=== PATIENT | female | born 1955 | race Caucasian/White ===

== ENCOUNTER 2016-07-19 10:24 | Emergency (ER) | payer OTHER ==
[~2016-07-19 10:24] MED LIST: ACET-1311 PO; ASPI81TA28 PO; ATOR-22 PO; ATV1 PO; ERGO1CAP35 PO; GEMF600T3 PO; GLC/500 PO; LEVO50TA PO; METO50TA16 PO; PROM25TA PO
[2016-07-19 10:29] VITALS: TEMP 36.7
[2016-07-19] MEDS ORDERED: KETOROLAC TROMETHAMINE 60 MG/2 ML VIAL IM STA (11:00)
[2016-07-19] MEDS ORDERED: HYDROmorphone INJ 0.5 MG/0.5 ML SYR IM ONE (11:00)
--- NOTE | 2016-07-19 12:03 | DIAGNOSTIC IMAGING REPORT ---
LUMBAR SPINE 2 OR 3 VIEWS CLINICAL HISTORY: lower back pain COMPARISON STUDY: No previous studies for comparison. FINDINGS: There are moderate multilevel degenerative changes with multilevel disc space narrowing. There is mild osteophyte formation. No acute fractures or traumatic subluxations are visualized. There is no pathologic bowel dilatation. There are multiple nonspecific pelvic basin calcifications. There is a 3 mm calcification projected over the upper pole the right kidney. This may represent a renal calculus. There is an eggshell calcification projected over the right iliac bone. This was present on the prior abdominal CT scan performed in May 2015, and all likelihood is benign.. IMPRESSION: 1. Moderate multilevel degenerative change 2. No fractures, subluxations, or destructive lesions are visualized. Electronically signed by: Yovani Benjamin M.D. 07/19/2016 12:02 PM Dictated Date/Time: 07/19/2016 12:00 PM
[2016-07-19] MEDS ORDERED: MoRPHine SULFATE 4 MG/ML 1 ML CARP\\VIAL IV STA (12:38)
[2016-07-19] MEDS ORDERED: OXYC1TAB3 PO (12:40)
[2016-07-19] MEDS ORDERED: MoRPHine SULFATE 4 MG/ML 1 ML CARP\\VIAL IM STA (12:45)
[2016-07-19 13:24] VITALS: BP 187/106; PULSE 77; O2SAT 97
--- NOTE | 2016-07-19 15:00 | EMERGENCY ROOM VISIT NOTE ---
History Report prepared by Isela: Betty Ware Under the Supervision of: Dr. Vasquez Gerardo D.O. First contact with patient: 10:36 Chief Complaint: BACK PAIN Stated Complaint: BACK PAIN History of Present Illness The patient is a 61 year old female who presents to the Emergency Room with complaints of worsening lower back pain that started one week ago. The patient speaks [place], but her friend from [place] translated for her. The patient states that the pain worsened 3 days ago, but was significantly worse today. The pain does not radiate. The pain is worse with movement and deep breaths but only located in the lower back. She denies any chest pain including any chest pain with deep breathing. Pt also denies headache, fevers greater than 100.4, cough, rhinorrhea, chest pain, shortness of breath, abdominal pain, nausea, vomiting, diarrhea, pain or burning with urination, numbness in legs including groin numbness, weakness, and trouble urinating or having bowel movements. She denies doing anything strenuous to cause the pain and she also denies any recent trauma to her back. The patient has never experienced this pain in the past. The patient adds that she has pain in her legs, but that is secondary to arthritis. The patient has a history of hypertension and high hemoglobin. Source of History: patient, friend Onset: one week ago Position: back (lower) Quality: other (lower back pain) Timing: worsening Modifying Factors (Worsening): breathing (deep), movement Associated Symptoms: No SOB, No abdominal pain, No chest pain, No cough, No diarrhea, No fevers, No headache, No nausea, No numbness (including groin numbness), No urinary symptoms (pain or burning with urination), No vomiting, No weakness Note: no rhinorrhea, no trouble urinating or having bowel movements Review of Systems See HPI for pertinent positives & negatives. A total of 10 systems reviewed and were otherwise negative. Past Medical & Surgical Medical Problems: (1) Hypertension Family History Hypertension Social History Smoking Status: Never Smoker Alcohol Use: none Marital Status: Housing Status: lives with family Current/Historical Medications Scheduled Metoprolol Tartrate (Lopressor) (Lopressor), 50 MG PO BID Scheduled PRN Oxycodone Immediate Rel Tab (Roxicodone Ir), 5 MG PO Q6H PRN for Pain Allergies Coded Allergies: No Known Allergies (Verified , 11/12/02) Physical Exam Vital Signs Date Time Temp Pulse Resp B/P Pulse Ox O2 Delivery O2 Flow Rate FiO2 07/19/16 13:24 77 18 187/106 97 07/19/16 13:00 77 18 187/106 97 Room Air 07/19/16 10:29 36.7 96 18 195/97 95 Room Air Physical Exam GENERAL: alert, sitting up on edge of bed holding lower back, disheveled, well appearing, well nourished, no distress, non-toxic EYE EXAM: normal conjunctiva OROPHARYNX: no exudate, no erythema, lips, buccal mucosa, and tongue normal and mucous membranes are moist NECK: supple, no nuchal rigidity, no adenopathy, non-tender LUNGS: Clear to auscultation. Normal chest wall mechanics HEART: no murmurs, S1 normal and S2 normal ABDOMEN: abdomen soft, non-tender, normo-active bowel sounds, no masses, no rebound or guarding. BACK: Back is symmetrical on inspection and there is no deformity, acute reproducible tenderness in lower lumbar midline and bilateral paraspinal regions, no deformities or step-offs, no CVA tenderness. SKIN: no rashes and no bruising UPPER EXTREMITIES: upper extremities are grossly normal. LOWER EXTREMITIES: Flexion/extension of hip, knee, ankle, EHL 5/5 bilaterally, unable to obtain patellar and Achilles reflexes as patient would not relax, gross sensations intact. NEURO EXAM: Alert, following commands, speaks Bangladeshi, cranial nerves II-XII grossly intact, normal speech, no gross weakness of arms Medical Decision & Procedures ER Provider Diagnostic Interpretation: Radiology results as stated below per my review and the radiologist's interpretation: LUMBAR SPINE 2 OR 3 VIEWS FINDINGS: There are moderate multilevel degenerative changes with multilevel disc space narrowing. There is mild osteophyte formation. No acute fractures or traumatic subluxations are visualized. There is no pathologic bowel dilatation. There are multiple nonspecific pelvic basin calcifications. There is a 3 mm calcification projected over the upper pole the right kidney. This may represent a renal calculus. There is an eggshell calcification projected over the right iliac bone. This was present on the prior abdominal CT scan performed in May 2015, and all likelihood is benign.. IMPRESSION: 1. Moderate multilevel degenerative change 2. No fractures, subluxations, or destructive lesions are visualized. Electronically signed by: Yovani Benjamin M.D. 07/19/2016 12:02 PM Dictated Date/Time: 07/19/2016 12:00 PM Medications Administered Medications (Trade) Dose Ordered Sig/Cristina Route Start Time Stop Time Status Last Admin Dose Admin Ketorolac Tromethamine (Toradol Inj) 30 mg NOW STAT IM 07/19/16 11:00 07/19/16 11:02 DC 07/19/16 11:16 30 MG Hydromorphone HCl (Dilaudid Inj) 0.5 mg NOW ONCE IM 07/19/16 11:00 07/19/16 11:02 DC 07/19/16 11:16 0.5 MG Morphine Sulfate (MoRPHine SULFATE INJ) 4 mg NOW STAT IM 07/19/16 12:45 07/19/16 12:47 DC 07/19/16 12:56 4 MG ED Course ED COURSE: Vital signs were reviewed and showed hypertension. The patients medical record was reviewed The above diagnostic studies were performed and reviewed. ED treatments and interventions as stated above. 1049: The patient was evaluated in room B5. A complete history and physical examination was performed. 1100: Ordered Dilaudid Inj 0.5 mg IM, Toradol Inj 30 mg IM 1230: Upon reevaluation, the patient is doing well. I discussed my findings with the patient and she understands and agrees with the treatment plan. Based on the patients age, coexisting illnesses, exam and lab findings the decision to treat as an outpatient was made. The patient remained stable while under my care. The patient appeared well at the time of discharge. 1245: Ordered Morphine sulfate 4 mg IM Medical Decision Differential diagnoses includes but is not limited to lumbar radiculopathy, muscle strain, facture, cauda equina, mass, and disc herniation. Patient is a 61-year-old female up since the ER for lower back pain which is been present for the past week and gradually worsening since this past Tuesday. She notes that twisting turning or bending exacerbates her symptoms. Rest and laying down almost completely alleviates them. No signs of saddle paresthesia. Able to ambulate without difficulty. Neurologically and vascularly intact. X -rays of the lumbar spine show no acute fractures. On exam and based on her history I do believe that this is likely muscle skeletal in nature. She was given IM injection of Dilaudid, Toradol and IM with significant improvement of the symptoms. Patient was discharged with OxyIR to follow-up with primary care doctor as this is likely muscle skeletal back pain. Discussed with Pt concerning signs and symptoms to watch out for. Pt was instructed to follow up with their PCP and discussed with the patient their option to return to the ED at anytime for persistent or worsening symptoms. The appropriate anticipatory guidance and out-patient management, including indications for return to the emergency department, were explained at length to the patient and understood. Impression Primary Impression: Lower back pain Scribe Attestation The scribe's documentation has been prepared under my direction and personally reviewed by me in its entirety. I confirm that the note above accurately reflects all work, treatment, procedures, and medical decision making performed by me. Departure Information Dispostion Home / Self-Care Prescriptions Oxycodone Immediate Rel Tab (ROXICODONE IR) 5 Mg Tab 5 MG PO Q6H Y for Pain, #15 TAB Prov: Vasquez Gerardo, DO 07/19/16 Referrals RV. Crenshaw MD (PCP) Forms HOME CARE DOCUMENTATION FORM, IMPORTANT VISIT INFORMATION Patient Instructions Back Pain - [facility], My [facility] Additional Instructions Please follow up with your primary care doctor with in the next 24 hours. Any worsening of your symptoms, please return to the ED immediately. This includes weakness or numbness in arms or legs, numbness in her groin, inability to walk, fevers greater than 100.4, unable to urinate, or any other concerning signs or symptoms from your standpoint. Please follow up with your primary care doctor in regards to your hypertension. You were given medications during this visit that will inhibit your ability to drive, operate machinery and work. Please do NOT drive, operate machinery or work for the next 12hrs. You were also given a prescription for a narcotic/oxy. While taking this medication you should also not drive, operate machinery and or work. Problem Qualifiers Primary Impression: Lower back pain Chronicity: acute Back pain laterality: bilateral Sciatica presence: without sciatica Qualified Codes: M54.5 - Low back pain
== END 2016-07-19 13:24 | disposition home or self-care (01) ==
LOC: C.EDB 10:26
DX: M54.5 Low back pain (principal); I10 Essential (primary) hypertension; M19.90 Unspecified osteoarthritis, unspecified site; Z82.49 Family history of ischemic heart disease and other diseases of the circulatory system; Z79.899 Other long term (current) drug therapy

== ENCOUNTER 2016-09-21 09:41 | Emergency (ER) | payer OTHER ==
[~2016-09-21] VITALS: Ht 165.1 cm; Wt 98.4 kg
[~2016-09-21 09:41] MED LIST changes: -ACET-1311 PO; -ASPI81TA28 PO; -ATOR-22 PO; -ATV1 PO; -ERGO1CAP35 PO; -GEMF600T3 PO; -GLC/500 PO; -LEVO50TA PO; +OXYC1TAB3 PO; -PROM25TA PO
[2016-09-21 09:42] VITALS: TEMP 36.7; Ht 165.1 cm; Wt 98.4 kg
[2016-09-21] MEDS ORDERED: KETOROLAC TROMETHAMINE 30 MG/ML VIAL IV STA (10:15)
[2016-09-21 10:55] LABS: BASO % 0.4 %; BASO ABS # 0.03 K/uL (0-0.2); COMPLETE YES; IG% 1.5 %; LYMPH % 18.8 %; LYMPH ABS # 1.34 K/uL (1.2-3.4); MEAN CELL VOLUME 89.4 fL (80-100); MEAN CORPUSCULAR HEMOGLOBIN 30.2 pg (25-34); MEAN CORPUSCULAR HGB CONC 33.8 g/dl (32-36); MONO % 11.6 %; NEUT % 65.7 %; PLATELET COUNT 277 K/uL (130-400); RED BLOOD COUNT 5.93 M/uL (4.2-5.4); WHITE BLOOD COUNT 7.14 K/uL (4.8-10.8)
--- NOTE | 2016-09-21 10:58 | EMERGENCY ROOM VISIT NOTE ---
History Report prepared by Isela: Onofre Monge Under the Supervision of: Dr. Tadeo Brown M.D. First contact with patient: 10:08 Chief Complaint: HIP PAIN Stated Complaint: PAIN INTO HIP AND SPINE History of Present Illness The patient is a 61 year old female who presents to the Emergency Room with complaints of intermittent low back pain beginning two years ago. She states that she occasionally has pain in her bilateral legs and hips as well. She states that her pain today was present in her low back as well as throughout her legs. The patient states that she woke up with her current pain. She denies any known trauma. She also complains of a headache. The patient denies any chest pain, SOB, fevers, numbness, diarrhea, loss of bowel or bladder continence , or weakness. She has been seen in the ED for similar symptoms. Source of History: patient Onset: Two years ago Position: back (lower) Timing: intermittent Associated Symptoms: + headache, No fevers, No chest pain, No SOB, No diarrhea, No weakness, No numbness Note: The patient also complains of pain throughout her legs. She denies any loss of bowel or bladder continence. Review of Systems See HPI for pertinent positives & negatives. A total of 10 systems reviewed and were otherwise negative. Past Medical & Surgical Medical Problems: (1) Hypertension Old medical records were reviewed. Nurse's notes were reviewed and I agree with. Family History Hypertension Social History Smoking Status: Never Smoker Alcohol Use: none Marital Status: Housing Status: lives with family Current/Historical Medications Scheduled Cephalexin Monohydrate (Keflex), 500 MG PO BID Methylprednisolone (Medrol Dosepak), 0 PO DAILY Metoprolol Tartrate (Lopressor) (Lopressor), 50 MG PO BID Scheduled PRN Oxycodone Immediate Rel Tab (Roxicodone Ir), 1 TAB PO Q6 PRN for Severe Pain Allergies Coded Allergies: No Known Allergies (Verified , 09/21/16) Physical Exam Vital Signs Date Time Temp Pulse Resp B/P (MAP) Pulse Ox O2 Delivery O2 Flow Rate FiO2 09/21/16 13:32 87 18 211/115 94 09/21/16 11:32 81 18 180/122 96 Room Air 09/21/16 09:42 36.7 104 18 203/97 97 Room Air Physical Exam General: non ill appearing older female in no acute distress HEENT: Normal cephalic atraumatic. Pupils are equal round and reactive to light. Extraocular movements are intact. Oropharynx is pink with moist mucous membranes. No swelling of the mouth lips or tongue. Neck: Supple with a midline trachea. No meningeal signs or stiffness, no JVD or bruits. No Stridor. Chest: Clear to auscultation bilaterally. No wheezes or rhonchi. No increased work of breathing. Heart: regular rate and rhythm. Abdomen: Soft nontender, nondistended without rebound guarding or rigidity. Extremities: Pain along the left SI joint which is palpable as well as pain down the left leg. Normal motor and sensation. Spine/Back. Non tender to palpation. No CVA tenderness Skin: Good turgor without rashes. Neurologic exam: Cranial nerves two through 12 are intact. Motor and sensation are intact and symmetrical throughout. Medical Decision & Procedures ER Provider Diagnostic Interpretation: CT results as stated below per my review and radiologist interpretation: LUMBAR SPINE WITHOUT FINDINGS: Vertebral body stature is normal throughout. Moderate degenerative intervertebral disc change throughout the entire lumbar region. Vacuum discs at L4-L5 and L5-S1. Small air pocket posterior to L5 most likely representing extruded disc air. This is on a degenerative basis. Transaxial images confirm degenerative sclerosis and vacuum discs involving the L5-S1 regions bilaterally. There is no evidence for bony ankylosis. There are moderate degenerative changes of posterior facets throughout the entire lumbar region. No major compromise of the spinal canal is appreciated by CT criteria. IMPRESSION: 1. Moderate to rather significant degenerative disc change throughout the entire lumbar region. 2. No evidence for major compromise of the spinal canal. 3. Considerable degenerative sclerosis and vacuum joint changes of the sacroiliac joints bilaterally The above report was generated using voice recognition software. It may contain grammatical, syntax or spelling errors. Electronically signed by: Keon Morris M.D. PELVIS NO IV/ORAL CONT (CT) FINDINGS: Ovoid peripherally calcified structure, 1.6 x 1.1 cm within the right lower quadrant mesentery is unchanged and nonspecific. Appendix appears normal. There is asymmetric prominence of the left fundal uterus compatible with uterine fibroids. No bowel obstruction. Patient obesity is noted with portions of the anterior pelvic wall excluded from the [id number]. Bones are moderately demineralized which limits evaluation for acute nondisplaced fracture. Degenerative changes are seen within the bilateral sacroiliac joints. Bone islands involve the left acetabulum. There is spurring at the bilateral ischial tuberosities at the hamstring insertion sites. The sacrum appears intact without insufficiency fracture. Lower lumbar levels also appear intact with intervertebral disc space narrowing and endplate spurring seen at several levels. There is subtle linear sclerosis of the S1 vertebral body which is unchanged from 06/04/2015 suggesting degenerative changes. IMPRESSION: 1. No acute sacral or pelvic fracture identified. 2. Mild inflammatory stranding anterior to the urinary bladder lumen may reflect cystitis in the appropriate clinical setting. 3. Fibroid uterus. The above report was generated using voice recognition software. It may contain grammatical, syntax or spelling errors. Electronically signed by: Apollo Holman M.D. Laboratory Results 09/21/16 10:42 Red Blood Count 5.93, Mean Corpuscular Volume 89.4, Mean Corpuscular Hemoglobin 30.2, Mean Corpuscular Hemoglobin Concent 33.8, Mean Platelet Volume 10.0, Neutrophils (%) (Auto) 65.7, Lymphocytes (%) (Auto) 18.8, Monocytes (%) (Auto) 11.6, Eosinophils (%) (Auto) 2.0, Basophils (%) (Auto) 0.4, Neutrophils # (Auto ) 4.69, Lymphocytes # (Auto) 1.34, Monocytes # (Auto) 0.83, Eosinophils # (Auto ) 0.14, Basophils # (Auto) 0.03 09/21/16 10:42 Test 09/21/16 10:42 09/21/16 12:07 White Blood Count 7.14 K/uL (4.8-10.8) Red Blood Count 5.93 M/uL (4.2-5.4) Hemoglobin 17.9 g/dL (12.0-16.0) Hematocrit 53.0 % (37-47) Mean Corpuscular Volume 89.4 fL (80-100) Mean Corpuscular Hemoglobin 30.2 pg (25-34) Mean Corpuscular Hemoglobin Concent 33.8 g/dl (32-36) Platelet Count 277 K/uL (130-400) Mean Platelet Volume 10.0 fL (7.4-10.4) Neutrophils (%) (Auto) 65.7 % Lymphocytes (%) (Auto) 18.8 % Monocytes (%) (Auto) 11.6 % Eosinophils (%) (Auto) 2.0 % Basophils (%) (Auto) 0.4 % Neutrophils # (Auto) 4.69 K/uL (1.4-6.5) Lymphocytes # (Auto) 1.34 K/uL (1.2-3.4) Monocytes # (Auto) 0.83 K/uL (0.11-0.59) Eosinophils # (Auto) 0.14 K/uL (0-0.5) Basophils # (Auto) 0.03 K/uL (0-0.2) RDW Standard Deviation 50.9 fL (36.4-46.3) RDW Coefficient of Variation 15.4 % (11.5-14.5) Immature Granulocyte % (Auto) 1.5 % Immature Granulocyte # (Auto) 0.11 K/uL (0.00-0.02) Anion Gap 11.0 mmol/L (3-11) Est Creatinine Clear Calc Drug Dose 74.3 ml/min Estimated GFR () 78.9 Estimated GFR (Non- 68.0 BUN/Creatinine Ratio 13.5 (10-20) Calcium Level 9.5 mg/dl (8.5-10.1) Urine Color DK YELLOW Urine Appearance CLOUDY (CLEAR) Urine pH 5.5 (4.5-7.5) Urine Specific [place] 1.033 (1.000-1.030) Urine Protein TRACE (NEG) Urine Glucose (UA) 1+ (NEG) Urine Ketones TRACE (NEG) Urine Occult Blood TRACE (NEG) Urine Nitrite NEG (NEG) Urine Bilirubin NEG (NEG) Urine Urobilinogen NEG (NEG) Urine Leukocyte Esterase MODERATE (NEG) Urine WBC (Auto) 10-30 /hpf (0-5) Urine RBC (Auto) 0-4 /hpf (0-4) Urine Hyaline Casts (Auto) 10-30 /lpf (0-5) Urine Epithelial Cells (Auto) >30 /lpf (0-5) Urine Bacteria (Auto) 2+ (NEG) Laboratory studies as stated above per my review. Medications Administered Medications (Trade) Dose Ordered Sig/Cristina Route Start Time Stop Time Status Last Admin Dose Admin Ketorolac Tromethamine (Toradol Inj) 30 mg NOW STAT IV 09/21/16 10:15 7/18/17 10:17 DC 09/21/16 10:49 30 MG Morphine Sulfate (MoRPHine SULFATE INJ) 4 mg NOW STAT IV 09/21/16 12:04 09/21/16 12:06 DC 09/21/16 12:15 4 MG Ondansetron HCl (Zofran Inj) 4 mg NOW STAT IV 09/21/16 12:04 09/21/16 12:06 DC 09/21/16 12:15 4 MG Cephalexin Monohydrate (Keflex Cap) 500 mg NOW ONCE PO 09/21/16 13:00 09/21/16 13:01 DC 09/21/16 13:26 500 MG ED Course 1010: Past medical records reviewed. The patient was evaluated in room B2, and a complete history and physical examination were performed. 1015: Ordered Toradol Inj 30 mg IV. 1129: I checked in on the patient. She is feeling better. 1204: I reassessed the patient. She denies any urinary symptoms, but continues to have pain. Ordered Morphine Sulfate 4 mg IV, Zofran Inj 4 mg IV. 1300: Ordered Keflex Cap 500 mg PO. Upon reevaluation, the patient is resting comfortably. I discussed the results and treatment plan with her. She verbalized agreement of the treatment plan. The patient was discharged home. Medical Decision Differentials include, but are not limited to; musculoskeletal, disc disease, cauda equine, trauma and electrolyte or metabolic abnormality. This patient comes in as described above. She was placed in room B2. She is having pain along her left SI joint. Hip she was seen back in July for this and had x-rays done here she's had no trauma. She's nothing since cauda equina syndrome. She is here with a friend who is driving IV access established and given Toradol IV. She was alsomorphine 4 mg IV and Zofran 4 mg IV is feeling much better.. She has no acute electrolyte or metabolic abnormalities. Urinalysis does suggest possible UTI although it somewhat contaminated. CAT scan of her abdomen is questions inflammation on Keflex to cover the possibility a UTI although she's no urinary symptoms present. Additionally, I will give her OxyIR needed for pain pill every 4-6 hours. She was warned that it could make her drowsy and do not take more before drinking, driving, working. She can also use a Medrol Dosepak. I think this most likely is related to degenerative disc disease spine disease. I do think she be discharged home. She was able to ambulate without difficulty. She should return if: increasing of pain, worsening symptoms, fever or chills, any new problems or concerns Impression Primary Impression: Lower back pain Additional Impressions: Sciatica UTI (urinary tract infection) Scribe Attestation The scribe's documentation has been prepared under my direction and personally reviewed by me in its entirety. I confirm that the note above accurately reflects all work, treatment, procedures, and medical decision making performed by me. Departure Information Dispostion Home / Self-Care Prescriptions Cephalexin Monohydrate (Keflex) 500 Mg Cap 500 MG PO BID for 7 Days, #14 CAP Prov: Tadeo Brown M.D. 09/21/16 Oxycodone Immediate Rel Tab (ROXICODONE IR) 5 Mg Tab 1 TAB PO Q6 Y for Severe Pain, #14 TAB Prov: Tadeo Brown M.D. 09/21/16 Methylprednisolone (MEDROL DOSEPAK) 4 Mg Leonardo 0 PO DAILY, #1 PKT Prov: Tadeo Brown M.D. 09/21/16 Referrals RV. Crenshaw MD (PCP) Forms HOME CARE DOCUMENTATION FORM, IMPORTANT VISIT INFORMATION, WORK / SCHOOL INSTRUCTIONS Patient Instructions My [facility] Additional Instructions Rest. Be careful getting up and down. Use ibuprofen 400 mg every 6 hours, take with food For more severe pain, use OxyIR 5 mg, 1 pill every 6 hours as needed OxyIR may make you drowsy do not take before drinking, driving, working Do not take OxyIR with any other medications that may make you drowsy Use Medrol Dosepak as directed-steroid. This will help decrease inflammation Take Keflex 500 mg twice a day for the next 7 daysantibiotic for possible infection Return if: Worsening of symptoms, numbness or weakness, change in bowel or bladder function, fever chills, any new problems or concerns. Doctor this week for recheck Problem Qualifiers
[2016-09-21 11:16] LABS: BUN/CREATININE RATIO 13.5 (10-20); CALCIUM 9.5 mg/dl (8.5-10.1); CREATININE 0.9 mg/dl (0.60-1.20); POTASSIUM 3.9 mmol/L (3.5-5.1)
--- NOTE | 2016-09-21 11:37 | DIAGNOSTIC IMAGING REPORT ---
LUMBAR SPINE WITHOUT CT DOSE: HISTORY: Pain eval for SI joint pain on left TECHNIQUE: Multiaxial CT images of the lumbar spine were performed and reformatted in the sagittal and coronal plane without the use of contrast. COMPARISON: None. FINDINGS: Vertebral body stature is normal throughout. Moderate degenerative intervertebral disc change throughout the entire lumbar region. Vacuum discs at L4-L5 and L5-S1. Small air pocket posterior to L5 most likely representing extruded disc air. This is on a degenerative basis. Transaxial images confirm degenerative sclerosis and vacuum discs involving the L5-S1 regions bilaterally. There is no evidence for bony ankylosis. There are moderate degenerative changes of posterior facets throughout the entire lumbar region. No major compromise of the spinal canal is appreciated by CT criteria. IMPRESSION: 1. Moderate to rather significant degenerative disc change throughout the entire lumbar region. 2. No evidence for major compromise of the spinal canal. 3. Considerable degenerative sclerosis and vacuum joint changes of the sacroiliac joints bilaterally The above report was generated using voice recognition software. It may contain grammatical, syntax or spelling errors. Electronically signed by: Keon Morris M.D. 09/21/2016 11:36 AM Dictated Date/Time: 09/21/2016 11:33 AM
--- NOTE | 2016-09-21 11:49 | DIAGNOSTIC IMAGING REPORT ---
PELVIS NO IV/ORAL CONT (CT) HISTORY: 61 years Female left hip/buttock pain COMPARISON: CT abdomen and pelvis 06/04/2015 TECHNIQUE: Multiple axial CT images of the pelvis were obtained without IV contrast. FINDINGS: Ovoid peripherally calcified structure, 1.6 x 1.1 cm within the right lower quadrant mesentery is unchanged and nonspecific. Appendix appears normal. There is asymmetric prominence of the left fundal uterus compatible with uterine fibroids. No bowel obstruction. Patient obesity is noted with portions of the anterior pelvic wall excluded from the [id number]. Bones are moderately demineralized which limits evaluation for acute nondisplaced fracture. Degenerative changes are seen within the bilateral sacroiliac joints. Bone islands involve the left acetabulum. There is spurring at the bilateral ischial tuberosities at the hamstring insertion sites. The sacrum appears intact without insufficiency fracture. Lower lumbar levels also appear intact with intervertebral disc space narrowing and endplate spurring seen at several levels. There is subtle linear sclerosis of the S1 vertebral body which is unchanged from 06/04/2015 suggesting degenerative changes. IMPRESSION: 1. No acute sacral or pelvic fracture identified. 2. Mild inflammatory stranding anterior to the urinary bladder lumen may reflect cystitis in the appropriate clinical setting. 3. Fibroid uterus. The above report was generated using voice recognition software. It may contain grammatical, syntax or spelling errors. Electronically signed by: Apollo Holman M.D. 09/21/2016 11:47 AM Dictated Date/Time: 09/21/2016 11:41 AM
[2016-09-21] MEDS ORDERED: MoRPHine SULFATE 4 MG/ML 1 ML CARP\\VIAL IV STA (12:04)
[2016-09-21] MEDS ORDERED: ONDANSETRON INJ 2 MG/ML 2 ML VIAL IV STA (12:04)
[2016-09-21] MEDS ORDERED: OXYC1TAB3 PO (12:08)
[2016-09-21] MEDS ORDERED: METH4PAK PO (12:08)
[2016-09-21 12:26] LABS: URINE APPEARANCE CLOUDY (CLEAR); URINE BILIRUBIN NEG (NEG); URINE COLOR DK YELLOW; URINE EPITHELIAL CELL AUTO >30 /lpf (0-5); URINE NITRITE NEG (NEG); URINE PH 5.5 (4.5-7.5); URINE SPECIFIC GRAVITY 1.033 (1.000-1.030); UROBILINOGEN NEG (NEG)
[2016-09-21 12:27] LABS: MANUAL MICROSCOPIC REQUIRED? NO; REVIEW REQ? NO
[2016-09-21] MEDS ORDERED: CEPHALEXIN MONOHYDRATE 250 MG CAP PO ONE (13:00)
[2016-09-21] MEDS ORDERED: CEPH500C PO (13:02)
[2016-09-21 13:32] VITALS: BP 211/115; PULSE 87; O2SAT 94
== END 2016-09-21 13:33 | disposition home or self-care (01) ==
LOC: C.EDB 09:42
DX: M54.42 Lumbago with sciatica, left side (principal); I10 Essential (primary) hypertension; Z82.49 Family history of ischemic heart disease and other diseases of the circulatory system; Z79.899 Other long term (current) drug therapy

== ENCOUNTER → 2016-09-30 | Outpatient (CLI) | payer OTHER ==
[~2016-09-30] MED LIST changes: +CHOL100010 PO; +CYCL5TAB PO; +DICL50TA3 PO; +LISI10TA PO; +LISI1TAB3 PO; +MELO7.5T5 PO; +METH4PAK PO
[2016-09-30 16:42] LABS: BASO % 0.3 %; BASO ABS # 0.03 K/uL (0-0.2); COMPLETE YES; EOS % 0.6 %; HEMATOCRIT 51.7 % (37-47); IG% 2.4 %; LYMPH % 14.3 %; LYMPH ABS # 1.37 K/uL (1.2-3.4); MEAN CELL VOLUME 89.9 fL (80-100); MEAN CORPUSCULAR HEMOGLOBIN 29.9 pg (25-34); MEAN CORPUSCULAR HGB CONC 33.3 g/dl (32-36); MEAN PLATELET VOLUME 10.2 fL (7.4-10.4); MONO % 8.2 %; NEUT % 74.2 %; PLATELET COUNT 303 K/uL (130-400); RED BLOOD COUNT 5.75 M/uL (4.2-5.4)
[2016-09-30 16:53] LABS: URINE APPEARANCE CLOUDY (CLEAR); URINE BILIRUBIN NEG (NEG); URINE COLOR YELLOW; URINE EPITHELIAL CELL AUTO >30 /lpf (0-5); URINE NITRITE NEG (NEG); URINE PH 5.5 (4.5-7.5); URINE SPECIFIC GRAVITY 1.034 (1.000-1.030); UROBILINOGEN NEG (NEG); ZZUR CULT IF INDIC CLEAN CATCH YES
[2016-09-30 17:03] LABS: MANUAL MICROSCOPIC REQUIRED? NO; REVIEW REQ? YES
[2016-09-30 17:13] LABS: ALT/SGPT 47 U/L (12-78); BLOOD UREA NITROGEN 18 mg/dl (7-18); BUN/CREATININE RATIO 19.7 (10-20); CALCIUM 8.9 mg/dl (8.5-10.1); CARBON DIOXIDE 24 mmol/L (21-32); CHLORIDE 107 mmol/L (98-107); CHOLESTEROL 269 mg/dl (0-200); CREATININE 0.91 mg/dl (0.60-1.20); GLUCOSE 114 mg/dl (70-99); POTASSIUM 3.6 mmol/L (3.5-5.1); SODIUM 144 mmol/L (136-145); TRIGLYCERIDES 613 mg/dl (0-150)
[2016-09-30 17:23] LABS: ALKALINE PHOSPHATASE 93 U/L (45-117); AST/SGOT 15 U/L (15-37); HDL CHOLESTEROL 45 mg/dl
[2016-10-01 08:59] LABS: ESTIMATED AVERAGE GLUCOSE 140 mg/dl; HA1C FLAG Normal (Normal)
== END | disposition home or self-care (01) ==
LOC: C.LAB1850 15:20
PROVIDERS: ATTEND Internal Medicine
DX: E11.9 Type 2 diabetes mellitus without complications (principal); E78.5 Hyperlipidemia, unspecified; E55.9 Vitamin D deficiency, unspecified; I10 Essential (primary) hypertension; Z00.00 Encounter for general adult medical examination without abnormal findings; Z11.59 Encounter for screening for other viral diseases; R79.89 Other specified abnormal findings of blood chemistry; E03.9 Hypothyroidism, unspecified

== ENCOUNTER 2016-10-03 07:24 | Emergency (ER) | payer OTHER ==
[~2016-10-03] VITALS: Ht 165.1 cm; Wt 96.8 kg
[~2016-10-03 07:24] MED LIST changes: -CHOL100010 PO; -CYCL5TAB PO; -DICL50TA3 PO; -LISI10TA PO; -LISI1TAB3 PO; -MELO7.5T5 PO; -METH4PAK PO
[2016-10-03 07:26] VITALS: TEMP 36.8; Ht 165.1 cm; Wt 96.8 kg
[2016-10-03] MEDS ORDERED: MoRPHine SULFATE 4 MG/ML 1 ML CARP\\VIAL IM STA (07:47)
[2016-10-03] MEDS ORDERED: CYCL5TAB PO (07:55)
[2016-10-03] MEDS ORDERED: LISI1TAB3 PO (07:55)
[2016-10-03] MEDS ORDERED: MELO7.5T5 PO (07:55)
--- NOTE | 2016-10-03 07:56 | EMERGENCY ROOM VISIT NOTE ---
History First contact with patient: 07:32 Chief Complaint: BACK PAIN Stated Complaint: BACK PAIN History of Present Illness The patient is a 61 year old female who presents to the Emergency Room with complaints of low back pain. The patient has had low back pain that radiates to the left leg for several months. The patient has been seen here twice and also saw her family doctor. The patient was given oxycodone from the emergency department which seemed to help the pain. She saw her family doctor 3 days ago. Physical therapy and electromyogram's were ordered. These have not been done yet. She was given meloxicam and Flexeril which has not been controlling her pain. She rates her discomfort a 9/10. The pain is in the lower back, left SI and down the left leg. The daughter states that this is the same pain and same problem. She has not had any falls or injuries. She has not had any loss of bowel or bladder control. She has not had numbness. She denies any abdominal pain, fever, chest pain, trouble breathing. She denies any dysuric emergency or frequency. She denies any falls or injuries. The patient has had x-rays of the lumbar spine as well as CT scan of the lumbar spine and pelvis. These showed significant degenerative changes. Review of Systems A 10 system review of systems was completed with positives and pertinent negatives listed in the HPI. Past Medical/Surgical History Medical Problems: (1) Hypertension Family History Hypertension Social History Smoking Status: Never Smoker Alcohol Use: none Marital Status: Housing Status: lives with family Current/Historical Medications Scheduled Meloxicam (Mobic), 7.5 MG PO DAILY Methylprednisolone (Medrol Dosepak), 1 PKT PO UD Scheduled PRN Cyclobenzaprine Hcl (Flexeril), 5 MG PO HS PRN for Muscle Spasms Lisinopril (Zestril), 30 MG PO DAILY PRN for Blood Pressure Oxycodone Ir (Roxicodone Ir), 1-2 TAB PO Q4H PRN for Pain Physical Exam Vital Signs Date Time Temp Pulse Resp B/P (MAP) Pulse Ox O2 Delivery O2 Flow Rate FiO2 10/03/16 08:35 99 18 135/97 95 10/03/16 07:26 36.8 97 18 190/91 96 Room Air Physical Exam VITALS: Vitals are noted on the nurse's note and reviewed by myself. Vital signs stable. The patient is afebrile. GENERAL: This is a 61-year-old female, in no acute distress, nondiaphoretic, well-developed well-nourished. SKIN: The skin was without rashes, erythema, edema, or bruising. There is no tenting of the skin. Capillary reflex less than 2 seconds. HEAD: Normocephalic atraumatic. EARS: The external ears are normal in appearance. EYES: Pupils equal round and reactive to light and accommodation. Conjunctivae without injection, sclerae without icterus. Extraocular movements intact. NOSE: Patent, turbinates without inflammation or discharge. MOUTH: Mucous membranes moist. Tonsils are not enlarged. Pharynx without erythema or exudate. Uvula midline. Airway patent. Tongue does not deviate. NECK: Supple without nuchal rigidity. No lymphadenopathy. No thyromegaly. Cervical spine is nontender. No JVD. HEART: Regular rate and rhythm without murmurs gallops or rubs. LUNGS: Clear to auscultation bilaterally without wheezes, rales or rhonchi. Strength No retractions or accessory muscle use. ABDOMEN: Positive bowel sounds x 4. Soft, nontender, without masses or organomegaly. MUSCULOSKELETAL: No muscle atrophy, erythema, or edema noted. There is tenderness to palpation in the area of the left S I. There is minimal tenderness to palpation in the area of the lumbar spine. There is no obvious muscle spasm. There is no tenderness to palpation or muscle spasm in the thoracic spine. Positive straight leg raise on the left. Strength 5/5 throughout. NEURO: Patient was alert and oriented to person place and time. Normal sensation sharp touch. Deep tendon reflexes 2+ in the lower extremities bilaterally. No focal neurological deficits. Medical Decision & Procedures Laboratory Results Test 10/03/16 07:40 Urine Color YELLOW Urine Appearance CLOUDY (CLEAR) Urine pH 5.5 (4.5-7.5) Urine Specific [place] 1.020 (1.000-1.030) Urine Protein NEG (NEG) Urine Glucose (UA) NEG (NEG) Urine Ketones NEG (NEG) Urine Occult Blood TRACE (NEG) Urine Nitrite NEG (NEG) Urine Bilirubin NEG (NEG) Urine Urobilinogen NEG (NEG) Urine Leukocyte Esterase MODERATE (NEG) Urine WBC (Auto) 10-30 /hpf (0-5) Urine RBC (Auto) 0-4 /hpf (0-4) Urine Hyaline Casts (Auto) 1-5 /lpf (0-5) Urine Epithelial Cells (Auto) >30 /lpf (0-5) Urine Bacteria (Auto) 1+ (NEG) Medications Administered Medications (Trade) Dose Ordered Sig/Cristina Route Start Time Stop Time Status Last Admin Dose Admin Morphine Sulfate (MoRPHine SULFATE INJ) 4 mg NOW STAT IM 10/03/16 07:47 10/03/16 07:49 DC 10/03/16 07:57 4 MG Dexamethasone Sodium Phosphate (Decadron Inj) 6 mg NOW ONCE IM 10/03/16 08:00 10/03/16 08:01 DC 10/03/16 07:58 6 MG ED Course The patient was seen and examined. Previous visits were reviewed. The patient has been seen here twice and had imaging including x-rays and CT scan. She has significant degenerative change. She does not have any neurologic deficit on exam or by history to suggest cauda equina or cord compression. She does not have a fever. She has not had any significant change in her symptoms. The pain was managed with oxycodone. Her family doctor switched her to meloxicam and Flexeril and the pain is not controlled. She has an outpatient workup in process. She came to the emergency department because of the pain. She was given 6 mg IM Decadron and 4 mg IM morphine. She'll be given a Medrol Dosepak and a prescription for oxycodone. She should follow-up with her family doctor as scheduled. I did offer the possibility of inpatient rehabilitation at [facility] but the patient and her daughter decline. She was given 4 mg IM morphine and 6 mg IM Decadron with good improvement in her pain The patient did well with oxycodone. She has appropriately followed up with her family doctor and had outpatient studies ordered. She was having increased pain in the meantime. She was given a prescription for oxycodone and Medrol Dosepak. She should return with worsening symptoms. Otherwise, she should follow-up with her family doctor for further evaluation and management. The case was discussed with Dr. Price who agrees with the assessment and treatment plan. Medical Decision DIFFERENTIAL DIAGNOSIS: Lumbar strain, degenerative disc disease, spondylolisthesis, herniated disc, spinal stenosis, osteoporosis, fracture, cauda equina syndrome, neoplasm, infection, inflammatory arthritis, among others. [place] Drug Monitoring Program Search Results: patient reviewed within database, no issues identified Medication Reconcilliation Current Medication List: was personally reviewed by me Blood Pressure Screening Patient's blood pressure: Elevated blood pressure Blood pressure disposition: Elevated BP felt to be situational Impression Primary Impression: Back pain with radiation Departure Information Dispostion Home / Self-Care Condition GOOD Prescriptions Oxycodone Ir (Roxicodone Ir) 5 Mg Tab 1-2 TAB PO Q4H Y for Pain, #36 TAB For Initial Treatment Prov: Maryjane Bender PA-C 10/03/16 Methylprednisolone (MEDROL DOSEPAK) 4 Mg Leonardo 1 PKT PO UD, #1 PKT Prov: Maryjane Bender PA-C 10/03/16 Referrals RV. Crenshaw MD (PCP) Patient Instructions Back Pain Relieve, Low Back Pain Self Care, [facility] CoSchedule Additional Instructions Rest off your feet for 1 to 2 days, ice for 24 hrs then heat to the low back. See your own doctor or an orthopedist in 3-5 days if you are not improving. Stop the meloxicam. Taking it with prednisone can increase risk of bleeding Oxy IR 1 tablets every 4-6 hrs as needed for severe pain. No driving or alcohol use with Oxy IR. Medrol Dosepak as prescribed Continue the outpatient workup with your family doctor Return with fever, abdominal pain, vomiting or if you develop any problems with bowel or bladder function or if loss of sensation/movement of lower extremities.
[2016-10-03] MEDS ORDERED: DEXAMETHASONE SOD INJ 10 MG/ML VIAL IM ONE (08:00)
[2016-10-03 08:08] LABS: URINE APPEARANCE CLOUDY (CLEAR); URINE BILIRUBIN NEG (NEG); URINE COLOR YELLOW; URINE EPITHELIAL CELL AUTO >30 /lpf (0-5); URINE NITRITE NEG (NEG); URINE PH 5.5 (4.5-7.5); UROBILINOGEN NEG (NEG); ZZUR CULT IF INDIC CLEAN CATCH YES
[2016-10-03 08:10] LABS: MANUAL MICROSCOPIC REQUIRED? NO; REVIEW REQ? NO
[2016-10-03] MEDS ORDERED: METH4PAK PO (08:29)
[2016-10-03] MEDS ORDERED: OXYC1TAB3 PO (08:29)
[2016-10-03 08:35] VITALS: BP 135/97; PULSE 99; O2SAT 95
== END 2016-10-03 08:43 | disposition home or self-care (01) ==
LOC: C.EDB 07:24
DX: M54.5 Low back pain (principal); I10 Essential (primary) hypertension; Z82.49 Family history of ischemic heart disease and other diseases of the circulatory system

== ENCOUNTER → 2016-11-12 | Outpatient (CLI) | payer OTHER ==
[~2016-11-12] MED LIST changes: +CHOL100010 PO; +CYCL5TAB PO; +DICL50TA3 PO; +LISI10TA PO; +LISI1TAB3 PO; +MELO7.5T5 PO; +METH4PAK PO; -METO50TA16 PO
[2016-11-12 15:31] LABS: BLOOD UREA NITROGEN 16 mg/dl (7-18); CREATININE 0.97 mg/dl (0.60-1.20)
== END | disposition home or self-care (01) ==
LOC: C.LAB 13:52
PROVIDERS: ATTEND Internal Medicine
DX: M54.10 Radiculopathy, site unspecified (principal)

== ENCOUNTER → 2016-11-15 | Outpatient (CLI) | payer OTHER ==
--- NOTE | 2016-11-15 15:29 | DIAGNOSTIC IMAGING REPORT ---
LUMBAR SPINE W/O CONTRAST HISTORY: Back pain. Radiculopathy. M54.16 Lumbar [id number] Back pain with left-sided radi TECHNIQUE: Multiplanar multisequence MRI of the lumbar spine was performed without the use of contrast. COMPARISON: None. FINDINGS: For the purpose of the report the L5-S1 disc space will be located on axial image 23 of 25. Moderate to significant degenerative disc changes throughout. Degenerative Schmorl's node superior endplate L4. L1-L2: No significant central canal or neural foraminal narrowing. L2-L3: No significant central canal or neural foraminal narrowing. L3-L4: Mild broad-based bulging disc. Moderate narrowing left neural foramina. Right neuroforamina is patent. L4-L5: Broad-based bulging disc, with a small left posterior disc herniation. Mild narrowing left neural foramina. Mild impact left anterior aspect thecal sac L5-S1: No significant central canal or neural foraminal narrowing. IMPRESSION: 1. Broad-based bulging disc L4-L5 with a focal left posterior disc herniation. 2. This creates moderate focal impact left anterior aspect of thecal sac with moderate narrowing left neuroforamina. 3. Broad-based bulging disc L3-L4 with moderate narrowing left neuroforamina. 4. Significant degenerative disc change throughout the entire lumbar region. The above report was generated using voice recognition software. It may contain grammatical, syntax or spelling errors. Electronically signed by: Keon Morris M.D. 11/15/2016 3:28 PM Dictated Date/Time: 11/15/2016 3:23 PM
== END | disposition home or self-care (01) ==
LOC: C.MRI 13:46
PROVIDERS: ATTEND Internal Medicine
DX: M51.17 Intervertebral disc disorders with radiculopathy, lumbosacral region (principal); R26.9 Unspecified abnormalities of gait and mobility; R94.131 Abnormal electromyogram [EMG]; M51.16 Intervertebral disc disorders with radiculopathy, lumbar region

== ENCOUNTER → 2016-11-17 | Outpatient (CLI) | payer OTHER ==
--- NOTE | 2016-11-17 18:06 | DIAGNOSTIC IMAGING REPORT ---
LEFT TIBIA/FIBULA 2 VIEWS ROUTINE CLINICAL HISTORY: W19.XXX COMPARISON: None. DISCUSSION: Findings of mild soft tissue edema. Benign bone marrow island proximal aspect of the tibia. No acute bony abnormality. No abnormal periosteal reaction. IMPRESSION: Soft tissue edema. No acute bony abnormality. The above report was generated using voice recognition software. It may contain grammatical, syntax or spelling errors. Electronically signed by: Keon Morris M.D. 11/17/2016 6:05 PM Dictated Date/Time: 11/17/2016 6:04 PM
== END | disposition home or self-care (01) ==
LOC: C.RAD 17:27
PROVIDERS: ATTEND Internal Medicine
DX: R60.0 Localized edema (principal); W19.XXXA Unspecified fall, initial encounter

== ENCOUNTER 2016-12-07 17:00 | Emergency (ER) | payer OTHER ==
[~2016-12-07] VITALS: Ht 160 cm; Wt 93.0 kg
[~2016-12-07 17:00] MED LIST changes: -CHOL100010 PO; -DICL50TA3 PO; -LISI10TA PO; -METH4PAK PO; -OXYC1TAB3 PO
[2016-12-07 17:07] VITALS: TEMP 37; Ht 160 cm; Wt 93.0 kg
[2016-12-07] MEDS ORDERED: MoRPHine SULFATE 4 MG/ML 1 ML CARP\\VIAL IM STA (17:48)
[2016-12-07] MEDS ORDERED: LISI10TA PO (17:51)
[2016-12-07] MEDS ORDERED: DICL50TA3 PO (17:51)
[2016-12-07] MEDS ORDERED: CHOL100010 PO (17:51)
[2016-12-07] MEDS ORDERED: DEXAMETHASONE SOD INJ 10 MG/ML VIAL IM ONE (18:00)
[2016-12-07] MEDS ORDERED: METH4PAK PO (18:47)
[2016-12-07] MEDS ORDERED: OXYC1TAB3 PO (18:47)
[2016-12-07 19:01] VITALS: BP 161/78; PULSE 89; O2SAT 99
--- NOTE | 2016-12-07 21:37 | EMERGENCY ROOM VISIT NOTE ---
History First contact with patient: 17:29 Chief Complaint: BACK PAIN Stated Complaint: SCIATICA History of Present Illness The patient is a 61 year old female who presents to the Emergency Room with complaints of worsening left sciatica pain. The patient speaks Luxembour[place], and her niece is providing interpretation. Her nieces also a pharmacist. The patient refused interpretation services while in the emergency department. According to the patient, she has had problems with sciatica for several months. She had a recent MRI showing a possible pinched nerve. The patient has also had orthopedic follow-up for bilateral knee pain, undergoing hyaluronic injections in the left knee, and cortisone injection in the right knee. She is also following with a chiropractor. She takes diclofenac 50 mg twice daily, and Katy twice daily for the pain without significant relief of symptoms. The patient denies any bladder or bowel incontinence, notable left lower extremity weakness, foot drop, saddle anesthesias, fevers or chills. She denies any injury to her back since her last MRI study, and currently rates her discomfort a 10 out of 10. Review of Systems 10 system review was performed and was negative except for pertinent positives and negatives as indicated in history of present illness Past Medical/Surgical History Medical Problems: (1) Hypertension Family History Hypertension Social History Smoking Status: Never Smoker Alcohol Use: none Marital Status: Housing Status: lives with family Current/Historical Medications Scheduled Cholecalciferol (Vitamin D), 2,000 INTER.UNIT PO DAILY Diclofenac (Voltaren), 50 MG PO Q12 Lisinopril (Prinivil), 10 MG PO DAILY Methylprednisolone (Medrol Dosepak), 0 PO DAILY Scheduled PRN Oxycodone Ir (Roxicodone Ir), 1-2 TAB PO Q4H PRN for Pain Physical Exam Vital Signs Date Time Temp Pulse Resp B/P (MAP) Pulse Ox O2 Delivery O2 Flow Rate FiO2 12/07/16 19:01 89 18 161/78 99 12/07/16 17:07 37.0 125 20 174/86 96 Room Air Physical Exam CONSTITUTIONAL: Healthy and well nourished. Patient appears in mild to moderate discomfort on exam. HEENT: Normocephalic, atraumatic. Pupils equal, round and reactive. NECK: Full active range of motion without discomfort. RESPIRATORY: Clear to auscultation bilaterally with no wheezing, crackles, rhonchi or stridor. CARDIOVASCULAR: Regular rate and rhythm with no murmurs, rubs or gallops. GASTROINTESTINAL: Bowel sounds present in all quadrants. Soft and nontender to palpation. MUSCULOSKELETAL: Examination shows mild tenderness to palpation through the left lower lumbar spine and SI joint. Positive sitting straight leg raise. Negative logroll. Pedal pulses are intact. Ankle plantar/dorsiflexion strength is 5 out of 5 and symmetric bilaterally. INTEGUMENTARY: No rash or other significant dermatologic conditions noted. NEUROLOGIC: Left lower extremity is sensory intact with deep tendon reflexes 2+ and symmetric bilaterally. Medical Decision & Procedures Medications Administered Medications (Trade) Dose Ordered Sig/Cristina Route Start Time Stop Time Status Last Admin Dose Admin Morphine Sulfate (MoRPHine SULFATE INJ) 4 mg NOW STAT IM 12/07/16 17:48 12/07/16 17:50 DC 12/07/16 17:59 4 MG Dexamethasone Sodium Phosphate (Decadron Inj) 6 mg NOW ONCE IM 12/07/16 18:00 12/07/16 18:01 DC 12/07/16 17:58 6 MG ED Course Patient history and physical exam were performed. Nurse's notes were reviewed. Vital signs were reviewed. The patient is requesting an injection of some medicine like she got on a recent visit. I did review prior medical records, showing that she received IM injections of morphine and Decadron. The patient reports that this provided significant relief of her symptoms. The niece again is a pharmacist, and agrees with this plan. The patient was administered morphine 4 mg and Decadron 6 mg IM with significant relief of her pain, rated a 3 out of 10 at the time of discharge. The patient will be provided prescriptions for a Medrol Dosepak and OxyIR 5 mg. She was encouraged to continue with her diclofenac as well. I did encourage her to follow-up with her family doctor for further management. Return to the emergency department for any emergent symptoms consistent with cauda equina syndrome. Description of symptoms of which was provided to the patient and niece. The patient was happy with her treatment and plan of care. Medical Decision Based on patient history and clinical exam findings, I suspect an acute lumbar radiculopathy. I do feel that the patient would benefit from corticosteroids treatment. It also appears that the patient has not been taking her opioid analgesics frequent enough to help control her pain. The patient has already had an MRI of the does not show any concerning findings that would warrant emergent spine surgery consultation. She has had no recent trauma since her last MRI, therefore I do not feel that further imaging studies are warranted. She gives no history to suggest spinal abscess or hematoma. Her neurologic exam is normal. [place] Drug Monitoring Program Search Results: patient reviewed within database, no issues identified Medication Reconcilliation Current Medication List: was personally reviewed by me Blood Pressure Screening Patient's blood pressure: Normal blood pressure Impression Primary Impression: Left-sided low back pain with sciatica Departure Information Dispostion Home / Self-Care Condition GOOD Prescriptions Methylprednisolone (MEDROL DOSEPAK) 4 Mg Leonardo 0 PO DAILY, #1 PKT Prov: Eduardo Paige PA 12/07/16 Oxycodone Ir (Roxicodone Ir) 5 Mg Tab 1-2 TAB PO Q4H Y for Pain, #24 TAB For Initial Treatment Prov: Eduardo Paige PA 12/07/16 Forms HOME CARE DOCUMENTATION FORM, IMPORTANT VISIT INFORMATION Patient Instructions [facility], ED Sciatica Additional Instructions Avoid heavy lifting or sitting for long periods of time. Continue with diclofenac 50 mg twice daily. You may also take Tylenol 1000 mg every 6-8 hours for additional relief. OxyIR 5-10 mg every 4 hours if needed for worse pain. OxyIR can make you drowsy and constipate. Take Medrol Dosepak as prescribed - next dose around noontime tomorrow. Follow-up with your family doctor for further management. Return to the emergency department for any developing bladder/bowel incontinence , profound left lower extremity weakness or other concerning symptoms. Problem Qualifiers Primary Impression: Left-sided low back pain with sciatica Chronicity: acute Sciatica laterality: sciatica of left side Qualified Codes: M54.42 - Lumbago with sciatica, left side
== END 2016-12-07 19:11 | disposition home or self-care (01) ==
LOC: C.EDB 17:02 → C.EDD 19:11
DX: M54.42 Lumbago with sciatica, left side (principal); I10 Essential (primary) hypertension; Z79.899 Other long term (current) drug therapy; Z82.49 Family history of ischemic heart disease and other diseases of the circulatory system

== ENCOUNTER 2017-04-16 20:55 | Emergency (ER) | payer OTHER ==
[~2017-04-16] VITALS: Ht 165.1 cm; Wt 94.6 kg
[~2017-04-16 20:55] MED LIST changes: +CHOL100010 PO; -CYCL5TAB PO; +DICL50TA3 PO; +LISI10TA PO; -LISI1TAB3 PO; -MELO7.5T5 PO; +OXYC1TAB3 PO
[2017-04-16 20:58] VITALS: Ht 165.1 cm; Wt 94.6 kg
[2017-04-16] MEDS ORDERED: SODIUM CHLORIDE 0.9% 500ML 500 ML IV STA (21:31)
[2017-04-16] MEDS ORDERED: LIDOCAINE/EPINEPH/TETRACAINE 1 EA SYR EXT STA (21:40)
[2017-04-16 21:42] LABS: BASO % 0.4 %; BASO ABS # 0.05 K/uL (0-0.2); EOS % 0.2 %; EOS ABS # 0.03 K/uL (0-0.5); HEMOGLOBIN 15.8 g/dL (12.0-16.0); IG# 0.17 K/uL (0.00-0.02); LYMPH % 13.5 %; LYMPH ABS # 1.67 K/uL (1.2-3.4); MEAN CELL VOLUME 90.2 fL (80-100); MEAN CORPUSCULAR HEMOGLOBIN 30.3 pg (25-34); MEAN CORPUSCULAR HGB CONC 33.6 g/dl (32-36); MEAN PLATELET VOLUME 9.7 fL (7.4-10.4); MONO % 9.4 %; MONO ABS # 1.16 K/uL (0.11-0.59); NEUT % 75.1 %; NEUT ABS # 9.27 K/uL (1.4-6.5); PLATELET COUNT 361 K/uL (130-400); RED CELL DISTRIBUTION WIDTH CV 14.4 % (11.5-14.5); WHITE BLOOD COUNT 12.35 K/uL (4.8-10.8)
[2017-04-16] MEDS ORDERED: DIPHTHERIA/TETANUS/PERTUSSIS 0.5 ML SYR/VIAL IM. ONE (21:45)
[2017-04-16 22:19] LABS: ALBUMIN 3.6 gm/dl (3.4-5.0); ALKALINE PHOSPHATASE 97 U/L (45-117); BLOOD UREA NITROGEN 19 mg/dl (7-18); CALCIUM 8.7 mg/dl (8.5-10.1); CARBON DIOXIDE 24 mmol/L (21-32); CKMB 0.8 ng/ml (0.5-3.6); CREATININE 1.27 mg/dl (0.60-1.20); SODIUM 137 mmol/L (136-145); TOTAL PROTEIN 7.4 gm/dl (6.4-8.2)
--- NOTE | 2017-04-16 22:28 | DIAGNOSTIC IMAGING REPORT ---
HEAD WITHOUT CONTRAST (CT) CLINICAL HISTORY: 61 years-old Female presenting with fall, syncope. TECHNIQUE: Multidetector CT imaging of the head was performed without the use of intravenous contrast. IV contrast: None. A dose lowering technique was used consistent with the principles of ALARA (as low as reasonably achievable). COMPARISON: 09/06/2010. CT DOSE (mGy.cm): The estimated cumulative dose is 1036.87. FINDINGS: Data Recovery Planner topogram: Unremarkable. Ventricles and sulci normal in size. Brain parenchyma normal in appearance with preserved perez-white differentiation. No mass effect or midline shift. No hemorrhage or acute territorial infarct. No extra-axial fluid collection. Paranasal sinuses and mastoid air cells clear. Calvarium intact. Persistent infiltration of the subcutaneous tissue in the left parietal region, though now with more surrounding inflammatory change and a possible focus of gas. IMPRESSION: 1. No acute intracranial abnormality. 2. Possible contusion of the subcutaneous tissue in the left parietal region at the site of prior sebaceous cyst. A laceration may also be present evidenced by the focus of gas. Electronically signed by: Gurvinder Minor M.D. 04/16/2017 10:27 PM Dictated Date/Time: 04/16/2017 10:25 PM
--- NOTE | 2017-04-16 22:41 | DIAGNOSTIC IMAGING REPORT ---
CERVICAL SPINE W/O CLINICAL HISTORY: 61 years-old Female presenting with fall, head injury. TECHNIQUE: Multidetector CT of the cervical spine was performed without the use of intravenous contrast. IV contrast: None. A dose lowering technique was used consistent with the principles of ALARA (as low as reasonably achievable). COMPARISON: None. CT DOSE (mGy.cm): The estimated cumulative dose is 1036.87 mGy.cm. FINDINGS: Kindergarten Assistant topogram: Unremarkable. Normal cervical lordosis. Vertebral bodies maintain normal height and alignment. Intervertebral disc heights preserved. Focal degenerative changes noted at C5-6 with disc osteophyte complex. No posterior bony spurring. No osseous neural foraminal or spinal canal narrowing. Positional related rotatory subluxation of C1 on C2. Paraspinal soft tissues within normal limits allowing for noncontrast technique. IMPRESSION: No acute osseous injury of the cervical spine. Electronically signed by: Gurvinder Minor M.D. 04/16/2017 10:40 PM Dictated Date/Time: 04/16/2017 10:38 PM
[2017-04-16 23:42] LABS: ALT/SGPT 39 U/L (12-78); GLUCOSE 180 mg/dl (70-99)
[2017-04-17] MEDS ORDERED: CEPHALEXIN 500MG HOME PACK 1 EA BTL PO ONE
--- NOTE | 2017-04-17 00:52 | EMERGENCY ROOM VISIT NOTE ---
History First contact with patient: 21:26 Chief Complaint: FALL Stated Complaint: FALL History of Present Illness The patient is a 61 year old female who presents to the Emergency Room with complaints of syncopal episode today at 12:30 PM. Patient was in the kitchen cooking quite some time and felt lightheaded and dizzy and briefly passed out. She hit her head on the ground. She sustained a laceration to the left occipital region. Tetanus is not current. Bleeding persisted and patient came in for further evaluation and treatment. Patient describes the headache described as throbbing, range in severity 4 out of 10. Nothing makes it better or worse. Patient denies chest pain, dyspnea, fever, chills, cough, congestion , abdominal pain, leg pain, arm pain, numbness, tingling, weakness. Patient does not drink much water. Patient occasionally takes a blood pressure pill as needed per her family doctor's request. Review of Systems An 10 system review of systems was completed with positives and pertinent negatives listed in the HPI. Past Medical/Surgical History Medical Problems: (1) Hypertension Family History Hypertension Social History Smoking Status: Never Smoker Smokeless Tobacco Use: No Alcohol Use: none Drug Use: none Marital Status: Housing Status: lives with family Current/Historical Medications Scheduled PRN Lisinopril (Prinivil), 10 MG PO NEEDED PRN for HIGH BLOOD PRESSURE Physical Exam Vital Signs Date Time Temp Pulse Resp B/P (MAP) Pulse Ox O2 Delivery O2 Flow Rate FiO2 04/17/17 00:26 73 18 144/86 94 Room Air 04/16/17 22:30 87 18 134/72 95 Room Air 04/16/17 21:34 98 04/16/17 21:23 113 190/100 115 165/89 106 184/99 04/16/17 20:58 36.9 113 18 195/83 96 Room Air Physical Exam VITALS: Vitals are noted on the nurse's note and reviewed by myself. Vital signs s hypertensive. GENERAL: Pleasant female in no acute distress, nondiaphoretic, well-developed well-nourished. SKIN: 3 cm left occipital laceration is gaping and appears clean; the rest of the skin was without rashes, erythema, edema, or bruising. There is no tenting of the skin. Capillary reflex less than 2 seconds. HEAD: Normocephalic atraumatic. EARS: External auditory canals clear, tympanic membranes pearly perez without erythema or effusion bilaterally. EYES: Pupils equal round and reactive to light and accommodation. Conjunctivae without injection, sclerae without icterus. Extraocular movements intact. NOSE: Patent, turbinates without inflammation or discharge. . MOUTH: Mucous membranes mildly dry. Pharynx without erythema or exudate. Uvula midline. Airway patent. Tongue does not deviate. NECK: Supple without nuchal rigidity. No lymphadenopathy. No thyromegaly. Cervical spine is nontender. No JVD. HEART: Regular rate and rhythm LUNGS: Clear to auscultation bilaterally without wheezes, rales or rhonchi. No dullness to percussion. No retractions or accessory muscle use. ABDOMEN: Positive bowel sounds x 4. Normal tympanic percussion. Soft, nontender, without masses or organomegaly. Peter sign negative. No guarding or rebound tenderness. MUSCULOSKELETAL: No muscle atrophy, erythema, or edema noted. Full range of motion without joint tenderness in all extremities. No tenderness to palpation. Strength 5/5 throughout. NEURO: Patient was alert and oriented to person place and time. Normal sensation to light and sharp touch. No focal neurological deficits. Medical Decision & Procedures Laboratory Results 04/16/17 21:30 Red Blood Count 5.21, Mean Corpuscular Volume 90.2, Mean Corpuscular Hemoglobin 30.3, Mean Corpuscular Hemoglobin Concent 33.6, Mean Platelet Volume 9.7, Neutrophils (%) (Auto) 75.1, Lymphocytes (%) (Auto) 13.5, Monocytes (%) (Auto) 9.4, Eosinophils (%) (Auto) 0.2, Basophils (%) (Auto) 0.4, Neutrophils # (Auto) 9.27, Lymphocytes # (Auto) 1.67, Monocytes # (Auto) 1.16, Eosinophils # (Auto) 0.03, Basophils # (Auto) 0.05 04/16/17 21:30 04/16/17 22:55 Test 04/16/17 21:30 04/16/17 21:38 04/16/17 22:55 04/16/17 23:05 White Blood Count 12.35 K/uL (4.8-10.8) Red Blood Count 5.21 M/uL (4.2-5.4) Hemoglobin 15.8 g/dL (12.0-16.0) Hematocrit 47.0 % (37-47) Mean Corpuscular Volume 90.2 fL (80-100) Mean Corpuscular Hemoglobin 30.3 pg (25-34) Mean Corpuscular Hemoglobin Concent 33.6 g/dl (32-36) Platelet Count 361 K/uL (130-400) Mean Platelet Volume 9.7 fL (7.4-10.4) Neutrophils (%) (Auto) 75.1 % Lymphocytes (%) (Auto) 13.5 % Monocytes (%) (Auto) 9.4 % Eosinophils (%) (Auto) 0.2 % Basophils (%) (Auto) 0.4 % Neutrophils # (Auto) 9.27 K/uL (1.4-6.5) Lymphocytes # (Auto) 1.67 K/uL (1.2-3.4) Monocytes # (Auto) 1.16 K/uL (0.11-0.59) Eosinophils # (Auto) 0.03 K/uL (0-0.5) Basophils # (Auto) 0.05 K/uL (0-0.2) RDW Standard Deviation 47.0 fL (36.4-46.3) RDW Coefficient of Variation 14.4 % (11.5-14.5) Immature Granulocyte % (Auto) 1.4 % Immature Granulocyte # (Auto) 0.17 K/uL (0.00-0.02) Anion Gap 11.0 mmol/L (3-11) Est Creatinine Clear Calc Drug Dose 51.6 ml/min Estimated GFR () 52.0 Estimated GFR (Non- 44.9 BUN/Creatinine Ratio 15.0 (10-20) Calcium Level 8.7 mg/dl (8.5-10.1) Total Bilirubin 0.7 mg/dl (0.2-1) Alkaline Phosphatase 97 U/L (45-117) Creatine Kinase MB 0.8 ng/ml (0.5-3.6) Creatine Kinase MB Ratio (0-3.0) Troponin I < 0.015 ng/ml (0-0.045) Total Protein 7.4 gm/dl (6.4-8.2) Albumin 3.6 gm/dl (3.4-5.0) Thyroid Stimulating Hormone (TSH) 9.570 uIu/ml (0.300-4.500) Bedside Troponin I < 0.030 ng/ml (0-0.045) Magnesium Level mg/dl (1.8-2.4) Direct Bilirubin mg/dl (0-0.2) Aspartate Amino Transf (AST/SGOT) U/L (15-37) Alanine Aminotransferase (ALT/SGPT) 39 U/L (12-78) Total Creatine Kinase U/L (26-192) Urine Color YELLOW Urine Appearance CLOUDY (CLEAR) Urine pH 5.0 (4.5-7.5) Urine Specific [place] 1.023 (1.000-1.030) Urine Protein NEG (NEG) Urine Glucose (UA) NEG (NEG) Urine Ketones TRACE (NEG) Urine Occult Blood NEG (NEG) Urine Nitrite NEG (NEG) Urine Bilirubin NEG (NEG) Urine Urobilinogen NEG (NEG) Urine Leukocyte Esterase LARGE (NEG) Urine WBC (Auto) >30 /hpf (0-5) Urine RBC (Auto) 0-4 /hpf (0-4) Urine Hyaline Casts (Auto) 1-5 /lpf (0-5) Urine Epithelial Cells (Auto) 20-30 /lpf (0-5) Urine Bacteria (Auto) 1+ (NEG) Medications Administered Medications (Trade) Dose Ordered Sig/Cristina Route Start Time Stop Time Status Last Admin Dose Admin Sodium Chloride 500 ml @ 999 mls/hr Q31M STAT IV 04/16/17 21:31 04/16/17 22:01 DC 04/16/17 21:31 999 MLS/HR Tetracaine/ Epinephrine/ Lidocaine (L.e.t. Gel 4%/ 1:100/0.5%) 1 ea NOW STAT EXT 04/16/17 21:40 04/16/17 21:41 DC 04/16/17 22:00 1 EA Diphtheria/ Pertussis/Tetanus Vacc (Adacel Inj) 0.5 ml ONCE ONCE IM. 04/16/17 21:45 04/16/17 21:46 DC 04/16/17 21:59 0.5 ML Procedure Location: Scalp Total length: 3cm Complexity: Simple Verbal consent was obtained after the risks and benefits were explained, including but not limited to bleeding, scarring, infection, pain, and bone/ nerve damage. At this time, the risks of the procedure are less than the risks of NOT performing the procedure. A time out was taken and the correct patient and site identified. The scalp was prepped with betadine. The target area was anesthetized with LET. Copious irrigation was performed using saline. The skin was re-prepped with betadine, the hair cleared from the wound, and a sterile field set. The wound was explored for foreign bodies and none found. Debridement was not performed. The wound edges were approximated using 5 surgical daron in the standard fashion. Hemostasis and excellent approximation was achieved. Antibacterial ointment and a sterile dressing applied. Detailed wound care instructions and signs and symptoms of infection reviewed with the pt/family. No complications and the patient tolerated the procedure well. ED Course Prior records/ancillary studies reviewed. Triage Nursing notes reviewed. Additional history obtained from family. The patient's history was concerning for syncope. Differential diagnosis: Etiologies such as vasovagal event, infection, hypoglycemia, electrolyte abnormalities, cardiac sources, intracerebral event, toxicologic, neurologic, as well as others were entertained. Physical examination: Patient is alert, interactive and well appearing ER treatment provided: IV hydration with normal saline On reassessment the patient felt better. Diagnostics interpretation by me: ECG: Normal sinus, normal intervals, left anterior fascicular block, no acute ST -T wave changes, rate of 95. Impression normal sinus rhythm with a left anterior fascicular block interpreted by myself The labs revealed negative troponin. Urine concerning for infection sent for culture. Mild hyperglycemia without DKA Imaging studies: CERVICAL SPINE W/O CLINICAL HISTORY: 61 years-old Female presenting with fall, head injury. TECHNIQUE: Multidetector CT of the cervical spine was performed without the use of intravenous contrast. IV contrast: None. A dose lowering technique was used consistent with the principles of ALARA (as low as reasonably achievable). COMPARISON: None. CT DOSE (mGy.cm): The estimated cumulative dose is 1036.87 mGy.cm. FINDINGS: [employer] topogram: Unremarkable. Normal cervical lordosis. Vertebral bodies maintain normal height and alignment. Intervertebral disc heights preserved. Focal degenerative changes noted at C5-6 with disc osteophyte complex. No posterior bony spurring. No osseous neural foraminal or spinal canal narrowing. Positional related rotatory subluxation of C1 on C2. Paraspinal soft tissues within normal limits allowing for noncontrast technique. IMPRESSION: No acute osseous injury of the cervical spine. HEAD WITHOUT CONTRAST (CT) CLINICAL HISTORY: 61 years-old Female presenting with fall, syncope. TECHNIQUE: Multidetector CT imaging of the head was performed without the use of intravenous contrast. IV contrast: None. A dose lowering technique was used consistent with the principles of ALARA (as low as reasonably achievable). COMPARISON: 09/06/2010. CT DOSE (mGy.cm): The estimated cumulative dose is 1036.87. FINDINGS: [employer] topogram: Unremarkable. Ventricles and sulci normal in size. Brain parenchyma normal in appearance with preserved perez-white differentiation. No mass effect or midline shift. No hemorrhage or acute territorial infarct. No extra-axial fluid collection. Paranasal sinuses and mastoid air cells clear. Calvarium intact. Persistent infiltration of the subcutaneous tissue in the left parietal region, though now with more surrounding inflammatory change and a possible focus of gas. IMPRESSION: 1. No acute intracranial abnormality. 2. Possible contusion of the subcutaneous tissue in the left parietal region at the site of prior sebaceous cyst. A laceration may also be present evidenced by the focus of gas. Electronically signed by: Gurvinder Minor M.D. This appears to be consistent with dehydration, syncope and UTI with head injury and scalp laceration. Patient fell 12 hours ago. She came to the ER as the laceration would not stop bleeding. She was given a tetanus shot and this was repaired as above. Patient was neurovascularly and neurologically intact. She is well-appearing. She is tolerating fluids. She requested to leave. She is advised to stay well-hydrated and take medications as directed. She is advised to follow-up with family care in a few days for further evaluation treatment or here in the ER sooner for headache, fevers, chest pain, worsening signs or symptoms or as needed. By the evaluation outlined above emergent etiologies such as hypoglycemia, electrolyte abnormalities, cardiac sources, intracerebral event, toxicologic, neurologic,as well as others were deemed relatively unlikely. The pt informed about the findings as listed above. All questions were answered and pleased with the treatment. Return instructions were outlined and the patient was discharged in stable condition. Outpatient prescription management: Keflex Referral: The patient was referred back to their primary care physician for follow-up in 2 to 3 days for a recheck of the current condition. Case reviewed with my attending Medical Decision as above Medication Reconcilliation Current Medication List: was personally reviewed by me Blood Pressure Screening Patient's blood pressure: Elevated blood pressure Blood pressure disposition: Referred to PCP Impression Primary Impression: Head injury Additional Impressions: Scalp laceration Syncope Dehydration UTI (urinary tract infection) Hyperglycemia Departure Information Dispostion Home / Self-Care Condition GOOD Referrals RV. Crenshaw MD (PCP) Patient Instructions [facility] Additional Instructions Head injury/daron: Read head injury handout and return for any symptoms. Keep wound clean and dry. No water on the area for 12-24 hrs then no soaking until daron removed. Do not allow any crusting or dried blood to accumulate on daron. If this occurs, use a 1:1 solution of hydrogen peroxide/water on a Q-tip to clean the wound. Use an antibiotic ointment for 3-4 days, then let wound dry. Staple removal in 8-10 days. Return sooner for any signs of infection (increasing redness, swelling, drainage). Ice and elevate for swelling and pain. Tylenol 1000 mg every 6 hrs for pain. Keep covered when in sun until daron removed then SPF 50 or higher for one year. Vitamin E oil if desired two weeks after staple removal for reduction of scar. DO NOT drive, drink alcohol, operate machinery, or perform dangerous activities today. You were given medications in the ER that can affect your ability to safely function or operate a vehicle. UTI: Keflex 500 mg: Take one pill twice daily for 7 days for your urine infection. All antibiotics can cause diarrhea. If this occurs and you feel worse or it does not resolve in 1-2 days follow up with your doctor or return to the Emergency Department as this could be signs of serious underlying problems. Any medication can cause an allergic reaction, stop the pills immediately and return to the ER for rash, hives, breathing difficulties, or swelling. Acetaminophen(Tylenol) may be used for fever or pain. Use 1000mg every six hours as needed. Avoid using more than 3000mg in a 24 hour period. Rest and drink plenty of fluids as tolerated. Slow sips of water or sports drinks are recommended instead of large amounts all at once. Continue current medications. Once your stomach is settled start with a clear liquid diet (jello, soup broth, etc.) and then advance as tolerated. You should avoid full, heavy meals for about 24 hrs from the time your symptoms resolved. Return to the ER immediately for worsening or persistent abdominal/back pain, syncope, weakness, vomiting, fevers, worsening of your condition, or as needed. Follow up with your primary physician within 2-3 days for a recheck of the current condition. Problem Qualifiers Primary Impression: Head injury Encounter type: initial encounter Qualified Codes: S09.90XA - Unspecified injury of head, initial encounter
[2017-04-17] MEDS ORDERED: CEPH500C2 PO (01:18)
[2017-04-17 01:31] VITALS: BP 135/79; PULSE 78; TEMP 36.9; O2SAT 96
== END 2017-04-17 01:32 | disposition home or self-care (01) ==
LOC: C.EDB 20:56
DX: S09.90XA Unspecified injury of head, initial encounter (principal); S01.01XA Laceration without foreign body of scalp, initial encounter; W18.30XA Fall on same level, unspecified, initial encounter; R55 Syncope and collapse; E86.0 Dehydration; N39.0 Urinary tract infection, site not specified; R73.9 Hyperglycemia, unspecified; I10 Essential (primary) hypertension; Z82.49 Family history of ischemic heart disease and other diseases of the circulatory system; Z23 Encounter for immunization

== ENCOUNTER → 2017-04-29 | Outpatient (CLI) | payer OTHER ==
[~2017-04-29] MED LIST changes: -CHOL100010 PO; -DICL50TA3 PO; -OXYC1TAB3 PO
[2017-04-29 17:19] LABS: BASO % 0.3 %; BASO ABS # 0.03 K/uL (0-0.2); EOS % 0.5 %; EOS ABS # 0.05 K/uL (0-0.5); HEMATOCRIT 49.1 % (37-47); HEMOGLOBIN 16.4 g/dL (12.0-16.0); IG# 0.21 K/uL (0.00-0.02); LYMPH % 15.5 %; LYMPH ABS # 1.67 K/uL (1.2-3.4); MEAN CELL VOLUME 88.2 fL (80-100); MEAN CORPUSCULAR HEMOGLOBIN 29.4 pg (25-34); MEAN CORPUSCULAR HGB CONC 33.4 g/dl (32-36); MONO % 8.6 %; MONO ABS # 0.92 K/uL (0.11-0.59); NEUT % 73.1 %; NEUT ABS # 7.88 K/uL (1.4-6.5); PLATELET COUNT 343 K/uL (130-400); RED CELL DISTRIBUTION WIDTH CV 14.3 % (11.5-14.5); RED CELL DISTRIBUTION WIDTH SD 46.3 fL (36.4-46.3); WHITE BLOOD COUNT 10.76 K/uL (4.8-10.8)
[2017-04-29 17:48] LABS: ALBUMIN 3.8 gm/dl (3.4-5.0); ALT/SGPT 31 U/L (12-78); AST/SGOT 17 U/L (15-37); BLOOD UREA NITROGEN 20 mg/dl (7-18); CALCIUM 9.1 mg/dl (8.5-10.1); CARBON DIOXIDE 24 mmol/L (21-32); CREATININE 0.82 mg/dl (0.60-1.20); GLUCOSE 116 mg/dl (70-99); POTASSIUM 3.8 mmol/L (3.5-5.1); SODIUM 135 mmol/L (136-145)
[2017-04-29 17:59] LABS: ALKALINE PHOSPHATASE 101 U/L (45-117); TOTAL PROTEIN 7.8 gm/dl (6.4-8.2)
== END | disposition home or self-care (01) ==
LOC: C.LAB1850 16:05
PROVIDERS: ATTEND Internal Medicine
DX: R55 Syncope and collapse (principal); E03.9 Hypothyroidism, unspecified; I10 Essential (primary) hypertension; Z11.59 Encounter for screening for other viral diseases; E55.9 Vitamin D deficiency, unspecified

== ENCOUNTER → 2017-05-03 | Outpatient (CLI) | payer OTHER ==
--- NOTE | 2017-05-03 14:06 | DIAGNOSTIC IMAGING REPORT ---
CAROTID DOPPLER NECK ART CLINICAL HISTORY: 61 years-old Female with R55. Acute near syncopal event COMPARISON: None available TECHNIQUE: Multiple real time sonographic images of the carotid bifurcations were obtained assessing perez scale, color Doppler and spectral wave form appearance FINDINGS: RIGHT INTERNAL CAROTID: The peak systolic velocity measured 84 cm/sec. The end diastolic velocity measured 21 cm/sec. The ICA to CCA ratio measured 1.4 which correlates with a stenosis of 0-50%. Only minimal atherosclerotic plaquing of the right carotid bulb. LEFT INTERNAL CAROTID: The peak systolic velocity measured 56 cm/sec. The end diastolic velocity measured 19 cm/sec. The ICA to CCA ratio measured 1.2 which correlates with a stenosis of 0-50%. Only minimal atherosclerotic plaquing of the left carotid bulb. There is normal antegrade vertebral flow bilaterally. IMPRESSION: 1. No hemodynamically significant stenosis or significant atherosclerotic plaquing. 2. Normal antegrade vertebral flow bilaterally. The above report was generated using voice recognition software. It may contain grammatical, syntax or spelling errors. Electronically signed by: Apollo Holman M.D. 05/03/2017 2:05 PM Dictated Date/Time: 05/03/2017 2:02 PM
== END | disposition home or self-care (01) ==
LOC: C.ULTR 12:58
PROVIDERS: ATTEND Internal Medicine
DX: R55 Syncope and collapse (principal)

== ENCOUNTER → 2017-05-18 | Outpatient (CLI) | payer OTHER ==
--- NOTE | 2017-05-25 10:06 | CODING QUERY MEDICAL NECESSITY ---
TREATMENT RENDERED WITHOUT A DIAGNOSIS To promote full compliance with coding requirements relating to patient care, physician participation is requested in all cases of rolled seat trimmer uncertainty. Please assist us with providing a diagnosis/symptom for the test(s) below: A diagnosis/symptom was not documented on your Order. A valid diagnosis/symptom is required to bill all insurances. Please remember that we are unable to code a diagnosis of rule out, probable, possible, questionable, or suspected. Tests that require a diagnosis: DOS: 05/18/17 * URINE CULTURE CLEAN CATCH DIAGNOSIS: * UA CLEAN MICROS + CULT DIAGNOSIS: Provider Signature: Date: Thank you Ayde Muñoz [employer] Information Management Once completed, please kindly fax back to [phone] For questions please call [phone]
== END | disposition home or self-care (01) ==
LOC: C.LAB 17:00
PROVIDERS: ATTEND Internal Medicine
DX: N39.0 Urinary tract infection, site not specified (principal); W19.XXXA Unspecified fall, initial encounter

== ENCOUNTER → 2017-06-23 | Outpatient (CLI) | payer OTHER ==
--- NOTE | 2017-06-23 13:37 | DIAGNOSTIC IMAGING REPORT ---
LUMBAR SPINE W/O CONTRAST HISTORY: Back pain. Neuropathy. SPINAL STENOSIS TECHNIQUE: Multiplanar multisequence MRI of the lumbar spine was performed without the use of contrast. COMPARISON: 11/15/2016 FINDINGS: For the purpose of the report the L5-S1 disc space will be located on axial image 23 of 25. Unremarkable signal characteristics of the vertebral bodies. Moderate to rather significant degenerative disc change throughout. Basal sagittal images no evidence for major spinal stenosis. L1-L2: No significant central canal or neural foraminal narrowing. L2-L3: No significant central canal or neural foraminal narrowing. L3-L4: Mild broad-based disc bulge with moderate narrowing left neuroforamina. This is unchanged from the prior exam. L4-L5: Mild broad-based left central disc herniation. Mild impact anterior thecal sac. Moderate narrowing left neuroforamina. This is similar compared to the prior study. L5-S1: No significant central canal or neural foraminal narrowing. IMPRESSION: 1. Similar exam compared to the prior study of 11/15/2016. 2. Broad-based disc herniation considered mild/moderate at L3-L4, with moderate narrowing of the left neuroforamina. 3. Broad-based left central disc herniation L4-L5 with mild impact anterior thecal sac and moderate narrowing of the left neural foramina. 4. No evidence for significant spinal stenosis. 5. No major change compared to the prior study. The above report was generated using voice recognition software. It may contain grammatical, syntax or spelling errors. Electronically signed by: Keon Morris M.D. 06/23/2017 1:35 PM Dictated Date/Time: 06/23/2017 1:27 PM
--- NOTE | 2017-06-23 15:57 | DIAGNOSTIC IMAGING REPORT ---
BONE SCAN WHOLE BODY HISTORY: Pain SPINAL STENOSIS RADIOTRACER: 25.6 mCi Tc-99m MDP STUDY/IMAGES: Planar anterior and posterior whole body imaging was performed 3 hours following the intravenous administration of radiotracer. COMPARISON: None. FINDINGS: Findings of mild degenerative activity of the low lumbar spine at the L4-L5 level. Minimal degenerative activity of the mid thoracic region. Moderate degenerative activity of the medial joint compartments of the knees bilaterally. Moderate degenerative activity of the ankles as well as shoulders. Mild increase in activity of the midshaft left humerus possibly secondary to old trauma. IMPRESSION: 1. Generalized scattered degenerative activity in the axial and appendicular skeleton. 2. Degenerative activity of the low lumbar and mid thoracic spine. The above report was generated using voice recognition software. It may contain grammatical, syntax or spelling errors. Electronically signed by: Keon Morris M.D. 06/23/2017 3:55 PM Dictated Date/Time: 06/23/2017 3:45 PM
== END | disposition home or self-care (01) ==
LOC: C.NUCL 12:07
PROVIDERS: ATTEND Orthopaedic Surgery Orthopaedic Surgery of the Spine
DX: M48.061 Spinal stenosis, lumbar region without neurogenic claudication (principal)

== ENCOUNTER 2018-10-02 08:21 | Inpatient (IN) ==
--- NOTE | 2018-09-18 12:56 | Anesthesiology Consultation ---
Date of Service September 18, 2018 Assessment & Plan (1) Encounter for pre-operative examination: - No previous anesthesia records available. - iPad mold injector was used for the entire visit. Chart Review Chart Review: Patient seen in Pre Admission Testing Consults Requested medical & cardiac (Dr. Ngo (09/19)) Patient was seen by PCP's office on 09/19 for pre-operative evaluation prior to upcoming surgery. Per note from this visit, "estimated risk probability for perioperative GLORIA 0.61% which is moderate risk." Note also stated that patient was cleared for surgery pending clearance from cardiology due to worsening T waves over recent EKGs. Patient was seen by cardiology on 09/20 for further preoperative evaluative due to EKG changes. Per note from that visit, ".. it is recommended that she undergo repeat ischemic evaluation with a dobutamine stress echocardiogram for further risk stratification prior to surgery. Pending the results of the study, patient is at an acceptable risk to proceed with scheduled back surgery." Teaching & Discussion Pre-Anesthesia Teaching/Discussion Notes: Instructed NPO after midnight before surgery, except medications with 15 cc of water. Medication instructions provided according to the PAT guidelines. History Surgery Operation Date: 10/02/18 07:45 Proposed Procedures p L4-S1 Posterior Lumbar Decompression and Fusion, Possible Interbody Fusion, Spinal Cord Monitoring - José Miguel Allred DO Height/Weight Height: 5 ft 5 in Weight: 101.3 kg Allergies Allergy/AdvReac Type Severity Reaction Status Date / Time No Known Drug Allergies Allergy Verified 09/19/18 10:46 Medications Home Medications Medication Instructions Recorded Confirmed Last Taken aspirin 81 mg PO UD 02/09/18 09/19/18 Unknown atorvastatin 20 mg PO HS 02/09/18 09/19/18 Unknown cholecalciferol (vitamin D3) 5,000 unit PO DAILY 02/09/18 09/19/18 Unknown [Vitamin D3] levothyroxine 50 mcg PO QAM 02/09/18 09/19/18 Unknown metformin 500 mg PO BID 02/09/18 09/19/18 Unknown fenofibrate nanocrystallized 145 mg PO QAM 02/10/18 09/19/18 Unknown [Tricor] ibuprofen 200 mg tablet 200 mg PO TID PRN tab 09/18/18 09/18/18 Unknown melatonin 5 mg tablet 5 mg PO HS #30 tab 09/18/18 09/18/18 Unknown metoprolol succinate ER 50 mg 50 mg PO QAM #9 tab 09/18/18 09/18/18 Unknown tablet,extended release 24 hr Exercise / Class Metabolic Activity III < 4 Walking/Shop/Light housework (Minimally active due to back pain. Walks with walker. Not able to climb more than 5 stairs due to back pain. Denies CP or SOB. ) Past Anesthesia History No Hx of Anesthesia Complications and No Family Hx of Anesthesia Complications History of PONV No Hx of PONV and No Hx of Motion Sickness Social History Smoking Status: Never smoker Do You Dip or Chew Tobacco: No Hx Alcohol Use: No Hx Substance Use: No Review of Systems Patient denies chest pain, shortness of breath, dyspnea on exertion, reflux, cough, wheezing, palpitations. +Joint Pain (Back, Knees) Physical Exam Vital Signs BP: 158/86 P: 86 R: 18 T: 98.0 SPO2: 97% on RA Constitutional + obese ENMT Mouth: + dental restorations (Bottom partial) Thyromental Distance: < 3.5 Finger Breadths (3) Mallampati Class: II Neck normal visual inspection and trachea midline; neck extension not limited Respiratory normal respiratory effort Auscultation: lungs clear to auscultation bilaterally Cardiovascular Rate/Rhythm: regular rate and regular rhythm Heart Sounds: no murmur Vessels: no carotid bruit Neurologic moves all extremities Psychiatric Orientation: alert and oriented x 3 Testing Laboratory Results 09/18/18 13:30 09/18/18 13:30 PT 9.8 Seconds (9.0-12.0) 09/18/18 13:30 INR 1.0 (0.9-1.1) 09/18/18 13:30 APTT 23.7 Seconds (21.0-31.0) 09/18/18 13:30 Urine Color Dark Yellow 09/18/18 Unknown Urine Appearance Turbid (Clear) A 09/18/18 Unknown Urine pH 5.0 (4.5-7.5) 09/18/18 Unknown Ur Specific [place] 1.030 (1.000-1.030) 09/18/18 Unknown Urine Protein Negative (Negative) 09/18/18 Unknown Urine Glucose (UA) Negative (Negative) 09/18/18 Unknown Urine Ketones Trace (Negative) H 09/18/18 Unknown Urine Nitrite Negative (Negative) 09/18/18 Unknown Ur Leukocyte Esterase 2+ (Negative) H 09/18/18 Unknown Urine WBC (Auto) >30 /hpf (0-5) H 09/18/18 Unknown Urine RBC (Auto) 5-10 /hpf (0-4) H 09/18/18 Unknown U Hyaline Cast (Auto) Not Reportable 09/18/18 Unknown U Epithel Cells (Auto) >30 /lpf (0-5) H 09/18/18 Unknown Urine Bacteria (Auto) 1+ (Negative) H 09/18/18 Unknown Blood Type A Negative 09/18/18 13:30 Antibody Screen NEGATIVE 09/18/18 13:30 09/18/18 Unknown Urine Culture - Final Urine,Clean Catch More than three types of organisms present, all high counts mixed probable skin roman - No further identifications or sensitivities to follow. Laboratory Tests 06/27/18 13:10 Hemoglobin A1c 6.9 H Surgeon's office notified of UTI. Electrocardiogram Date: 09/18/18 Findings: + NSR @ (67) Left anterior fascicular block Left atrial enlargement Nonspecific ST and T wave abnormality When compared with ECG of 05/09/18, Nonspecific T wave abnormality, worse it inferior leads Nonspecific T wave abnormality, worse in lateral leads Chest X-Ray Date: 02/10/18 Findings: + NAD FINDINGS: Cardiac silhouette mildly enlarged. Added density at the right cardiophrenic angle likely prominent pericardial fat pad. Lungs and pleural spaces clear. Nondisplaced fracture of the anterolateral left fifth rib may be new from prior. Degenerative changes of the right glenohumeral joint. Posttraumatic changes of the left humeral metadiaphysis. IMPRESSION: 1. No acute cardiopulmonary disease. 2. Nondisplaced fracture of the anterolateral left fifth rib. This may be new from prior. An acute fracture cannot be excluded. Correlate with point tenderness. (Patient seen and examined on 09/18/18 - denies CP or dyspnea. States that she never broke her rib when she fell on this date, only hit her head.) Echocardiogram Date: 03/24/18 EF: 65-70% LV Function: normal RWMA: + none Normal biventricular systolic function Mild concentric left ventricular hypertrophy Grade I left ventricular diastolic dysfunction Normal chamber dimensions No significant valvular abnormalities No cardiac source of emboli noted Stress Test Date: 09/20/18 Type: DSE Resting EF: 65-70% DOBUTAMINE STRESS TEST: 1. Negative dobutamine stress echo for ischemia at 85% MPHR. 2. Negative Dobutamine ECG for ischemia at 85% MPHR. 3. Appropriate blood pressure response. 4. No arrhythmia. 5. No chest pain reported. 6. Technically difficult study, enhanced with IV Definity. ECHO: 1. Normal left ventricular size and systolic function. EF 65-70%. No RWMA. Severe concentric LVH. 2. No significant valvular abnormalities. 3. Technically difficult study. Other Testing CAROTID DUPLEX 03/24/18 INTERPRETATION SUMMARY: 1. <50% stenosis in the internal carotid arteries bilaterally. 2. No significant change since last exam at [facility] in 04/24.
--- NOTE | 2018-09-18 12:56 | PAT Medication Instructions ---
Medication Instructions Date of Service September 18, 2018 Home Medications aspirin 81 mg PO UD atorvastatin 20 mg PO HS cholecalciferol (vitamin D3) [Vitamin D3] 5,000 unit PO DAILY levothyroxine 50 mcg PO QAM metformin 500 mg PO BID fenofibrate nanocrystallized [Tricor] 145 mg PO QAM ibuprofen 200 mg tablet PO NEEDED melatonin 5 mg tablet PO QHS metoprolol succinate ER 50 mg tablet,extended release 24 hr QAM ASK your surgeon for instructions ibuprofen 200 mg tablet PO NEEDED aspirin 81 mg PO UD DO NOT take the morning of surgery cholecalciferol (vitamin D3) [Vitamin D3] 5,000 unit PO DAILY metformin 500 mg PO BID fenofibrate nanocrystallized [Tricor] 145 mg PO QAM Take morning of surgery With a small sip of water, OTHERWISE NOTHING TO EAT OR DRINK AFTER MIDNIGHT: metoprolol succinate ER 50 mg tablet,extended release 24 hr QAM levothyroxine 50 mcg PO QAM Take evening before surgery melatonin 5 mg tablet PO QHS atorvastatin 20 mg PO HS metformin 500 mg PO BID Other Notes If you have any questions please call us at [phone] or [phone] or [phone] or [phone]
[2018-09-18 13:55] LABS: Basophils # (auto) 0.04 K/uL (0-0.2); Basophils % (auto) 0.4 %; Eosinophils # (auto) 0.12 K/uL (0-0.5); Eosinophils % (auto) 1.3 %; Hematocrit (blood only) 45.1 % (37-47); Hemoglobin 14.2 g/dL (12.0-16.0); Immature Granulocytes # (auto) 0.16 K/uL (0.00-0.02); Immature Granulocytes % (auto) 1.7 %; Lymphocytes # (auto) 1.09 K/uL (1.2-3.4); Lymphocytes % (auto) 11.9 %; Mean Corpuscular Hgb Conc 31.5 g/dL (32-36); Mean Corpuscular Volume 84.3 fL (80-100); Mean Platelet Volume 10.1 fL (7.4-10.4); Monocytes % (auto) 9.8 %; Neutrophils # (auto) 6.84 K/uL (1.4-6.5); Neutrophils % (auto) 74.9 %; Platelet Count 311 K/uL (130-400); RDW Coefficient of Variation 16.8 % (11.5-14.5); RDW Standard Deviation 50.9 fL (36.4-46.3); Red Blood Count 5.35 M/uL (4.2-5.4); White Blood Count 9.15 K/uL (4.8-10.8)
[2018-09-18 14:01] LABS: Appearance Urine Turbid (Clear); Bacteria Urine Automated 1+ (Negative); Blood Urine Negative (Negative); Color Urine Dark Yellow; Epithelial Cell Urine Auto >30 /lpf (0-5); Glucose Urine UA Negative (Negative); Ketones Urine Trace (Negative); Leukocyte Esterase Urine 2+ (Negative); Nitrite Urine Negative (Negative); Protein Urine Negative (Negative); Urobilinogen Urine Negative (Negative); WBC Urine Automated >30 /hpf (0-5)
[2018-09-18 14:08] LABS: Partial Thromboplastin Ratio 0.9; Partial Thromboplastin Time 23.7 Seconds (21.0-31.0); Prothrombin Time 9.8 Seconds (9.0-12.0)
[2018-09-18 14:31] LABS: Bilirubin Urine Negative (Negative); Ictotest Urine Negative (Negative)
[2018-09-18 14:40] LABS: BUN Creatinine Ratio 14.5 (10-20); Calcium 9.5 mg/dl (8.5-10.1); Creatinine Clr Calc Pharmacy 70.4 ml/min; Est GFR (African American) 73.8; Est GFR (Non-African American) 63.7; Potassium 4.1 mmol/L (3.5-5.1)
[~2018-10-02 08:21] MED LIST changes: +ATROPINE SULFATE 0.1 MG/ML 10ML SYR IV PRN; +CEFAZOLIN 2000MG 2,000 MG/15 ML SYR IV SCH; +HYDROmorphone INJ 1 MG/ML SYRINGE IV PRN; -LISI10TA PO; +LR 15ML/HR IV SCH; +ONDANSETRON INJ 2 MG/ML 2 ML VIAL IV PRN; +PROMETHAZINE HCL 12.5 MG in SODIUM CHLORIDE 0.9% 50 ML IV PRN; +ePHEDrine sulfate 50 MG/ML AMP IV PRN; +fentaNYL citrate 100 MCG/2 ML VIAL IV PRN
[2018-10-02] MEDS ORDERED: DEXAMETHASONE SOD INJ 4 MG/ML VIAL ONE (08:36)
[2018-10-02] MEDS ORDERED: fentaNYL citrate 100 MCG/2 ML VIAL ONE ×2 (08:36→13:14)
[2018-10-02] MEDS ORDERED: MIDAZOLAM HCL 1 MG/ML 2ML VIAL ONE (08:36)
[2018-10-02] MEDS ORDERED: ONDANSETRON INJ 2 MG/ML 2 ML VIAL ONE (08:36)
[2018-10-02] MEDS ORDERED: PROPOFOL IV EMULSION 10 MG/ML 20 ML VIAL IV ONE (08:36)
[2018-10-02] MEDS ORDERED: LIDOCAINE HCL 2% 2 ML VIAL/AMP(20MG/ML) INFIL ONE (08:36)
--- NOTE | 2018-10-02 09:31 | History & Physical Report ---
Date of Service October 02, 2018 Assessment & Plan (1) Spinal stenosis, lumbar region with neurogenic claudication: Posterior lumbar decompression and fusion possible interbody fusion L3-S1 Present on Admission?: Yes History of Present Illness Chief Complaint: Back and leg pain Primary Care Provider: Scout Jung MD This is a 63-year-old female who presents with chronic persistent back and leg pain. After failing extensive course of nonoperative care she is here for surgical intervention. Allergies Allergy/AdvReac Type Severity Reaction Status Date / Time No Known Drug Allergies Allergy Verified 10/02/18 08:48 Home Medications Home Medications Medication Instructions Recorded Confirmed Type aspirin 81 mg PO UD 02/09/18 10/02/18 History atorvastatin 20 mg PO HS 02/09/18 10/02/18 History cholecalciferol (vitamin D3) 5,000 unit PO DAILY 02/09/18 09/19/18 History [Vitamin D3] levothyroxine 50 mcg PO QAM 02/09/18 10/02/18 History metformin 500 mg PO BID 02/09/18 09/19/18 History fenofibrate nanocrystallized 145 mg PO QAM /09/2110/02/18 History [Tricor] ibuprofen 200 mg tablet 200 mg PO TID PRN tab 09/18/18 10/02/18 History melatonin 5 mg tablet 5 mg PO HS #30 tab 09/18/18 10/02/18 History metoprolol succinate ER 50 mg 50 mg PO QAM #9 tab 09/18/18 10/02/18 History tablet,extended release 24 hr Past Med/Surg History Social History Preferred Language: [facility] Communication Ability: Effective Communication Tools: IPad Shoe Dresser Required: Yes Beliefs That Will Affect Care: None Current Living Situation: Spouse Other Information That Helps Us Care for You: No Feels Safe at Home: Yes Safety Concerns: Feels Safe At This Time Smoking Status: Never smoker Do You Dip or Chew Tobacco: No Second Hand Exposure: No Tobacco Cessation Education Requested by Patient: No Hx Alcohol Use: No Hx Substance Use: No Physical Exam Physical Exam: Patient is alert and oriented with evidence of muscle atrophy in the left lower extremity. Results & Data Vital Signs (Past 12 Hours) Vital Signs Temp Pulse Resp BP Pulse Ox 10/02/18 08:55 37.5 C 93 H 20 175/96 H 97
--- NOTE | 2018-10-02 09:31 | History & Physical Bridge Note ---
Date of Service October 02, 2018 History & Physical Bridge Note I have examined the patient, reviewed the History & Physical and in the interval since the performance of the History & Physical I have noted the following changes of clinical significance: no changes noted
[2018-10-02] MEDS ORDERED: BACITRACIN INJ 50,000 UNIT VIAL ONE (09:53)
[2018-10-02] MEDS ORDERED: BUPIVACAINE/EPINEPHRINE 0.5% MPF 1:200,000 30 ML VIAL ONE (09:53)
[2018-10-02] MEDS ORDERED: GENTAMICIN SULFATE 40 MG/ML 2 ML VIAL ONE (11:03)
[2018-10-02] MEDS ORDERED: VANCOMYCIN HCL 1000MG/20ML VIAL ONE (11:03)
[2018-10-02] MEDS ORDERED: ePHEDrine sulfate 50 MG/ML SYR ONE (11:42)
[2018-10-02] MEDS ORDERED: ROCURONIUM BROMIDE 10 MG/ML 5 ML VIAL ONE ×2 (11:43→13:14)
[2018-10-02] MEDS ORDERED: NEOSTIGMINE METHYLSULFATE 1 MG/ML 10ML VIAL ONE (11:44)
[2018-10-02] MEDS ORDERED: GLYCOPYRROLATE 0.2 MG/ML VIAL ONE ×2 (11:44→12:05)
[2018-10-02] MEDS ORDERED: FLOSEAL HEMOSTATIC MATRIX 10ML TOP ONE (12:10)
--- NOTE | 2018-10-02 12:10 | Operative Report ---
Post Operative Report Pre & Post Diagnosis Operation Date: 10/02/18 09:55 Pre-Op Diagnosis: Lumbar spinal stenosis with neurogenic claudication Post-Op Diagnosis: Same Procedure Operation Date: 10/02/18 09:55 Actual Procedures #1 lumbar decompression with bilateral medial facetectomy foraminotomies L2-3 L3-4 L4-5 L5-S1 per #2 posterior spinal fusion L3-4 L4-5 L5-S1. #3 placement posterior segmental instrumentation L3-4 L4-5 L5-S1. #4 interbody fusion L5-S1. #5 placement of peek cage 12 x 22 mm at L5-S1. #6 placement of local autograft in the posterior lateral gutters. #7 placement infuse collagen sponge master graft in the posterior lateral gutters and ostial amp and interbody space. Surgeon José Miguel Allred, DO Fisheries Technical Officer Mckenzie Crain Estimated Blood Loss 300 Findings See Below The patient is a 5 foot 5 inches tall weighing over 101 kg with a BMI in excess of 37. The patient's body habitus added significant technical difficulty throughout the procedure requiring the longest retractors adding at least 50% increase in operative time. Specimens None Indications This is a 63-year-old female who presents with above-mentioned diagnosis after failing extensive course of nonoperative care like to undergo above-mentioned procedure. Description of Procedure Patient was met with identified and informed consent obtained. She was then taken to the operative suite underwent intubation placed in the prone position the Bob table on top of the Isreal frame. All bony prominences well-padded eyes inspected to ensure no external placed upon. This point the lumbar spine was prepped and draped in a normal sterile fashion. Sharp dissection with the assistance of Bovie cautery was performed down to and exposing the lamina and transverse processes of L3-L4-L5 and sacral ala bilaterally. From caudal cephalad fashion complete laminectomy of L5 L4 L3 and partial laminectomy of L2 was performed including bilateral medial facetectomies and foraminotomies addressing severe stenosis. Pedicle screws were then placed in L3-L4-L5 and S1 levels bilaterally with assistance of fluoroscopy the purposes jerri placed. By way of a transforaminal approach on the left complete discectomy of all 5 S1 was performed endplates curetted to subcortical mean bone and a 12 x 22 mm peek cage filled with ostium bone graft tapped in position. The rods and locked in final position bilaterally. The transverse processes of L3-L4-L5 and the sacral ala bur to subcortical being bone. Infuse collagen sponge mass graft local autograft was placed in the posterior gutters. 15 round JAY drain inserted. I did place approximately 10 cc of stimulant beads impregnated with vancomycin t obramycin throughout the wound. Incision was then closed with 1 Vicryl in the fascia 2-0 Vicryl subtenons in 4 Monocryl for final skin closure. Steri-Strip sterile dressings placed. Patient will continue PACU stable condition. These note Mckenzie Crain present throughout the entire procedure involved in patient positioning complex portions of the surgery and final skin closure. I attest to the content of the Intraoperative Record and any orders documented therein. Any exceptions are noted below.
--- NOTE | 2018-10-02 12:22 | Fluoroscopy Report ---
FL lumbar spine 2-3V HISTORY: 63 years-old Female L4-S1 DECOMPRESSION AND FUSION COMPARISON: MR spine CT 02/10/2018 TECHNIQUE: 2 spot fluoroscopic images of the lumbar spine were obtained utilizing 28.5 seconds fluoro scopy time FINDINGS: Laminectomy changes with posterior interbody jerri and screw fusion extends from appears be the L3-S1 l evels. Discectomy changes at L5-S1. Alignment appears satisfactory. Multilevel spondylitic spurring w ith disc space narrowing. IMPRESSION: Fluoroscopic assistance as above. Please see operative report for further details. The above report was generated using voice recognition software. It may contain grammatical, syntax o r spelling errors. Electronically signed by: Apollo Holman M.D. 10/02/2018 12:21 PM
--- NOTE | 2018-10-02 13:09 | Anesthesiology Progress Note ---
Date of Service October 02, 2018 Anesthesia Post Procedure Vital Signs Vital Signs: Temp Pulse Pulse Resp BP BP Pulse Ox 10/02/18 13:05 73 18 131/80 93 10/02/18 12:55 36.5 C 77 21 124/78 95 10/02/18 12:45 80 20 138/94 98 10/02/18 12:35 99 H 22 152/83 H 97 10/02/18 12:26 36.2 C L 111 H 21 145/115 H 98 10/02/18 08:55 37.5 C 93 H 20 175/96 H 97 Pain Intensity Medial Back: Pain Intensity: 0 Transfer of Care Handoff Completed per policy Notes Mental Status: alert / awake / arousable and participated in evaluation Patient Amnestic to Procedure: Yes Nausea / Vomiting: adequately controlled Pain: adequately controlled Airway Patency, RR, SpO2: stable & adequate BP & HR: stable & adequate Hydration State: stable & adequate Anesthetic Complications: no major complications apparent and Pt Satisfied with anesthetic care
[2018-10-02] MEDS ORDERED: FAMOTIDINE 20 MG TAB PO PRN (13:26)
[2018-10-02] MEDS ORDERED: HYDROmorphone INJ 0.5 MG/0.5 ML SYR IV PRN (13:26)
[2018-10-02] MEDS ORDERED: LORazepam 0.5 MG TAB PO PRN (13:26)
[2018-10-02] MEDS ORDERED: ACETAMINOPHEN 1,000 MG/100 ML VIAL IV PRN (13:26)
[2018-10-02] MEDS ORDERED: PROMETHAZINE HCL 12.5 MG in SODIUM CHLORIDE 0.9% 50 ML IV PRN (13:26)
[2018-10-02] MEDS ORDERED: LORazepam 0.5 MG/1 ML VIAL IV PRN (13:26)
[2018-10-02] MEDS ORDERED: BISACODYL 10 MG SUPP PR PRN (13:26)
[2018-10-02] MEDS ORDERED: ACETAMINOPHEN 500 MG TAB PO PRN (13:26)
[2018-10-02] MEDS ORDERED: SOD PHOSPHATE/SOD BIPHOSPHATE ENEMA 132 ML BTL PR PRN (13:26)
[2018-10-02] MEDS ORDERED: MAGNESIUM HYDROXIDE SUSP 30 ML UDC PO PRN (13:26)
[2018-10-02] MEDS ORDERED: ONDANSETRON INJ 2 MG/ML 2 ML VIAL IV PRN (13:26)
[2018-10-02] MEDS ORDERED: DO NOT ADMINISTER FLU VACCINE PRN (13:26)
[2018-10-02] MEDS ORDERED: ALUMINUM/MAGNESIUM SUSP 30 ML UDC PO PRN (13:26)
[2018-10-02] MEDS ORDERED: METOCLOPRAMIDE HCL INJ 5 MG/ML 2 ML VIAL IV PRN (13:26)
[2018-10-02] MEDS ORDERED: DO NOT ADMINISTER PNEUMOCOCCAL VACCINE PRN (13:26)
[2018-10-02] MEDS ORDERED: ONDANSETRON 4 MG TAB PO PRN (13:26)
--- NOTE | 2018-10-02 13:56 | Anesthesiology Progress Note ---
Date of Service October 02, 2018 Anesthesia Post Procedure Vital Signs Vital Signs: Temp Pulse Pulse Pulse Resp BP BP 10/02/18 13:47 79 18 117/79 10/02/18 13:15 36.8 C 78 18 124/80 10/02/18 13:05 73 18 131/80 10/02/18 12:55 36.5 C 77 21 124/78 10/02/18 12:45 80 20 138/94 10/02/18 12:35 99 H 22 152/83 H 10/02/18 12:26 36.2 C L 111 H 21 145/115 H 10/02/18 08:55 37.5 C 93 H 20 175/96 H Pulse Ox 10/02/18 13:47 94 10/02/18 13:15 93 10/02/18 13:05 93 10/02/18 12:55 95 10/02/18 12:45 98 10/02/18 12:35 97 10/02/18 12:26 98 10/02/18 08:55 97 Pain Intensity Medial Back: Pain Intensity: 2 Transfer of Care Handoff Completed per policy Notes Mental Status: alert / awake / arousable and participated in evaluation Patient Amnestic to Procedure: Yes Nausea / Vomiting: adequately controlled Pain: adequately controlled Airway Patency, RR, SpO2: stable & adequate BP & HR: stable & adequate Hydration State: stable & adequate Anesthetic Complications: no major complications apparent and Pt Satisfied with anesthetic care
[2018-10-02] MEDS: SODIUM CHLORIDE 0.9% 1000ML 1,000 ML IV SCH ×2 (13:59→20:23)
[2018-10-02] MEDS ORDERED: GLUCOSE 40% GEL 15 GM TUBE PO PRN (15:02)
[2018-10-02] MEDS ORDERED: GLUCAGON FOR INJ 1 MG VIAL SQ PRN (15:02)
[2018-10-02] MEDS ORDERED: DEXTROSE 50% 50 ML SYRINGE IV PRN (15:02)
[2018-10-02] MEDS ORDERED: GLUCOSE 10 TABS/TUBE PO PRN (15:02)
[2018-10-02] MEDS ORDERED: CARBOHYDRATES FOR HYPOGLYCEMIA PO PRN (15:02)
[2018-10-02] MEDS: ASPIRIN 81 MG ECTAB PO SCH (15:29)
--- NOTE | 2018-10-02 15:49 | Hospitalist Consultation ---
Date of Consultation October 02, 2018 Assessment & Plan (1) Spinal stenosis, lumbar region with neurogenic claudication: - Status post lumbar decompression with bilateral medial facetectomy foraminotomies L2-3 L3-4 L4-5 L5-S1, posterior spinal fusion L3-4 L4-5 L5-S1, placement posterior segmental instrumentation L3-4 L4-5 L5-S1, interbody fusion L5-S1, placement of peek cage 12 x 22 mm at L5-S1, placement of local autograft in the posterior lateral gutters, placement infuse collagen sponge master graft in the posterior lateral gutters and ostial amp and interbody space this morning. - Pain control and DVT ppx per primary team. - PT/OT evaluation for discharge planning. - Monitor CBC qAM to evaluate for acute blood loss. (2) HTN (hypertension): Blood pressures well controlled - Continue Toprol XL 50 mg daily as prescribed. (3) HLD (hyperlipidemia): - Continue Atorvastatin and Fenofibrate as prescribed. (4) Type II diabetes mellitus: - Most recent A1C was 6.9 in June 2018. - Holding home Metformin. - SSI coverage ordered; will also consult pharmacy. (5) Stage III chronic kidney disease: - Renally dose all meds. (6) Hypothyroidism: - Continue Levothyroxine as prescribed. - Most recent TSH was 3.3 in June 2018. (7) DVT prophylaxis: - SCDs; holding pharmacologic ppx for ortho. Dispo: Will continue to follow, please call with any questions. Supervising Physician Co-Signing Physician Notes PA Supervision Note: I personally saw and examined the patient. I verified all sr points and agree with MARTINA Givens with the following exceptions and/or additions: I saw the patient and her sister was at the bedside and translated for us. Patient says she is doing very well, denies pain. Denies chest pain shortness of breath. History reviewed as above Vitals reviewed Gen: Alert and awake, NAD HEENT: Anicteric sclerae, EOMI CV: RRR no mgr nl S1S2 Pulm: CTAB no wcr Abd: +BS soft NT ND no masses or hernias Ext: No edema, 2+ DP pulses continue with Plan as above History of Present Illness Reason for Consultation: Medical Management Attending Physician: José Miguel Allred DO History of Present Illness Ms. Yang is a 63 year old female with past medical history of HTN, vertigo, Type II DM, HLD, Hypothyroidism who presented for a planned lumbar procedure. Her daughter was present at bedside and provided history for the patient. She is doing well post op; denies back pain, chest pain, SOB, N/V. Last BM was yesterday. Allergies Allergy/AdvReac Type Severity Reaction Status Date / Time No Known Drug Allergies Allergy Verified 10/02/18 08:48 Home Medications Home Medications Medication Instructions Recorded Confirmed Type aspirin 81 mg PO UD 02/09/18 10/02/18 History atorvastatin 20 mg PO HS 02/09/18 10/02/18 History cholecalciferol (vitamin D3) 5,000 unit PO DAILY 02/09/18 09/19/18 History [Vitamin D3] levothyroxine 50 mcg PO QAM 02/09/18 10/02/18 History metformin 500 mg PO BID 02/09/18 09/19/18 History fenofibrate nanocrystallized 145 mg PO QAM 02/10/18 10/02/18 History [Tricor] ibuprofen 200 mg tablet 200 mg PO TID PRN tab 09/18/18 10/02/18 History melatonin 5 mg tablet 5 mg PO HS #30 tab 09/18/18 10/02/18 History metoprolol succinate ER 50 mg 50 mg PO QAM #9 tab 09/18/18 10/02/18 History tablet,extended release 24 hr Patient History Medical History Diabetes mellitus, type 2 ? Patient denies? Hyperlipidemia Hypothyroidism Hypertension (Chronic) Vertigo (Resolved) Surgical History Hx laparoscopic cholecystectomy S/P left knee arthroscopy Family History Mother Hypertension Father Gastric ulcer Grandmother Cirrhosis Social History Preferred Language: [place] Communication Ability: Effective Communication Tools: IPad Transfer Controller Required: Yes Beliefs That Will Affect Care: None Current Living Situation: Spouse Other Information That Helps Us Care for You: No Feels Safe at Home: Yes Safety Concerns: Feels Safe At This Time Smoking Status: Never smoker Do You Dip or Chew Tobacco: No Second Hand Exposure: No Tobacco Cessation Education Requested by Patient: No Hx Alcohol Use: No Hx Substance Use: No Review of Systems Review of Systems: All systems reviewed & are unremarkable except as noted in HPI & below Constitutional: no fever, no chills, no fatigue, no weakness and no anorexia Respiratory: no cough, no dyspnea, no dyspnea on exertion and no wheezing Cardiovascular: no chest pain, no palpitations and no edema Gastrointestinal: no abdominal pain, no nausea, no vomiting and no constipation Genitourinary: no difficulty urinating Musculoskeletal: no back pain and no joint pain Integumentary: no non-healing lesions Physical Exam Physical Exam: General: Resting comfortably HEENT: NC/AT; PERRLA with EOMI; [place] conjunctiva, MMM. No erythema of posterior pharynx Neck: Supple and nontender Cardiac: RRR Lungs: CTA bilaterally; No rhonchi, wheezing, or rales Abdomen: Bowel normoactive X 4; Nontender to palpation Extremities: Warm. No edema present Neuro: No focal weakness Skin: No rash Results & Data Vital Signs (Past 12 Hours) Vital Signs Temp Pulse Pulse Pulse Resp BP BP 10/02/18 15:24 36.8 C 89 18 117/77 10/02/18 14:12 79 18 112/73 10/02/18 13:47 79 18 117/79 10/02/18 13:15 36.8 C 78 18 124/80 10/02/18 13:05 73 18 131/80 10/02/18 12:55 36.5 C 77 21 124/78 10/02/18 12:45 80 20 138/94 10/02/18 12:35 99 H 22 152/83 H 10/02/18 12:26 36.2 C L 111 H 21 145/115 H 10/02/18 08:55 37.5 C 93 H 20 175/96 H Pulse Ox 10/02/18 15:24 93 10/02/18 14:12 96 10/02/18 13:47 94 10/02/18 13:15 93 10/02/18 13:05 93 10/02/18 12:55 95 10/02/18 12:45 98 10/02/18 12:35 97 10/02/18 12:26 98 10/02/18 08:55 97 Laboratory Results 10/02/18 10/02/18 10/02/18 Range/Units 12:29 09:03 09:00 POC Glucose 182 H 157 H (70-99) Blood Type A Negative Antibody Screen NEGATIVE Crossmatch See Detail PG Care Time/CCT Total # of Minutes Spent Total Time Spent with Patient: Total time spent is greater than 50% in coordination of care (as documented) at patient's floor/unit and/or counseling patient:
[2018-10-02] MEDS ORDERED: PHARMACY GLYCEMIC MGMT CONSULT PRN (15:57)
[2018-10-02] MEDS ORDERED: INSULIN GLARGINE SOLOSTAR 100 UNITS/ML 3 ML PEN SC ONE (16:30)
[2018-10-02] MEDS: INSULIN ASPART 100 UNITS/ML 3 ML PEN SC SCH ×3 (18:02→23:38)
[2018-10-02] MEDS: CEFAZOLIN 2000MG 2,000 MG/15 ML SYR IV SCH (18:13)
[2018-10-02] MEDS: DOCUSATE SODIUM/SENNA 50/8.6MG TAB PO SCH (20:25)
[2018-10-02] MEDS: ATORVASTATIN 20 MG TAB PO SCH (20:25)
[2018-10-02] MEDS ORDERED: NON-FORMULARY MEDICATION (Melatonin 5 MG) PO SCH (21:00)
[2018-10-03] MEDS: CEFAZOLIN 2000MG 2,000 MG/15 ML SYR IV SCH (02:27)
[2018-10-03] MEDS: SODIUM CHLORIDE 0.9% 1000ML 1,000 ML IV SCH (02:32)
[2018-10-03] MEDS: INSULIN ASPART 100 UNITS/ML 3 ML PEN SC SCH ×5 (03:50→21:48)
[2018-10-03] MEDS: POLYETHYLENE (MIRALAX) 17 GM PACK PO SCH ×3 (05:50→17:51)
[2018-10-03] MEDS: LEVOTHYROXINE SODIUM 50 MCG TABLET PO SCH (05:50)
[2018-10-03 06:59] LABS: BUN Creatinine Ratio 15.5 (10-20); Calcium 8.3 mg/dl (8.5-10.1); Creatinine Clr Calc Pharmacy 64.9 ml/min; Est GFR (African American) 66.8; Est GFR (Non-African American) 57.7
[2018-10-03 07:03] LABS: Basophils # (auto) 0.03 K/uL (0-0.2); Basophils % (auto) 0.2 %; Eosinophils # (auto) 0.01 K/uL (0-0.5); Eosinophils % (auto) 0.1 %; Hematocrit (blood only) 36.3 % (37-47); Hemoglobin 11.5 g/dL (12.0-16.0); Immature Granulocytes # (auto) 0.18 K/uL (0.00-0.02); Immature Granulocytes % (auto) 1.4 %; Lymphocytes # (auto) 1.15 K/uL (1.2-3.4); Lymphocytes % (auto) 8.8 %; Mean Corpuscular Hgb Conc 31.7 g/dL (32-36); Mean Corpuscular Volume 84.4 fL (80-100); Mean Platelet Volume 9.8 fL (7.4-10.4); Monocytes % (auto) 11.4 %; Neutrophils # (auto) 10.24 K/uL (1.4-6.5); Neutrophils % (auto) 78.1 %; Platelet Count 300 K/uL (130-400); RDW Coefficient of Variation 17.3 % (11.5-14.5); RDW Standard Deviation 52.9 fL (36.4-46.3); White Blood Count 13.11 K/uL (4.8-10.8)
[2018-10-03 07:33] LABS: Estimated Average Glucose 163 mg/dl; Hemoglobin A1C 7.3 % (4.5-5.6)
[2018-10-03] MEDS: TRAMADOL HCL 50 MG TABLET PO PRN ×2 (07:38→15:35)
--- NOTE | 2018-10-03 07:43 | Pharmacy Report ---
Glycemic Control Consultation - Date of Service October 03, 2018 - Scope Scope: Glycemic Pharmacist consulted by Nila House on 10/02/18 for glycemic control and to write orders per [facility] inpatient glycemic control protocol - Objective Weight: 101.3 kg Accuchecks BSG (last 24hrs): 10/02/18 10/02/18 10/02/18 09:00 12:29 17:15 Glucose POC Glucose 157 H 182 H 225 H 10/02/18 10/02/18 10/03/18 20:30 23:35 03:47 Glucose POC Glucose 182 H 155 H 194 H 10/03/18 06:04 Glucose 167 H POC Glucose Laboratory Data (last 24hrs): 10/03/18 06:04 Potassium 4.0 Carbon Dioxide 26 Anion Gap 6.0 Creatinine 1.02 Est Cr Clr Drug Dosing 64.9 HbA1c: Hemoglobin A1c 7.3 % (4.5-5.6) H 10/02/18 16:22 - Recent Pertinent Medications Outpatient Anti-diabetic Regimen: * metformin 500 mg BID Risk Factors for Insulin Resistance: * Steroids: dexamethasone 4 mg IV x 1 in surgery * Recent Surgery: surgery on 10/02/18 * Diet: T2DM - Assessment & Plan Assessment & Plan: ASSESSMENT: * Ms Yang is a 63 y/o F with a PMH of relatively well controlled T2DM. Pharmacy contacted medicine team yesterday afternoon since patient's blood sugar at lunch was 182 mg/dL. Consulted prior to dinner. * A full dose between 2 and 3 of Lantus was given. Weight-based stress of 3 Novolog was also selected secondary to the steroids. Overnight checks ordered to ensure good 24 hour coverage. Expected blood sugar at dinner to be high since patient could have eaten lunch uncovered. * Pt is maintained on oral antidiabetic agents as an outpatient * Oral agents are not recommended for inpatient use d/t drug interactions, changing PO intake, and difficulty titrating for acute hyper/hypoglycemia. ADA recommends re-initiating outpatient oral agents 1-2 days prior to discharge if/when appropriate if they were held on admission. * Will hold oral agents for admission and utilize SQ basal bolus insulin regimen which is the recommended regimen for inpatient glycemic control. * Will initiate weight based insulin dosing for insulin scar patient and titrate based on BSG trends. * ADA & AACE recommend a goal blood sugar range 140-180 mg/dl for the majority of critically ill & non-critically ill patients. However, more stringent targets may be selected in individual cases. Will utilize more stringent goal of 110-140mg/dl based on patient age & comorbidities. Additionally, tighter glycemic control is warranted to facilitate wound healing. PLAN FOR INPATIENT GLYCEMIC CONTROL: * Holding outpatient oral diabetes medications * Basal insulin * Lantus 40 units SQ x1 * Bolus insulin * NovoLog per scale ACHS or Q6hrs while NPO * Goal Range: Low 110 mg/dL - High 140 mg/dL * Correction Factor: 15 mg/dL/unit * Nutritional / Prandial insulin per carb ratio of 1 unit per 5 grams CHO consumed * Please note that the plan above was derived based on current level of insulin resistance and hospital stress. These recommendations are appropriate for inpatient admission only. Plan of care upon discharge will need to be reassessed to avoid potential outpatient hypo/hyperglycemia. Thank you.
--- NOTE | 2018-10-03 08:24 | Orthopedic Progress Note ---
Date of Service October 03, 2018 Assessment & Plan (1) Spinal stenosis, lumbar region with neurogenic claudication: This time will initiate physical therapy advance her bowel regiment dissipate discharge in the next few days. Present on Admission?: Yes Subjective Back pain is controlled leg symptoms improved. Physical Exam Physical Exam: Patient is in the chair at the bedside. Is good strength testing. Results & Data Vital Signs (Past 12 Hours) Vital Signs Temp Pulse Resp BP Pulse Ox 10/03/18 07:35 36.8 C 85 18 161/78 H 97 10/03/18 03:54 37.1 C 89 16 132/74 96 10/02/18 23:42 37 C 105 H 18 118/79 96 10/02/18 20:32 36.8 C 86 18 126/78 94
--- NOTE | 2018-10-03 08:27 | Anesthesiology Progress Note ---
Date of Service October 03, 2018 Anesthesia Post Procedure Vital Signs Vital Signs: Temp Pulse Pulse Pulse Resp BP BP 10/03/18 07:35 36.8 C 85 18 161/78 H 10/03/18 03:54 37.1 C 89 16 132/74 10/02/18 23:42 37 C 105 H 18 118/79 10/02/18 20:32 36.8 C 86 18 126/78 10/02/18 16:19 36.8 C 90 18 109/70 10/02/18 15:24 36.8 C 89 18 117/77 10/02/18 14:12 79 18 112/73 10/02/18 13:47 79 18 117/79 10/02/18 13:15 36.8 C 78 18 124/80 10/02/18 13:05 73 18 131/80 10/02/18 12:55 36.5 C 77 21 124/78 10/02/18 12:45 80 20 138/94 10/02/18 12:35 99 H 22 152/83 H 10/02/18 12:26 36.2 C L 111 H 21 145/115 H 10/02/18 08:55 37.5 C 93 H 20 175/96 H Pulse Ox 10/03/18 07:35 97 10/03/18 03:54 96 10/02/18 23:42 96 10/02/18 20:32 94 10/02/18 16:19 95 10/02/18 15:24 93 10/02/18 14:12 96 10/02/18 13:47 94 10/02/18 13:15 93 10/02/18 13:05 93 10/02/18 12:55 95 10/02/18 12:45 98 10/02/18 12:35 97 10/02/18 12:26 98 10/02/18 08:55 97 Pain Intensity Medial Back: Pain Intensity: 7 Notes Mental Status: alert / awake / arousable and participated in evaluation Patient Amnestic to Procedure: Yes Nausea / Vomiting: adequately controlled Pain: adequately controlled Airway Patency, RR, SpO2: stable & adequate BP & HR: stable & adequate Hydration State: stable & adequate Anesthetic Complications: no major complications apparent and Pt Satisfied with anesthetic care
[2018-10-03] MEDS: FENOFIBRATE NANOCRYSTALLIZED 145 MG TABLET PO SCH (08:49)
[2018-10-03] MEDS: METOPROLOL SUCC 50MG EXT REL TAB PO SCH (08:49)
[2018-10-03] MEDS: ASPIRIN 81 MG ECTAB PO SCH (08:50)
[2018-10-03] MEDS ORDERED: INSULIN GLARGINE SOLOSTAR 100 UNITS/ML 3 ML PEN SC ONE (09:30)
--- NOTE | 2018-10-03 15:35 | Pharmacy Report ---
Pharmacy Glycemic Short Note 2 - Date of Service October 03, 2018 - Glycemic Short BSG Results (Last 24 hours): 10/02/18 10/02/18 10/02/18 17:15 20:30 23:35 Glucose POC Glucose 225 H 182 H 155 H 10/03/18 10/03/18 10/03/18 03:47 06:04 08:07 Glucose 167 H POC Glucose 194 H 142 H 10/03/18 12:03 Glucose POC Glucose 118 H Outpatient Anti-diabetic Regimen: * Metformin 500 mg BID * HbA1c: 7.3% (10/02/18) ASSESSMENT: * Patient's BSGs have been fairly well-controlled since initiation of aggressive SQ insulin regimen post-op. * It seems that steroid-induced hyperglycemia has been limited significantly. * Patient given one more dose of basal insulin this morning, as dexamethasone effects lessen. Novolog parameters loosened beginning with dinner tonight. * Do not anticipate that patient will require additional basal insulin tomorrow. PLAN FOR INPATIENT GLYCEMIC CONTROL: * Holding outpatient oral diabetes medications * Metformin resumed with dinner this evening. Patient appears to be tolerating diet. * Basal insulin * Lantus 20 units SQ x1 dose this morning * Bolus insulin * NovoLog per scale ACHS or Q6hrs while NPO * Goal Range: Low 110 mg/dL - High 140 mg/dL * Correction Factor: 15 mg/dL/unit --> loosen to 25 mg/dL/unit starting with dinner * Nutritional / Prandial insulin per carb ratio of 1 unit per 5 grams CHO consumed --> loosen to 1 unit per 8gm CHO starting with dinner PLAN FOR DISCHARGE: * Patient's A1c (7.3%) indicates acceptable glycemic control for a 63 yo patient. * Anticipate that patient may resume home regimen on discharge as long as they do not report having episodes of hypoglycemia. * Please note that the plan above was derived based on current level of insulin resistance and hospital stress. These recommendations are appropriate for inpatient admission only. Plan of care upon discharge will need to be reassessed to avoid potential outpatient hypo/hyperglycemia. Thank you.
--- NOTE | 2018-10-03 16:04 | Hospitalist Progress Note ---
Date of Service October 03, 2018 Assessment & Plan (1) Spinal stenosis, lumbar region with neurogenic claudication: - Status post lumbar decompression with bilateral medial facetectomy foraminotomies L2-3 L3-4 L4-5 L5-S1, posterior spinal fusion L3-4 L4-5 L5-S1, placement posterior segmental instrumentation L3-4 L4-5 L5-S1, interbody fusion L5-S1, placement of peek cage 12 x 22 mm at L5-S1, placement of local autograft in the posterior lateral gutters, placement infuse collagen sponge master graft in the posterior lateral gutters and ostial amp and interbody space on 10/02, POD#1. - Pain control and DVT ppx per primary team. - PT/OT for discharge planning. - Monitor CBC qAM. (2) HTN (hypertension): - Blood pressures are well controlled - Continue Toprol XL 50 mg daily. (3) HLD (hyperlipidemia): - Continue Atorvastatin and Fenofibrate. (4) Type II diabetes mellitus: - Most recent A1C was 6.9 in June 2018. - Glycemic consult ordered. (5) Stage III chronic kidney disease: - Renally dose all meds. (6) Hypothyroidism: - Continue Levothyroxine as prescribed. - Most recent TSH was 3.3 in June 2018. (7) DVT prophylaxis: - SCDs; pharmacologic ppx per ortho. Dispo: Pt. is medically stable, will sign off. Supervising Physician Co-Signing Physician Notes PA Supervision Note: I did not personally see or examine the patient today, but I verified all sr points of MARTINA Givens's assessment and plan with the following exceptions/additions: None Subjective Pt. is doing well overall. Does complain of back pain at incision site. Has not had a BM yet. Denies chest pain, SOB. Review of Systems Review of Systems: All systems reviewed & are unremarkable except as noted in HPI & below Constitutional: no fever, no chills, no fatigue, no weakness and no anorexia Respiratory: no cough, no dyspnea, no dyspnea on exertion and no wheezing Cardiovascular: no chest pain, no palpitations and no edema Gastrointestinal: + constipation; no abdominal pain and no nausea Genitourinary: no difficulty urinating Musculoskeletal: + back pain; no joint pain Integumentary: no non-healing lesions Allergy / Immunological: no rash Physical Exam Physical Exam: General: Resting comfortably HEENT: NC/AT; PERRLA with EOMI; [place] conjunctiva, MMM. No erythema of posterior pharynx Neck: Supple and nontender Cardiac: RRR Lungs: CTA bilaterally; No rhonchi, wheezing, or rales Abdomen: Bowel normoactive X 4; Nontender to palpation Extremities: Warm. No edema present Neuro: No focal weakness Skin: No rash; dressing in place over incision, no drainage noted. Results & Data Vital Signs (Past 12 Hours) Vital Signs Temp Pulse Resp BP Pulse Ox 10/03/18 15:26 36.5 C 75 17 127/78 94 10/03/18 11:47 36.9 C 84 16 125/71 95 10/03/18 07:35 36.8 C 85 18 161/78 H 97 Laboratory Results 10/03/18 10/03/18 10/03/18 Range/Units 12:03 08:07 06:04 WBC (4.8-10.8) K/uL RBC (4.2-5.4) M/uL Hgb (12.0-16.0) g/dL Hct (37-47) % MCV (80-100) fL MCH (25-34) pg MCHC (32-36) g/dL RDW Std Deviation (36.4-46.3) fL RDW Coeff of Suleman (11.5-14.5) % Plt Count (130-400) K/uL MPV (7.4-10.4) fL Immature Gran % (Auto) % Neut % (Auto) % Lymph % (Auto) % [place] % (Auto) % Eos % (Auto) % Baso % (Auto) % Immature Gran # (Auto) (0.00-0.02) K/uL Neut # (Auto) (1.4-6.5) K/uL Lymph # (Auto) (1.2-3.4) K/uL [place] # (Auto) (0.11-0.59) K/uL Eos # (Auto) (0-0.5) K/uL Baso # (Auto) (0-0.2) K/uL Sodium 141 (136-145) mmol/L Potassium 4.0 (3.5-5.1) mmol/L Chloride 109 H (98-107) mmol/L Carbon Dioxide 26 (21-32) mmol/L Anion Gap 6.0 (3-11) BUN 16 (7-18) mg/dl Creatinine 1.02 (0.6-1.2) mg/dl Est Cr Clr Drug Dosing 64.9 ml/min Est GFR ( Amer) 66.8 Est GFR (Non-Af Amer) 57.7 BUN/Creatinine Ratio 15.5 (10-20) Glucose 167 H (70-99) mg/dl POC Glucose 118 H 142 H (70-99) Estimat Average Glucose mg/dl Hemoglobin A1c (4.5-5.6) % Calcium 8.3 L (8.5-10.1) mg/dl 10/03/18 10/03/18 10/02/18 Range/Units 06:04 03:47 23:35 WBC 13.11 H (4.8-10.8) K/uL RBC 4.30 (4.2-5.4) M/uL Hgb 11.5 L (12.0-16.0) g/dL Hct 36.3 L (37-47) % MCV 84.4 (80-100) fL MCH 26.7 (25-34) pg MCHC 31.7 L (32-36) g/dL RDW Std Deviation 52.9 H (36.4-46.3) fL RDW Coeff of Suleman 17.3 H (11.5-14.5) % Plt Count 300 (130-400) K/uL MPV 9.8 (7.4-10.4) fL Immature Gran % (Auto) 1.4 % Neut % (Auto) 78.1 % Lymph % (Auto) 8.8 % [place] % (Auto) 11.4 % Eos % (Auto) 0.1 % Baso % (Auto) 0.2 % Immature Gran # (Auto) 0.18 H (0.00-0.02) K/uL Neut # (Auto) 10.24 H (1.4-6.5) K/uL Lymph # (Auto) 1.15 L (1.2-3.4) K/uL [place] # (Auto) 1.50 H (0.11-0.59) K/uL Eos # (Auto) 0.01 (0-0.5) K/uL Baso # (Auto) 0.03 (0-0.2) K/uL Sodium (136-145) mmol/L Potassium (3.5-5.1) mmol/L Chloride (98-107) mmol/L Carbon Dioxide (21-32) mmol/L Anion Gap (3-11) BUN (7-18) mg/dl Creatinine (0.6-1.2) mg/dl Est Cr Clr Drug Dosing ml/min Est GFR ( Amer) Est GFR (Non-Af Amer) BUN/Creatinine Ratio (10-20) Glucose (70-99) mg/dl POC Glucose 194 H 155 H (70-99) Estimat Average Glucose mg/dl Hemoglobin A1c (4.5-5.6) % Calcium (8.5-10.1) mg/dl 10/02/18 10/02/18 10/02/18 Range/Units 20:30 17:15 16:22 WBC (4.8-10.8) K/uL RBC (4.2-5.4) M/uL Hgb (12.0-16.0) g/dL Hct (37-47) % MCV (80-100) fL MCH (25-34) pg MCHC (32-36) g/dL RDW Std Deviation (36.4-46.3) fL RDW Coeff of Suleman (11.5-14.5) % Plt Count (130-400) K/uL MPV (7.4-10.4) fL Immature Gran % (Auto) % Neut % (Auto) % Lymph % (Auto) % [place] % (Auto) % Eos % (Auto) % Baso % (Auto) % Immature Gran # (Auto) (0.00-0.02) K/uL Neut # (Auto) (1.4-6.5) K/uL Lymph # (Auto) (1.2-3.4) K/uL [place] # (Auto) (0.11-0.59) K/uL Eos # (Auto) (0-0.5) K/uL Baso # (Auto) (0-0.2) K/uL Sodium (136-145) mmol/L Potassium (3.5-5.1) mmol/L Chloride (98-107) mmol/L Carbon Dioxide (21-32) mmol/L Anion Gap (3-11) BUN (7-18) mg/dl Creatinine (0.6-1.2) mg/dl Est Cr Clr Drug Dosing ml/min Est GFR ( Amer) Est GFR (Non-Af Amer) BUN/Creatinine Ratio (10-20) Glucose (70-99) mg/dl POC Glucose 182 H 225 H (70-99) Estimat Average Glucose 163 mg/dl Hemoglobin A1c 7.3 H (4.5-5.6) % Calcium (8.5-10.1) mg/dl PG Care Time/CCT Total # of Minutes Spent Total Time Spent with Patient: Total time spent is greater than 50% in coordination of care (as documented) at patient's floor/unit and/or counseling patient:
[2018-10-03] MEDS: CHOLECALCIFEROL 1,000 UNITS TAB PO SCH (17:50)
[2018-10-03] MEDS: METFORMIN HCL 500 MG TAB PO SCH (17:54)
[2018-10-03] MEDS: DOCUSATE SODIUM/SENNA 50/8.6MG TAB PO SCH (21:28)
[2018-10-03] MEDS: ATORVASTATIN 20 MG TAB PO SCH (21:28)
[2018-10-04] MEDS: POLYETHYLENE (MIRALAX) 17 GM PACK PO SCH ×4 (00:18→23:43)
[2018-10-04] MEDS: LEVOTHYROXINE SODIUM 50 MCG TABLET PO SCH (05:33)
[2018-10-04 06:37] LABS: Hematocrit (blood only) 35.5 % (37-47); Mean Corpuscular Volume 88.1 fL (80-100); Platelet Count 278 K/uL (130-400); RDW Coefficient of Variation 17.5 % (11.5-14.5); RDW Standard Deviation 56.3 fL (36.4-46.3); Red Blood Count 4.03 M/uL (4.2-5.4); White Blood Count 12.32 K/uL (4.8-10.8)
[2018-10-04 07:09] LABS: BUN Creatinine Ratio 16.1 (10-20); Calcium 8.7 mg/dl (8.5-10.1); Est GFR (African American) 57.2; Est GFR (Non-African American) 49.4; Potassium 4.2 mmol/L (3.5-5.1)
[2018-10-04] MEDS: TRAMADOL HCL 50 MG TABLET PO PRN (07:30)
[2018-10-04] MEDS: METFORMIN HCL 500 MG TAB PO SCH ×2 (08:34→18:08)
[2018-10-04] MEDS: METOPROLOL SUCC 50MG EXT REL TAB PO SCH (08:34)
[2018-10-04] MEDS: FENOFIBRATE NANOCRYSTALLIZED 145 MG TABLET PO SCH (08:34)
[2018-10-04] MEDS: ASPIRIN 81 MG ECTAB PO SCH (08:34)
[2018-10-04] MEDS: INSULIN ASPART 100 UNITS/ML 3 ML PEN SC SCH ×4 (08:36→21:10)
[2018-10-04] MEDS: OXYCODONE HCL IR 5 MG TAB (IMMEDIATE RELEASE) PO PRN (10:43)
[2018-10-04] MEDS ORDERED: Nursing to Pharmacy Communication ONE ×2 (11:50→16:12)
--- NOTE | 2018-10-04 14:13 | Orthopedic Progress Note ---
Date of Service October 04, 2018 Assessment & Plan (1) Spinal stenosis, lumbar region with neurogenic claudication: We will continue physical therapy today. Maintain JAY drain. DVT prophylaxis in the form of teds and SCDs. Continue with aggressive bowel regimen. Anticipate discharge home tomorrow. Supervising Physician Co-Signing Physician Notes Dr. José Miguel Allred Silvia Miranda is doing well. Denies leg pain. She reports back pain is controlled. Is passing flatus but no bowel movement. JAY drain output is diminishing. She is making progress in physical therapy. Review of Systems Review of Systems: All systems reviewed & are unremarkable except as noted in HPI & below Physical Exam Physical Exam: Sitting up in bed. No obvious distress. Alert and oriented x3. Lumbar dressing is clean dry and intact with JAY drain intact and functioning Calves are soft nontender bilateral lower extremities Results & Data Vital Signs (Past 12 Hours) Vital Signs Temp Pulse Resp BP Pulse Ox 10/04/18 07:10 36.8 C 72 18 137/81 92
[2018-10-04] MEDS: CHOLECALCIFEROL 1,000 UNITS TAB PO SCH (18:07)
[2018-10-04] MEDS: DOCUSATE SODIUM/SENNA 50/8.6MG TAB PO SCH (21:08)
[2018-10-04] MEDS: ATORVASTATIN 20 MG TAB PO SCH (21:08)
[2018-10-05] MEDS: LEVOTHYROXINE SODIUM 50 MCG TABLET PO SCH (05:44)
[2018-10-05] MEDS: POLYETHYLENE (MIRALAX) 17 GM PACK PO SCH ×2 (05:44→13:07)
[2018-10-05 06:43] LABS: Basophils # (auto) 0.03 K/uL (0-0.2); Basophils % (auto) 0.3 %; Eosinophils # (auto) 0.09 K/uL (0-0.5); Eosinophils % (auto) 0.9 %; Hematocrit (blood only) 33.8 % (37-47); Hemoglobin 10.4 g/dL (12.0-16.0); Immature Granulocytes # (auto) 0.37 K/uL (0.00-0.02); Immature Granulocytes % (auto) 3.7 %; Lymphocytes # (auto) 1.22 K/uL (1.2-3.4); Mean Corpuscular Hgb Conc 30.8 g/dL (32-36); Mean Corpuscular Volume 85.8 fL (80-100); Monocytes # (auto) 1.11 K/uL (0.11-0.59); Neutrophils # (auto) 7.31 K/uL (1.4-6.5); Neutrophils % (auto) 72.1 %; Platelet Count 251 K/uL (130-400); RDW Coefficient of Variation 17.4 % (11.5-14.5); RDW Standard Deviation 54.1 fL (36.4-46.3); Red Blood Count 3.94 M/uL (4.2-5.4); White Blood Count 10.13 K/uL (4.8-10.8)
[2018-10-05 07:22] LABS: BUN Creatinine Ratio 21.2 (10-20); Calcium 9.3 mg/dl (8.5-10.1); Est GFR (Non-African American) 69.9; Potassium 4.5 mmol/L (3.5-5.1)
[2018-10-05] MEDS: TRAMADOL HCL 50 MG TABLET PO PRN (07:44)
--- NOTE | 2018-10-05 08:38 | Discharge Summary ---
Date of Service October 05, 2018 Admission HPI Per Admitting Provider This is a 63-year-old female who presents with chronic persistent back and leg pain. After failing extensive course of nonoperative care she is here for surgical intervention. Principal Diagnosis Lumbar spinal stenosis with neurogenic claudication Discharge Data Allergies Allergy/AdvReac Type Severity Reaction Status Date / Time No Known Drug Allergies Allergy Verified 10/02/18 08:48 Consultations 10/02/18 13:26 Consult Case Management - Discharge Planning Routine Consult Hospitalist Routine Procedures Performed Operation Date: 10/02/18 09:55 Actual Procedures p L3-S1 Posterior Lumbar Decompression and Fusion, Interbody Fusion at L5-S1, Application of Bone Morphogenetic Protein and Allograft - José Miguel Allred DO Ordered Studies 10/02/18 07:00 FL fluoroscopy <1hr Routine FL lumbar spine 2-3V Routine Hospital Course (1) Spinal stenosis, lumbar region with neurogenic claudication: Patient underwent multilevel lumbar decompression fusion tolerated as well as taken to orthopedic for possibly. Postop day and when she was up and ambulating leg symptoms improved. She improved to postop day #2 and subsequent discharge home on postop day #3. Discharge orders and instructions found the chart for further review. Total Time Total Time Spent Total Time Spent (In Minutes): 20 minutes Discharge Plan Discharge Items Patient Disposition: Home - Self-Care Reason For Visit: Other Intervertebral Disc Displacement, Lumbar Reg Discharge Diagnosis: Lumbar spinal stenosis with neurogenic claudication Discharge Goals: Decrease discomfort Activity: Per 'Additional Instructions' section Non-emergency contact: Primary Care Provider Call non-emergency contact if: you have any medication questions Follow-up/Referrals: Scout Jung MD [Primary Care Provider] - Diet: Regular Addtl Provider Instructions: ACTIVITY RECOMMENDATIONS: SELF CARE INSTRUCTIONS AFTER THORACIC/LUMBAR FUSIONS 1. You may walk to your tolerance. It is good exercise for your legs and back. Expect some back and intermittent leg aches and pains. 2. You may perform "counter-top" level activities (make a sandwich, suzette with a project, etc.). 3. No bending or lifting of more than 10 pounds or back twisting of any nature (roll like a log when turning in bed). 4. You may ride in a car for 20-30 minutes at a time. No driving until after your first visit with your doctor. 5. Frequent changes of position and restricting sitting to 30 minutes at a time will help limit the amount of back spasms and stiffness you may experience. 6. You may discontinue the use of ambulatory aids (cane, crutches, etc.) once your strength and confidence allow. 7. You may internet application developer the shower and let water strike your incision when you arrive home at least once daily. Do not take a tub bath, sit in a hot tub or go into a swimming pool until after your first recheck in the office. SPECIAL CARE INSTRUCTIONS: VERY IMPORTANT TO READ AND REVIEW A. Your surgical incision has been closed with a cosmetic suture under the skin that will dissolve in about 6 weeks. In 14 days, you can use a pair of clean scissors and cut the suture that is left outside of the skin at the ends of your incision. 1. The small skin tapes can be removed 7 days after surgery if they have not fallen off by that point. 2. You may keep the wound open to air as much as possible to promote healing after post-op day number 5 unless told otherwise by your doctor. 3. If you think the wound looks like it is becoming infected (redness or worsening drainage) and/or you are experiencing fever, chill or worsening back pain and muscle spasms, contact the office so that we may evaluate you as soon as possible. B. Complications are uncommon, but please contact us if you have any signs or symptoms of: 1. wound infection (fever higher than 102.5 degrees F, redness, separation of wound, drainage, or increasing pain from the incision) 2. blood clots in legs (pain, swelling, redness and warmth in legs) 3. urinary tract infection (fever higher than 102.5 degrees F, burning upon urination or increased frequency of urination) 4. nerve problems (inability to walk on your toes or heels, numbness, loss of bowel or bladder control) 5. any other symptoms that concern you C. Please call the office at if you have any concerns or questions about your operation or recovery. D. No smoking! Smoking drastically decreases the chance of a solid fusion. E. Do not take any anti-inflammatory medications (Indocin, Advil, Motrin, Aspirin, Naprosyn, etc.) as these may inhibit the chance of a solid fusion. Tylenol is okay to take for pain. MANAGING PAIN AFTER SPINAL SURGERY 1. Narcotic medication is intended for short-term use and will be provided for surgical pain. Surgical pain usually lasts for a period of 4-6 weeks. Narcotic medication includes Percocet, Vicodin, Darvocet, Tylenol #3 or Lortab. 2. Longer-term pain is more appropriately treated with non-narcotic medication such as Tylenol ES. 3. Muscle spasm is not appropriately treated with narcotics. Muscle relaxers such as Soma, Flexeril or Skelaxin can be used along with Tylenol ES. 4. Remember that we all live with some "aches and pains". This is not unusual or uncommon after an injury or as we get older. a. Back pain is expected and may include muscle spasms for 4 to 6 weeks after surgery. The pain should gradually improve. If the pain worsens for no apparent reason, please contact the office. b. Intermittent leg pain may also be experienced and should not be concerned about unless it worsens for no apparent reason. If so, please contact the office. 5. We will provide appropriate medication within the normal guidelines of their prescribed use. We will also be very cautious and aware of potential abuse and extended duration of patients' medication needs. a. Pain medications are for your comfort and to assist with sleep and rest so that the tissue can heal. They are not provided in order to return to normal activity and should not be used through the day. To do so or worsening pain at night can result from ongoing tissue damage and development of tolerance to the prescribed medicine. 6. Please allow 2-3 days to process refills. Prescriptions will not be mailed but must be picked up at the office. FOLLOW UP VISIT: Keep your scheduled follow-up appointment. Any questions, please call the office at . Prescriptions: New tramadol 50 mg Tablet 50 mg PO Q4H PRN (Reason: Pain, Moderate) Qty: 30 RF: 0 oxycodone 5 mg Tablet 5 mg PO Q4H PRN (Reason: Pain, Severe) Qty: 30 RF: 0 Continued ibuprofen 200 mg tablet 200 mg PO TID PRN (Reason: Pain) RF: 0 metoprolol succinate 50 mg tablet extended release 24 hr 50 mg PO QAM Qty: 9 RF: 0 melatonin 5 mg tablet 5 mg PO HS Qty: 30 RF: 0 metformin 500 mg Tablet 500 mg PO BID RF: 0 atorvastatin 20 mg Tablet 20 mg PO HS RF: 0 aspirin 81 mg Tablet,Delayed Release (Dr/Ec) 81 mg PO UD RF: 0 levothyroxine 50 mcg Tablet 50 mcg PO QAM RF: 0 cholecalciferol (vitamin D3) [Vitamin D3] 5,000 unit Tablet 5,000 unit PO DAILY RF: 0 fenofibrate nanocrystallized [Tricor] 145 mg Tablet 145 mg PO QAM RF: 0 Stand-Alone Forms: [facility]/Other Patient Handouts: Diabetes Type 2 Coping, Diabetes Meal Planning Discharge Orders: Discharge Order (Routine); Ordered 10/05/18 Ordered By: José Miguel Allred Admission Data Admit Date/Time: 10/02/18 13:19 Attending Provider: José Miguel Allred Admit Provider: José Miguel Allred Primary Care Provider: Scout Jung V. Other Providers: Laura Epstein Service: Surgical Services
[2018-10-05] MEDS: METFORMIN HCL 500 MG TAB PO SCH (09:06)
[2018-10-05] MEDS: METOPROLOL SUCC 50MG EXT REL TAB PO SCH (09:06)
[2018-10-05] MEDS: ASPIRIN 81 MG ECTAB PO SCH (09:07)
[2018-10-05] MEDS: FENOFIBRATE NANOCRYSTALLIZED 145 MG TABLET PO SCH (09:07)
[2018-10-05] MEDS: INSULIN ASPART 100 UNITS/ML 3 ML PEN SC SCH ×2 (09:09→13:07)
[2018-10-05] MEDS: OXYCODONE HCL IR 5 MG TAB (IMMEDIATE RELEASE) PO PRN (16:11)
== END 2018-10-05 17:03 | disposition home or self-care (01) | DRG 455 ==
LOC: ASU 08:21 → 3E 13:19

== ENCOUNTER 2020-05-16 06:27 | Observation (INO) ==
--- NOTE | 2020-05-13 09:23 | Anesthesiology Consultation ---
Date of Service May 13, 2020 Assessment & Plan (1) Encounter for pre-operative examination: Chart Review Chart Review: Acceptable Risk for Surgery (pending preop Covid testing ) and Patient NOT seen in Pre Admission Testing Pt's preferred language is Martiniquais- will need airplane pilot commercial DOS. *Pt seen in [facility] on 02/20/20- at that time per Mary Pruett PA-C- pt may need possible GA for procedure due to hx of back surgery and kyphoscoliosis. Fluid bolus not ordered- will leave to anesthesiologist discretion DOS - Check BSG AM DOS. Will leave to anesthesia discretion DOS if coags needed (WNL 02/20/20) Per nursing assessment 04/29/20, pt resides in [facility]. Wears mask, uses good hand hygiene and socially distances. No known Covid positive contacts or Covid related symptoms. No known Covid infection in the past 90 days. Covid test 05/12/2020 = results pending. Last seen by PCP 04/28/2020 = patient seen for ER follow-up secondary to low back pain. History of lumbar surgery in the summer 2018. Had CT scan in ER that showed no acute spine fracture or subluxation. Recommend follow-up MRI and evaluation by orthopedic provider. Recommend tramadol once daily. PCP aware of upcoming knee surgery in May 2020. Patient has history of lumbar spine surgery with no complications and her DSE was completed in 2018 and was normal at the time. Diabetesmost recent hemoglobin A1c 8.0recommended restarting Metformin. Hyperlipidemiacontinue statin and start TriCor. Polycythemiapresent since 2010. Hypertensioncontinue current medications. Hypothyroidismcontinues thyroid supplement. L4-S1 Posterior Lumbar Decompression/Fusion 10/02/18= Grade 2 view, MAC#3, ETT 7.0 at [facility] History Surgery Operation Date: 05/16/20 08:30 Proposed Procedures p Right Total Knee Arthroplasty - Tadeo Santos DO Height/Weight Height: 5 ft 5 in Weight: 92.986 kg Allergies Allergy/AdvReac Type Severity Reaction Status Date / Time No Known Drug Allergies Allergy Unknown Verified 04/29/20 15:38 Medications Home Medications Medication Instructions Recorded Confirmed Last Taken aspirin 81 mg PO QAM 02/09/18 04/29/20 09/28/18 cholecalciferol (vitamin D3) 5,000 unit PO QAM 02/09/18 04/29/20 Unknown [Vitamin D3] ibuprofen 200 mg tablet 400 mg PO TID PRN tab 09/18/18 04/29/20 10/01/18 18:00 atorvastatin 20 mg tablet 20 mg PO HS #90 tab 08/31/19 04/29/20 Unknown metformin 500 mg tablet 500 mg PO BID #180 tab 10/23/19 04/29/20 Unknown fenofibrate nanocrystallized 145 145 mg PO QAM #90 tab 11/30/19 04/29/20 Unknown mg tablet mecobalamin (vitamin B12) 1,000 mcg PO QAM 02/12/20 04/29/20 Unknown metoprolol succinate 50 mg 50 mg PO QAM #30 tab 02/18/20 04/29/20 Unknown tablet,extended release 24 hr levothyroxine 50 mcg PO QAM 04/29/20 04/29/20 Unknown tramadol 50 mg tablet 25 - 50 mg PO DAILY PRN #14 tab 04/29/20 04/29/20 Unknown Past Medical History Medical History Diabetes mellitus, type 2 NIDDM Hyperlipidemia Hypertension Hypothyroidism Obesity Polycythemia F/U DR SANDHU Stage III chronic kidney disease F/U PCP Past Family History Family History Mother Hypertension Father Gastric ulcer Grandmother Cirrhosis Denies family history of Ovarian cancer Prostate cancer Myocardial infarction Breast cancer Colorectal cancer Past Surgical History Surgical History H/O tubal ligation History of colonoscopy History of spinal fusion L4-S1 Posterior Lumbar Decompression/Fusion: 10/02/18: Grade 2 view, MAC#3, ETT 7.0 at [facility] Hx laparoscopic cholecystectomy S/P left knee arthroscopy Social History Smoking Status: Never smoker Do You Dip or Chew Tobacco: No Hx Alcohol Use: No Hx Substance Use: No substance use type: does not use Testing Laboratory Results Laboratory Tests 10/09/19 02/20/20 05/12/20 14:03 11:45 09:48 WBC 7.58 Hgb 14.5 Hct 45.1 Plt Count 455 H Sodium Potassium Chloride Carbon Dioxide BUN Creatinine Glucose Hemoglobin A1c 8.0 H TSH 2.370 05/12/20 09:48 WBC Hgb Hct Plt Count Sodium 144 Potassium 3.5 Chloride 107 Carbon Dioxide 25 BUN 26 H Creatinine 1.12 Glucose 140 H Hemoglobin A1c TSH Surgeon's office was made aware of Hgb A1C in Feb 2020 Electrocardiogram Date: 10/23/19 ST at 103bpm. LAD. Chest X-Ray Date: 02/20/20 FINDINGS: Lung volumes are normal. There is no pneumothorax or pleural effusion. There is no consolidation or evidence for pulmonary edema. Mild cardiomegaly is unchanged. Opacity along the left heart border represents epicardial fat pad. IMPRESSION: No acute cardiopulmonary findings. Stable cardiomegaly. Echocardiogram Date: 03/24/18 EF: 65-70% LV Function: normal RWMA: + none Normal biventricular systolic function Mild concentric left ventricular hypertrophy Grade I left ventricular diastolic dysfunction Normal chamber dimensions No significant valvular abnormalities No cardiac source of emboli noted Stress Test Date: 09/20/18 Type: DSE Resting EF: 65-70% DOBUTAMINE STRESS TEST: 1. Negative dobutamine stress echo for ischemia at 85% MPHR. 2. Negative Dobutamine ECG for ischemia at 85% MPHR. 3. Appropriate blood pressure response. 4. No arrhythmia. 5. No chest pain reported. 6. Technically difficult study, enhanced with IV Definity. ECHO: 1. Normal left ventricular size and systolic function. EF 65-70%. No RWMA. Severe concentric LVH. 2. No significant valvular abnormalities. 3. Technically difficult study. Other Testing CAROTID DUPLEX 03/24/18 INTERPRETATION SUMMARY: 1. <50% stenosis in the internal carotid arteries bilaterally. 2. No significant change since last exam at [facility] in 04/24. Antegrade flow noted in bilateral vertebral arteries.
--- NOTE | 2020-05-15 08:09 | History & Physical Report ---
Date of Service May 15, 2020 Assessment & Plan (1) Osteoarthritis of right knee: We will proceed with a right total knee arthroplasty. Postoperatively she will be started on aspirin for DVT prophylaxis and kept overnight in the hospital for postoperative medical management. She plans to use energy physical therapy upon discharge. History of Present Illness Chief Complaint: Osteoarthritis of the right knee. Primary Care Provider: Scout Jung MD Ruth is a pleasant 64-year-old female who is been dealing with chronic i ncreasing right knee pain. X-rays and clinical examination have been diagnostic for advanced osteoarthritis of the right knee. After failing conservative treatment, she has elected to proceed with a right total knee arthroplasty.. Allergies Allergy/AdvReac Type Severity Reaction Status Date / Time No Known Drug Allergies Allergy Unknown Verified 04/29/20 15:38 Home Medications Medication Instructions Recorded Confirmed Type aspirin 81 mg PO QAM 02/09/18 04/29/20 History cholecalciferol (vitamin D3) 5,000 unit PO QAM 02/09/18 04/29/20 History [Vitamin D3] ibuprofen 200 mg tablet 400 mg PO TID PRN tab 09/18/18 04/29/20 History atorvastatin 20 mg tablet 20 mg PO HS #90 tab 08/31/19 04/29/20 Rx metformin 500 mg tablet 500 mg PO BID #180 tab 10/23/19 04/29/20 Rx fenofibrate nanocrystallized 145 145 mg PO QAM #90 tab 11/30/19 04/29/20 Rx mg tablet mecobalamin (vitamin B12) 1,000 mcg PO QAM 02/12/20 04/29/20 History metoprolol succinate 50 mg 50 mg PO QAM #30 tab 02/18/20 04/29/20 Rx tablet,extended release 24 hr levothyroxine 50 mcg PO QAM 04/29/20 04/29/20 History tramadol 50 mg tablet 25 - 50 mg PO DAILY PRN #14 tab 04/29/20 04/29/20 Rx Past Med/Surg History Medical History Diabetes mellitus, type 2 NIDDM Hyperlipidemia Hypertension Hypothyroidism Obesity Polycythemia F/U DR SANDHU Stage III chronic kidney disease F/U PCP Surgical History H/O tubal ligation History of colonoscopy History of spinal fusion L4-S1 Posterior Lumbar Decompression/Fusion: 10/02/18: Grade 2 view, MAC#3, ETT 7.0 at [facility] Hx laparoscopic cholecystectomy S/P left knee arthroscopy Family History Mother Hypertension Father Gastric ulcer Grandmother Cirrhosis Denies family history of Ovarian cancer Prostate cancer Myocardial infarction Breast cancer Colorectal cancer Social History Smoking Status: Never smoker Second Hand Exposure: No; Hx Alcohol Use: No Hx Substance Use: No Preferred Language: Kazakh Communication Ability: Impaired Communication Tools: IPad Visual Impairment: Partially Limited Hearing Ability: Normal 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 Physical Exam On physical examination of the right knee, she does have a varus deformity. She has tenderness palpation of the distal medial femoral condyle and over the me dial joint line. She has a trace effusion and no instability.. Constitutional WD/WN, vitals as above Eyes PERRL, conjunctivae normal, anicteric sclerae ENMT external ear and nose normal, oropharynx normal Neck trachea midline, no thyromegaly Respiratory normal respiratory effort Cardiovascular RRR, no murmur, no edema Gastrointestinal (Abdomen) normal bowel sounds, soft, nontender, no hepatosplenomegaly Psychiatric A+Ox3, euthymic affect Results & Data Results & Data Laboratory Results . Diagnostic Findings X-rays of the right knee do show advanced osteoarthritis with joint space narrowing, osteophyte formation, and [id number] articulation.. PG Care Time/CCT Total # of Minutes Spent Total Time Spent with Patient: Total time spent is greater than 50% in coordination of care (as documented) at patient's floor/unit and/or counseling patient: Coding Level of Care Code None Diagnoses Osteoarthritis of right knee M17.11
--- NOTE | 2020-05-16 06:21 | History & Physical Bridge Note ---
Date of Service May 16, 2020 History & Physical Bridge Note I have examined the patient, reviewed the History & Physical and in the interval since the performance of the History & Physical I have noted the following changes of clinical significance: no changes noted
[~2020-05-16 06:27] MED LIST changes: +ACETAMINOPHEN 500 MG TAB PO SCH; -ATROPINE SULFATE 0.1 MG/ML 10ML SYR IV PRN; +BUPIVACAINE 0.25% 30 ML VIAL ONE; +BUPIVACAINE 0.5 % 5 MG/1 ML PF 10ML VIAL ONE; -CEFAZOLIN 2000MG 2,000 MG/15 ML SYR IV SCH; +FAMOTIDINE 20 MG TAB PO SCH; +GABAPENTIN 300 MG CAP PO SCH; -HYDROmorphone INJ 1 MG/ML SYRINGE IV PRN; +LR 60ML/HR IV SCH; -ONDANSETRON INJ 2 MG/ML 2 ML VIAL IV PRN; -PROMETHAZINE HCL 12.5 MG in SODIUM CHLORIDE 0.9% 50 ML IV PRN; +ROPIVACAINE 0.5% HCL/PF 150 MG, BUPIVACAINE 0.75% MPF 20 ML, EPINEPHrine 30MG/30ML (OR ... INSTIL SCH; +TRANEXAMIC ACID 1,000 MG **IV Intra-op IV SCH; +TRANEXAMIC ACID 1,000 MG **IV Pre-op IV SCH; +ceFAZolin 2000MG 2,000 MG/15 ML SYR IV SCH; +dexAMETHasone 4 MG TAB PO SCH; -ePHEDrine sulfate 50 MG/ML AMP IV PRN; -fentaNYL citrate 100 MCG/2 ML VIAL IV PRN
[2020-05-16] MEDS ORDERED: MIDAZOLAM HCL 1 MG/ML 2ML VIAL ONE (06:54)
[2020-05-16] MEDS ORDERED: fentaNYL citrate 100 MCG/2 ML VIAL ONE (06:55)
[2020-05-16] MEDS ORDERED: ORTHO JOINT ANESTHETIC ONE (07:28)
[2020-05-16] MEDS ORDERED: ePHEDrine sulfate 50 MG/ML AMP IV PRN (07:50)
[2020-05-16] MEDS ORDERED: fentaNYL citrate 100 MCG/2 ML VIAL IV PRN (07:50)
[2020-05-16] MEDS ORDERED: HYDROmorphone INJ 1 MG/ML SYRINGE IV PRN (07:50)
[2020-05-16] MEDS ORDERED: ATROPINE SULFATE 0.1 MG/ML 10ML SYR IV PRN (07:50)
[2020-05-16] MEDS ORDERED: ONDANSETRON INJ 2 MG/ML 2 ML VIAL IV PRN ×2 (07:50→10:58)
[2020-05-16] MEDS ORDERED: HYDROmorphone INJ 2 MG/ML SYR/VIAL ONE (08:29)
[2020-05-16] MEDS ORDERED: KETAMINE 50 MG/5 ML SYRINGE ONE (08:30)
[2020-05-16] MEDS ORDERED: ONDANSETRON INJ 2 MG/ML 2 ML VIAL ONE (08:58)
[2020-05-16] MEDS ORDERED: LIDOCAINE HCL 2% 2 ML VIAL/AMP(20MG/ML) INFIL ONE (08:58)
[2020-05-16] MEDS ORDERED: PROPOFOL IV EMULSION 10 MG/ML 20 ML VIAL IV ONE (08:58)
[2020-05-16] MEDS ORDERED: NEOSTIGMINE METHYLSULFATE 5 MG/5 ML SYR ONE (09:14)
[2020-05-16] MEDS ORDERED: GLYCOPYRROLATE 0.2 MG/ML VIAL ONE (09:14)
--- NOTE | 2020-05-16 09:24 | Operative Report ---
PG Post Operative Report Pre & Post Diagnosis Operation Date: 05/16/20 08:30 Pre-Op Diagnosis: Degenerative Joint Disease Right Knee Post-Op Diagnosis: Degenerative Joint Disease Right Knee I identified the patient and participated in the time-out.: Yes Procedure Operation Date: 05/16/20 08:30 Actual Procedures p Right Total Knee Arthroplasty, Cemented(Right) - Tadeo Santos DO Surgeon Tadeo Santos DO Tailor Fitter Tadeo Leonard PAC Estimated Blood Loss 5 Findings Consistent with Post-Op Diagnosis Specimens Right femoral and tibial bone Complications none Disposition Disposition: Recovery Room Indications Ruth is a pleasant 64-year-old female who is been dealing with chronic increasing right knee pain. X-rays and clinical examination were diagnostic for advanced osteoarthritis of the right knee. After failing conservative treatment, she elected proceed with a right total knee arthroplasty. Description of Procedure Implants used: I used a Merary Persona total knee arthroplasty system with a size 7 standard femur, E tibia, 29 patella, and a size 12 medial congruent polyethylene bearing. All components were cemented in place with Simplex HV cement. Ruth arrived [facility] for the above procedure. She was seen in the preoperative holding area and the operative extremity was identified and signed. She was given a preoperative antibiotic, TXA, a spinal anesthetic and an adductor nerve block. She was taken back to the operating room and laid on the table in supine position. She was given basic sedation. The operative knee was then prepped and draped in sterile fashion. A timeout was done, and the patient and the operative extremity was properly identified. A midline incision was made directly over the patella. Dissection was taken down to the extensor mechanism. A subvastus arthrotomy was used. The medial retinaculum was released and the fat pad was mostly excised. The knee was flexed and the ACL, PCL, and meniscus were removed. A drill was sent down the center of the femoral canal followed by an intramedullary jerri. Off that jerri a distal femoral cutting block was placed. 9 mm was resected off the distal femur at 5 of valgus. A posterior referencing AP sizing guide was then placed on the distal femur. The femur measured to be a size 7. 2 drill holes were placed in 3 of external rotation. A 4-in-1 cutting block was then impacted into place. Anterior, posterior, and chamfer cuts were then made. The proximal tibia was then exposed. An external tibial alignment guide was placed. A tibial cut guide was then anchored in place and the proximal tibia was then resected. The posterior aspect of the knee was then opened up and any additional meniscus fragments and osteophytes were removed. The tibia measured to be a size E. The tibial plate was then placed in the appropriate rotation and the tibia was drilled and punched. Trial components were then placed. I used a size 12 medial congruent polyethylene insert. The knee was brought through a full range of motion and felt to be stable. The peg holes for the femoral component were then drilled. The patella was then everted and 9 mm was resected off the posterior aspect of the patella. The patella measured to be a size 29. 3 peg holes were then drilled. A trial patella was placed. The knee was once again brought through a full range of motion and felt to be stable. Trial components were then removed. The surrounding soft tissues were injected with 100 cc of an orthopedic pain control cocktail. All components were then cemented into place with Simplex HV cement. The final polyethylene insert was then snapped into place. Once cement was dry the tourniquet was deflated. Hemostasis was obtained. A dilute betadyne lavage was then done for 3 minutes. The joint was then irrigated with normal saline solution. The subvastus arthrotomy was then closed with #1 Vicryl suture. The skin was closed with 2-0 Vicryl, 3-0V lock suture, and daron. A Silverlon and a soft compressive dressing were placed. She was then transferred to a hospital bed and taken to the postanesthesia care unit in stable condition. She tolerated the procedure well. Tadeo Leonard PA-C, was present for the entire procedure. He was critical for patient positioning, prepping, draping, retraction exposure, wound closure and application of sterile dressing. I attest to the content of the Intraoperative Record and any orders documented therein. Any exceptions are noted below.
--- NOTE | 2020-05-16 10:41 | XRay Report ---
XR knee RT 1 or 2V routine HISTORY: 64 years-old Female Surgical Post Op right knee total joint arthroplasty COMPARISON: None TECHNIQUE: 2 views of the right knee FINDINGS: Right knee total joint arthroplasty and patella resurfacing with anterior skin daron and expected p ostsurgical soft tissue swelling with deep tissue air. Soft tissue calcifications are noted within th e medial aspect of the lower leg. No acute fracture or an expected opaque foreign body. IMPRESSION: Right knee total joint arthroplasty and patella resurfacing with expected postoperative c hanges. ACT 112: Negative or not required by law. The above report was generated using voice recognition software. It may contain grammatical, syntax o r spelling errors. Electronically signed by: Apollo Holman M.D. 05/16/2020 10:40 AM
[2020-05-16] MEDS ORDERED: bisacodyL 10 MG SUPP PR PRN (10:58)
[2020-05-16] MEDS ORDERED: HYDROmorphone INJ 0.5 MG/0.5 ML SYR IV PRN (10:58)
[2020-05-16] MEDS ORDERED: NALOXONE HCL 0.4 MG/1 ML VIAL/CARP IV PRN (10:58)
[2020-05-16] MEDS ORDERED: oxyCODONE HCL IR 5 MG TAB (IMMEDIATE RELEASE) PO PRN (10:58)
[2020-05-16] MEDS ORDERED: MAGNESIUM HYDROXIDE SUSP 30 ML UDC PO PRN (10:58)
[2020-05-16] MEDS ORDERED: METOCLOPRAMIDE HCL INJ 5 MG/ML 2 ML VIAL IV PRN (10:58)
[2020-05-16] MEDS ORDERED: CARBOHYDRATES FOR HYPOGLYCEMIA PO PRN (11:30)
[2020-05-16] MEDS ORDERED: GLUCOSE 10 TABS/TUBE PO PRN (11:30)
[2020-05-16] MEDS ORDERED: GLUCOSE 40% GEL 15 GM TUBE PO PRN (11:30)
[2020-05-16] MEDS ORDERED: NovoLIN-N (NPH) PER UNIT CHARGE SQ ONE (11:30)
[2020-05-16] MEDS ORDERED: GLUCAGON FOR INJ 1 MG VIAL SQ PRN (11:30)
[2020-05-16] MEDS ORDERED: DEXTROSE 50% 50 ML SYRINGE IV PRN (11:30)
[2020-05-16] MEDS ORDERED: PHARMACY GLYCEMIC MGMT CONSULT SCH (11:39)
[2020-05-16] MEDS: SODIUM CHLORIDE 0.9% 1000ML 1,000 ML IV SCH ×2 (12:12→21:01)
[2020-05-16] MEDS: KETOROLAC TROMETHAMINE 15 MG/ML VIAL IV SCH ×2 (12:13→18:22)
[2020-05-16] MEDS: INSULIN ASPART 100 UNITS/ML 3 ML PEN SC SCH ×3 (13:19→21:00)
--- NOTE | 2020-05-16 14:39 | Pharmacy Report ---
Pharmacy Glycemic Short Note 2 - Date of Service May 16, 2020 - Glycemic Short BSG Results (Last 24 hours): 05/16/20 05/16/20 05/16/20 06:50 10:02 12:06 POC Glucose 135 H 140 H 176 H OUTPATIENT ANTIDIABETIC REGIMEN: * Metformin 500mg PO BID ASSESSMENT: * 64 year old female, only speaks Ghanaian but did call and speak to patient's daughter who speaks yi regarding levothyroxine (not taking), s/p TKA, type 2 diabetic, received dexamethasone 8mg PO preop * Oral agents are not recommended for inpatient use d/t drug interactions, changing PO intake, and difficulty titrating for acute hyper/hypoglycemia. ADA recommends re-initiating outpatient oral agents 1-2 days prior to discharge if/when appropriate if they were held on admission. * Will hold oral agents for admission and utilize SQ basal bolus insulin regimen which is the recommended regimen for inpatient glycemic control. * Will initiate weight based insulin dosing for insulin scar patient and titrate based on BSG trends. * Will use one time dose of NPH to cover steroid effects * ADA & AACE recommend a goal blood sugar range 140-180 mg/dl for the majority of critically ill & non-critically ill patients. However, more stringent targets may be selected in individual cases. Will utilize more stringent goal of 110-140mg/dl based on patient age & comorbidities. Additionally, tighter glycemic control is warranted to facilitate wound/infection healing. PLAN FOR INPATIENT GLYCEMIC CONTROL: * Hold outpatient oral diabetes medications * Basal insulin * NPH 15 units SQ x 1 dose now * Bolus insulin * NovoLog per scale ACHS or Q6hrs while NPO * Goal Range: Low 110 mg/dL - High 140 mg/dL * Correction Factor: 20 mg/dL/unit * Nutritional / Prandial insulin per carb ratio of 1 unit per 7 grams CHO consumed
[2020-05-16] MEDS: ACETAMINOPHEN 500 MG TAB PO SCH ×2 (14:47→21:00)
--- NOTE | 2020-05-16 15:22 | Anesthesiology Progress Note ---
Date of Service May 16, 2020 Anesthesia Post Procedure Vital Signs Vital Signs: Temp Pulse Pulse Resp BP BP Pulse Ox 05/16/20 14:00 36.3 C L 60 16 108/61 97 05/16/20 13:04 36.2 C L 89 16 159/81 H 96 05/16/20 12:01 36.3 C L 69 16 127/79 98 05/16/20 11:30 36.3 C L 75 16 138/82 98 05/16/20 10:59 36.7 C 65 18 167/90 H 96 05/16/20 10:45 67 14 159/68 H 97 05/16/20 10:30 36.1 C L 63 16 163/78 H 96 05/16/20 10:20 72 15 167/97 H 96 05/16/20 10:10 68 16 179/75 H 100 05/16/20 10:00 72 15 166/87 H 97 05/16/20 09:52 36.2 C L 82 16 178/88 H 95 05/16/20 07:39 36.8 C 73 20 153/97 H 97 05/16/20 06:45 36.6 C 77 22 177/96 H 97 Transfer of Care Handoff Completed per policy Notes Mental Status: alert / awake / arousable and participated in evaluation Patient Amnestic to Procedure: Yes Nausea / Vomiting: adequately controlled Pain: adequately controlled Airway Patency, RR, SpO2: stable & adequate BP & HR: stable & adequate Hydration State: stable & adequate Anesthetic Complications: no major complications apparent and Pt Satisfied with anesthetic care
[2020-05-16] MEDS: ceFAZolin 2000MG 2,000 MG/15 ML SYR IV SCH (17:14)
[2020-05-16] MEDS: ASPIRIN 81 MG ECTAB PO SCH (20:57)
[2020-05-16] MEDS: DOCUSATE SODIUM 100 MG CAP PO SCH (20:57)
[2020-05-16] MEDS ORDERED: SENNA 8.6 MG TAB PO SCH (21:00)
[2020-05-16] MEDS ORDERED: ATORVASTATIN 20 MG TAB PO SCH (21:00)
[2020-05-17] MEDS: KETOROLAC TROMETHAMINE 15 MG/ML VIAL IV SCH ×3 (00:05→12:26)
[2020-05-17] MEDS: ceFAZolin 2000MG 2,000 MG/15 ML SYR IV SCH (00:05)
[2020-05-17] MEDS: ACETAMINOPHEN 500 MG TAB PO SCH (05:51)
[2020-05-17] MEDS: ASPIRIN 81 MG ECTAB PO SCH (08:10)
[2020-05-17] MEDS: DOCUSATE SODIUM 100 MG CAP PO SCH ×2 (08:13→08:19)
--- NOTE | 2020-05-17 08:14 | Orthopedic Progress Note ---
Date of Service May 17, 2020 Assessment & Plan (1) Status post right knee replacement: Overall she is doing very well. She is not having much pain in the right knee. She will be seen by physical therapy this morning for ambulation and range of motion exercises. She is on aspirin for DVT prophylaxis. She can be discharged home later today. She will follow-up with orthopedics in 2 weeks. Silvia Miranda was seen and examined at bedside this morning. Overall she is doing very well. She does not have any pain in the right knee. She says she was up and ambulating last night with the nursing staff. She has no complaints.. Review of Systems All systems reviewed & are unremarkable except as noted in HPI & below. Physical Exam On physical examination of the right knee, the dressing is clean and dry. Her leg is out in full extension. She has active dorsiflexion plantarflexion of her right ankle.. Results & Data Results & Data Laboratory Results . Diagnostic Findings Postoperative x-rays of the right knee show the prosthesis to be in anatomic alignment without any evidence of fracture, dislocation, or loosening.. PG Care Time/CCT Total # of Minutes Spent Total Time Spent with Patient: Total time spent is greater than 50% in coordination of care (as documented) at patient's floor/unit and/or counseling patient: Coding Level of Care Code 22066 Post Operative Follow-Up Diagnoses Status post right knee replacement Z96.651
[2020-05-17] MEDS: INSULIN ASPART 100 UNITS/ML 3 ML PEN SC SCH ×2 (08:15→12:28)
--- NOTE | 2020-05-17 08:15 | Discharge Summary ---
Date of Service May 17, 2020 Admission HPI (Per Admitting) Ruth is a pleasant 64-year-old female who is been dealing with chronic increasing right knee pain. X-rays and clinical examination have been diagnostic for advanced osteoarthritis of the right knee. After failing conservative treatment, she has elected to proceed with a right total knee arthroplasty.. Admission Exam (Per Admitting) On physical examination of the right knee, she does have a varus deformity. She has tenderness palpation of the distal medial femoral condyle and over the medial joint line. She has a trace effusion and no instability.. Principal Diagnosis Same as "Discharge Diagnosis" noted below under Discharge Instructions. Discharge Exam On physical examination of the right knee, the dressing is clean and dry. Her leg is out in full extension. She has active dorsiflexion plantarflexion of her right ankle.. Discharge Data Consultations 05/16/20 10:58 Consult Case Management - Discharge Planning Routine Procedures Performed Operation Date: 05/16/20 08:30 Actual Procedures p Right Total Knee Arthroplasty, Cemented(Right) - Tadeo Santos DO Ordered Studies 05/16/20 05:00 US - OR guided needle placemen Routine Hospital Course (1) Status post right knee replacement: On May 16, 2020 Ruth arrived at [facility] and underwent a right total knee arthroplasty without complication. She had a spinal anesthetic. Postoperatively she was started on aspirin for DVT prophylaxis and transferred to the general orthopedic floors. Her hospital course was uneventful. On postop day #1 her vital signs were stable and her pain was well controlled. She was able to participate well with physical therapy doing ambulation and range of motion exercises. She was then discharged home. She will follow-up with orthopedics in 2 weeks. PG Care Time/CCT Total # of Minutes Spent Total Time Spent with Patient: Total time spent is greater than 50% in coordination of care (as documented) at patient's floor/unit and/or counseling patient: Discharge Plan Discharge Items Patient Disposition: Home - Home Health Services Reason For Visit: Degenerative Joint Disease Right Knee Discharge Diagnosis: Right knee replacement Activity: As commented below Non-emergency contact: Surgeon Call non-emergency contact if: your wound has increased redness and your wound has increased drainage Follow-up/Referrals: Scout Jung MD [Primary Care Provider] - Diet: Regular Addtl Attending Provider Instructions: Activity and Therapy Recommendations: * If you are using [facility] then therapy will be provided at your home until they feel you have accomplished all of your goals. * If you are using [facility] then Physical Therapy will be provided until they feel you are ready to start Outpatient Physical Therapy. * If you are not using home therapy then Outpatient Physical Therapy should start about 3-5 days from your day of surgery. Therapy will last about 6-10 weeks * It is important not to put a pillow under your knee when you are relaxing or sleeping. It is just as important to make sure you are getting your knee perfectly straight as it is to regain your knee bend. * You were shown a series of exercises in the hospital. Do these exercises three times each day including the exercises you were shown in physical therapy. * Get up and walk several times each day. For the first four weeks, try not to stand or walk for more than one hour at a time. If you do stand or walk for more than one hour, you will not hurt anything, but your leg will likely swell. * As you feel comfortable, you may change from the walker or crutches to a cane and then to independent walking. Medications: * Narcotic You will likely be sent home from the hospital with a prescription for the narcotic pain medication that worked best throughout your stay. * Aspirin Most patients will be required to take Aspirin 81mg twice a day for 6 weeks after surgery. This is obtained [id number] and a prescription is not necessary. * Other medications may be prescribed for specific circumstances. If you have any questions, please call the office at . * Resume previous home medications unless otherwise instructed TEDs/Elastic Stockings: The white elastic stockings help limit swelling and prevent blood clots from forming in your legs.~ The more you wear them, the more they work. Wear them for six weeks. Dressing Care: Leave the Silverlon dressing in place for 7 days. After 7 days you may remove the dressing. If the incision is not draining then you may leave the daron open to air. If there is a little bit of drainage or if the daron are getting stuck on your clothing then cover the incision with a dry dressing. The daron will be removed at your 2 week follow-up appointment. Showering: You may shower with the Silverlon dressing in place. Do not let the shower spray hit the dressing directly. Pat the Silverlon dressing dry. If the dressing becomes wet underneath, then simply remove the dressing. Keep the incision dry until you are 7 days out from the day of surgery. After 7 days you may remove the Silverlon dressing and shower with the daron exposed. Let soapy water run over the daron and pat them dry. Do not scrub or soak the incision. Things To Watch For: * Drainage from the incision site that occurs more than one week after your surgery. * Increased redness at the incision site. * Fever above 102 degrees Fahrenheit. * Unusual chest pain or shortness of breath. * Call [facility] at with any of the above problems Follow-Up Visit: Follow-up with Dr. Santos's PA (Tadeo Leonard) 2-3 weeks after your day of surgery. He will remove your daron and answer any questions. If you have any additional questions or concerns, Dr Santos is usually in the office at the same time and will be available An appointment was probably scheduled when you signed-up for surgery in the office. If you have any questions call Office Instructions: More detailed instructions as well as Frequently Asked Questions were provided in a folder by our office when you signed-up for surgery. Please review these instructions when you get home. If you have any further questions or concerns, please feel free to call the office at [phone] Pending Studies at Discharge: No Stand-Alone Forms: [facility], Sm[facility] Cessation Medications and DC Order Prescriptions: New oxycodone 5 mg Tablet 5 mg PO Q4H PRN (Reason: pain) Qty: 30 RF: 0 Continued atorvastatin 20 mg tablet 20 mg PO HS Qty: 90 RF: 3 metoprolol succinate 50 mg tablet extended release 24 hr 50 mg PO QAM Qty: 30 RF: 3 tramadol 50 mg tablet 25 - 50 mg PO DAILY PRN (Reason: pain, severe) Qty: 14 RF: 0 ibuprofen 200 mg tablet 400 mg PO TID PRN (Reason: Pain) RF: 0 fenofibrate nanocrystallized [Tricor] 145 mg tablet 145 mg PO QAM Qty: 90 RF: 1 metformin 500 mg tablet 500 mg PO BID Qty: 180 RF: 3 cholecalciferol (vitamin D3) [Vitamin D3] 5,000 unit Tablet 5,000 unit PO QAM RF: 0 mecobalamin (vitamin B12) 1,000 mcg tablet,chewable 1,000 mcg PO QAM RF: 0 levothyroxine 50 mcg Capsule 50 mcg PO QAM RF: 0 Changed aspirin 81 mg Tablet,Delayed Release (Dr/Ec) 81 mg PO BID 42 Days Qty: 0 RF: 0 Discharge Orders: Discharge Order (Routine); Ordered 05/17/20 Ordered By: Tadeo Santos Admission Data Admit Date/Time: 05/16/20 09:50 Attending Provider: Tadeo Santos Admit Provider: Tadeo Santos Primary Care Provider: Scout Jung V.
[2020-05-17] MEDS ORDERED: FENOFIBRATE NANOCRYSTALLIZED 145 MG TABLET PO SCH (09:00)
[2020-05-17] MEDS ORDERED: LEVOTHYROXINE 50 MCG PO SCH (09:00)
[2020-05-17] MEDS ORDERED: MULTIVITAMIN TAB PO SCH (09:00)
[2020-05-17] MEDS ORDERED: METOPROLOL SUCC 50MG EXT REL TAB PO SCH (09:00)
== END 2020-05-17 15:14 | disposition home health service (06) ==
LOC: 3E 06:27 → ASU 06:27

== ENCOUNTER 2024-10-24 17:42 | Inpatient (IN) ==
[2024-10-24 18:38] LABS: Hematocrit (blood only) 47.1 % (37.0-47.0); Hemoglobin 15.4 g/dl (12.0-16.0); Immature Granulocytes # (auto) 0.20 K/uL (0.01-0.20); Immature Granulocytes % (auto) 1.8 %; Mean Corpuscular Hemoglobin 29.2 pg (25.0-34.0); Mean Corpuscular Volume 89.4 fL (80.0-100.0); Platelet Count 449 K/uL (130-400); RDW Standard Deviation 48.6 fL (36.4-46.3); Red Blood Count 5.27 M/uL (4.20-5.40); White Blood Count 10.90 K/ul (4.8-10.8)
--- NOTE | 2024-10-24 18:59 | Emergency Department Note ---
History of Present Illness General Chief complaint: Referred by Doctor Stated complaint: REFERRED BY DOC Time Seen by Provider: 10/24/24 18:44 History of Present Illness Maximum Pain Intensity: 4 This is a 69-year-old female that presents to the emergency department via private vehicle with complaints of "referred by ". I did offer formal per diem interpreter service for the patient however the daughter at bedside notes patient does prefer that the daughter interpret. The patient has had no appetite over the past 3 days and a 25 pound weight loss in the past 6 weeks. Over the past 3 days the patient has had decreased oral intake both with food and fluid. Patient also note some discomfort to the right flank area where daughter at bedside notes there are 4 skin lesions. They note this began about 3 weeks ago. No fevers, chills, nausea or vomiting. No lower extremity weakness. No bowel or bladder incontinence. No numbness or tingling in genital region. Home Medications Medication Instructions Recorded Confirmed Type cholecalciferol (vitamin D3) 125 5,000 unit PO QAM 02/09/18 10/24/24 History mcg (5,000 unit) tablet (Vitamin D3) mecobalamin (vitamin B12) 1,000 1,000 mcg PO QAM 02/12/20 10/24/24 History mcg chewable tablet aspirin 81 mg tablet,delayed 81 mg PO DAILY 90 days #90 tabs 01/01/21 10/24/24 Rx release fenofibrate nanocrystallized 145 145 mg PO QAM #90 tabs 07/01/24 10/24/24 Rx mg tablet (Tricor) atorvastatin 20 mg tablet 20 mg PO HS #90 tabs 08/10/24 10/24/24 Rx metformin 500 mg tablet 1,000 mg (2 x 500 mg) PO BID #360 08/10/24 10/24/24 Rx tabs furosemide 40 mg tablet 40 mg PO DAILY PRN edema #30 tabs 08/28/24 10/24/24 Rx empagliflozin 10 mg tablet 10 mg PO DAILY #90 tabs 09/03/24 10/24/24 Rx (Jardiance) ketoconazole 2 % topical cream 1 applic topical BID PRN 10/24/24 10/24/24 History DIRECTED metoprolol succinate 50 mg 50 mg PO QAM 10/24/24 10/24/24 History tablet,extended release 24 hr mupirocin 2 % topical ointment 1 applic topical BID #15 grams 10/24/24 10/24/24 Rx ondansetron 4 mg disintegrating 4 mg PO Q8H #30 tabs 10/24/24 10/24/24 Rx tablet Allergies Allergy/AdvReac Type Severity Reaction Status Date / Time No Known Drug Allergies Allergy Unknown Verified 10/24/24 11:09 Past Med/Surg History Problem List (Updated 10/24/24 @ 23:01 by Zach Urena PA-C) Decreased oral intake (Acute) Total bilirubin, elevated (Acute) WALDO (acute kidney injury) (Acute) Closed compression fracture of L1 vertebra (Acute) Lumbar compression fracture Elevated alkaline phosphatase level Skin lesion of back Hypokalemia Lumbar radiculopathy Adjacent segment disease of lumbar spine with history of fusion procedure Bilateral sacroiliitis Lumbar post-laminectomy syndrome Pityriasis versicolor Osteoarthritis of left knee Status post right knee replacement Left-sided low back pain with sciatica (Acute) Spinal stenosis, lumbar region with neurogenic claudication Type II diabetes mellitus Cognitive changes (Chronic) Vitamin D deficiency disease (Acute) Synovial cyst of popliteal space (Acute) Spondylosis without myelopathy or radiculopathy, lumbar region (Acute) Polycythemia vera (Acute) Hypothyroidism (Acute) Hypertension (Acute) Hyperlipidemia (Acute) Generalized osteoarthritis of multiple sites (Acute) Gait disturbance (Acute) Fatty liver (Acute) Essential hypertriglyceridemia (Acute) Abnormal brain MRI (Acute) Abnormal EKG (Acute) Vitamin B12 deficiency Medical History Polycythemia F/U DR SANDHU Obesity Stage III chronic kidney disease F/U PCP Hypothyroidism Diabetes mellitus, type 2 NIDDM Hyperlipidemia Hypertension Surgical History History of colonoscopy Status post lumbar surgery History of spinal fusion L4-S1 Posterior Lumbar Decompression/Fusion: 10/02/18: Grade 2 view, MAC#3, ETT 7.0 at [facility] H/O tubal ligation S/P left knee arthroscopy Hx laparoscopic cholecystectomy Family History Mother Hypertension Father Gastric ulcer Grandmother Cirrhosis Denies family history of Ovarian cancer Prostate cancer Myocardial infarction Breast cancer Colorectal cancer Social History Smoking Status: Never smoker Second Hand Exposure: No; Do You Dip or Chew Tobacco: No; Hx Alcohol Use: No Hx Substance Use: No Preferred Language: Niuean Communication Ability: Effective Communication Ability Comment: CAN UNDERSTAND SIMPLE UKRAINIAN Communication Tools: IPad Visual Impairment: Partially Limited Hearing Ability: Normal Canine Deputy Required: Yes Beliefs That Will Affect Care: None marital status: Current Living Situation: Spouse current occupational status: retired How many Children do You have: 4 How many Children do You have Comment: 2 boy 2 girl Feels Safe at Home: Yes Childhood Exposure to Second-Hand Smoke: No Diet: regular during the past year weight has: remained stable Dental Care, Regularly: No Physical Activity Frequency: Daily Seatbelt Use: always Sunscreen Use: No Assistive Devices: Denture - Lower, Glasses and Walker Review of Systems A total of 10 systems reviewed and were otherwise negative Physical Exam Vital Signs Vital Signs - 24 hr 10/24/24 17:56 10/24/24 18:16 10/24/24 18:55 Temperature 37.1 C Temperature Source Oral Pulse Rate 90 79 Pulse Rate [Apical] Pulse Rhythm [Apical] Pulse Strength [Apical] Respiratory Rate 16 Respiratory Effort / Characteristics Non-Labored Spontaneous Respiratory Depth Normal Respiratory Pattern Blood Pressure 136/80 Blood Pressure [Right Arm] Blood Pressure Mean 98 Blood Pressure Mean [Right Arm] Blood Pressure Position [Right Arm] Pulse Oximetry 92 Oxygen Delivery Method Room Air Sepsis Recent Fever Within 48 Hours No Sepsis New/Unexplained Change in Mental Status No Sepsis Action Taken by Nursing No Action Required 10/24/24 18:56 10/24/24 20:00 10/24/24 22:00 Temperature Temperature Source Pulse Rate Pulse Rate [Apical] 90 80 85 Pulse Rhythm [Apical] Regular Pulse Strength [Apical] Normal Respiratory Rate 18 18 15 Respiratory Effort / Characteristics Non-Labored Spontaneous Non-Labored Non-Labored Spontaneous Respiratory Depth Normal Normal Normal Respiratory Pattern Regular Regular Regular Blood Pressure Blood Pressure [Right Arm] 134/94 136/56 L 122/64 Blood Pressure Mean Blood Pressure Mean [Right Arm] 107 82 83 Blood Pressure Position [Right Arm] Semi-fowlers Lying Pulse Oximetry 99 96 97 Oxygen Delivery Method Room Air Room Air Room Air Sepsis Recent Fever Within 48 Hours Sepsis New/Unexplained Change in Mental Status Sepsis Action Taken by Nursing 10/24/24 22:30 Temperature Temperature Source Pulse Rate Pulse Rate [Apical] 76 Pulse Rhythm [Apical] Pulse Strength [Apical] Respiratory Rate 18 Respiratory Effort / Characteristics Non-Labored Spontaneous Respiratory Depth Normal Respiratory Pattern Regular Blood Pressure Blood Pressure [Right Arm] 114/67 Blood Pressure Mean Blood Pressure Mean [Right Arm] 82 Blood Pressure Position [Right Arm] Pulse Oximetry 97 Oxygen Delivery Method Room Air Sepsis Recent Fever Within 48 Hours Sepsis New/Unexplained Change in Mental Status Sepsis Action Taken by Nursing VITAL SIGNS - Vital signs and nursing notes were reviewed. Stable and afebrile. GENERAL - 69-year-old female appearing her stated age who is in no acute distress. Communicates well with provider and answers questions appropriately. SKIN -there are approximately 4, about 1 cm in diameter scabbed over areas to the right flank region. These do not appear traumatic in nature. It is unclear if these began as vesicles and are now scabbed over. Reportedly these are about 3 weeks old. HEAD - NC/AT. EYES - PERRL with EOMI bilaterally. Sclera anicteric. EARS - No deformities of external structures noted on gross examination bilaterally. NOSE - Midline and without cyanosis. No epistaxis or purulent drainage noted. MOUTH/OROPHARYNX - Without perioral cyanosis. NECK - Neck with FROM.No nuchal rigidity. LUNGS - CTA CARDIAC - RRR ABDOMEN - Abdominal contour normal without pulsations or visible masses. BS normoactive all four quadrants. No tenderness, palpable masses, hepatosplenomegaly, or ascites noted. EXTREMITIES - No clubbing or peripheral cyanosis. +5/5 strength noted in UE/LE bilaterally. NEUROLOGIC - Cranial nerves II through XII grossly intact. PSYCH -alert, oriented and pleasant on exam Course Administered Medications Lactated Ringer's (Lr) 1,000 mls @ 80 mls/hr IV .[id number] NATY Stop: 10/25/24 10:29 Last Admin: 10/24/24 22:32 Dose: 80 mls/hr Documented By: SINGH Discontinued Medications Sodium Chloride (Nss) 1,000 mls @ 500 mls/hr IV .Q2H ONE Stop: 10/24/24 20:55 Last Infusion: 10/24/24 21:28 Dose: Infused Documented By: Admin: 10/24/24 19:12 Dose: 500 mls/hr Documented By: HENRIK Acetaminophen 650 mg/ EMPTY (BAG) 65 mls @ 260 mls/hr IV NOW ONE; Protocol Stop: 10/24/24 20:44 Last Infusion: 10/24/24 21:28 Dose: Infused Documented By: Admin: 10/24/24 20:48 Dose: 260 mls/hr Documented By: HENRIK Potassium Chloride (K Niko / Wtr) 10 meq in 100 mls @ 100 mls/hr IV ONE ONE Stop: 10/24/24 21:49 Last Infusion: 10/24/24 22:45 Dose: 75 mls/hr Documented By: Admin: 10/24/24 22:32 Dose: 100 mls/hr Documented By: SINGH Ondansetron HCl (Ondansetron Inj 2 Mg/Ml 2 Ml Vial) 4 mg IV NOW STA Stop: 10/24/24 18:57 Last Admin: 10/24/24 19:12 Dose: 4 mg Documented By: HENRIK Medical Decision Making Laboratory Data 10/24/24 18:10 10/24/24 18:10 Lab Results 10/24/24 Range/Units 18:10 WBC 10.90 H (4.8-10.8) K/ul RBC 5.27 (4.20-5.40) M/uL Hgb 15.4 (12.0-16.0) g/dl Hct 47.1 H (37.0-47.0) % MCV 89.4 (80.0-100.0) fL MCH 29.2 (25.0-34.0) pg MCHC 32.7 (32.0-36.0) g/dL RDW Std Deviation 48.6 H (36.4-46.3) fL RDW Coeff of Suleman 14.8 H (11.5-14.5) % Plt Count 449 H (130-400) K/uL MPV 9.4 (9.4-12.4) fL Immature Gran % (Auto) 1.8 % Neut % (Auto) 67.1 % Lymph % (Auto) 17.6 % Daggett % (Auto) 12.3 % Eos % (Auto) 0.6 % Baso % (Auto) 0.6 % Neut # (Auto) 7.31 H (1.40-6.50) K/uL Lymph # (Auto) 1.92 (1.20-3.40) K/uL Daggett # (Auto) 1.34 H (0.11-0.59) K/uL Eos # (Auto) 0.07 (0.00-0.50) K/uL Baso # (Auto) 0.06 (0.00-0.20) K/uL Immature Gran # (Auto) 0.20 (0.01-0.20) K/uL Sodium 136 (136-145) mmol/L Potassium 2.9 L (3.5-5.1) mmol/L Chloride 90 L (98-107) mmol/L Carbon Dioxide 31 (21-32) mmol/L Anion Gap 15 H (3-11) BUN 30 H (6-23) mg/dl Creatinine 1.79 H (0.6-1.2) mg/dl Est Cr Clr Drug Dosing 29.2 ml/min eGFR 29.95 BUN/Creatinine Ratio 16.8 (10-20) Glucose 122 H (70-99(Fasting)) mg/dl Calcium 9.5 (8.6-10.3) mg/dl Magnesium 1.5 L (1.7-2.4) mg/dl Total Bilirubin 1.7 H (0.2-1.0) mg/dl AST 21 (13-39) U/L ALT 11 (7-52) U/L Alkaline Phosphatase 123 H (34-104) U/L Troponin I High Sens 11.0 (0-14) pg/ml Total Protein 7.0 (6.0-8.3) gm/dl Albumin 3.8 (3.4-5.0) gm/dl Globulin 3.2 (2.5-4.0) gm/dl Albumin/Globulin Ratio 1.2 (0.9-2) Procalcitonin 0.33 (0-0.5) ng/ml Imaging Data Radiologist's Impression: Abdomen/Pelvis CT 10/24/24 18:56 Exam(s): CT ABDOMEN + PELVIS Without Contrast EXAM: CT Abdomen and Pelvis Without Intravenous Contrast CLINICAL HISTORY: Reason for exam: back pain. TECHNIQUE: Axial computed tomography images of the abdomen and pelvis without intravenous contrast. CTDI is 27.06 mGy and DLP is 1265.72 mGy-cm. Automated exposure control was utilized for the study. A dose lowering technique was utilized adhering to the principles of ALARA. COMPARISON: 06/04/2015 FINDINGS: Lung bases: Unremarkable. No mass. No consolidation. Pleural space: Trace left pleural effusion. Tiny right pleural effusion. Mitral valve calcifications. Aortic valve calcification. ABDOMEN: Liver: Unremarkable. Gallbladder and bile ducts: Postop changes prior cholecystectomy. No ductal dilation. Pancreas: Unremarkable. No ductal dilation. Spleen: Unremarkable. No splenomegaly. Adrenals: Unremarkable. No mass. Kidneys and ureters: Nonobstructing left intrarenal calculus. Stomach and bowel: Diverticulosis without evidence of diverticulitis. No obstruction. PELVIS: Appendix: No findings to suggest acute appendicitis. Bladder: Unremarkable. No stones. Reproductive: Unremarkable as visualized. ABDOMEN and PELVIS: Intraperitoneal space: Unremarkable. No free air. No significant fluid collection. Bones/joints: Acute fracture involving the anterior inferior endplate of L1 extending into an anterior osteophyte. Postoperative changes L3 through S1 interbody fusion. No dislocation. Soft tissues: Unremarkable. Vasculature: Diffuse vascular calcifications of the mesenteric vessels. No abdominal aortic aneurysm. Lymph nodes: Unremarkable. No enlarged lymph nodes. IMPRESSION: Acute L1 anterior inferior endplate compression fracture extending into an anterior osteophyte. MRI recommended for further evaluation. Postop changes L3 through S1 interbody fusion new since prior study. Electronically signed by: Vasquez Estrada MD 10/24/24 22:35 PM Chest X-Ray 10/24/24 18:56 Chest radiograph, one view History: Back pain Comparison: 02/20/2020 Findings: Single AP view of the chest performed. No focal consolidation or pleural effusion. A subtle tiny nodular density in the inferolateral right lower lobe seen since at least 2017. No pneumothorax. The cardiomediastinal silhouette is within normal limits. Normal pulmonary vascularity. No evidence for lymphadenopathy. No visualized bony or soft tissue abnormality. Chronic traumatic deformity of the left humeral shaft. Impression: Stable chest radiograph Electronically signed by Rachid Jean 10-24-2024 7:53 PM MDM Narrative Patient was seen and evaluated as above in room C08 then C03. Review was performed of triage nursing notes and vital signs. After obtaining a thorough history and physical examination the above work up was performed. Patient presents to us today for evaluation of abnormal outpatient labs showing WALDO. The patient is noting no intake orally over the past 3 days. No appetite. Recent weight loss as well. History obtained from patient as interpreted by daughter at bedside. Formal per diem interpreter service was offered and the patient respectfully declined. Options of care were discussed with the patient and family at bedside. IV access was established. Labs were drawn. IV fluids ordered as well as IV analgesia. There is leukocytosis 10.9. No anemia. There is thrombocytosis 449. There is hypokalemia 2.9, IV repletion was ordered. There is elevation of the anion gap at 15 with a BUN of 30 and a creatinine of 1.79. Hypomagnesia Angela 1.5. T. bili elevated 1.7. There is no transaminitis. Troponin negative. Procalcitonin detectable but within normal range at 0.33. EKG per my interpretation reveals normal sinus rhythm at a rate of 68 bpm. QTc 431. QRS 90. No ST elevation on this rhythm tracing. Chest x-ray per my interpretation was negative for acute process. I do recommend further evaluation and management in the inpatient setting noting the patient's decreased oral intake with WALDO. Case discussed with the hospitalist service. A CT scan was obtained of the abdomen/pelvis and is as above. This was without contrast. There is an L1 anterior inferior endplate compression fracture. The patient does not exhibit any neurovascular deficits at this time. At this time the family has left but I was able to review the findings with the patient. I did update the hospitalist staff as well. Please refer to the documentation regarding her stay. In the evaluation and treatment of this patient the following differential diagnoses were entertained: UTI, pyelonephritis, shingles, WALDO, dehydration, fracture, among others. Impression & Plan Closed compression fracture of L1 vertebra, WALDO (acute kidney injury), Total bilirubin, elevated, Decreased oral intake Discharge Plan Visit Data Chief Complaint: Referred by Doctor Stated Complaint: REFERRED BY DOC ED Provider: Keon Waller ED Midlevel Provider: Zach Urena Discharge Problem: Closed compression fracture of L1 vertebra, WALDO (acute kidney injury), Total bilirubin, elevated, Decreased oral intake Patient Disposition: Admitted As Inpatient Condition: Good Forms Stand Alone Forms: My [facility] Prescriptions Prescriptions: No Action fenofibrate nanocrystallized [Tricor] 145 mg tablet 145 mg PO QAM Qty: 90 1RF atorvastatin 20 mg tablet 20 mg PO HS Qty: 90 3RF metformin 500 mg tablet 1,000 mg PO BID Qty: 360 3RF Jardiance 10 mg tablet 10 mg PO DAILY Qty: 90 3RF aspirin 81 mg tablet,delayed release (DR/EC) 81 mg PO DAILY 90 Days Qty: 90 0RF mupirocin 2 % ointment 1 applic topical BID Qty: 15 0RF ondansetron 4 mg tablet,disintegrating 4 mg PO Q8H Qty: 30 0RF furosemide 40 mg tablet 40 mg PO DAILY PRN (Reason: edema) Qty: 30 5RF cholecalciferol (vitamin D3) [Vitamin D3] 5,000 unit Tablet 5,000 unit PO QAM Rx Instructions: give with heaviest meal of the day mecobalamin (vitamin B12) 1,000 mcg tablet,chewable 1,000 mcg PO QAM metoprolol succinate 50 mg tablet extended release 24 hr 50 mg PO QAM ketoconazole 2 % cream 1 applic topical BID PRN (Reason: DIRECTED) Referrals Referrals: Scout Jung MD [Primary Care Provider] -
[2024-10-24 19:08] LABS: Alanine Aminotransferase 11.0 U/L (7-52); Albumin Globulin Ratio 1.2 (0.9-2); Alkaline Phosphatase 123.0 U/L (34-104); Anion Gap 15.0 (3-11); Bilirubin,Total 1.7 mg/dl (0.2-1.0); Blood Urea Nitrogen 30.0 mg/dl (6-23); Calcium 9.5 mg/dl (8.6-10.3); Carbon Dioxide 31.0 mmol/L (21-32); Chloride 90.0 mmol/L (98-107); Creatinine Clr Calc Pharmacy 29.2 ml/min; Globulin 3.2 gm/dl (2.5-4.0); Glucose 122.0 mg/dl (70-99(Fasting)); Potassium 2.9 mmol/L (3.5-5.1); Sodium 136.0 mmol/L (136-145); Total Protein 7.0 gm/dl (6.0-8.3)
[2024-10-24] MEDS: ONDANSETRON INJ 2 MG/ML 2 ML VIAL IV STA (19:12)
[2024-10-24] MEDS: SODIUM CHLORIDE 0.9% 1,000 ML IV ONE (19:12)
--- NOTE | 2024-10-24 19:53 | XRay Report ---
Chest radiograph, one view History: Back pain Comparison: 02/20/2020 Findings: Single AP view of the chest performed. No focal consolidation or pleural effusion. A subtle tiny nodular density in the inferolateral right lower lobe seen since at least 2017. No pneumothorax. The cardiomediastinal silhouette is within normal limits. Normal pulmonary vascularity. No evidence for lymphadenopathy. No visualized bony or soft tissue abnormality. Chronic traumatic deformity of the left humeral shaft. Impression: Stable chest radiograph Electronically signed by Rachid Jean 10-24-2024 7:53 PM
[2024-10-24] MEDS: ACETAMINOPHEN 10MG/ML Custom 650 MG in EMPTY BAG 0 ML IV ONE (20:48)
--- NOTE | 2024-10-24 20:52 | Emergency Department Note ---
ED Visit Note I was consulted in regards to the patient's presentation and plan of care by the Advanced Practice Provider. I engaged in a detailed/meaningful discussion with the Advanced Practice Provider in regards to this patient's workup and plan of care. I performed a substantiative portion of the medical decision making following discussion with the Advanced Practice Provider. Please see the Advanced Practice Provider's separate documentation for full details of the patient's visit. I agree with the assessment and plan of Zach Urena PA-C. Keon Waller, Emergency Medicine .
--- NOTE | 2024-10-24 21:18 | History & Physical Report ---
Date of Service October 24, 2024 Assessment & Plan (1) WALDO (acute kidney injury): (2) Lumbar compression fracture: (3) Hypokalemia: (4) Skin lesion of back: (5) Elevated alkaline phosphatase level: Plan 69-year-old female PMHx HTN, T2DM, hypertriglyceridemia, HLD, hypothyroidism, s pondylosis of lumbar region, polycythemia, and vitamin B12 deficiency presenting after visit with PCP alerting that her renal functions and potassium were abnormal. She is feeling nauseous and having back pain. Her evaluation in the ED does raise concern for hypokalemia at a potassium of 2.9 as well as evidence of WALDO with creatinine 1.79. Additionally, her bilirubin and alkaline phosphatase are mildly elevated with bilirubin 1.7, alk phos 123. She will be admitted and treated for hypokalemia and WALDO. #WALDO Likely secondary to recent decreased intake x 2 weeks, also with reported weight loss (20lbs in 6 weeks). Not eaten in 2 days, only tolerating some fluids. Received 1L NSS in ED. - Cr 1.79, BUN 30 - BMP am - UA pending - Bladder scan prn - Hold nephrotoxic agents - Furosemide - IVF LR @ 80 mL/hr #Lumbar (L1) Compression fracture Ongoing lumbar radiculopathy x years, denies recent trauma or falls. Admits to weight loss, unintentional, over past 2 months. In setting of vitamin D deficiency, on supplements for. - CTAP with acute L1 anterior inferior endplate compression fx extending into anterior osteophyte, MRI recommended -- pt without neuro symptoms so MRI deferred at time of admission - Tylenol prn pain, lidoderm prn - DEXA scan August 2018 with T score (-1.7), declined further follow up - Consider MRI - PT/OT ordered - appreciate assistance - Ortho spine consulted - appreciate input + recs #Hypokalemia Received 10 mEq IV in ED. - K 2.9, Mg pending- BMP am - EKG stable at admission - will monitor on tele - Received 10 mEq KCl IV in ED, will add additional 30 mEq of KCL IV then repeat K #Skin lesion of back, R flank region Previous h/o pityriasis versicolor, was on ketoconazole cream for. Was started on mupirocin ointment the day of arrival by PCP. This started ~ 3 weeks ago, the lesions now being crusted over. No reported prodrome able to be identified. ? concern for shingles, however the lesions are scabbed over at this point and there are no vesicular lesions identified at time of admission. - Continue mupirocin ointment - Culture is able - Cover lesions if scabs come off or if any pus identified, and add precautions at that time #Elevated alkaline phosphatase/bilirubin Nausea/vomiting x 2-3 days with anorexia and 20-25lb weight loss over the past 2 months. No F/C, no night sweats. No tenderness to palpation on abdominal exam at admission. She has had slightly elevated numbers in the past. - CMP bilirubin 1.7, alk phos 123 - CTAP pending official read - Zofran prn N/V #T2DM H/o DMT2, home regimen includes metformin, Jardiance. Not eating much over past 2-3 days. - Glucose on arrival 122; Most recent A1C 08/2024 @ 8% - Hold po medications - SSI with target BSG range 110-140mg/dL, CF 30, carb ratio deferred - BSG ACHS - Adjust regimen as needed #Lumbar radiculopathy- Ongoing, has been worked up since 09/[address] revealing degenerative changes; Follows with pain management , receiving steroid injections (July 2024), acetaminophen prn #HLD- Atorvastatin, fenofibrate - continue #H/o polycythemia- H&H 15.4/47.1 on admission - trend CBC #HTN- Metoprolol - continue #BLE edema- H/o L popliteal fossa abnormality, did not pursue further workup with US; Furosemide prn - HOLD in setting of WALDO #Hypothyroidism- Not currently on medications for such; TSH 08/2024 was 3.5 - monitor as appropriate Pt's daughter, Jennifer, would like to be called to be updated each day @ . Dispo: Admit. med/tele VTE Prophylaxis: SCDs This document was dictated utilizing Clever Machine. Please excuse any grammatical errors that may be secondary to use of this software. Admission and Anticipated Discharge Date Admission Date: 10/24/2024 History of Present Illness Chief Complaint: Referred by doctor, N/V Primary Care Provider: Scout Jung MD 69-year-old female PMHx HTN, T2DM, hypertriglyceridemia, HLD, hypothyroidism, spondylosis of lumbar region, polycythemia, and vitamin B12 deficiency present ing after visit with PCP alerting that her renal functions and potassium were abnormal. The patient speaks Sri Lankan, and minimal Kosovan. Her daughters help to interpret for her, and they declined an planned giving officer at this time. They report that she is feeling nauseous and admits to ongoing weight loss and anorexia. Reports that for the past 2-3 weeks the patient has been having symptoms of feeling unwell and for the past 2-3 days not eating. She is able to tolerate some fluids. She has had a 20-25 lb weight loss over the past 2 months without trying. She does admit to dizziness when she stands, but no falls or syncopal episodes. Has not had any F/C, no night sweats. She does have abdominal pain that is localized across her abdomen and sometimes more focused at the LUQ. Pt has had a rash on her R flank x 3 weeks that she was just started on abx ointment for the day of arrival by PCP. Denies chest pain, SOB, palpitations, D/C, numbness/tingling, URI symptoms, LUTS, edema, falls, or syncope. ED evaluation reveals CBC with leukocytosis 10.9, H&H 15.4/47.1, platelets 449; CMP potassium 2.9, chloride 90, BUN 30, anion gap 15, creatinine 1.79, glucose 122, bilirubin 1.7, alkaline phosphatase 123; procalcitonin 0.33; CXR stable; CTAP pending official read; EKG NSR with sinus arrhythmia, LAFB at 68 bpm.; Provided with 1L NSS, KCl 10 mEq IV, Zofran 4 mg IV, and acetaminophen IV in ED. Please see Dr. Palomo's attestation for adjustments/additions to treatment plan. Allergies Allergy/AdvReac Type Severity Reaction Status Date / Time No Known Drug Allergies Allergy Unknown Verified 10/24/24 11:09 Home Medications Medication Instructions Recorded Confirmed Type cholecalciferol (vitamin D3) 125 5,000 unit PO QAM 02/09/18 10/24/24 History mcg (5,000 unit) tablet (Vitamin D3) mecobalamin (vitamin B12) 1,000 1,000 mcg PO QAM 02/12/20 10/24/24 History mcg chewable tablet aspirin 81 mg tablet,delayed 81 mg PO DAILY 90 days #90 tabs 01/01/21 10/24/24 Rx release fenofibrate nanocrystallized 145 145 mg PO QAM #90 tabs 07/01/24 10/24/24 Rx mg tablet (Tricor) atorvastatin 20 mg tablet 20 mg PO HS #90 tabs 08/10/24 10/24/24 Rx metformin 500 mg tablet 1,000 mg (2 x 500 mg) PO BID #360 08/10/24 10/24/24 Rx tabs furosemide 40 mg tablet 40 mg PO DAILY PRN edema #30 tabs 08/28/24 10/24/24 Rx empagliflozin 10 mg tablet 10 mg PO DAILY #90 tabs 09/03/24 10/24/24 Rx (Jardiance) ketoconazole 2 % topical cream 1 applic topical BID PRN 10/24/24 10/24/24 History DIRECTED metoprolol succinate 50 mg 50 mg PO QAM 10/24/24 10/24/24 History tablet,extended release 24 hr mupirocin 2 % topical ointment 1 applic topical BID #15 grams 10/24/24 10/24/24 Rx ondansetron 4 mg disintegrating 4 mg PO Q8H #30 tabs 10/24/24 10/24/24 Rx tablet Past Med/Surg History Problem List (Updated 10/24/24 @ 23:01 by Zach Urena PA-C) Decreased oral intake (Acute) Total bilirubin, elevated (Acute) WALDO (acute kidney injury) (Acute) Closed compression fracture of L1 vertebra (Acute) Lumbar compression fracture Elevated alkaline phosphatase level Skin lesion of back Hypokalemia Lumbar radiculopathy Adjacent segment disease of lumbar spine with history of fusion procedure Bilateral sacroiliitis Lumbar post-laminectomy syndrome Pityriasis versicolor Osteoarthritis of left knee Status post right knee replacement Left-sided low back pain with sciatica (Acute) Spinal stenosis, lumbar region with neurogenic claudication Type II diabetes mellitus Cognitive changes (Chronic) Vitamin D deficiency disease (Acute) Synovial cyst of popliteal space (Acute) Spondylosis without myelopathy or radiculopathy, lumbar region (Acute) Polycythemia vera (Acute) Hypothyroidism (Acute) Hypertension (Acute) Hyperlipidemia (Acute) Generalized osteoarthritis of multiple sites (Acute) Gait disturbance (Acute) Fatty liver (Acute) Essential hypertriglyceridemia (Acute) Abnormal brain MRI (Acute) Abnormal EKG (Acute) Vitamin B12 deficiency Medical History Polycythemia F/U DR SANDHU Obesity Stage III chronic kidney disease F/U PCP Hypothyroidism Diabetes mellitus, type 2 NIDDM Hyperlipidemia Hypertension Surgical History History of colonoscopy Status post lumbar surgery History of spinal fusion L4-S1 Posterior Lumbar Decompression/Fusion: 10/02/18: Grade 2 view, MAC#3, ETT 7.0 at [facility] H/O tubal ligation S/P left knee arthroscopy Hx laparoscopic cholecystectomy Family History Mother Hypertension Father Gastric ulcer Grandmother Cirrhosis Denies family history of Ovarian cancer Prostate cancer Myocardial infarction Breast cancer Colorectal cancer Social History Smoking Status: Never smoker Second Hand Exposure: No; Do You Dip or Chew Tobacco: No; Hx Alcohol Use: No Hx Substance Use: No Preferred Language: [place]an Communication Ability: Effective Communication Ability Comment: CAN UNDERSTAND SIMPLE CHINESE Communication Tools: IPad Visual Impairment: Partially Limited Hearing Ability: Normal Caseworker Protective Services Required: Yes Beliefs That Will Affect Care: None marital status: Current Living Situation: Spouse current occupational status: retired How many Children do You have: 4 How many Children do You have Comment: 2 boy 2 girl Feels Safe at Home: Yes Childhood Exposure to Second-Hand Smoke: No Diet: regular during the past year weight has: remained stable Dental Care, Regularly: No Physical Activity Frequency: Daily Seatbelt Use: always Sunscreen Use: No Assistive Devices: Denture - Lower, Glasses and Walker Review of Systems Review of Systems: All systems reviewed & are unremarkable except as noted in Subjective Physical Exam Physical Exam: General: No acute distress Skin: Warm and dry; R flank with scabbed over areas x 3 (T8 region), some erythema surrounding lesions, no pus or discharge noted Head: Normocephalic, atraumatic Eyes: PERRL, conjunctivae clear, sclera non-icteric; wearing glasses ENT: External ear and ear canal without swelling; nose atraumatic; good d entition, tongue normal appearance, pharynx normal, has mask on Neck: Supple, no LAD Cardio: RRR, no M/G/R, S1 and S2 normal Resp: No respiratory distress, Lungs CTA in all lobes bilaterally, no wheezes, rales, or rhonchi Abdomen: Soft, symmetric, nontender; No masses or hepatosplenomegaly; Bowel sounds normoactive MSK: No deformities; pulses palpable and equal; no edema. Neuro: Awake, alert; Sensation intact bilaterally; CN grossly intact Psych: Appropriate mood and affect; good judgement and insight. 2 female family members present in room at time of visit, interpreting for the patient. Results & Data Results & Data Vital Signs (Past 12 Hours) Vital Signs Temp Pulse Pulse Resp BP BP Pulse Ox 10/24/24 20:00 80 18 136/56 L 96 10/24/24 18:56 90 18 134/94 99 10/24/24 18:55 79 10/24/24 18:16 37.1 C 10/24/24 17:56 90 16 136/80 92 O2 Del Method 10/24/24 20:00 Room Air 10/24/24 18:56 Room Air 10/24/24 18:55 10/24/24 18:16 10/24/24 17:56 Room Air Laboratory Results 10/24/24 18:10 WBC 10.90 H RBC 5.27 Hgb 15.4 Hct 47.1 H MCV 89.4 MCH 29.2 MCHC 32.7 RDW Std Deviation 48.6 H RDW Coeff of Suleman 14.8 H Plt Count 449 H MPV 9.4 Immature Gran % (Auto) 1.8 Neut % (Auto) 67.1 Lymph % (Auto) 17.6 [place] % (Auto) 12.3 Eos % (Auto) 0.6 Baso % (Auto) 0.6 Neut # (Auto) 7.31 H Lymph # (Auto) 1.92 [place] # (Auto) 1.34 H Eos # (Auto) 0.07 Baso # (Auto) 0.06 Immature Gran # (Auto) 0.20 Sodium 136 Potassium 2.9 L Chloride 90 L Carbon Dioxide 31 Anion Gap 15 H BUN 30 H Creatinine 1.79 H Est Cr Clr Drug Dosing 29.2 eGFR 29.95 BUN/Creatinine Ratio 16.8 Glucose 122 H Calcium 9.5 Total Bilirubin 1.7 H AST 21 ALT 11 Alkaline Phosphatase 123 H Troponin I High Sens 11.0 Total Protein 7.0 Albumin 3.8 Globulin 3.2 Albumin/Globulin Ratio 1.2 Procalcitonin 0.33 Diagnostic Findings Abdomen/Pelvis CT 10/24/24 18:56 Exam(s): CT ABDOMEN + PELVIS Without Contrast EXAM: CT Abdomen and Pelvis Without Intravenous Contrast CLINICAL HISTORY: Reason for exam: back pain. TECHNIQUE: Axial computed tomography images of the abdomen and pelvis without intravenous contrast. CTDI is 27.06 mGy and DLP is 1265.72 mGy-cm. Automated exposure control was utilized for the study. A dose lowering technique was utilized adhering to the principles of ALARA. COMPARISON: 06/04/2015 FINDINGS: Lung bases: Unremarkable. No mass. No consolidation. Pleural space: Trace left pleural effusion. Tiny right pleural effusion. Mitral valve calcifications. Aortic valve calcification. ABDOMEN: Liver: Unremarkable. Gallbladder and bile ducts: Postop changes prior cholecystectomy. No ductal dilation. Pancreas: Unremarkable. No ductal dilation. Spleen: Unremarkable. No splenomegaly. Adrenals: Unremarkable. No mass. Kidneys and ureters: Nonobstructing left intrarenal calculus. Stomach and bowel: Diverticulosis without evidence of diverticulitis. No obstruction. PELVIS: Appendix: No findings to suggest acute appendicitis. Bladder: Unremarkable. No stones. Reproductive: Unremarkable as visualized. ABDOMEN and PELVIS: Intraperitoneal space: Unremarkable. No free air. No significant fluid collection. Bones/joints: Acute fracture involving the anterior inferior endplate of L1 extending into an anterior osteophyte. Postoperative changes L3 through S1 interbody fusion. No dislocation. Soft tissues: Unremarkable. Vasculature: Diffuse vascular calcifications of the mesenteric vessels. No abdominal aortic aneurysm. Lymph nodes: Unremarkable. No enlarged lymph nodes. IMPRESSION: Acute L1 anterior inferior endplate compression fracture extending into an anterior osteophyte. MRI recommended for further evaluation. Postop changes L3 through S1 interbody fusion new since prior study. Electronically signed by: Vasquez Estrada MD 10/24/24 22:35 PM Chest X-Ray 10/24/24 18:56 Chest radiograph, one view History: Back pain Comparison: 02/20/2020 Findings: Single AP view of the chest performed. No focal consolidation or pleural effusion. A subtle tiny nodular density in the inferolateral right lower lobe seen since at least 2016. No pneumothorax. The cardiomediastinal silhouette is within normal limits. Normal pulmonary vascularity. No evidence for lymphadenopathy. No visualized bony or soft tissue abnormality. Chronic traumatic deformity of the left humeral shaft. Impression: Stable chest radiograph Electronically signed by Rachid Jean 10-24-2024 7:53 PM Medications Administered 1L NSS KCl 10 mEq IV Ondansetron 4 marybeth IV Acetaminophen 650 mg IV ECG Additional Comments: NSR with sinus arrhythmia, LAFB 68 bpm, PA 154, QRS 90, QT/QTc 406/431, PRT 65/-59/61 Code Status & VTE Plan Code Status Full Supervising Physician Co-Signing Physician Notes Patient seen and examined, chart reviewed, case discussed with ODELL Gonzalez I agree with assessment and plan as document above. In brief, patient is a 69-year-old Sri Lankan-speaking female with history of hypertension, diabetes, hyperlipidemia and polycythemia presenting with back pain and nausea. Patient has not eaten well over the last 2 days. Denies falls or trauma. Rash on right flank. Patient had labs performed outpatient and was recommended to come to the emergency room for elevated BUN, creatinine and hypokalemia. On physical exam patient is resting comfortably in bed, in mild discomfort in the back and right flank Skinright flank with several crusting lesions and pustular lesions, tender to palpation HEENT- mucous membranes slightly dry, neck supple Heart+ S1, S2, regular, no murmur/rub/gallop LungsCTA Abdomensoft, mildly tender with no rebound/guarding Extremitieswarm, well-perfused neuro- no deficits Labs and images reviewed. Significant for elevation of BUN, creatinine and hypokalemia Assessment/plan WALDO - Cr=1.76. Increased from 0.96 last on 09/17/24. Likely pre-renal. Family reports decreased oral intake. Likely contributing in part to patient's nausea -Gentle IVF -Electrolyte repletion with caution -Repeat chemistry in AM L1 endplate fracture - likely cause of patient's back pain. Atraumatic. No neurological deficits therefore will not pursue MRI at this time -Pain control -PT/OT -Ortho-Spine consultation appreciated PG Care Time/CCT Total # of Minutes Spent Total Time Spent with Patient: Total time spent is greater than 50% in coordination of care (as documented) at patient's floor/unit and/or counseling patient: Coding Level of Care Code 76010 INT INP/OBS CARE MIN Diagnoses WALDO (acute kidney injury) N17.9 Lumbar compression fracture S32.000A Hypokalemia E87.6 Skin lesion of back L98.9 Elevated alkaline phosphatase level R74.8
[2024-10-24] MEDS: POTASSIUM CHLORIDE / WTR 10 MEQ/100 ML PLCT IV ONE (22:32)
[2024-10-24] MEDS: LACTATED RINGER'S 1,000 ML IV SCH (22:32)
--- NOTE | 2024-10-24 22:36 | CT Scan Report ---
Exam(s): CT ABDOMEN + PELVIS Without Contrast EXAM: CT Abdomen and Pelvis Without Intravenous Contrast CLINICAL HISTORY: Reason for exam: back pain. TECHNIQUE: Axial computed tomography images of the abdomen and pelvis without intravenous contrast. CTDI is 27.06 mGy and DLP is 1265.72 mGy-cm. Automated exposure control was utilized for the study. A dose lowering technique was utilized adhering to the principles of ALARA. COMPARISON: 06/04/2015 FINDINGS: Lung bases: Unremarkable. No mass. No consolidation. Pleural space: Trace left pleural effusion. Tiny right pleural effusion. Mitral valve calcifications. Aortic valve calcification. ABDOMEN: Liver: Unremarkable. Gallbladder and bile ducts: Postop changes prior cholecystectomy. No ductal dilation. Pancreas: Unremarkable. No ductal dilation. Spleen: Unremarkable. No splenomegaly. Adrenals: Unremarkable. No mass. Kidneys and ureters: Nonobstructing left intrarenal calculus. Stomach and bowel: Diverticulosis without evidence of diverticulitis. No obstruction. PELVIS: Appendix: No findings to suggest acute appendicitis. Bladder: Unremarkable. No stones. Reproductive: Unremarkable as visualized. ABDOMEN and PELVIS: Intraperitoneal space: Unremarkable. No free air. No significant fluid collection. Bones/joints: Acute fracture involving the anterior inferior endplate of L1 extending into an anterior osteophyte. Postoperative changes L3 through S1 interbody fusion. No dislocation. Soft tissues: Unremarkable. Vasculature: Diffuse vascular calcifications of the mesenteric vessels. No abdominal aortic aneurysm. Lymph nodes: Unremarkable. No enlarged lymph nodes. IMPRESSION: Acute L1 anterior inferior endplate compression fracture extending into an anterior osteophyte. MRI recommended for further evaluation. Postop changes L3 through S1 interbody fusion new since prior study. Electronically signed by: Vasquez Estrada MD 10/24/24 22:35 PM
[2024-10-24 22:46] LABS: Magnesium 1.5 mg/dl (1.7-2.4)
[2024-10-24] MEDS ORDERED: MAGNESIUM HYDROXIDE SUSP 30 ML UDC PO PRN (23:57)
[2024-10-24] MEDS ORDERED: GLUCAGON FOR INJ 1 MG VIAL SQ PRN (23:57)
[2024-10-24] MEDS ORDERED: GLUCOSE 10 TAB/TUBE PO PRN (23:57)
[2024-10-24] MEDS ORDERED: CARBOHYDRATES FOR HYPOGLYCEMIA PO PRN (23:57)
[2024-10-24] MEDS ORDERED: MELATONIN 3 MG TAB PO PRN (23:57)
[2024-10-24] MEDS ORDERED: GLUCOSE 40% GEL 15 GM TUBE PO PRN (23:57)
[2024-10-24] MEDS ORDERED: POLYETHYLENE (MIRALAX) 17 GM PACK PO PRN (23:57)
[2024-10-24] MEDS ORDERED: DEXTROSE 50% 50 ML SYRINGE IV PRN (23:57)
[2024-10-25] MEDS: MAGNESIUM SULFATE / D5W 1 GM/100 ML BAG IV SCH (00:32)
[2024-10-25] MEDS: POTASSIUM CHLORIDE / WTR 10 MEQ/100 ML PLCT IV SCH ×4 (00:36→11:57)
[2024-10-25] MEDS: LIDOCAINE 5% 1 PATCH TD STA (01:20)
[2024-10-25] MEDS: ACETAMINOPHEN 500 MG TAB PO PRN (01:20)
[2024-10-25 06:20] LABS: Hematocrit (blood only) 39.3 % (37.0-47.0); Hemoglobin 12.9 g/dl (12.0-16.0); Mean Corpuscular Hemoglobin 29.5 pg (25.0-34.0); Mean Corpuscular Volume 89.9 fL (80.0-100.0); Platelet Count 375 K/uL (130-400); RDW Standard Deviation 48.3 fL (36.4-46.3); Red Blood Count 4.37 M/uL (4.20-5.40); White Blood Count 6.33 K/ul (4.8-10.8)
[2024-10-25 06:31] LABS: Anion Gap 9.0 (3-11); Calcium 8.4 mg/dl (8.6-10.3); Carbon Dioxide 28.0 mmol/L (21-32); Chloride 97.0 mmol/L (98-107); Magnesium 2.3 mg/dl (1.7-2.4); Potassium 3.4 mmol/L (3.5-5.1); Sodium 134.0 mmol/L (136-145)
[2024-10-25 06:36] LABS: Blood Urea Nitrogen 27.0 mg/dl (6-23); Creatinine Clr Calc Pharmacy 36.7 ml/min; Glucose 126.0 mg/dl (70-99(Fasting))
--- NOTE | 2024-10-25 07:47 | Orthopedic Consultation ---
Date of Service October 25, 2024 Assessment & Plan (1) Compression fracture of L1 lumbar vertebra: * Case/imaging reviewed and discussed with Dr Reynolds * Recommend closed management of L1 compression fx * TSLO brace ordered, recommend use during activity, not needed while in bed * Weight bearing status: WBAT * Daily treatment: Physical Therapy/ Occupational Therapy per protocol * Pain control * Disposition: TBD * Remainder care per primary team * Will follow peripherally, plan for office f/u 2-3 weeks History of Present Illness Reason for Consultation: L1 compression fracture Requesting Physician: . Attending Physician: Naren Grace . Patient is a 69y/o female with low back pain. PMH including HTN, T2DM, hypertriglyceridemia, HLD, hypothyroidism, spondylosis of lumbar region, polycythemia, and vitamin B12 deficiency. Presents to hospital with abnormal lab work, referred by PCP for abnormal potassium and renal function. 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 Per report patient with ongoing nausea, weight loss, anorexia. Approximately 3-week history of feeling unwell, not eating over the past 2-3 days. Dizziness when standing but no reported falls or syncopal episodes. Of note patient with chronic low back pain, radiculopathy over the past several years. History of injections with pain management team. History of L3-S1 interbody fusion with Dr. Allred, also sees outpatient pain management for occasional spine injections. CT abdomen/pelvis ordered due to lower abdominal and back pain, demonstrating L1 compression fracture. MRI not obtained secondary to lack of peripheral neurological symptoms. Admitted to hospital medicine team secondary to hypokalemia and elevated creatinine. Orthopedics consulted for management recommendations. At time of exam patient sitting comfortably in bed, no acute distress. Endorses mild low back pain at rest that increases with certain bending activities. Denies tingling numbness of bilateral lower extremity. Reports ongoing generalized fatigue and weakness of both legs, intermittent and does not seem related to her back pain. Allergies Allergy/AdvReac Type Severity Reaction Status Date / Time No Known Drug Allergies Allergy Unknown Verified 10/24/24 11:09 Home Medications Medication Instructions Recorded Confirmed Type cholecalciferol (vitamin D3) 125 5,000 unit PO QAM 02/09/18 10/24/24 History mcg (5,000 unit) tablet (Vitamin D3) mecobalamin (vitamin B12) 1,000 1,000 mcg PO QAM 02/12/20 10/24/24 History mcg chewable tablet aspirin 81 mg tablet,delayed 81 mg PO DAILY 90 days #90 tabs 01/01/21 10/24/24 Rx release fenofibrate nanocrystallized 145 145 mg PO QAM #90 tabs 07/01/24 10/24/24 Rx mg tablet (Tricor) atorvastatin 20 mg tablet 20 mg PO HS #90 tabs 08/10/24 10/24/24 Rx metformin 500 mg tablet 1,000 mg (2 x 500 mg) PO BID #360 08/10/24 10/24/24 Rx tabs furosemide 40 mg tablet 40 mg PO DAILY PRN edema #30 tabs 08/28/24 10/24/24 Rx empagliflozin 10 mg tablet 10 mg PO DAILY #90 tabs 09/03/24 10/24/24 Rx (Jardiance) ketoconazole 2 % topical cream 1 applic topical BID PRN 10/24/24 10/24/24 History DIRECTED metoprolol succinate 50 mg 50 mg PO QAM 10/24/24 10/24/24 History tablet,extended release 24 hr mupirocin 2 % topical ointment 1 applic topical BID #15 grams 10/24/24 10/24/24 Rx ondansetron 4 mg disintegrating 4 mg PO Q8H #30 tabs 10/24/24 10/24/24 Rx tablet Past Med/Surg History Problem List (Updated 10/25/24 @ 09:57 by Tico Reynolds MD) Compression fracture of L1 lumbar vertebra (Acute ~10/24/24) Decreased oral intake (Acute) Total bilirubin, elevated (Acute) WALDO (acute kidney injury) (Acute) Closed compression fracture of L1 vertebra (Acute) Lumbar compression fracture Elevated alkaline phosphatase level Skin lesion of back Hypokalemia Lumbar radiculopathy Adjacent segment disease of lumbar spine with history of fusion procedure Bilateral sacroiliitis Lumbar post-laminectomy syndrome Pityriasis versicolor Osteoarthritis of left knee Status post right knee replacement Left-sided low back pain with sciatica (Acute) Spinal stenosis, lumbar region with neurogenic claudication Type II diabetes mellitus Cognitive changes (Chronic) Vitamin D deficiency disease (Acute) Synovial cyst of popliteal space (Acute) Spondylosis without myelopathy or radiculopathy, lumbar region (Acute) Polycythemia vera (Acute) Hypothyroidism (Acute) Hypertension (Acute) Hyperlipidemia (Acute) Generalized osteoarthritis of multiple sites (Acute) Gait disturbance (Acute) Fatty liver (Acute) Essential hypertriglyceridemia (Acute) Abnormal brain MRI (Acute) Abnormal EKG (Acute) Vitamin B12 deficiency Medical History Polycythemia F/U DR SANDHU Obesity Stage III chronic kidney disease F/U PCP Hypothyroidism Diabetes mellitus, type 2 NIDDM Hyperlipidemia Hypertension Surgical History History of colonoscopy Status post lumbar surgery History of spinal fusion L4-S1 Posterior Lumbar Decompression/Fusion: 10/02/18: Grade 2 view, MAC#3, ETT 7.0 at [facility] H/O tubal ligation S/P left knee arthroscopy Hx laparoscopic cholecystectomy Family History Mother Hypertension Father Gastric ulcer Grandmother Cirrhosis Denies family history of Ovarian cancer Prostate cancer Myocardial infarction Breast cancer Colorectal cancer Social History Smoking Status: Never smoker Second Hand Exposure: No; Do You Dip or Chew Tobacco: No; Hx Alcohol Use: No Hx Substance Use: No Preferred Language: Bahraini Communication Ability: Effective Communication Ability Comment: CAN UNDERSTAND SIMPLE ROMANIAN Communication Tools: IPad Visual Impairment: Partially Limited Hearing Ability: Normal 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: Yes Beliefs That Will Affect Care: None marital status: Current Living Situation: Spouse and Family Current Living Situation Comment: son arabella lives with her and current occupational status: retired How many Children do You have: 4 How many Children do You have Comment: 2 boy 2 girl Other Information That Helps Us Care for You: No Feels Safe at Home: Yes Safety Concerns: Feels Safe At This Time Childhood Exposure to Second-Hand Smoke: No Diet: regular during the past year weight has: remained stable Dental Care, Regularly: No Physical Activity Frequency: Daily Seatbelt Use: always Sunscreen Use: No Assistive Devices: Denture - Upper, Denture - Lower and Glasses Review of Systems All systems reviewed & are unremarkable except as noted in HPI & below. Physical Exam . General: Alert and oriented, no acute distress * Constitutional: well-developed, well-nourished. * Respiratory: Normal respiratory effort, no distress * Gastrointestinal: No tenderness to palpation, no rigidity or guarding. * Skin: No rash or lesion. * Neurologic: Grossly normal * Musculoskeletal: Lumbar spine region without obvious deformity or overlying skin changes. Well-healed surgical incision. TTP midline proximal lumbar spine and surrounding paraspinals, otherwise no tenderness b/l buttock or LE. Lumbar flexion/extension and rotation ROM with minimal pain. AROM b/l hip flexion, knee flexion/extension, ankle flexion/extension intact. Strength 5/5 bilateral lower extremity. Sensation intact plantar/dorsal foot. Brisk capillary refill. Results & Data Results & Data Laboratory Results . Diagnostic Findings . Abdomen/Pelvis CT 10/24/24 18:56 Exam(s): CT ABDOMEN + PELVIS Without Contrast EXAM: CT Abdomen and Pelvis Without Intravenous Contrast CLINICAL HISTORY: Reason for exam: back pain. TECHNIQUE: Axial computed tomography images of the abdomen and pelvis without intravenous contrast. CTDI is 27.06 mGy and DLP is 1265.72 mGy-cm. Automated exposure control was utilized for the study. A dose lowering technique was utilized adhering to the principles of ALARA. COMPARISON: 06/04/2015 FINDINGS: Lung bases: Unremarkable. No mass. No consolidation. Pleural space: Trace left pleural effusion. Tiny right pleural effusion. Mitral valve calcifications. Aortic valve calcification. ABDOMEN: Liver: Unremarkable. Gallbladder and bile ducts: Postop changes prior cholecystectomy. No ductal dilation. Pancreas: Unremarkable. No ductal dilation. Spleen: Unremarkable. No splenomegaly. Adrenals: Unremarkable. No mass. Kidneys and ureters: Nonobstructing left intrarenal calculus. Stomach and bowel: Diverticulosis without evidence of diverticulitis. No obstruction. PELVIS: Appendix: No findings to suggest acute appendicitis. Bladder: Unremarkable. No stones. Reproductive: Unremarkable as visualized. ABDOMEN and PELVIS: Intraperitoneal space: Unremarkable. No free air. No significant fluid collection. Bones/joints: Acute fracture involving the anterior inferior endplate of L1 extending into an anterior osteophyte. Postoperative changes L3 through S1 interbody fusion. No dislocation. Soft tissues: Unremarkable. Vasculature: Diffuse vascular calcifications of the mesenteric vessels. No abdominal aortic aneurysm. Lymph nodes: Unremarkable. No enlarged lymph nodes. IMPRESSION: Acute L1 anterior inferior endplate compression fracture extending into an anterior osteophyte. MRI recommended for further evaluation. Postop changes L3 through S1 interbody fusion new since prior study. Electronically signed by: Vasquez Estrada MD 10/24/24 22:35 PM Chest X-Ray 10/24/24 18:56 Chest radiograph, one view History: Back pain Comparison: 02/20/2020 Findings: Single AP view of the chest performed. No focal consolidation or pleural effusion. A subtle tiny nodular density in the inferolateral right lower lobe seen since at least 2017. No pneumothorax. The cardiomediastinal silhouette is within normal limits. Normal pulmonary vascularity. No evidence for lymphadenopathy. No visualized bony or soft tissue abnormality. Chronic traumatic deformity of the left humeral shaft. Impression: Stable chest radiograph Electronically signed by Rachid Jean 10-24-2024 7:53 PM PG Care Time/CCT Total # of Minutes Spent Total Time Spent with Patient: Total time spent is greater than 50% in coordination of care (as documented) at patient's floor/unit and/or counseling patient: Supervising Physician Co-Signing Physician Notes I, Tico Reynolds MD, examined the patient along with Damian Aldridge PA-C, agree with plan and exam as documented [place] [address] IN/OBS CONSULT LVL 3,45M Patient Type New Medical Decision Making Straight Forward Diagnoses Compression fracture of L1 vertebra, initial encounter S32.010A Encounter type: initial encounter (1) Compression fracture of L1 lumbar vertebra Encounter type: initial encounter Qualified Code(s): S32.010A - Wedge compression fracture of first lumbar vertebra, initial encounter for closed fracture
[2024-10-25] MEDS: CHOLECALCIFEROL 125 MCG (5,000 UNITS) TAB PO SCH (09:04)
[2024-10-25] MEDS: FENOFIBRATE NANOCRYSTALLIZED 145 MG TABLET PO SCH (09:04)
[2024-10-25] MEDS: METOPROLOL SUCC 50MG EXT REL TAB PO SCH (09:04)
[2024-10-25] MEDS: CYANOCOBALAMIN (B-12) 500 MCG TABLET PO SCH (09:04)
[2024-10-25] MEDS: ONDANSETRON INJ 2 MG/ML 2 ML VIAL IV PRN (09:05)
[2024-10-25] MEDS: INSULIN ASPART PER UNIT CHARGE SC SCH (09:07)
[2024-10-25] MEDS: MUPIROCIN 2% OINT 22 GM TUBE TOP SCH (09:11)
[2024-10-25] MEDS: ACETAMINOPHEN 1,000 MG/100 ML VIAL IV PRN (11:15)
[2024-10-25] MEDS: REMOVE LIDODERM PATCH SCH (11:22)
--- NOTE | 2024-10-25 11:41 | Hospitalist Progress Note ---
Date of Service October 25, 2024 Assessment & Plan (1) WALDO (acute kidney injury): (2) Lumbar compression fracture: (3) Hypokalemia: (4) Skin lesion of back: (5) Elevated alkaline phosphatase level: Plan 69-year-old female PMHx HTN, T2DM, hypertriglyceridemia, HLD, hypothyroidism, s pondylosis of lumbar region, polycythemia, and vitamin B12 deficiency presenting after visit with PCP alerting that her renal functions and potassium were abnormal. She is feeling nauseous and having back pain. Her evaluation in the ED does raise concern for hypokalemia at a potassium of 2.9 as well as evidence of WALDO with creatinine 1.79. Additionally, her bilirubin and alkaline phosphatase are mildly elevated with bilirubin 1.7, alk phos 123. She will be admitted and treated for hypokalemia and WALDO. #nausea and weight loss This appears to be the main culprit here. Cause is unknown, Differential diagnosis may include diabetic gastroparesis, peptic ulcer disease, malignancy, biliary problem. #WALDO Likely secondary to recent decreased intake x 2 weeks, also with reported weight loss (20lbs in 6 weeks). Not eaten in 2 days, only tolerating some fluids. - Cr 1.79, BUN 30 - creatinine is downtrending - UA pending - Bladder scan prn - Hold nephrotoxic agents - Furosemide - IVF LR @ 80 mL/hr #Lumbar (L1) Compression fracture Ongoing lumbar radiculopathy x years, denies recent trauma or falls. Admits to weight loss, unintentional, over past 2 months. In setting of vitamin D deficiency, on supplements for. - CTAP with acute L1 anterior inferior endplate compression fx extending into anterior osteophyte, MRI recommended -- pt without neuro symptoms so MRI deferred at time of admission - Tylenol prn pain, lidoderm prn - DEXA scan August 2018 with T score (-1.7), declined further follow up - Consider MRI - PT/OT ordered - appreciate assistance - Ortho spine consulted - appreciate input + recs -added calcitonin spray #Hypokalemia Received 10 mEq IV in ED. - K 2.9,improved but still low, ordered more potassium - EKG stable at admission - will monitor on tele - Received 10 mEq KCl IV in ED, will add additional 30 mEq of KCL IV then repeat K #Skin lesion of back, R flank region Previous h/o pityriasis versicolor, was on ketoconazole cream for. Was started on mupirocin ointment the day of arrival by PCP. This started ~ 3 weeks ago, the lesions now being crusted over. No reported prodrome able to be identified. ? concern for shingles, however the lesions are scabbed over at this point and there are no vesicular lesions identified at time of admission. - Continue mupirocin ointment - Culture is able - Cover lesions if scabs come off or if any pus identified, and add precautions at that time #Elevated alkaline phosphatase/bilirubin Nausea/vomiting x 2-3 days with anorexia and 20-25lb weight loss over the past 2 months. No F/C, no night sweats. No tenderness to palpation on abdominal exam at admission. She has had slightly elevated numbers in the past. - CMP bilirubin 1.7, alk phos 123 - CTAP: no biliary dilatation, will consult GI. - Zofran prn N/V #T2DM H/o DMT2, home regimen includes metformin, Jardiance. Not eating much over past 2-3 days. - Glucose on arrival 122; Most recent A1C 08/2024 @ 8% - Hold po medications - SSI with target BSG range 110-140mg/dL, CF 30, carb ratio deferred - BSG ACHS - Adjust regimen as needed #Lumbar radiculopathy- Ongoing, has been worked up since 09/[address] revealing degenerative changes; Follows with pain management , receiving steroid injections (July 2024), acetaminophen prn #HLD- Atorvastatin, fenofibrate - continue #H/o polycythemia- H&H 15.4/47.1 on admission - trend CBC #HTN- Metoprolol - continue #BLE edema- H/o L popliteal fossa abnormality, did not pursue further workup with US; Furosemide prn - HOLD in setting of WALDO #Hypothyroidism- Not currently on medications for such; TSH 08/2024 was 3.5 - monitor as appropriate Pt's daughter, Jennifer, would like to be called to be updated each day @ [phone]. Dispo: Admit. med/tele VTE Prophylaxis: SCDs Admission and Anticipated Discharge Date Admission Date: October 24, 2024 Subjective Had extensive discussion with patient using a shaping machine tender service. Patient is feeling better, her nausea is still present but she is tolerating her diet. She reports this has been ongoing for about 1 month where she eats small meals about 3 times a day, however she has noticed weight loss in that time.She states having abdominal pain center to the left (note exam pain was more right sided). Patient denies any sick contacts, diarrhea. She reports her polycthemia vera is under controlled. Review of Systems Review of Systems: All systems reviewed & are unremarkable except as noted in Subjective Physical Exam Constitutional: WD/WN, vitals as above Eyes: PERRL, conjunctivae normal, anicteric sclerae ENMT: external ear and nose normal, oropharynx normal Neck: trachea midline, no thyromegaly Respiratory: normal respiratory effort, lungs clear to auscultation Cardiovascular: RRR, no murmur, no edema Gastrointestinal (Abdomen): Pain on deep palpation on epigastric and ruq. Skin: no rashes, warm and dry Neurologic: PERRL, EOMI, accommodation nl, no face palsy, no dysarthria Psychiatric: A+Ox3, euthymic affect Results & Data Results & Data Vital Signs (Past 12 Hours) Vital Signs Temp Pulse Pulse Pulse Resp BP Pulse Ox 10/25/24 08:13 36.4 C L 66 16 121/75 96 10/25/24 05:53 68 10/25/24 00:03 36.7 C 76 16 133/81 93 10/24/24 23:39 81 O2 Del Method 10/25/24 08:13 Room Air 10/25/24 05:53 10/25/24 00:03 Room Air 10/24/24 23:39 PG Care Time/CCT Total # of Minutes Spent Total Time Spent with Patient: Total time spent is greater than 50% in coordination of care (as documented) at patient's floor/unit and/or counseling patient: Coding Level of Care Code 13797 SUB INP/OBS CARE 3/50MIN Diagnoses WALDO (acute kidney injury) N17.9 Lumbar compression fracture S32.000A Hypokalemia E87.6 Skin lesion of back L98.9 Elevated alkaline phosphatase level R74.8
[2024-10-25] MEDS: CALCITONIN SALMON NA 200 IU/AC 3.7 ML BTL SCH (12:00)
[2024-10-25 14:23] LABS: Alanine Aminotransferase 13.0 U/L (7-52); Alkaline Phosphatase 114.0 U/L (34-104); Bilirubin,Total 1.3 mg/dl (0.2-1.0); Total Protein 7.1 gm/dl (6.0-8.3)
--- NOTE | 2024-10-25 14:36 | Gastrointestinal Consultation ---
Date of Consultation October 25, 2024 Assessment & Plan (1) Nausea: (2) Weight loss: Plan -Add Protonix 40 mg BID -Continue antiemetics prn -NPO after midnight for EGD on 10/26/24 Supervising Physician Co-Signing Physician Notes Patient admitted with nausea decreased appetite and weight loss. CT relatively unremarkable for the GI tract. Compression fractions noted. She states her nausea occurs after ingestion of her medications. Certainly nausea frequently medication related. Vertebral fractures and pain by themselves may aggravate GI function. I do not see she is taking narcotics at this time another factor typically implicated in nausea. To facilitate workup and management of her nausea and EGD would be helpful to exclude gastric outlet obstruction neoplasia. Plan EGD for tomorrow. History of Present Illness Reason for Consultation: "nausea after eating/ weight loss/ upper scope?" Attending Physician: Naren Grace History of Present Illness Encounter was facilitated with the assistance of a [employer] medical interpreter via the iPad available in patient's room. Patient is a 69 yo female here for hypokalemia. GI has been consulted for nausea and unintentional weight loss. Patient does clarify that she is not experiencing post-prandial nausea. She tells me she eats food without issues. She notes that she experiences nausea after taking her medications. She takes a daily aspirin. She notes she has lost 25 lbs in recent weeks. She has an acute compression fracture. A CT scan of the abdomen/pelvis did not identify any acute GI issues. T bili 1.3, D bili 0.3. AST 25, ALT 13. Alk phos 114. Troponin 11. No acute heartburn or reflux. No discrete abdominal pain. She has a history of polycythemia. She denies any other pertinent GI history (personal or family). Allergies Allergy/AdvReac Type Severity Reaction Status Date / Time No Known Drug Allergies Allergy Unknown Verified 10/24/24 11:09 Home Medications Medication Instructions Recorded Confirmed Type cholecalciferol (vitamin D3) 125 5,000 unit PO QAM 02/09/18 10/24/24 History mcg (5,000 unit) tablet (Vitamin D3) mecobalamin (vitamin B12) 1,000 1,000 mcg PO QAM 02/12/20 10/24/24 History mcg chewable tablet aspirin 81 mg tablet,delayed 81 mg PO DAILY 90 days #90 tabs 01/01/21 10/24/24 Rx release fenofibrate nanocrystallized 145 145 mg PO QAM #90 tabs 07/01/24 10/24/24 Rx mg tablet (Tricor) atorvastatin 20 mg tablet 20 mg PO HS #90 tabs 08/10/24 10/24/24 Rx metformin 500 mg tablet 1,000 mg (2 x 500 mg) PO BID #360 08/10/24 10/24/24 Rx tabs furosemide 40 mg tablet 40 mg PO DAILY PRN edema #30 tabs 08/28/24 10/24/24 Rx empagliflozin 10 mg tablet 10 mg PO DAILY #90 tabs 09/03/24 10/24/24 Rx (Jardiance) ketoconazole 2 % topical cream 1 applic topical BID PRN 10/24/24 10/24/24 History DIRECTED metoprolol succinate 50 mg 50 mg PO QAM 10/24/24 10/24/24 History tablet,extended release 24 hr mupirocin 2 % topical ointment 1 applic topical BID #15 grams 10/24/24 10/24/24 Rx ondansetron 4 mg disintegrating 4 mg PO Q8H #30 tabs 10/24/24 10/24/24 Rx tablet Patient History Medical History Polycythemia F/U DR SANDHU Obesity Stage III chronic kidney disease F/U PCP Hypothyroidism Diabetes mellitus, type 2 NIDDM Hyperlipidemia Hypertension Surgical History History of colonoscopy Status post lumbar surgery History of spinal fusion L4-S1 Posterior Lumbar Decompression/Fusion: 10/02/18: Grade 2 view, MAC#3, ETT 7.0 at [facility] H/O tubal ligation S/P left knee arthroscopy Hx laparoscopic cholecystectomy Family History Mother Hypertension Father Gastric ulcer Grandmother Cirrhosis Denies family history of Ovarian cancer Prostate cancer Myocardial infarction Breast cancer Colorectal cancer Social History Smoking Status: Never smoker Second Hand Exposure: No; Do You Dip or Chew Tobacco: No; Hx Alcohol Use: No Hx Substance Use: No Preferred Language: Monegasque Communication Ability: Effective Communication Ability Comment: CAN UNDERSTAND SIMPLE MALIAN Communication Tools: IPad Visual Impairment: Partially Limited Hearing Ability: Normal Loans Officer Required: Yes Beliefs That Will Affect Care: None marital status: Current Living Situation: Spouse and Family Current Living Situation Comment: son arabella lives with her and current occupational status: retired How many Children do You have: 4 How many Children do You have Comment: 2 boy 2 girl Other Information That Helps Us Care for You: No Feels Safe at Home: Yes Safety Concerns: Feels Safe At This Time Childhood Exposure to Second-Hand Smoke: No Diet: regular during the past year weight has: remained stable Dental Care, Regularly: No Physical Activity Frequency: Daily Seatbelt Use: always Sunscreen Use: No Assistive Devices: Walker Review of Systems Constitutional: + weight loss; no fever and no chills Respiratory: no cough and no dyspnea Cardiovascular: no chest pain Gastrointestinal: + nausea; no abdominal pain, no early sa tiety, no hematemesis, no constipation, no diarrhea/loose stools, no blood in stools and no melena Physical Exam Constitutional: well developed Respiratory: normal respiratory effort Cardiovascular: Rate/Rhythm: regular rate Gastrointestinal (Abdomen): normal bowel sounds, soft, nontender, no hepatosplenomegaly Psychiatric: Orientation: alert and oriented x 3 Results & Data Vital Signs (Past 12 Hours) Vital Signs Temp Pulse Pulse Pulse Resp BP Pulse Ox 10/25/24 11:54 36.3 C L 63 18 113/73 94 10/25/24 08:13 36.4 C L 66 16 121/75 96 10/25/24 05:53 68 O2 Del Method 10/25/24 11:54 Room Air 10/25/24 08:13 Room Air 10/25/24 05:53 PG Care Time/CCT Total # of Minutes Spent Total Time Spent with Patient: Total time spent is greater than 50% in coordination of care (as documented) at patient's floor/unit and/or counseling patient: Coding Level of Care Code 58407 INT INP/OBS CARE 3/75MIN Diagnoses Nausea R11.0 Weight loss R63.4
[2024-10-25] MEDS: PANTOprazole 40 MG/10 ML SYR IV SCH (20:46)
[2024-10-25] MEDS: ATORVASTATIN 20 MG TAB PO SCH (20:46)
[2024-10-25] MEDS ORDERED: LIDOCAINE 5% 1 PATCH TD SCH (21:00)
[2024-10-26 07:07] LABS: Hematocrit (blood only) 39.4 % (37.0-47.0); Hemoglobin 12.8 g/dl (12.0-16.0); Immature Granulocytes # (auto) 0.14 K/uL (0.01-0.20); Immature Granulocytes % (auto) 2.7 %; Mean Corpuscular Hemoglobin 29.3 pg (25.0-34.0); Mean Corpuscular Volume 90.2 fL (80.0-100.0); Platelet Count 402 K/uL (130-400); RDW Standard Deviation 48.0 fL (36.4-46.3); Red Blood Count 4.37 M/uL (4.20-5.40); White Blood Count 5.23 K/ul (4.8-10.8)
[2024-10-26] MEDS ORDERED: Nursing to Pharmacy Communication SCH ×2 (07:15→17:15)
[2024-10-26 07:25] LABS: Alanine Aminotransferase 8.0 U/L (7-52); Albumin Globulin Ratio 1.0 (0.9-2); Alkaline Phosphatase 89.0 U/L (34-104); Anion Gap 7.0 (3-11); Bilirubin,Total 1.2 mg/dl (0.2-1.0); Blood Urea Nitrogen 16.0 mg/dl (6-23); Calcium 8.6 mg/dl (8.6-10.3); Carbon Dioxide 28.0 mmol/L (21-32); Chloride 99.0 mmol/L (98-107); Creatinine Clr Calc Pharmacy 54.4 ml/min; Globulin 2.6 gm/dl (2.5-4.0); Glucose 114.0 mg/dl (70-99(Fasting)); Magnesium 2.0 mg/dl (1.7-2.4); Potassium 3.3 mmol/L (3.5-5.1); Sodium 134.0 mmol/L (136-145); Total Protein 5.3 gm/dl (6.0-8.3)
[2024-10-26] MEDS: LIDOCAINE 5% 1 PATCH TD SCH (08:26)
--- NOTE | 2024-10-26 09:19 | History & Physical Bridge Note ---
Date of Service October 26, 2024 History & Physical Bridge Note I have reviewed the History & Physical and in the interval since the performance of the History & Physical I have noted the following changes of clinical significance: no changes noted. Keep NPO & proceed with EGD today. Supervising Physician Co-Signing Physician Notes Nausea weight loss. Reviewed upper endoscopy the patient through an airport engineer risk benefits discussed informed consent obtained endoscopy to exclude gastric neoplasia gastric outlet obstruction peptic ulcer disease reflux esophagitis.
[2024-10-26 10:38] LABS: Appearance Urine Clear (Clear); Bacteria Urine Automated 3+ (None Seen); Glucose Urine UA Negative (Negative); RBC Urine Automated 0-2 /hpf (0-2); WBC Urine Automated >50 /hpf (0-5)
[2024-10-26] MEDS ORDERED: POTASSIUM PHOS 3 MMOL/1 ML INFUSION IV STA (11:59)
[2024-10-26] MEDS: POTASSIUM PHOSPHATE 15 MMOL in SODIUM CHLORIDE 0.9% 250 ML IV ONE (12:26)
[2024-10-26] MEDS: INSULIN ASPART PER UNIT CHARGE SC SCH ×2 (12:26→17:33)
[2024-10-26] MEDS: POTASSIUM CHLORIDE / WTR 10 MEQ/100 ML PLCT IV SCH (12:26)
--- NOTE | 2024-10-26 14:30 | Anesthesiology Consultation ---
Date of Service October 26, 2024 Assessment & Plan Consults Requested medical & cardiac Pulmonary ASA ASA3 Proposed Anesthesia Anesthesia Type: MAC Risk / Benefits Reviewed With: PT / POA / Parent / Guardian, Accepts Plan and Informed Consent Obtained History Surgery Operation Date: 10/26/24 16:30 Proposed Procedures p Esophagogastroduodenoscopy Dr. Jori Hsieh MD Height/Weight Height: 5 ft 5 in Weight: 81.5 kg Allergies Allergy/AdvReac Type Severity Reaction Status Date / Time No Known Drug Allergies Allergy Unknown Verified 10/24/24 11:09 Medications Home Medications Medication Instructions Recorded Confirmed Last Taken cholecalciferol (vitamin D3) 125 5,000 unit PO QAM 02/09/18 10/24/24 05/15/20 08:00 mcg (5,000 unit) tablet (Vitamin D3) mecobalamin (vitamin B12) 1,000 1,000 mcg PO QAM 02/12/20 10/24/24 05/15/20 08:00 mcg chewable tablet aspirin 81 mg tablet,delayed 81 mg PO DAILY 90 days #90 tabs 01/01/21 10/24/24 Unknown release fenofibrate nanocrystallized 145 145 mg PO QAM #90 tabs 07/01/24 10/24/24 Unknown mg tablet (Tricor) atorvastatin 20 mg tablet 20 mg PO HS #90 tabs 08/10/24 10/24/24 Unknown metformin 500 mg tablet 1,000 mg (2 x 500 mg) PO BID #360 08/10/24 10/24/24 Unknown tabs furosemide 40 mg tablet 40 mg PO DAILY PRN edema #30 tabs 08/28/24 10/24/24 Unknown empagliflozin 10 mg tablet 10 mg PO DAILY #90 tabs 09/03/24 10/24/24 Unknown (Jardiance) ketoconazole 2 % topical cream 1 applic topical BID PRN 10/24/24 10/24/24 Unknown DIRECTED metoprolol succinate 50 mg 50 mg PO QAM 10/24/24 10/24/24 Unknown tablet,extended release 24 hr mupirocin 2 % topical ointment 1 applic topical BID #15 grams 10/24/24 10/24/24 Unknown ondansetron 4 mg disintegrating 4 mg PO Q8H #30 tabs 10/24/24 10/24/24 Unknown tablet Active Medications Generic Name Dose Route Start Last Admin Trade Name Freq PRN Reason Stop Dose Admin Atorvastatin Calcium 20 mg 10/25/24 21:00 10/25/24 20:46 Atorvastatin 20 Mg Tab PO 11/24/24 20:59 Not Given HS NATY Calcitonin [place] 1 sprays 10/25/24 10:45 10/26/24 08:25 Calcitonin [place] Na 200 Iu/Ac 3.7 Ml Btl NA 11/24/24 10:44 1 sprays DAILY NATY Administration Cyanocobalamin 1,000 mcg 10/25/24 09:00 10/26/24 09:00 Cyanocobalamin (B-12) 500 Mcg Tablet PO 11/24/24 08:59 Not Given QAM NATY Fenofibrate 145 mg 10/25/24 09:00 10/26/24 09:00 Fenofibrate Nanocrystallized 145 Mg Tablet PO 11/24/24 08:59 Not Given QAM NATY Acetaminophen 1,000 mg in 100 mls @ 400 mls/hr 10/25/24 10:35 10/26/24 05:00 Ofirmev IV 10/28/24 10:34 Infused Q8H PRN Infusion Pain Pantoprazole Sodium 40 mg in 10 mls @ 5 mls/min 10/25/24 21:00 10/26/24 08:15 Protonix IV 11/24/24 20:59 5 mls/min BID NATY Administration Potassium Phosphate 15 mmol/ 255 mls @ 88 mls/hr 10/26/24 12:00 10/26/24 14:09 Sodium Chloride IV 10/26/24 14:53 0 mls/hr ONE ONE Infusion Insulin Aspart 0 units 10/26/24 12:00 10/26/24 12:26 Insulin Aspart Per Unit Charge SC 11/24/24 07:29 Not Given Q6 NATY Lidocaine 1 patch 10/26/24 09:00 10/26/24 08:26 Lidocaine 5% 1 Patch TD 11/25/24 08:59 1 patch DAILY NATY Administration Metoprolol Succinate 50 mg 10/25/24 09:00 10/26/24 11:58 Metoprolol Succ 50mg Ext Rel Tab PO 11/24/24 08:59 50 mg QAM NATY Administration Mupirocin 1 appln 10/25/24 09:00 10/26/24 08:25 Mupirocin 2% Oint 22 Gm Tube TOP 11/24/24 08:59 1 appln BID NATY Administration Ondansetron HCl 4 mg 10/24/24 23:57 10/26/24 11:04 Ondansetron Inj 2 Mg/Ml 2 Ml Vial IV 11/23/24 23:56 4 mg Q6H PRN Administration Nausea Vitamin D 125 mcg 10/25/24 09:00 10/26/24 09:00 Cholecalciferol 125 Mcg (5,000 Units) Tab PO 11/24/24 08:59 Not Given QAM NATY NPO Date Last Intake of Fluids: 10/26/24 Time Last Intake of Fluids: 00:00 Date Last Intake of Solids: 10/26/24 Time Last Intake of Solids: 00:00 Past Medical History Medical History Polycythemia F/U DR SANDHU Obesity Stage III chronic kidney disease F/U PCP Hypothyroidism Diabetes mellitus, type 2 NIDDM Hyperlipidemia Hypertension Exercise / Class Metabolic Activity III < 4 Walking/Shop/Light housework Past Family History Family History Mother Hypertension Father Gastric ulcer Grandmother Cirrhosis Denies family history of Ovarian cancer Prostate cancer Myocardial infarction Breast cancer Colorectal cancer Past Surgical History Surgical History History of colonoscopy Status post lumbar surgery History of spinal fusion L4-S1 Posterior Lumbar Decompression/Fusion: 10/02/18: Grade 2 view, MAC#3, ETT 7.0 at [facility] H/O tubal ligation S/P left knee arthroscopy Hx laparoscopic cholecystectomy Past Anesthesia History No Hx of Anesthesia Complications and No Family Hx of Anesthesia Complications History of PONV No Hx of PONV and No Hx of Motion Sickness Social History Smoking Status: Never smoker Do You Dip or Chew Tobacco: No Hx Alcohol Use: No Hx Substance Use: No substance use type: does not use Physical Exam Vital Signs Last Vital Signs Temp 36.9 C 10/26/24 11:40 Pulse 69 10/26/24 14:12 Resp 20 10/26/24 11:40 BP 156/65 H 10/26/24 11:40 Pulse Ox 94 10/26/24 11:40 O2 Del Method Room Air 10/26/24 11:40 Constitutional no acute distress ENMT Mouth: + dentition abnormality (posts for implants) and + edentulous; no TMJ abnormality Thyromental Distance: > or= 3.5 Finger Breadths Neck normal visual inspection Respiratory normal respiratory effort; no respiratory distress Auscultation: lungs clear to auscultation bilaterally Cardiovascular Rate/Rhythm: regular rate and regular rhythm Psychiatric Orientation: alert and oriented x 3 Testing Laboratory Results 10/26/24 06:46 10/26/24 06:46 Urine Color Yellow 10/26/24 07:57 Urine Appearance Clear (Clear) 10/26/24 07:57 Urine pH 5.5 (4.5-7.5) 10/26/24 07:57 Ur Specific [place] 1.021 (1.000-1.030) 10/26/24 07:57 Urine Protein Negative (Negative) 10/26/24 07:57 Urine Glucose (UA) Negative (Negative) 10/26/24 07:57 Urine Ketones Negative (Negative) 10/26/24 07:57 Urine Nitrite Negative (Negative) 10/26/24 07:57 Ur Leukocyte Esterase 2+ (Negative) H 10/26/24 07:57 Urine WBC (Auto) >50 /hpf (0-5) H 10/26/24 07:57 Urine RBC (Auto) 0-2 /hpf (0-2) 10/26/24 07:57 U Hyaline Cast (Auto) 3-5 /lpf (0-2) H 10/26/24 07:57 U Epithel Cells (Auto) 3-5 /hpf (0-2) H 10/26/24 07:57 Urine Bacteria (Auto) 3+ (None Seen) H 10/26/24 07:57 10/24/24 21:03 Aerobic Blood Culture - Preliminary Blood No growth in Aerobic bottle after 24 hours. Anaerobic Blood Culture - Final 10/24/24 21:18 Aerobic Blood Culture - Preliminary Blood No growth in Aerobic bottle after 24 hours. Anaerobic Blood Culture - Preliminary No growth in Anaerobic bottle after 24 hours. 10/26/24 12:02 POC Glucose 106 H Electrocardiogram Date: 10/24/24 Sinus arrhythmia, LAFB, ?anteriorlateral infarct Chest X-Ray Date: 10/24/24 Findings: + NAD Echocardiogram Date: 03/24/18 EF: 65 LV Function: normal RWMA: + none Valvular Disease: + no significant valvular disease
--- NOTE | 2024-10-26 15:40 | Communication Note ---
Date of Service: October 26, 2024 EGD and biopsy 2 large deep cratered ulcers in the prepyloric area. May be a component of delayed gastric emptying though no retained food in the stomach. Biopsies for H. pylori and exclude neoplasia though the appearance is benign. PPI twice daily. Low roughage diet, corn fibrous material may be slow to empty from her stomach which will aggravate her nausea. Avoid NSAIDs. Baby aspirin can be continued if required
--- NOTE | 2024-10-26 15:44 | Anesthesiology Progress Note ---
Date of Service October 26, 2024 Anesthesia Post Procedure Vital Signs Vital Signs: Temp Pulse Pulse Resp BP Pulse Ox O2 Del Method 10/26/24 14:23 37 C 68 16 149/66 H 97 Room Air 10/26/24 14:12 69 10/26/24 11:40 36.9 C 76 20 156/65 H 94 Room Air 10/26/24 07:59 36.5 C 64 20 107/66 95 Room Air 10/26/24 07:30 60 10/26/24 03:53 36.5 C 61 18 134/72 93 Room Air 10/25/24 23:10 36.9 C 66 18 119/74 95 Room Air 10/25/24 21:54 68 10/25/24 19:25 36.5 C 70 18 128/70 96 Room Air 10/25/24 16:23 36.3 C L 66 18 116/75 98 Room Air Pain Intensity Lower Back: Pain Intensity: 6 Transfer of Care Handoff Completed per policy Notes Mental Status: alert / awake / arousable Patient Amnestic to Procedure: Yes Nausea / Vomiting: adequately controlled Pain: adequately controlled Airway Patency, RR, SpO2: stable & adequate BP & HR: stable & adequate Hydration State: stable & adequate Anesthetic Complications: no major complications apparent and Pt Satisfied with anesthetic care
--- NOTE | 2024-10-26 15:46 | GI REPORT ---
[facility] Patient: MITCHELL LEGGETT : 1955 Sex at : Female Age: 69 Years Procedure: Upper GI endoscopy Date: 10/26/2024 Attending Physician: Wolf Hsieh MD Referring MD: Scout Crenshaw; Naren Grace M.d. Indications: - Postprandial nausea with weight loss Medications: - Monitored Anesthesia Care Complications: - No immediate complications. Estimated Blood Loss: - Estimated blood loss was minimal. Procedure: - The egd scope was introduced through the mouth and advanced to the second part of the duodenum. - The upper GI endoscopy was accomplished without difficulty. - The patient tolerated the procedure well. Findings: - The examined esophagus was normal. - 2 large cratered ulcers 3 x 3 and 2 x 2 cm identified in the prepyloric area. Appearance is benign. Base was clear without stigmata of bleeding. Biopsies were done both ulcers submitted for histology and H. pylori. - No significant retained food in the stomach. However may be a component of delayed gastric emptying. - The examined duodenum was normal. Impression: - 2 large cratered ulcers 3 x 3 and 2 x 2 cm identified in the prepyloric area. Appearance is benign. Base was clear without stigmata of bleeding. Biopsies were done both ulcers submitted for histology and H. pylori. - No significant retained food in the stomach. However may be a component of delayed gastric emptying. - Normal esophagus. - Normal examined duodenum. - No specimens collected. Recommendation: - Await pathology results. - Use Protonix (pantoprazole) 40 mg PO daily indefinitely if aspirin to be continued . - Low roughage diet Procedure Code(s): - 10688, Esophagogastroduodenoscopy, flexible, transoral; diagnostic, including collection of specimen(s) by brushing or washing, when performed (separate procedure) CPT(R) - 2023 copyright [employer] [place] [employer]. All Rights Reserved. The CPT codes, CCI edits and ICD codes generated are intended as suggestions and were generated based on input data. These codes are preliminary and upon neurophysiological technician review may be revised to meet current compliance and payer requirements. The provider is responsible for the final determination of appropriate codes, and modifiers. Wolf Hsieh MD This document has been electronically signed. Note Initiated:10/26/2024 Note Completed:10/26/2024 3:44 PM \\[email or web address]\[id number]
[2024-10-26] MEDS: ACETAMINOPHEN 1,000 MG/100 ML VIAL IV SCH (17:21)
[2024-10-26] MEDS: KETOROLAC TROMETHAMINE 15 MG/ML VIAL IV ONE (17:21)
[2024-10-26] MEDS: ACETAMINOPHEN 325 MG TAB PO SCH (17:34)
--- NOTE | 2024-10-26 17:39 | Hospitalist Progress Note ---
Date of Service October 26, 2024 Assessment & Plan (1) WALDO (acute kidney injury): (2) Lumbar compression fracture: (3) Hypokalemia: (4) Skin lesion of back: (5) Elevated alkaline phosphatase level: Plan 69-year-old female PMHx HTN, T2DM, hypertriglyceridemia, HLD, hypothyroidism, s pondylosis of lumbar region, polycythemia, and vitamin B12 deficiency presenting after visit with PCP alerting that her renal functions and potassium were abnormal. She is feeling nauseous and having back pain. Her evaluation in the ED does raise concern for hypokalemia at a potassium of 2.9 as well as evidence of WALDO with creatinine 1.79. Additionally, her bilirubin and alkaline phosphatase are mildly elevated with bilirubin 1.7, alk phos 123. She will be admitted and treated for hypokalemia and WALDO. #nausea and weight loss This appears to be the main culprit here. Cause is unknown, however EGD has been completed and is showing ulcers. It appears in this case, the ulcers may be the underling culprit as family reported today that she was having abd. pain months before the nausea. will continue PPI, and may consider adding reglan for the short term on 10/27 #WALDO Likely secondary to recent decreased intake x 2 weeks, also with reported weight loss (20lbs in 6 weeks). Not eaten in 2 days, only tolerating some fluids. - Cr 1.79,resolved with IVF #Lumbar (L1) Compression fracture Age-related osteoporosis with current pathologic fracture, Lumbar vertebra Ongoing lumbar radiculopathy x years, denies recent trauma or falls. Admits to weight loss, unintentional, over past 2 months. In setting of vitamin D deficiency, on supplements for. - CTAP with acute L1 anterior inferior endplate compression fx extending into anterior osteophyte, MRI recommended -- pt without neuro symptoms so MRI deferred at time of admission - Tylenol prn pain, lidoderm prn - DEXA scan August 2018 with T score (-1.7), declined further follow up - Consider MRI - PT/OT ordered - appreciate assistance - Ortho spine consulted - appreciate input + recs -added calcitonin spray -added tylenol scheduled IV and ketorolac one time dose. will try to limit narcotics and or tramadol given her main symtpom is nausea and this may complicate her recovery. #Hypokalemia main be due to refeeding syncrome vs transient hypokalemia from IVF and improved renal function will replenish #Skin lesion of back, R flank region Previous h/o pityriasis versicolor, was on ketoconazole cream for. Was started on mupirocin ointment the day of arrival by PCP. This started ~ 3 weeks ago, the lesions now being crusted over. No reported prodrome able to be identified. ? concern for shingles, however the lesions are scabbed over at this point and there are no vesicular lesions identified at time of admission. - Continue mupirocin ointment - Culture is able - Cover lesions if scabs come off or if any pus identified, and add precautions at that time #Elevated alkaline phosphatase/bilirubin Nausea/vomiting x 2-3 days with anorexia and 20-25lb weight loss over the past 2 months. No F/C, no night sweats. No tenderness to palpation on abdominal exam at admission. She has had slightly elevated numbers in the past. - CMP bilirubin 1.7, alk phos 123 - CTAP: no biliary dilatation, will consult GI. - Zofran prn N/V #T2DM H/o DMT2, home regimen includes metformin, Jardiance. Not eating much over past 2-3 days. - Glucose on arrival 122; Most recent A1C 08/2024 @ 8% - Hold po medications - SSI with target BSG range 110-140mg/dL, CF 30, carb ratio deferred - BSG ACHS - Adjust regimen as needed #Lumbar radiculopathy- Ongoing, has been worked up since 09/[address] revealing degenerative changes; Follows with pain management , receiving steroid injections (July 2024), acetaminophen prn #HLD- Atorvastatin, fenofibrate - continue #H/o polycythemia- H&H 15.4/47.1 on admission - trend CBC #HTN- Metoprolol - continue #BLE edema- H/o L popliteal fossa abnormality, did not pursue further workup with US; Furosemide prn - HOLD in setting of WALDO #Hypothyroidism- Not currently on medications for such; TSH 08/2024 was 3.5 - monitor as appropriate Pt's daughter, Jennifer, would like to be called to be updated each day @ [phone]. Dispo: Admit. med/tele VTE Prophylaxis: SCDs Admission and Anticipated Discharge Date Admission Date: October 24, 2024 Subjective Used [employer] service Patient and family were updated at bedside. Patient states feeling hungry. She still continues to have nausea but willing to advance diet. She is unable to take oral medications without nausea, but has them in small amounts such as metoprolol. Physical Exam Constitutional: WD/WN, vitals as above Eyes: PERRL, conjunctivae normal, anicteric sclerae ENMT: external ear and nose normal, oropharynx normal Neck: trachea midline, no thyromegaly Respiratory: normal respiratory effort, lungs clear to auscultation Cardiovascular: RRR, no murmur, no edema Skin: no rashes, warm and dry Neurologic: PERRL, EOMI, accommodation nl, no face palsy, no dysarthria Psychiatric: A+Ox3, euthymic affect Results & Data Results & Data Vital Signs (Past 12 Hours) Vital Signs Temp Pulse Pulse Resp BP Pulse Ox O2 Del Method 10/26/24 16:11 37 C 57 L 16 130/56 L 96 Room Air 10/26/24 15:57 37 C 69 16 136/62 97 Room Air 10/26/24 15:42 37 C 80 16 94/57 L 97 Room Air 10/26/24 14:57 37 C 66 16 136/52 L 99 Room Air 10/26/24 14:23 37 C 68 16 149/66 H 97 Room Air 10/26/24 14:12 69 10/26/24 11:40 36.9 C 76 20 156/65 H 94 Room Air 10/26/24 07:59 36.5 C 64 20 107/66 95 Room Air 10/26/24 07:30 60 PG Care Time/CCT Total # of Minutes Spent Total Time Spent with Patient: Total time spent is greater than 50% in coordination of care (as documented) at patient's floor/unit and/or counseling patient: Coding Level of Care Code 75043 SUB INP/OBS CARE 3/50MIN Diagnoses WALDO (acute kidney injury) N17.9 Lumbar compression fracture S32.000A Hypokalemia E87.6 Skin lesion of back L98.9 Elevated alkaline phosphatase level R74.8 Time Spent (min) 50
[2024-10-26] MEDS: PROPOFOL IV EMULSION 10 MG/ML 20 ML VIAL IV ONE (19:26)
[2024-10-26] MEDS: LIDOCAINE 2% 2 ML VIAL/AMP(20MG/ML) INFIL ONE (19:26)
[2024-10-26] MEDS: REMOVE LIDODERM PATCH SCH (20:49)
--- NOTE | 2024-10-27 07:16 | Electrocardiogram Report ---
Test Reason : Blood Pressure : */* mmHG Vent. Rate : 68 BPM Atrial Rate : 68 BPM P-R Int : 154 ms QRS Dur : 90 ms QT Int : 406 ms P-R-T Axes : 65 -59 61 degrees QTcB Int : 431 ms Normal sinus rhythm with sinus arrhythmia Left anterior fascicular block Possible Anterolateral infarct , age undetermined Abnormal ECG When compared with ECG of 18-Sep-2018 13:39, Borderline criteria for Anterolateral infarct are now Present Nonspecific T wave abnormality no longer evident in Inferior leads Nonspecific T wave abnormality, improved in Anterolateral leads Confirmed by Maikel Richardson ([id number]) on 10/27/2024 7:16:25 AM Referred By: Scout Jung Confirmed By: Maikel Richardson
[2024-10-27 08:17] LABS: Hematocrit (blood only) 39.4 % (37.0-47.0); Hemoglobin 12.8 g/dl (12.0-16.0); Mean Corpuscular Hemoglobin 29.6 pg (25.0-34.0); Mean Corpuscular Volume 91.2 fL (80.0-100.0); Platelet Count 412 K/uL (130-400); RDW Standard Deviation 49.2 fL (36.4-46.3); Red Blood Count 4.32 M/uL (4.20-5.40); White Blood Count 4.32 K/ul (4.8-10.8)
[2024-10-27 08:35] LABS: Anion Gap 5.0 (3-11); Blood Urea Nitrogen 17.0 mg/dl (6-23); Calcium 8.4 mg/dl (8.6-10.3); Carbon Dioxide 29.0 mmol/L (21-32); Chloride 104.0 mmol/L (98-107); Creatinine Clr Calc Pharmacy 50.1 ml/min; Glucose 115.0 mg/dl (70-99(Fasting)); Potassium 3.9 mmol/L (3.5-5.1); Sodium 138.0 mmol/L (136-145)
[2024-10-27 11:32] VITALS: O2SAT 95
--- NOTE | 2024-10-27 14:23 | Gastroenterology Progress Note ---
Date of Service October 27, 2024 Assessment & Plan (1) Gastric peptic ulcer: Plan: PPI, avoid NSAIDs. Treat H. pylori in 2 to 3 months if present. Upper endoscopy in 6 to 8 weeks (2) Weight loss: Admission and Anticipated Discharge Date Admission Date: October 24, 2024 Subjective Nausea vomiting abdominal pain Patient had 2 fairly large ulcerations in the prepyloric area with some deformity. May account for poor appetite and her report of weight loss. She struggles swallowing pills according to her son. Reviewed with nursing she was able to get all her pills down today. She struggled with a larger pill. I did not see any evidence of esophageal obstruction. At endoscopy Recommend they try taking larger pills with applesauce yogurt excetra. Biopsies of the ulcers are pending. If she is H. pylori positive I would delay treatment for 2 to 3 months until this acute process resolves. An extra or 6 to 7 pills/day may aggravate her p.o. intake and exacerbate her struggle with pills. She should have a follow-up endoscopy done in about 8 weeks. Avoid NSAIDs. Okay to discharge from a GI perspective Physical Exam Physical Exam: Benign abdominal examination. Interpretation through son Results & Data Results & Data Vital Signs (Past 12 Hours) Vital Signs Temp Pulse Pulse Resp BP BP Pulse Ox 10/27/24 13:16 115/75 10/27/24 11:31 36.7 C 73 16 95/61 L 95 10/27/24 07:42 36.8 C 69 18 125/60 96 10/27/24 07:17 65 10/27/24 03:55 36.6 C 60 20 102/64 92 O2 Del Method 10/27/24 13:16 10/27/24 11:31 Room Air 10/27/24 07:42 Room Air 10/27/24 07:17 10/27/24 03:55 Room Air PG Care Time/CCT Total # of Minutes Spent Total Time Spent with Patient: Total time spent is greater than 50% in coordination of care (as documented) at patient's floor/unit and/or counseling patient: Coding Level of Care Code 90971 SUB INP/OBS CARE 03/31MIN Diagnoses Gastric peptic ulcer K25.9 Weight loss R63.4
[2024-10-27 16:06] VITALS: PULSE 67; RESP 18; TEMP 98.2
--- NOTE | 2024-10-27 16:07 | Discharge Summary ---
Discharge Summary Date of Service October 27, 2024 Principal Dx & Hospital Course #1 = Principal Diagnosis (1) WALDO (acute kidney injury): (2) Lumbar compression fracture: (3) Hypokalemia: (4) Skin lesion of back: (5) Elevated alkaline phosphatase level: (6) Gastric peptic ulcer: Plan 69-year-old female PMHx HTN, T2DM, hypertriglyceridemia, HLD, hypothyroidism, spondylosis of lumbar region, polycythemia, and vitamin B12 deficiency presenting after visit with PCP alerting that her renal functions and potassium were abnormal. She is feeling nauseous and having back pain. Her evaluation in the ED does raise concern for hypokalemia at a potassium of 2.9 as well as evidence of WALDO with creatinine 1.79. Additionally, her bilirubin and alkaline phosphatase are mildly elevated with bilirubin 1.7, alk phos 123. She will be admitted and treated for hypokalemia and WALDO. During her stay, she underwent EGD, which showed ulcers. Biopsies were taken to send for pathology and to r/o H pylori. She will need a repeat EGD in about 6 to 8 weeks to ensure healing. Pt was discharged on PPI. She was also found to have Lumbar compression fracture. She was evaluated by Ortho and recommended TSLO brace, WBAT. Pt was evaluated by PT / OT and recs home with home health and referral made to [facility]. #nausea and weight loss - nausea has resolved - pt eating well, tolerating PO intake including medications (confirmed with nursing team) - EGD showed ulcers - PPI BID - pt to follow up as outpatient on pathology report, including follow up on H pylori - rpt EGD in 6-8 weeks - outpatient follow up with GI #WALDO - resolved Likely secondary to recent decreased intake x 2 weeks, also with reported weight loss (20lbs in 6 weeks). Not eaten in 2 days, only tolerating some fluids. - Cr 1.79,resolved with IVF #Lumbar (L1) Compression fracture Age-related osteoporosis with current pathologic fracture, Lumbar vertebra Ongoing lumbar radiculopathy x years, denies recent trauma or falls. Admits to weight loss, unintentional, over past 2 months. In setting of vitamin D deficiency, on supplements for. - CTAP with acute L1 anterior inferior endplate compression fx extending into anterior osteophyte, MRI recommended -- pt without neuro symptoms so MRI deferred at time of admission - Tylenol prn pain, lidoderm prn - DEXA scan August 2018 with T score (-1.7), declined further follow up - PT/OT ordered - appreciate assistance - Ortho spine consulted - appreciate input + recs -added calcitonin spray - cont tylenol prn #Hypokalemia - resolved main be due to refeeding syndrome vs transient hypokalemia from IVF and improved renal function will replenish #Skin lesion of back, R flank region Previous h/o pityriasis versicolor, was on ketoconazole cream for. Was started on mupirocin ointment the day of arrival by PCP. This started ~ 3 weeks ago, the lesions now being crusted over. No reported prodrome able to be identified. ? concern for shingles, however the lesions are scabbed over at this point and there are no vesicular lesions identified at time of admission. - Continue mupirocin ointment - Culture is able - Cover lesions if scabs come off or if any pus identified, and add precautions at that time #Elevated alkaline phosphatase/bilirubin Nausea/vomiting x 2-3 days with anorexia and 20-25lb weight loss over the past 2 months. No F/C, no night sweats. No tenderness to palpation on abdominal exam at admission. She has had slightly elevated numbers in the past. - CMP bilirubin 1.7, alk phos 123 - CTAP: no biliary dilatation - Zofran prn N/V #T2DM H/o DMT2, home regimen includes metformin, Jardiance. Not eating much over past 2-3 days. - Glucose on arrival 122; Most recent A1C 08/2024 @ 8% - home meds resumed #Lumbar radiculopathy- Ongoing, has been worked up since 09/[address] revealing degenerative changes; Follows with pain management , receiving steroid injections (July 2024), acetaminophen prn #HLD- Atorvastatin, fenofibrate - continue #H/o polycythemia- H&H 15.4/47.1 on admission - trend CBC #HTN- Metoprolol - continue (discussed with daughter to reduce dose for few days until BP starts coming up and then resume full dose #BLE edema- H/o L popliteal fossa abnormality, did not pursue further workup with US; Furosemide prn #Hypothyroidism- Not currently on medications for such; TSH 08/2024 was 3.5 - monitor as appropriate Pt's daughter, Jennifer, updated @ [phone] (she requests daily updates). Discharge plan discussed and she is in agreement Admission HPI Per Admitting Provider 69-year-old female PMHx HTN, T2DM, hypertriglyceridemia, HLD, hypothyroidism, spondylosis of lumbar region, polycythemia, and vitamin B12 deficiency presenting after visit with PCP alerting that her renal functions and potassium were abnormal. The patient speaks Macanese, and minimal Togolese. Her daughters help to interpret for her, and they declined an spring fitter at this time. They report that she is feeling nauseous and admits to ongoing weight loss and anorexia. Reports that for the past 2-3 weeks the patient has been having symptoms of feeling unwell and for the past 2-3 days not eating. She is able to tolerate some fluids. She has had a 20-25 lb weight loss over the past 2 months without trying. She does admit to dizziness when she stands, but no falls or syncopal episodes. Has not had any F/C, no night sweats. She does have abdominal pain that is localized across her abdomen and sometimes more focused at the LUQ. Pt has had a rash on her R flank x 3 weeks that she was just started on abx ointment for the day of arrival by PCP. Denies chest pain, SOB, palpitations, D/C, numbness/tingling, URI symptoms, LUTS, edema, falls, or syncope. ED evaluation reveals CBC with leukocytosis 10.9, H&H 15.4/47.1, platelets 449; CMP potassium 2.9, chloride 90, BUN 30, anion gap 15, creatinine 1.79, glucose 122, bilirubin 1.7, alkaline phosphatase 123; procalcitonin 0.33; CXR stable; CTAP pending official read; EKG NSR with sinus arrhythmia, LAFB at 68 bpm.; Provided with 1L NSS, KCl 10 mEq IV, Zofran 4 mg IV, and acetaminophen IV in ED. Please see Dr. Palomo's attestation for adjustments/additions to treatment plan. Discharge Plan Discharge Items Patient Disposition: Home - Home Health Services Reason For Visit: WALDO, HYPOKALEMIA Discharge Diagnosis: gastric ulcer Condition on Discharge: Good Activity: Resume your previous activity Non-emergency contact: Surgeon Call non-emergency contact if: your symptoms worsen Follow-up/Referrals: Scout Jung MD [Primary Care Provider] - 11/06/24 1:30 pm Tico Reynolds MD [Surgeon] - (Please call office to schedule follow up) Wolf Hsieh MD [Physician] - Diet: Carb Consistent or DM2 and Low Fiber Addtl Attending Provider Instructions: Gastric Ulcers - please follow up results of biopsies taken from the stomach during upper endoscopy - if H pylori is is positive, please call gastroenterology office for treatment - avoid NSAIDS (meds like ibuprofen, naprosyn, motrin, etc) - take protonix as prescribed - you will repeat upper endoscopy in about 6 to 8 weeks to make sure ulcer is healed - please call gastroenterology office on Tuesday for appointment - if difficulty swallowing pills, take with apple sauce Spine fracture - use TSLO brace when she is up and moving - home health will be set up for you by case management - you will need to follow up with orthopedic team in 2-3 weeks, please call on Tuesday to make appointment Blood pressure - please monitor blood pressure daily and discuss with primary care doctor if abnormal - cut metoprolol dose in half while blood pressure is still low. As food and water intake increase, blood pressure should increase as well and then regular dose can be resumed - follow up with your primary care doctor in about 7-10 days Pending Studies at Discharge: Yes Studies:: Gastric pathology report Stand-Alone Forms: My [facility], Smoking Cessation Medications and DC Order Prescriptions: New calcitonin (salmon) 200 unit/actuation [place],Non-Aerosol 1 spray NA DAILY Qty: 3.7 0RF lidocaine 4 % adhesive patch,medicated 1 patch topical DAILY PRN (Reason: pain) Qty: 30 0RF pantoprazole [Protonix] 40 mg tablet,delayed release (DR/EC) 40 mg PO BID Qty: 60 0RF acetaminophen [Pain Relief (acetaminophen)] 325 mg tablet 650 mg PO Q6H PRN (Reason: fever or pain) Qty: 60 0RF Continued fenofibrate nanocrystallized [Tricor] 145 mg tablet 145 mg PO QAM Qty: 90 1RF atorvastatin 20 mg tablet 20 mg PO HS Qty: 90 3RF metformin 500 mg tablet 1,000 mg PO BID Qty: 360 3RF Jardiance 10 mg tablet 10 mg PO DAILY Qty: 90 3RF mupirocin 2 % ointment 1 applic topical BID Qty: 15 0RF ondansetron 4 mg tablet,disintegrating 4 mg PO Q8H Qty: 30 0RF furosemide 40 mg tablet 40 mg PO DAILY PRN (Reason: edema) Qty: 30 5RF cholecalciferol (vitamin D3) [Vitamin D3] 5,000 unit Tablet 5,000 unit PO QAM Rx Instructions: give with heaviest meal of the day mecobalamin (vitamin B12) 1,000 mcg tablet,chewable 1,000 mcg PO QAM metoprolol succinate 50 mg tablet extended release 24 hr 50 mg PO QAM ketoconazole 2 % cream 1 applic topical BID PRN (Reason: DIRECTED) Held aspirin 81 mg tablet,delayed release (DR/EC) 81 mg PO DAILY 90 Days Qty: 90 0RF Hold Instructions: Resume on 11/27/24. Discharge Orders: Discharge Order (Routine); Ordered 10/27/24 Ordered By: Risa Hill Admission Data Admit Date/Time: 10/24/24 21:39 Attending Provider: Risa Hill Admit Provider: Maryjane Palomo Primary Care Provider: Scout Jung V. Other Providers: Tico Reynolds; Maryjane Palomo; Randy Huerta; Serg Marsh; Ayde Rodríguez; Gayathri Gil; Harriet Barry; Kristi Conde; Dwight Mullen; Chun Bolaños; Kaden Maravilla; Patric Deal S; Breonna Torres; Daphne Wheeler; Cindy Henderson; Mayuri Shea; Ed Lorenzana; Bay Munson; Feliciano Quinones; Padmini Alexis; Terrance Bajwa Jr; Mac Sorto; Corby Lock; Stan Burnett; Nicolás Torres; Jessica Rashid; Salazar Dunn I; Vale Bradley; Wolf Hsieh; Douglas Lawrence; Duane Price; Trever Hawley; [facility] Hospital Stay Data Consultations 10/24/24 20:55 ED Decision to Admit Stat 10/24/24 23:57 Consult Orthopedic Spine Surgery Routine 10/25/24 10:40 Consult Gastroenterology Routine Procedures Performed Operation Date: 10/26/24 16:30 Actual Procedures p EGD Biopsy Cytology - Wolf Hsieh MD Diagnostic Imagining Performed 10/24/24 18:56 CT abd pelvis wo con Stat Discharge Instructions Given to Patient (Per Discharging Provider) Gastric Ulcers - please follow up results of biopsies taken from the stomach during upper endoscopy - if H pylori is is positive, please call gastroenterology office for treatment - avoid NSAIDS (meds like ibuprofen, naprosyn, motrin, etc) - take protonix as prescribed - you will repeat upper endoscopy in about 6 to 8 weeks to make sure ulcer is healed - please call gastroenterology office on Tuesday for appointment - if difficulty swallowing pills, take with apple sauce Spine fracture - use TSLO brace when she is up and moving - home health will be set up for you by case management - you will need to follow up with orthopedic team in 2-3 weeks, please call on Tuesday to make appointment Blood pressure - please monitor blood pressure daily and discuss with primary care doctor if abnormal - cut metoprolol dose in half while blood pressure is still low. As food and water intake increase, blood pressure should increase as well and then regular dose can be resumed - follow up with your primary care doctor in about 7-10 days Total Time Total Time Spent Total Time Spent (In Minutes): 50 Coding Level of Care Code 84378 INP/OBS DISCH >30 MIN Diagnoses WALDO (acute kidney injury) N17.9 Lumbar compression fracture S32.000A Hypokalemia E87.6 Skin lesion of back L98.9 Elevated alkaline phosphatase level R74.8 Gastric peptic ulcer K25.9
[2024-10-27 17:33] VITALS: BP 95/61
== END 2024-10-27 18:43 | disposition home health service (06) | DRG 384 ==
LOC: ED 17:42 → 2W 21:39 → SUATTDRO 21:39 → 2W 22:54

== ENCOUNTER 2024-11-26 16:59 | Inpatient (IN) ==
[2024-11-26 17:55] LABS: Hematocrit (blood only) 49.7 % (37.0-47.0); Hemoglobin 16.1 g/dl (12.0-16.0); Immature Granulocytes # (auto) 0.08 K/uL (0.01-0.20); Immature Granulocytes % (auto) 0.9 %; Mean Corpuscular Hemoglobin 28.7 pg (25.0-34.0); Mean Corpuscular Volume 88.6 fL (80.0-100.0); Platelet Count 374 K/uL (130-400); RDW Standard Deviation 45.1 fL (36.4-46.3); Red Blood Count 5.61 M/uL (4.20-5.40); White Blood Count 8.63 K/ul (4.8-10.8)
[2024-11-26 18:11] LABS: Alanine Aminotransferase 9.0 U/L (7-52); Albumin Level 4.0 gm/dl (3.4-5.0); Alkaline Phosphatase 70.0 U/L (34-104); Blood Urea Nitrogen 30.0 mg/dl (6-23); Calcium 9.8 mg/dl (8.6-10.3); Carbon Dioxide 30.0 mmol/L (21-32); Chloride 94.0 mmol/L (98-107); Creatinine Clr Calc Pharmacy 27.6 ml/min; Glucose 123.0 mg/dl (70-99(Fasting)); Potassium 3.6 mmol/L (3.5-5.1)
--- NOTE | 2024-11-26 18:16 | Emergency Department Note ---
ED Visit Note I was consulted by the Advanced Practice Provider, DONNA Lopez. I performed a substantive portion of the visit. This includes aspects of: History: Patient is a 69-year-old female presenting with intractable back pain. Patient's daughter acts as developmental therapist as patient is primarily Macedonian-speaking. Patient's daughter reports that patient is been taking her pain pills for her known L1 compression fracture. She reportedly has had a decreased appetite and has lost a significant mount of weight in the last month. Daughter reports that the patient has been unable to perform her activities of daily living and has had increased weakness. MDM: Workup in the emergency department did not show any significant acute abnormality other than a kidney injury with a creatinine of 1.9. Patient was given 1 L normal saline. Given 1 g IV Tylenol and 4 mg IV Zofran for pain and nausea. Patient was admitted to hospitalist service for WALDO and dehydration. .
[2024-11-26 18:20] LABS: Albumin Globulin Ratio 1.3 (0.9-2); Anion Gap 14.0 (3-11); Bilirubin,Total 1.0 mg/dl (0.2-1.0); Globulin 3.0 gm/dl (2.5-4.0); Sodium 138.0 mmol/L (136-145); Total Protein 7.0 gm/dl (6.0-8.3)
[2024-11-26] MEDS: ONDANSETRON INJ 2 MG/ML 2 ML VIAL IV STA (18:34)
[2024-11-26] MEDS: SODIUM CHLORIDE 0.9% 1,000 ML IV ONE (18:34)
[2024-11-26] MEDS: ACETAMINOPHEN 1,000 MG/100 ML VIAL IV STA (18:34)
[2024-11-26] MEDS: ONDANSETRON INJ 2 MG/ML 2 ML VIAL ONE (18:37)
--- NOTE | 2024-11-26 19:59 | History & Physical Report ---
Date of Service November 26, 2024 Assessment & Plan (1) Gastric peptic ulcer: (2) Compression fracture of L1 lumbar vertebra: (3) Hypertension: (4) Type II diabetes mellitus: (5) WALDO (acute kidney injury): (6) H. pylori infection: Plan Pt is a 69 yo Citizen [place] speaking only female with a past med hx of recent dx of stomach ulcers and +H pylori testing, recent L1 compression fracture, HTN, and DMT2 who presents to the hospital on 11/26 for poor oral intake at home due to on going nausea and abdominal pain. #PUD due to H pylori - EGD done 10/26 confirmed presence of ulcers and biopsy was positive(+) for H pylori - pt was not treated with antibiotics due to concerns of tolerance of the pills outpatient per outpatient note and prior GI note when admitted 1 mo ago also states they would hold off - protonix 40 mg BID - zofran for nausea - GI consulted; pending recs #WALDO - Cr on admission 1.9, baseline wnl - most likely prerenal in the setting of poor oral intake for at least 3 days - 1L bolus given, will do fluids 125/hr x1 bag overnight as well #L1 compression fracture - no new concerns about this on admission - f/u scan just done 11/22; pending read so will defer redoing this - tylenol for pain for now #DMT2 - on empagliflozin at home and metformin, will hold these on admission - sliding scale insulin, defer long acting at this time but can add depending on use #HTN #Grade 1 diastolic dysfunction on echo - continue home meds (except hold lasix prn for WALDO) Diet: Liquid to start, NPO midnight pending GI eval VTE; defer on admission in case pt goes for any sort of procedure like EGD tomorrow History of Present Illness Chief Complaint: Abdominal pain Primary Care Provider: Scout Jung MD Pt is a 69 yo Citizen [place] speaking only female with a past med hx of recent dx of stomach ulcers and +H pylori testing, recent L1 compression fracture, HTN, and DMT2 who presents to the hospital on 11/26 for poor oral intake at home due to ongoing nausea and abdominal pain. Pt seen at bedside. Daughter is present and pt opts to have daughter translate for her at this time. Daughter gives hx; daughter states that about 1 mo ago pt was admitted to the hospital for back and stomach pain along with poor appetite. She states she was diagnosed with stomach ulcers and started on some medication. She states that when she left the hospital she was doing reasonably well; she was eating but not as much as normal for her and had definitely lost some weight. She states that the last 3 days the patient has particularly struggled to eat much more again. She states that when she eats anything she gets very nauseated and sometimes has vomiting. She states even when she has pills she gets very nauseated so daughter has noticed that she has not been taking all of her pills the last few days especially, possibly including the pantoprazole. States that today she had just 1 egg and then threw up and has not eaten anything since. She denies chest pain or SOB. No complaint of back pain on admission but did recently take medication for pain. She does note some R shoulder joint pain which started about 6 months ago. Allergies Allergy/AdvReac Type Severity Reaction Status Date / Time No Known Drug Allergies Allergy Unknown Verified 11/09/24 14:31 Home Medications Medication Instructions Recorded Confirmed Type cholecalciferol (vitamin D3) 125 5,000 unit PO QAM 02/09/18 11/26/24 History mcg (5,000 unit) tablet (Vitamin D3) mecobalamin (vitamin B12) 1,000 1,000 mcg PO QAM 02/12/20 11/26/24 History mcg chewable tablet aspirin 81 mg tablet,delayed 81 mg PO DAILY 90 days #90 tabs 01/01/21 11/09/24 Rx release fenofibrate nanocrystallized 145 145 mg PO QAM #90 tabs 07/01/24 11/26/24 Rx mg tablet (Tricor) atorvastatin 20 mg tablet 20 mg PO HS #90 tabs 08/10/24 11/26/24 Rx metformin 500 mg tablet 1,000 mg (2 x 500 mg) PO BID #360 08/10/24 11/26/24 Rx tabs furosemide 40 mg tablet 40 mg PO DAILY PRN edema #30 tabs 08/28/24 11/26/24 Rx empagliflozin 10 mg tablet 10 mg PO DAILY #90 tabs 09/03/24 11/26/24 Rx (Jardiance) acetaminophen 325 mg tablet (Pain 650 mg (2 x 325 mg) PO Q6H PRN 10/27/24 11/26/24 Rx Relief (acetaminophen)) fever or pain #60 tabs calcitonin (salmon) 200 1 spray NA DAILY #3.7 mL 10/27/24 11/26/24 Rx unit/actuation nasal spray lidocaine 4 % topical patch 1 patch topical DAILY PRN pain #30 10/27/24 11/26/24 Rx ea pantoprazole 40 mg tablet,delayed 40 mg PO BID #60 tabs 10/27/24 11/26/24 Rx release (Protonix) metoprolol succinate 50 mg 25 mg PO QAM 11/09/24 11/26/24 History tablet,extended release 24 hr tetracycline 500 mg tablet 500 mg PO QID 14 days #56 tabs 11/27/24 Rx Past Med/Surg History Problem List (Updated 11/26/24 @ 21:10 by DONNA Malhotra) Acute kidney injury (Acute) Compression fx, lumbar spine (Acute) H. pylori infection Gastric peptic ulcer Weight loss Nausea Compression fracture of L1 lumbar vertebra (Acute ~10/24/24) Anteroinferior endplate w/ extension into anterior osteophyte Decreased oral intake (Acute) Total bilirubin, elevated (Acute) WALDO (acute kidney injury) (Acute) Closed compression fracture of L1 vertebra (Acute) Lumbar compression fracture Elevated alkaline phosphatase level Skin lesion of back Hypokalemia Lumbar radiculopathy Adjacent segment disease of lumbar spine with history of fusion procedure Bilateral sacroiliitis Lumbar post-laminectomy syndrome Pityriasis versicolor Osteoarthritis of left knee Status post right knee replacement Left-sided low back pain with sciatica (Acute) Spinal stenosis, lumbar region with neurogenic claudication Type II diabetes mellitus Cognitive changes (Chronic) Vitamin D deficiency disease (Acute) Synovial cyst of popliteal space (Acute) Spondylosis without myelopathy or radiculopathy, lumbar region (Acute) Polycythemia vera (Acute) Hypothyroidism (Acute) Hypertension (Acute) Hyperlipidemia (Acute) Generalized osteoarthritis of multiple sites (Acute) Gait disturbance (Acute) Fatty liver (Acute) Essential hypertriglyceridemia (Acute) Abnormal brain MRI (Acute) Abnormal EKG (Acute) Vitamin B12 deficiency Medical History Polycythemia F/U DR SANDHU Obesity Stage III chronic kidney disease F/U PCP Hypothyroidism Diabetes mellitus, type 2 NIDDM Hyperlipidemia Hypertension Surgical History History of colonoscopy Status post lumbar surgery History of spinal fusion L4-S1 Posterior Lumbar Decompression/Fusion: 10/02/18: Grade 2 view, MAC#3, ETT 7.0 at [facility] H/O tubal ligation S/P left knee arthroscopy Hx laparoscopic cholecystectomy Family History Mother Hypertension Father Gastric ulcer Grandmother Cirrhosis Denies family history of Ovarian cancer Prostate cancer Myocardial infarction Breast cancer Colorectal cancer Social History Smoking Status: Never smoker Second Hand Exposure: No; Do You Dip or Chew Tobacco: No; Hx Alcohol Use: No Hx Substance Use: No Preferred Language: Citizen [place] Communication Ability: Effective Communication Ability Comment: CAN UNDERSTAND SIMPLE KAZAKH Communication Tools: IPad Visual Impairment: Partially Limited Hearing Ability: Normal Stone Planer Required: Yes Beliefs That Will Affect Care: None marital status: Current Living Situation: Spouse Current Living Situation Comment: son arabella lives with her and current occupational status: retired How many Children do You have: 4 How many Children do You have Comment: 2 boy 2 girl Other Information That Helps Us Care for You: No Feels Safe at Home: Yes Safety Concerns: Feels Safe At This Time Childhood Exposure to Second-Hand Smoke: No Diet: regular during the past year weight has: remained stable Dental Care, Regularly: No Physical Activity Frequency: Daily Seatbelt Use: always Sunscreen Use: No Assistive Devices: Walker Review of Systems Review of Systems: Per HPI. Physical Exam Physical Exam: General: Alert and oriented, no acute distress, very pleasant, Citizen [place] speaking HEENT: Normocephalic, moist oral mucosa, Cardio: Regular rate and rhythm, no murmur, Resp: Lungs clear to auscultation b/l, no wheezes or rhonchi, GI: Soft, nondistended, bowel sounds active, some mild upper abdominal tenderness to palpation Skin: Warm, pink, dry, Results & Data Results & Data Vital Signs (Past 12 Hours) Vital Signs Temp Pulse Pulse Resp BP BP Pulse Ox 11/26/24 17:59 83 11/26/24 17:12 86 23 141/72 H 99 11/26/24 17:01 36.9 C 87 18 112/71 98 O2 Del Method 11/26/24 17:59 11/26/24 17:12 11/26/24 17:01 Room Air Supervising Physician Co-Signing Physician Notes Attending addendum: I have physically seen this patient, have supervised the medical residents activities, and agree with the H&P unless as otherwise noted. Assessment and Plan: The patient is a 69-year-old Citizen [place]-speaking female with past medical history including recent diagnosis stomach ulcers with positive H. pylori testing, recent L1 compression fracture, hypertension, and diabetes mellitus type 2. Rep orted that gastroenterology did not want H. pylori treated until she was seen in follow-up. The patient brought to the emergency department with history of decreased oral intake at home due to persistent abdominal pain, and nausea without vomiting. [facility]. Peptic ulcer disease due to H. pylori- EGD performed on 10/26 Patient was not treated due to concerns related to intolerance of oral medications as referenced in the outpatient note. Gastroenterology note from 1 month ago states that it would hold off on treating H. pylori specifically until seen in follow-up NPO Protonix 40 mg IV twice daily Zofran 4 mg IV every 6 hours as needed Consult gastroenterology Acute kidney injury- Creatinine 1.90 on admission with base 1.10 Status post 1 L normal saline bolus in the ED Maintenance fluids of NSS at 125 mL/h x 1 L L1 compression fracture- Tylenol as needed Diabetes mellitus type 2- Temporarily hold empagliflozin and metformin Place on Accu-Cheks with NovoLog SSI Check hemoglobin A1c Hypertension- Hold aspirin Continue metoprolol succinate with hold parameters Resident Activity Tracking Resident Involvement: Resident Care Provided Care Provided: Adult Hospital Medicine (1) Gastric peptic ulcer Gastric ulcer chronicity: acute Qualified Code(s): K25.3 - Acute gastric ulcer without hemorrhage or perforation (2) Compression fracture of L1 lumbar vertebra Encounter type: initial encounter Qualified Code(s): S32.010A - Wedge compression fracture of first lumbar vertebra, initial encounter for closed fracture
--- NOTE | 2024-11-26 20:44 | Emergency Department Note ---
Impression & Plan Compression fx, lumbar spine, Acute kidney injury ED Provider Note CHIEF COMPLAINT: L1 compression fracture HISTORY OF PRESENTING ILLNESS: Patient is a 69-year-old female Sierra Leonean speaking whose daughter is at bedside acting as foreign language interpreter. Patient's primary complaint is intractable back pain. The patient's daughter reports she has been taking pain pills which makes her not want to eat, causes upset stomach, and has made her lose a significant amount of weight in the past month. She has been following with orthopedics and was given a back brace that has made it difficult for her to get around. She denies any sensation changes, loss of bowel or bladder, recent falls, recent trauma, any head injury. She does report increased weakness. Patient denies chest pain, sob, breathing difficulties, abdominal pain, headache, fevers/chills, blood in stool or urine, any recent illness, or any recent travel. REVIEW OF SYSTEMS: See HPI for pertinent positives and pertinent negatives. ALLERGIES: See below MEDICATIONS: See below PAST MEDICAL HISTORY: See below PHYSICAL EXAM: VITALS: Vitals are noted on the nurse's note and reviewed by myself. GENERAL: Non toxic, in no acute distress, non-diaphoretic. SKIN: Capillary refill <2 sec. EYES: PERRLA. EOMI. Conjunctivae without injection, sclerae without icterus. NOSE: Patent without discharge. MOUTH: Mucous membranes moist. Uvula midline. Airway patent. NECK: Supple without nuchal rigidity. HEART: Regular rate and rhythm without murmurs gallops or rubs. LUNGS: Clear to auscultation bilaterally without wheezes, rales or rhonchi. No retractions or accessory muscle use. ABDOMEN: Positive bowel sounds x 4. Normal tympanic percussion. Soft, nontender to palpation. MUSCULOSKELETAL: Slow to move around. Increased tenderness on palpation of the lumbar spine no gross musculoskeletal defects. Range of motion intact to the bilateral lower extremities. NEURO: Sensation is intact. Patient was alert and oriented. No focal neurological deficits. DIFFERENTIAL DIAGNOSIS: Differential diagnosis includes fracture, subluxation, cauda equina syndrome, cord compression, disc herniation, muscle spasm, lumbar strain, epidural abscess, discitis, malignancy, transverse myelitis, urinary tract infection, colitis, diverticulitis, kidney stone, among others. ED COURSE AND MEDICAL DECISION MAKING: HISTORY FROM INDEPENDENT HISTORIAN: History was provided by the patient and her daughter who is secondary historian. MONITOR: Continuous potline monitor: Order was placed for continuous potline monitor. Patient was placed on the potline monitor and continuous pulse ox. Patient was noted to be in normal sinus rhythm at an initial rate of 68 bpm per my interpretation. INTERPRETATION OF LABS: I interpreted the labs with full lab results as below in the lab section of this note. Laboratory results pertinent to the emergent complaint are discussed in the MDM section below. The patient was advised to follow up with their PCP and/or specialist(s) for further outpatient monitoring and management of any abnormal results. INTERPRETATION OF IMAGING: Imaging studies were interpreted by myself and read by radiology as per the imaging section of this note. The patient was advised to follow up with their PCP and/or specialist(s) for further outpatient management of any non-emergent abnormal findings. CHRONIC MEDICAL/SOCIAL CONDITIONS AFFECTING CARE: No social concerns were identified as barriers to patients care. ESCALATION OF CARE CONSIDERED: I considered admission on this patient due to poor p.o. intake and intractable lumbar back pain. CONSULTATIONS: I had a meaningful discussion about this patient with Dr. Landa who agrees with my assessment and the treatment plan. SUMMARY: I examined the patient for complaints of intractable lumbar pain. A physical exam and history were performed. Nursing notes, EMR, and medication list were personally reviewed. CBC showed no gross cytosis, hemoglobin is 16.1, no thrombocytopenia. MP showed a chloride and 30, creatinine of 1.9. Patient was given 1 L of normal saline, 1 g of Tylenol, 4 mg of Zofran with improvement in pain and nausea. The patients daughter was persistent on admission for concerns of WALDO and dehydration. I spoke with the hospitalist Dr. Richardson who accepts the patient for admission. DIAGNOSIS: L1 compression fracture, WALDO, poor p.o. intake, dehydration TREATMENT PLAN/DISCHARGE INSTRUCTIONS: Admit to hospitalist services. The chart was completed utilizing [employer] voice recognition software.Grammatical errors, random word insertions, pronoun errors, and incomplete sentences are an occasional consequence of this system due to software limitations, ambient noise, and hardware issues.Any formal questions or concerns about the content, text, or information contained within the body of this dictation should be directly addressed to the physician for clarification. Past Med/Surg History Problem List (Updated 11/26/24 @ 21:10 by Coby L Luciano, LEISURE STUDIES PROFESSOR) Acute kidney injury (Acute) Compression fx, lumbar spine (Acute) H. pylori infection Gastric peptic ulcer Weight loss Nausea Compression fracture of L1 lumbar vertebra (Acute ~10/24/24) Anteroinferior endplate w/ extension into anterior osteophyte Decreased oral intake (Acute) Total bilirubin, elevated (Acute) WALDO (acute kidney injury) (Acute) Closed compression fracture of L1 vertebra (Acute) Lumbar compression fracture Elevated alkaline phosphatase level Skin lesion of back Hypokalemia Lumbar radiculopathy Adjacent segment disease of lumbar spine with history of fusion procedure Bilateral sacroiliitis Lumbar post-laminectomy syndrome Pityriasis versicolor Osteoarthritis of left knee Status post right knee replacement Left-sided low back pain with sciatica (Acute) Spinal stenosis, lumbar region with neurogenic claudication Type II diabetes mellitus Cognitive changes (Chronic) Vitamin D deficiency disease (Acute) Synovial cyst of popliteal space (Acute) Spondylosis without myelopathy or radiculopathy, lumbar region (Acute) Polycythemia vera (Acute) Hypothyroidism (Acute) Hypertension (Acute) Hyperlipidemia (Acute) Generalized osteoarthritis of multiple sites (Acute) Gait disturbance (Acute) Fatty liver (Acute) Essential hypertriglyceridemia (Acute) Abnormal brain MRI (Acute) Abnormal EKG (Acute) Vitamin B12 deficiency Medical History Polycythemia F/U DR SANDHU Obesity Stage III chronic kidney disease F/U PCP Hypothyroidism Diabetes mellitus, type 2 NIDDM Hyperlipidemia Hypertension Surgical History History of colonoscopy Status post lumbar surgery History of spinal fusion L4-S1 Posterior Lumbar Decompression/Fusion: 10/02/18: Grade 2 view, MAC#3, ETT 7.0 at [facility] H/O tubal ligation S/P left knee arthroscopy Hx laparoscopic cholecystectomy Family History Mother Hypertension Father Gastric ulcer Grandmother Cirrhosis Denies family history of Ovarian cancer Prostate cancer Myocardial infarction Breast cancer Colorectal cancer Social History Smoking Status: Never smoker Second Hand Exposure: No; Do You Dip or Chew Tobacco: No; Hx Alcohol Use: No Hx Substance Use: No Preferred Language: Sierra Leonean Communication Ability: Effective Communication Ability Comment: CAN UNDERSTAND SIMPLE [place] Communication Tools: IPad Visual Impairment: Partially Limited Hearing Ability: Normal Software Implementation Project Manager Required: Yes Beliefs That Will Affect Care: None marital status: Current Living Situation: Spouse and Family Current Living Situation Comment: son arabella lives with her and current occupational status: retired How many Children do You have: 4 How many Children do You have Comment: 2 boy 2 girl Feels Safe at Home: Yes Childhood Exposure to Second-Hand Smoke: No Diet: regular during the past year weight has: remained stable Dental Care, Regularly: No Physical Activity Frequency: Daily Seatbelt Use: always Sunscreen Use: No Assistive Devices: Walker Allergies Allergies Allergy/AdvReac Type Severity Reaction Status Date / Time No Known Drug Allergies Allergy Unknown Verified 11/09/24 14:31 Home Meds Home Medications Medication Instructions Recorded Confirmed cholecalciferol (vitamin D3) 125 5,000 unit PO QAM 02/09/18 11/26/24 mcg (5,000 unit) tablet (Vitamin D3) mecobalamin (vitamin B12) 1,000 1,000 mcg PO QAM 02/12/20 11/26/24 mcg chewable tablet metoprolol succinate 50 mg 25 mg PO QAM 11/09/24 11/26/24 tablet,extended release 24 hr Previous Rx's Medication Instructions Recorded aspirin 81 mg tablet,delayed 81 mg PO DAILY 90 days #90 tabs 01/01/21 release fenofibrate nanocrystallized 145 145 mg PO QAM #90 tabs 07/01/24 mg tablet (Tricor) atorvastatin 20 mg tablet 20 mg PO HS #90 tabs 08/10/24 metformin 500 mg tablet 1,000 mg (2 x 500 mg) PO BID #360 08/10/24 tabs furosemide 40 mg tablet 40 mg PO DAILY PRN edema #30 tabs 08/28/24 empagliflozin 10 mg tablet 10 mg PO DAILY #90 tabs 09/03/24 (Jardiance) acetaminophen 325 mg tablet (Pain 650 mg (2 x 325 mg) PO Q6H PRN 10/27/24 Relief (acetaminophen)) fever or pain #60 tabs calcitonin (salmon) 200 1 spray NA DAILY #3.7 mL 10/27/24 unit/actuation nasal spray lidocaine 4 % topical patch 1 patch topical DAILY PRN pain #30 10/27/24 ea pantoprazole 40 mg tablet,delayed 40 mg PO BID #60 tabs 10/27/24 release (Protonix) Results & Data (ED) Vital Signs Vital Signs - 24 hr 11/26/24 17:01 11/26/24 17:12 11/26/24 17:59 Temperature 36.9 C Temperature Source Temporal Artery Scan Pulse Rate 87 83 Pulse Rate [Apical] 86 Pulse Rate from SpO2 Sensor Respiratory Rate 18 23 Respiratory Effort / Characteristics Non-Labored Spontaneous Non-Labored Spontaneous Respiratory Depth Normal Normal Blood Pressure 112/71 Blood Pressure [Right Arm] 141/72 H Blood Pressure Mean 84 Blood Pressure Mean [Right Arm] 95 Pulse Oximetry 98 99 Oxygen Delivery Method Room Air Sepsis Recent Fever Within 48 Hours No Sepsis New/Unexplained Change in Mental Status N/A Sepsis Action Taken by Nursing No Action Required 11/26/24 18:00 11/26/24 19:30 11/26/24 20:30 Temperature Temperature Source Pulse Rate 75 68 68 Pulse Rate [Apical] Pulse Rate from SpO2 Sensor 66 Respiratory Rate 17 18 17 Respiratory Effort / Characteristics Respiratory Depth Blood Pressure 134/74 143/70 H 124/70 Blood Pressure [Right Arm] Blood Pressure Mean 83 76 88 Blood Pressure Mean [Right Arm] Pulse Oximetry 96 98 98 Oxygen Delivery Method Sepsis Recent Fever Within 48 Hours Sepsis New/Unexplained Change in Mental Status Sepsis Action Taken by Nursing Laboratory Data 11/26/24 Unknown 11/26/24 Unknown Lab Results 11/26/24 Range/Units Unknown WBC 8.63 (4.8-10.8) K/ul RBC 5.61 H (4.20-5.40) M/uL Hgb 16.1 H (12.0-16.0) g/dl Hct 49.7 H (37.0-47.0) % MCV 88.6 (80.0-100.0) fL MCH 28.7 (25.0-34.0) pg MCHC 32.4 (32.0-36.0) g/dL RDW Std Deviation 45.1 (36.4-46.3) fL RDW Coeff of Suleman 14.0 (11.5-14.5) % Plt Count 374 (130-400) K/uL MPV 10.0 (9.4-12.4) fL Immature Gran % (Auto) 0.9 % Neut % (Auto) 55.5 % Lymph % (Auto) 28.4 % [place] % (Auto) 13.8 % Eos % (Auto) 0.8 % Baso % (Auto) 0.6 % Neut # (Auto) 4.79 (1.40-6.50) K/uL Lymph # (Auto) 2.45 (1.20-3.40) K/uL [place] # (Auto) 1.19 H (0.11-0.59) K/uL Eos # (Auto) 0.07 (0.00-0.50) K/uL Baso # (Auto) 0.05 (0.00-0.20) K/uL Immature Gran # (Auto) 0.08 (0.01-0.20) K/uL Sodium 138 (136-145) mmol/L Potassium 3.6 (3.5-5.1) mmol/L Chloride 94 L (98-107) mmol/L Carbon Dioxide 30 (21-32) mmol/L Anion Gap 14 H (3-11) BUN 30 H (6-23) mg/dl Creatinine 1.90 H (0.6-1.2) mg/dl Est Cr Clr Drug Dosing 27.6 ml/min eGFR 27.88 BUN/Creatinine Ratio 15.8 (10-20) Glucose 123 H (70-99(Fasting)) mg/dl Calcium 9.8 (8.6-10.3) mg/dl Total Bilirubin 1.0 (0.2-1.0) mg/dl AST 20 (13-39) U/L ALT 9 (7-52) U/L Alkaline Phosphatase 70 (34-104) U/L Total Protein 7.0 (6.0-8.3) gm/dl Albumin 4.0 (3.4-5.0) gm/dl Globulin 3.0 (2.5-4.0) gm/dl Albumin/Globulin Ratio 1.3 (0.9-2) Administered Medications Discontinued Medications Sodium Chloride (Nss) 1,000 mls @ 999 mls/hr IV .Q1H1M ONE Stop: 11/26/24 19:23 Last Infusion: 11/26/24 19:49 Dose: Infused Documented By: Admin: 11/26/24 18:34 Dose: 999 mls/hr Documented By: PAUL Acetaminophen (Ofirmev) 1,000 mg in 100 mls @ 400 mls/hr IV NOW STA Stop: 11/26/24 18:38 Last Infusion: 11/26/24 18:53 Dose: Infused Documented By: Admin: 11/26/24 18:34 Dose: 400 mls/hr Documented By: PAUL Ondansetron HCl (Ondansetron Inj 2 Mg/Ml 2 Ml Vial) 4 mg IV NOW STA Stop: 11/26/24 18:32 Last Admin: 11/26/24 18:34 Dose: 4 mg Documented By: PAUL Ondansetron HCl (Ondansetron Inj 2 Mg/Ml 2 Ml Vial) Confirm Administered Dose 4 mg .ROUTE .STK-MED ONE Stop: 11/26/24 18:33 Last Admin: 11/26/24 18:37 Dose: Not Given Documented By: PAUL Discharge Plan Visit Data Chief Complaint: Back Injury/Pain Stated Complaint: BACK PAIN, ULCER ED Provider: Racquel Landa ED Midlevel Provider: Coby Luciano Discharge Problem: Compression fx, lumbar spine, Acute kidney injury Patient Disposition: Admitted As Inpatient Condition: Good Forms Stand Alone Forms: My [facility] Prescriptions Prescriptions: No Action fenofibrate nanocrystallized [Tricor] 145 mg tablet 145 mg PO QAM Qty: 90 1RF atorvastatin 20 mg tablet 20 mg PO HS Qty: 90 3RF metformin 500 mg tablet 1,000 mg PO BID Qty: 360 3RF Jardiance 10 mg tablet 10 mg PO DAILY Qty: 90 3RF aspirin 81 mg tablet,delayed release (DR/EC) 81 mg PO DAILY 90 Days Qty: 90 0RF Hold Instructions: Resume on 11/27/24. furosemide 40 mg tablet 40 mg PO DAILY PRN (Reason: edema) Qty: 30 5RF cholecalciferol (vitamin D3) [Vitamin D3] 5,000 unit Tablet 5,000 unit PO QAM Rx Instructions: give with heaviest meal of the day mecobalamin (vitamin B12) 1,000 mcg tablet,chewable 1,000 mcg PO QAM calcitonin (salmon) 200 unit/actuation [place],Non-Aerosol 1 spray NA DAILY Qty: 3.7 0RF lidocaine 4 % adhesive patch,medicated 1 patch topical DAILY PRN (Reason: pain) Qty: 30 0RF pantoprazole [Protonix] 40 mg tablet,delayed release (DR/EC) 40 mg PO BID Qty: 60 0RF acetaminophen [Pain Relief (acetaminophen)] 325 mg tablet 650 mg PO Q6H PRN (Reason: fever or pain) Qty: 60 0RF metoprolol succinate 50 mg tablet extended release 24 hr 25 mg PO QAM Referrals Referrals: Scout Jung MD [Primary Care Provider] - Discharge Problem: Compression fx, lumbar spine Qualifiers: Encounter type: subsequent encounter Lumbar vertebra fracture level: u nspecified lumbar vertebra Fracture healing: with routine healing Qualified Code(s): S32.000D - Wedge compression fracture of unspecified lumbar vertebra, subsequent encounter for fracture with routine healing
[2024-11-26 21:14] LABS: Lipase 107.0 U/L (11-82)
[2024-11-26] MEDS ORDERED: DEXTROSE 50% 50 ML SYRINGE IV PRN (22:04)
[2024-11-26] MEDS ORDERED: ONDANSETRON INJ 2 MG/ML 2 ML VIAL IV PRN (22:04)
[2024-11-26] MEDS ORDERED: MELATONIN 3 MG TAB PO PRN (22:04)
[2024-11-26] MEDS ORDERED: GLUCAGON FOR INJ 1 MG VIAL SQ PRN (22:04)
[2024-11-26] MEDS ORDERED: GLUCOSE 10 TAB/TUBE PO PRN (22:04)
[2024-11-26] MEDS ORDERED: GLUCOSE 40% GEL 15 GM TUBE PO PRN (22:04)
[2024-11-26] MEDS ORDERED: POLYETHYLENE (MIRALAX) 17 GM PACK PO PRN (22:04)
[2024-11-26] MEDS ORDERED: CARBOHYDRATES FOR HYPOGLYCEMIA PO PRN (22:04)
[2024-11-26] MEDS: LACTATED RINGER'S 1,000 ML IV SCH (22:37)
[2024-11-26] MEDS: PANTOprazole 40 MG/10 ML SYR IV SCH (22:37)
[2024-11-27] MEDS: INSULIN ASPART PER UNIT CHARGE SC SCH (00:15)
[2024-11-27] MEDS: METOPROLOL SUCC 25MG EXT REL TAB PO SCH (08:16)
[2024-11-27] MEDS: ACETAMINOPHEN 325 MG TAB PO PRN (08:22)
--- NOTE | 2024-11-27 09:35 | Gastrointestinal Consultation ---
Date of Consultation November 27, 2024 Assessment & Plan (1) H. pylori infection: (2) Gastric peptic ulcer: (3) Nausea: (4) Weight loss: Plan Patient admitted with poor oral intake, nausea, vomiting, and abdominal pain in the setting of h pylori infection. Case discussed with Dr. Cochran who advised on plan. - recommend we start the patient on treatment for h pylori. I checked with pharmacy and we do not have all of the component to treat as inpatient. Recommend starting the patient on prevpac as an outpatient or if not covered, can do quad therapy which is as follows: omeprazole 20mg bid x 14 days. bismuth subsalicylate 524mg qid x 14 days. tetracycline 500mg qid x 14 days. metronidazole 500mg qid x 14 days. - she will need stool antigen to confirm eradication in 4 weeks after finishing treatment. -Further recommendations to come with Supervising GI provider on medical rounds. Please see co-signature comments. Supervising Physician Co-Signing Physician Notes Patient is a pleasant 69-year-old [id number]-vitcnzmj female who was admitted with nausea and poor p.o. intake. She underwent an EGD in October which revealed 2 large cratered gastric ulcers. Biopsies came back significant for an H. pylori infection. She did not take any antibiotics for the H. pylori infection. Her medication list indicates that she has been taking Protonix twice daily but I am not sure if she has been compliant with this at home. She had undergone a CT scan which was unenhanced in October which was unremarkable. She has a history of having a cholecystectomy in the past. Her abdominal exam today shows some mild tenderness in her mid epigastric abdomen right upper quadrant without any guarding or rebound. Certainly her ongoing nausea could be secondary to untreated peptic ulcer disease. We will make sure she is on twice daily PPI here and we will begin a Prevpac to treat her H. pylori. If she continues to have symptoms despite adequate treatment, then we will need to look for other underlying causes. History of Present Illness Reason for Consultation: PUD, H pylori on previous biopsy Requesting Physician: Dana Roldan DO Attending Physician: Cheyanne Gonzalez MD History of Present Illness Patient is a 69 year old female who is Finnish speaking with a past medical history of recent diagnosis of stomach ulcers and +H pylori testing, recent L1 compression fracture, HTN, and DM II who presented to the ED on 11/26 for poor oral intake at home due to ongoing nausea and abdominal pain. she tells me that she will vomit when she eats. she admits to having lost about 10 lbs in the past month. Last month she had EGD (see below) where path had shown h pylori. She was not treated with antibiotics due to concerns with tolerance of pills. It was recommended she have follow up in a month to discuss treatment but she is inpatient now prior to that appointment. the remainder of GI ros are unremarkable. history obtained today through chart review and from patient with the help of lands resource manager services. EGD 10/26/24 - 2 large cratered ulcers 3 x 3 cm and 2 x 2 cm in prepyloric area. base clear without stigmata of bleeding. no significant retained food in stomach however may be a component of delayed gastric emptying. normal esophagus. normal examined duodenum. Pathology: Stomach, ulcer, biopsy: - Ulcer. Chronic active gastritis. - Helicobacter pylori immunohistochemistry: Positive. - Focal intestinal metaplasia. Negative for dysplasia. - No tumor identified. - Clinical correlation is recommended Allergies Allergy/AdvReac Type Severity Reaction Status Date / Time No Known Drug Allergies Allergy Unknown Verified 11/09/24 14:31 Home Medications Medication Instructions Recorded Confirmed Type cholecalciferol (vitamin D3) 125 5,000 unit PO QAM 02/09/18 11/26/24 History mcg (5,000 unit) tablet (Vitamin D3) mecobalamin (vitamin B12) 1,000 1,000 mcg PO QAM 02/12/20 11/26/24 History mcg chewable tablet aspirin 81 mg tablet,delayed 81 mg PO DAILY 90 days #90 tabs 01/01/21 11/09/24 Rx release fenofibrate nanocrystallized 145 145 mg PO QAM #90 tabs 07/01/24 11/26/24 Rx mg tablet (Tricor) atorvastatin 20 mg tablet 20 mg PO HS #90 tabs 08/10/24 11/26/24 Rx metformin 500 mg tablet 1,000 mg (2 x 500 mg) PO BID #360 08/10/24 11/26/24 Rx tabs furosemide 40 mg tablet 40 mg PO DAILY PRN edema #30 tabs 08/28/24 11/26/24 Rx empagliflozin 10 mg tablet 10 mg PO DAILY #90 tabs 09/03/24 11/26/24 Rx (Jardiance) acetaminophen 325 mg tablet (Pain 650 mg (2 x 325 mg) PO Q6H PRN 10/27/24 11/26/24 Rx Relief (acetaminophen)) fever or pain #60 tabs calcitonin (salmon) 200 1 spray NA DAILY #3.7 mL 10/27/24 11/26/24 Rx unit/actuation nasal spray lidocaine 4 % topical patch 1 patch topical DAILY PRN pain #30 10/27/24 11/26/24 Rx ea pantoprazole 40 mg tablet,delayed 40 mg PO BID #60 tabs 10/27/24 11/26/24 Rx release (Protonix) metoprolol succinate 50 mg 25 mg PO QAM 11/09/24 11/26/24 History tablet,extended release 24 hr tetracycline 500 mg tablet 500 mg PO QID 14 days #56 tabs 11/27/24 Rx Patient History Medical History Polycythemia F/U DR SANDHU Obesity Stage III chronic kidney disease F/U PCP Hypothyroidism Diabetes mellitus, type 2 NIDDM Hyperlipidemia Hypertension Surgical History History of colonoscopy Status post lumbar surgery History of spinal fusion L4-S1 Posterior Lumbar Decompression/Fusion: 10/02/18: Grade 2 view, MAC#3, ETT 7.0 at [facility] [place] H/O tubal ligation S/P left knee arthroscopy Hx laparoscopic cholecystectomy Family History Mother Hypertension Father Gastric ulcer Grandmother Cirrhosis Denies family history of Ovarian cancer Prostate cancer Myocardial infarction Breast cancer Colorectal cancer Social History Smoking Status: Never smoker Second Hand Exposure: No; Do You Dip or Chew Tobacco: No; Hx Alcohol Use: No Hx Substance Use: No Preferred Language: Finnish Communication Ability: Effective Communication Ability Comment: CAN UNDERSTAND SIMPLE [place] Communication Tools: IPad Visual Impairment: Partially Limited Hearing Ability: Normal Construction Millwright Required: Yes Beliefs That Will Affect Care: None marital status: Current Living Situation: Spouse Current Living Situation Comment: son arabella lives with her and current occupational status: retired How many Children do You have: 4 How many Children do You have Comment: 2 boy 2 girl Other Information That Helps Us Care for You: No Feels Safe at Home: Yes Safety Concerns: Feels Safe At This Time Childhood Exposure to Second-Hand Smoke: No Diet: regular during the past year weight has: remained stable Dental Care, Regularly: No Physical Activity Frequency: Daily Seatbelt Use: always Sunscreen Use: No Assistive Devices: Walker Review of Systems Review of Systems: All systems reviewed & are unremarkable except as noted in HPI & below Physical Exam Constitutional: WD/WN, vitals as above Respiratory: normal respiratory effort, lungs clear to auscultation Cardiovascular: Rate/Rhythm: regular rate and regular rhythm Gastrointestinal (Abdomen): mid epigastric tenderness, no guarding, soft, normal bowel sounds. Psychiatric: Orientation: alert and oriented x 3 Results & Data Vital Signs (Past 12 Hours) Vital Signs Temp Pulse Resp BP BP Pulse Ox O2 Del Method 11/27/24 07:18 98.1 F 65 16 100/63 96 Room Air 11/26/24 23:06 98.2 F 80 16 136/72 98 Room Air Coding Level of Care Code 33542 INT INP/OBS CARE 2/55MIN Diagnoses H. pylori infection A04.8 Acute peptic ulcer of stomach K25.3 Gastric ulcer chronicity: acute Nausea R11.0 Weight loss R63.4 (2) Gastric peptic ulcer Gastric ulcer chronicity: acute Qualified Code(s): K25.3 - Acute gastric ulcer without hemorrhage or perforation
--- NOTE | 2024-11-27 09:45 | Hospitalist Progress Note ---
Date of Service November 27, 2024 Assessment & Plan (1) Gastric peptic ulcer: (2) H. pylori infection: (3) Acute kidney injury: (4) Hypokalemia: (5) Compression fracture of L1 lumbar vertebra: Plan Pt is a 69 yo Israeli speaking only female with a past med hx of recent dx of stomach ulcers and +H pylori testing, recent L1 compression fracture, HTN, and DMT2 who presents to the hospital on 11/26 for poor oral intake at home due to ongoing nausea and abdominal pain. ##PUD due to H pylori - - EGD done 10/26 hx of nausea, weight loss and gastric ulcers wtih final diagnosis of H.Pylori pt was not treated with antibiotics due to concerns of tolerance of the pills outpatient -GI consulted this am with rec to initiate H. Pylori treatment with quad therapy -cont PPI, start Pepto Bismol, metronidazole IV, will add Tetracycline as outside prescription as antibiotic is non-formulary>corresponded with patient daughter and will be picking up at pharmacy to bring to hospital for administration -Zofran for nausea -clear liquids, advance as tolerated #WALDO Baseline Cr ~ 1. Cr 1.9 on admission -Cr improved this am to 1.59 Recieved 2L IVF, advancing diet, encourage PO -BMP in am ##hypokalemia -K 2.8 -Potassium Chloride 10MEQ IV x 6 bags for repletion -BMP/Mg level in am #L1 compression fracture - f/u lumbar spine x-ray done 11/22>pending - tylenol, lidocane patch for pain ##right shoulder pain -capsaicin cream as needed for pain #DMT2 A1c 08/2024: 8.0 -POC glucoses reviewed without overt hypo/hyperglycemic results -holding Jardiance and metformin in setting of WALDO -sliding scale insulin, defer long acting at this time but can add depending on use #HTN -normotensive with vital signs -continue home regimen of metoprolol Dispo: continued inpatient stay, advancing diet DVT Proh: SQ heparin Daughter updated by phone 11/27 Admission and Anticipated Discharge Date Admission Date: November 26, 2024 Subjective Patient seen lying in bed, no family present at bedside. 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 Reports dull pain in her stomach. Looking at food makes her nauseous, and any food intake makes her want to vomit. Pain her right arm/shoulder arm - this has been ongoing. Uses gel or Tylenol at home. Denies CP/SOB. Reports constant pain in her back from the fracture>using Tylenol which is hel pful and Lidocaine patch. Review of Systems Review of Systems: All systems reviewed & are unremarkable except as noted in Subjective Physical Exam Physical Exam: GENERAL APPEARANCE: A&O. Lying in bed. NAD. SKIN: Normal color without rashes or lesions. Normal turgor. HEENT: Head AT/NC. HEART: RRR without m/g/r LUNGS: Normal inspiratory effort. CTA without w/r/r ABDOMEN: No guarding or rigidity. Normoactive BS in all four quadrants. Abdomen with tenderness with palpation to epigastric area. MSK: TPT right AC joint. Full ROM with noted crepitus upon extension. Results & Data Results & Data Vital Signs (Past 12 Hours) Vital Signs Temp Pulse Resp BP BP Pulse Ox O2 Del Method 11/27/24 07:18 98.1 F 65 16 100/63 96 Room Air 11/26/24 23:06 98.2 F 80 16 136/72 98 Room Air Laboratory Results K decreased to 2.8 from 3.6 Creatinine with improvement from 1.90 to 1.59 PG Care Time/CCT Total # of Minutes Spent Total Time Spent with Patient: Total time spent is greater than 50% in coordination of care (as documented) at patient's floor/unit and/or counseling patient: Coding Level of Care Code 09059 SUB INP/OBS CARE 3/50MIN Diagnoses Acute peptic ulcer of stomach K25.3 Gastric ulcer chronicity: acute H. pylori infection A04.8 Acute kidney injury N17.9 Hypokalemia E87.6 Compression fracture of L1 vertebra, initial encounter S32.010A Encounter type: initial encounter (1) Gastric peptic ulcer Gastric ulcer chronicity: acute Qualified Code(s): K25.3 - Acute gastric ulcer without hemorrhage or perforation (5) Compression fracture of L1 lumbar vertebra Encounter type: initial encounter Qualified Code(s): S32.010A - Wedge compression fracture of first lumbar vertebra, initial encounter for closed fracture
[2024-11-27 09:52] LABS: Hematocrit (blood only) 41.8 % (37.0-47.0); Hemoglobin 14.1 g/dl (12.0-16.0); Immature Granulocytes # (auto) 0.06 K/uL (0.01-0.20); Immature Granulocytes % (auto) 1.4 %; Mean Corpuscular Hemoglobin 30.1 pg (25.0-34.0); Mean Corpuscular Volume 89.1 fL (80.0-100.0); Platelet Count 309 K/uL (130-400); RDW Standard Deviation 45.0 fL (36.4-46.3); Red Blood Count 4.69 M/uL (4.20-5.40); White Blood Count 4.38 K/ul (4.8-10.8)
[2024-11-27 10:05] LABS: Alanine Aminotransferase 7.0 U/L (7-52); Albumin Globulin Ratio 1.3 (0.9-2); Albumin Level 3.2 gm/dl (3.4-5.0); Alkaline Phosphatase 56.0 U/L (34-104); Anion Gap 7.0 (3-11); Bilirubin,Total 1.0 mg/dl (0.2-1.0); Blood Urea Nitrogen 25.0 mg/dl (6-23); Calcium 8.8 mg/dl (8.6-10.3); Carbon Dioxide 34.0 mmol/L (21-32); Chloride 99.0 mmol/L (98-107); Creatinine Clr Calc Pharmacy 33.1 ml/min; Globulin 2.4 gm/dl (2.5-4.0); Glucose 119.0 mg/dl (70-99(Fasting)); Potassium 2.8 mmol/L (3.5-5.1); Sodium 140.0 mmol/L (136-145); Total Protein 5.6 gm/dl (6.0-8.3)
[2024-11-27] MEDS: LIDOCAINE 5% 1 PATCH TD SCH (10:18)
[2024-11-27] MEDS: POTASSIUM CHLORIDE / WTR 10 MEQ/100 ML PLCT IV SCH (10:45)
[2024-11-27] MEDS: BISMUTH SUBSALICYLATE 262 MG CHEW PO SCH (12:46)
[2024-11-27] MEDS: metroNIDAZOLE 500 MG/100 ML BAG IV SCH (12:47)
[2024-11-27] MEDS: [UNRECOGNIZED DRUG - OTHER] SCH (17:24)
[2024-11-27] MEDS: TETRACYCLINE SCH (17:24)
[2024-11-27] MEDS: TETRACYCLINE 500 MG EXT SCH (18:30)
[2024-11-27] MEDS ORDERED: TETRACYCLINE SCH (18:30)
[2024-11-27] MEDS ORDERED: [UNRECOGNIZED DRUG - OTHER] SCH (18:30)
--- NOTE | 2024-11-27 21:46 | Billing Data ---
Date of Service November 27, 2024 Coding Level of Care Code 38776 INT INP/OBS CARE
[2024-11-27] MEDS: HEPARIN SOD 5,000 UNIT/0.5 ML VIAL SQ SCH (21:51)
[2024-11-27] MEDS: REMOVE LIDODERM PATCH SCH (22:10)
[2024-11-28] MEDS ORDERED: Nursing to Pharmacy Communication SCH (06:00)
[2024-11-28 06:52] LABS: Hematocrit (blood only) 41.8 % (37.0-47.0); Hemoglobin 13.4 g/dl (12.0-16.0); Mean Corpuscular Hemoglobin 28.9 pg (25.0-34.0); Mean Corpuscular Volume 90.3 fL (80.0-100.0); Platelet Count 291 K/uL (130-400); RDW Standard Deviation 46.5 fL (36.4-46.3); Red Blood Count 4.63 M/uL (4.20-5.40); White Blood Count 4.83 K/ul (4.8-10.8)
[2024-11-28 07:18] LABS: Anion Gap 7.0 (3-11); Blood Urea Nitrogen 17.0 mg/dl (6-23); Calcium 8.4 mg/dl (8.6-10.3); Carbon Dioxide 30.0 mmol/L (21-32); Chloride 106.0 mmol/L (98-107); Creatinine Clr Calc Pharmacy 47.8 ml/min; Glucose 117.0 mg/dl (70-99(Fasting)); Magnesium 1.2 mg/dl (1.7-2.4); Potassium 2.9 mmol/L (3.5-5.1); Sodium 143.0 mmol/L (136-145)
[2024-11-28] MEDS: TETRACYCLINE 500 MG PO SCH (07:59)
[2024-11-28] MEDS: INSULIN ASPART PER UNIT CHARGE SC SCH (08:24)
[2024-11-28] MEDS: MAGNESIUM SULFATE / D5W 1 GM/100 ML BAG IV SCH (09:06)
[2024-11-28] MEDS: POTASSIUM CHLORIDE PWD 20 MEQ PACK PO SCH (09:06)
[2024-11-28] MEDS: POTASSIUM CHLORIDE / WTR 10 MEQ/100 ML PLCT IV SCH (09:07)
--- NOTE | 2024-11-28 10:20 | Hospitalist Progress Note ---
"Date of Service November 28, 2024 Assessment & Plan (1) Gastric peptic ulcer: (2) Compression fracture of L1 lumbar vertebra: (3) Hypertension: (4) Type II diabetes mellitus: (5) WALDO (acute kidney injury): (6) H. pylori infection: Plan Pt is a 69 yo Indian speaking only female with a past med hx of recent dx of stomach ulcers and +H pylori testing, recent L1 compression fracture, HTN, and DMT2 who presents to the hospital on 11/26 for poor oral intake at home due to ongoing nausea and abdominal pain. ##PUD due to H pylori - - EGD done 10/26 hx of nausea, weight loss and gastric ulcers wtih final diagnosis of H.Pylori pt was not treated with antibiotics due to concerns of tolerance of the pills outpatient -GI Consulted - cont PPI, Rec quad therapy, will need stool antigen eradication in 4 weeks -Zofran for nausea Symptoms improving tolerating clear liquids, advance diet to full liquids today #WALDO Baseline Cr ~ 1. Cr 1.9 on admission -Cr improved this am to 1.59, Cr normalized this am to 1.10 Recieved 2L IVF, advancing diet, encourage PO -BMP in am ##hypokalemia | ##hypomagnesemia -K 2.9 this am, mag 1.2 -Potassium Chloride 10MEQ IV x 6 bags for repletion on 11/27/24 for K of 2.8 -Klor-con powder 20meq po BID anad 20meq IV -replete mag with magnesium sulfate 4GM IV -BMP/Mg level in am #L1 compression fracture -baseline reports of discomfort prior to admission -f/u lumbar spine x-ray done 11/22>pending -tylenol, lidocaine patch for pain ##right shoulder pain -using Lidocaine patch as needed with breakthrough pain -capsaicin cream as needed for pain (has not used as of yet, encouraged nursing and patient to use) #DMT2 A1c 08/2024: 8.0 -POC glucoses reviewed without overt hypo/hyperglycemic results -hold Jardiance and Metformin -sliding scale insulin, defer long acting at this time as POC glucose measurements have been reasonable -will re-evaluate regimen with initiation of full liquids and transition to diabetic diet #HTN -normotensive with vital signs review -continue home regimen of metoprolol Dispo: continued inpatient stay, advancing diet to diabetic diet DVT Proh: SQ heparin Will update dauhgter today by phone or face to face with visit Admission and Anticipated Discharge Date Admission Date: November 26, 2024 Subjective Patient lying in bed comfortably this am. Ipad drawer in dobby loom used for interview and assessment. Reports resolution of nausea and ability to tolerate oral fluids without emesis or nausea. +reports of vague, mid-epigastric abdominal discomfort that she attributes to her confirmed stomach ulcers secondary to H.pylori. Still with c/o right arm/shoulder discomfort. Has been occurring for approximately 6 months with no acute injury. Lidocaine does help. Feels pain could be slightly improved. Emptying bladder and moving bowels per verbal report. Review of Systems Review of Systems: All systems reviewed & are unremarkable except as noted in Subjective Physical Exam Physical Exam: GENERAL APPEARANCE: A&O. Lying comfortably in bed. NAD. SKIN: Normal color without rashes or lesions. Normal turgor. HEENT: Head AT/NC. Buccal mucosa is moist and pink. HEART: RRR without m/g/r LUNGS: Normal inspiratory effort. CTA without w/r/r. ABDOMEN: No guarding or rigidity. Normoactive BS in all four quadrants. Abdomen soft and NT. MSK: No bony gross/deformities throughout. ROM intact. No deformity to right arm/shoulder area. Full ROM to right arm/right shoulder with reproducible pain with extension. PSYCHIATRIC: Normal affect. Eye contact is good. Speech is normal rate and content. Responses are appropriate. EXTREMITIES: No edema, No peripheral cyanosis. Results & Data Results & Data Vital Signs (Past 12 Hours) Vital Signs Temp Pulse Resp BP BP Pulse Ox O2 Del Method 11/28/24 07:45 97.3 F L 80 18 144/81 H 96 Room Air 11/28/24 00:00 97.7 F 70 18 102/64 96 Room Air Laboratory Results Labs reviewed: K increased from 2.8 to 2.0, Magnesium 1.2, CR normalized 1.10 PG Care Time/CCT Total # of Minutes Spent Total Time Spent with Patient: Total time spent is greater than 50% in coordination of care (as documented) at patient's floor/unit and/or counseling patient: Coding Level of Care Code 31039 SUB INP/OBS CARE 3/50MIN Diagnoses Acute peptic ulcer of stomach K25.3 Gastric ulcer chronicity: acute Compression fracture of L1 vertebra, initial encounter S32.010A Encounter type: initial encounter Hypertension I10 Type II diabetes mellitus E11.9 WALDO (acute kidney injury) N17.9 H. pylori infection A04.8 (1) Gastric peptic ulcer Gastric ulcer chronicity: acute Qualified Code(s): K25.3 - Acute gastric ulcer without hemorrhage or perforation (2) Compression fracture of L1 lumbar vertebra Encounter type: initial encounter Qualified Code(s): S32.010A - Wedge co mpression fracture of first lumbar vertebra, initial encounter for closed fracture"
[2024-11-28] MEDS: CAPSAICIN CR 0.075% 60 GM TUBE EXT PRN (10:39)
[2024-11-29 07:50] LABS: Anion Gap 7.0 (3-11); Blood Urea Nitrogen 15.0 mg/dl (6-23); Calcium 9.0 mg/dl (8.6-10.3); Carbon Dioxide 28.0 mmol/L (21-32); Chloride 106.0 mmol/L (98-107); Creatinine Clr Calc Pharmacy 52.6 ml/min; Glucose 119.0 mg/dl (70-99(Fasting)); Magnesium 1.8 mg/dl (1.7-2.4); Potassium 3.3 mmol/L (3.5-5.1); Sodium 141.0 mmol/L (136-145)
[2024-11-29] MEDS: POTASSIUM CHLORIDE PWD 20 MEQ PACK PO SCH (10:46)
--- NOTE | 2024-11-29 11:45 | Hospitalist Progress Note ---
"Date of Service November 29, 2024 Assessment & Plan (1) Gastric peptic ulcer: (2) Compression fracture of L1 lumbar vertebra: (3) Type II diabetes mellitus: (4) WALDO (acute kidney injury): (5) H. pylori infection: (6) Hypertension: Plan ##PUD due to H pylori - - EGD done 10/26 hx of nausea, weight loss and gastric ulcers wtih final diagnosis of H.Pylori, pt was not treated with antibiotics due to concerns of tolerance of the pills outpatient -GI Consulted - cont PPI, Rec quad therapy, will need stool antigen eradication in 4 weeks -tolerating quad therapy -Zofran for nausea Symptoms improving tolerating full liquids, will advance to low fiber, carb consistent diet today #WALDO -Baseline Cr ~ 1. Cr 1.9 on admission -Cr fully normalized with trends yesterday and today -Received 2L IVF, advancing diet, encourage PO ##hypokalemia|##hypomagnesemia -K this am 3.3, Mg 1.8 -Klor-con powder 20meq po BID today #L1 compression fracture -baseline reports of discomfort prior to admission -f/u lumbar spine x-ray done 11/22, pending -Tylenol, lidocaine patch for pain ##right shoulder pain -capsaicin cream as needed for pain which is effective #DMT2 A1c 08/2024: 8.0 -POC glucoses reviewed without overt hypo/hyperglycemic results -holding Jardiance and Metformin -sliding scale insulin, defer long acting at this time as POC glucose measurements have been reasonable -will re-evaluate regimen with initiation of low residue/diabetic diet #HTN -normotensive with vital signs review -continue home regimen of metoprolol Disposition: probable d/c tomorrow pending tolerance of diet and ambulatory status assessment, PT consult DVT prophylaxis: Heparin SQ Admission and Anticipated Discharge Date Admission Date: November 26, 2024 Subjective Patient lying in bed this am. Reports she is feeling better. Has tolerated full liquid diet and states her nausea has improved and her desire for food has returned. Tolerating oral regimen of antibiotics for H. Pylori. Right shoulder discomfort resolved with use of Capsaicin cream. Lower back discomfort tolerable with use of Lidocaine patch. Has been stooling and voiding without difficulty. Review of Systems Review of Systems: All systems reviewed & are unremarkable except as noted in Subjective Physical Exam 2 Physical Exam: GENERAL APPEARANCE: A&O. Lying comfortable in bed. NAD. SKIN: Normal color without rashes or lesions. Normal turgor. HEENT: Head AT/NC. Buccal mucosa is moist and pink. HEART: RRR without m/g/r LUNGS: Normal inspiratory effort. CTA without w/r/r ABDOMEN: No guarding or rigidity. Normoactive BS in all four quadrants. Abdomen soft and NT. MSK: No bony gross/deformities throughout. ROM intact. Full extension/flexion of right shoulder without reproducible pain. EXTREMITIES: No edema, No peripheral cyanosis. Results & Data Results & Data Vital Signs (Past 12 Hours) Vital Signs Temp Pulse Resp BP Pulse Ox O2 Del Method 11/29/24 07:48 36.6 C 73 16 152/82 H 95 Room Air Laboratory Results Labs reviewed PG Care Time/CCT Total # of Minutes Spent Total Time Spent with Patient: Total time spent is greater than 50% in coordination of care (as documented) at patient's floor/unit and/or counseling patient: Coding Level of Care Code 74350 SUB INP/OBS CARE 2/35MIN Diagnoses Acute peptic ulcer of stomach K25.3 Gastric ulcer chronicity: acute Compression fracture of L1 vertebra, initial encounter S32.010A Encounter type: initial encounter Type II diabetes mellitus E11.9 Diabetes mellitus complication status: without complication WALDO (acute kidney injury) N17.9 H. pylori infection A04.8 Hypertension, unspecified type I10 Hypertension type: unspecified (1) Gastric peptic ulcer Gastric ulcer chronicity: acute Qualified Code(s): K25.3 - Acute gastric ulcer without hemorrhage or perforation (2) Compression fracture of L1 lumbar vertebra Encounter type: initial encounter Qualified Code(s): S32.010A - Wedge compression fracture of first lumbar vertebra, initial encounter for closed fracture (3) Type II diabetes mellitus Diabetes mellitus complication status: without complication (6) Hypertension Hypertension type: unspecified Qualified Code(s): I10 - Essential (primary) hypertension"
[2024-11-30 07:50] LABS: Anion Gap 6.0 (3-11); Blood Urea Nitrogen 18.0 mg/dl (6-23); Calcium 9.0 mg/dl (8.6-10.3); Carbon Dioxide 25.0 mmol/L (21-32); Chloride 109.0 mmol/L (98-107); Creatinine Clr Calc Pharmacy 40.5 ml/min; Glucose 128.0 mg/dl (70-99(Fasting)); Magnesium 1.4 mg/dl (1.7-2.4); Potassium 3.9 mmol/L (3.5-5.1); Sodium 140.0 mmol/L (136-145)
[2024-11-30] MEDS: MAGNESIUM SULFATE / D5W 1 GM/100 ML BAG IV SCH (09:44)
[2024-11-30] MEDS: LACTATED RINGER'S 1,000 ML IV SCH (11:33)
--- NOTE | 2024-11-30 12:17 | Hospitalist Progress Note ---
"Date of Service November 30, 2024 Assessment & Plan (1) Gastric peptic ulcer: (2) WALDO (acute kidney injury): (3) H. pylori infection: (4) Hypertension: Plan ##PUD due to H pylori - - EGD done 10/26 hx of nausea, weight loss and gastric ulcers wtih final diagnosis of H.Pylori, pt was not treated with antibiotics due to concerns of tolerance of the pills outpatient -GI Consulted - cont PPI, Rec quad therapy, will need stool antigen eradication in 4 weeks -tolerating quad therapy -Zofran for nausea -Has not needed Zofran for nausea, tolerating carb consistent diet -will change Metronidazole IV to oral dosing to assess tolerance of oral formulation with anticipated d/c on treatment #WALDO -Baseline Cr ~ 1. Cr 1.9 on admission -Cr normalized on 11/28, 11/29, increased today at 1.30 possibly secondary to poor oral intake -Received 2L IVF on admission, advanced diet -start IVF with LR at 125ml/hr x 1 bag -BMP in am ##hypokalemia|##hypomagnesemia -K this am 3.9, Mg 1.4 -Magnesium 1 gram IVx2 -BMP/Mg in am #L1 compression fracture -baseline reports of discomfort prior to admission -f/u lumbar spine x-ray done 11/22, pending -ortho consultation on 10/25/24 with rec for closed management and TSLO brace, WBAT, PT/OT, f/u outpatient -Tylenol, lidocaine patch for pain ##right shoulder pain -capsaicin cream as needed for pain which is effective #DMT2 A1c 08/2024: 8.0 -POC glucoses reviewed without overt hypo/hyperglycemic results -holding Jardiance and Metformin -sliding scale insulin, defer long acting at this time as POC glucose measurements have been reasonable -will re-evaluate regimen with initiation of low residue/diabetic diet #HTN -normotensive with vital signs review -continue home regimen of metoprolol Disposition: probable d/c tomorrow pending tolerance of diet, tolerance of oral antibiotic regimen and ambulatory status assessment, PT consult DVT prophylaxis: Heparin SQ Admission and Anticipated Discharge Date Admission Date: November 26, 2024 Supervising Physician Co-Signing Physician Notes DONNA Supervision Note: I did not personally see or examine the patient today, but I verified all sr points of DONNA Benitez's assessment and plan with the following exceptions/additions: None Subjective Lying in bed this am comfortably. 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 States her nausea has greatly improved. Tolerating carb consistent diet. Reports she has not been orally drinking much. Using capsaicin cream for her right arm pain with noted improvement. Reports back pain has been tolerable with use of lidocaine patch. Review of Systems Review of Systems: All systems reviewed & are unremarkable except as noted in Subjective Physical Exam Physical Exam: GENERAL APPEARANCE: A&O. Sitting comfortably on stretcher. NAD. SKIN: Normal color without rashes or lesions. Normal turgor. HEENT: Head AT/NC. Buccal mucosa is moist and pink. HEART: RRR without m/g/r LUNGS: Normal inspiratory effort. CTA without w/r/r. ABDOMEN: No guarding or rigidity. Normoactive BS in all four quadrants. Abdomen soft and NT. MSK: No bony gross/deformities throughout. ROM intact. EXTREMITIES: No edema, No peripheral cyanosis. PSYCHIATRIC: Normal affect. Eye contact is good. Speech is normal rate and content. Responses are appropriate. Results & Data Results & Data Vital Signs (Past 12 Hours) Vital Signs Temp Pulse Resp BP Pulse Ox O2 Del Method 11/30/24 07:46 36.9 C 69 16 152/82 H 94 Room Air PG Care Time/CCT Total # of Minutes Spent Total Time Spent with Patient: Total time spent is greater than 50% in coordination of care (as documented) at patient's floor/unit and/or counseling patient: Coding Level of Care Code 83789 SUB INP/OBS CARE 3/50MIN Diagnoses Acute peptic ulcer of stomach K25.3 Gastric ulcer chronicity: acute WALDO (acute kidney injury) N17.9 H. pylori infection A04.8 Hypertension, unspecified type I10 Hypertension type: unspecified (1) Gastric peptic ulcer Gastric ulcer chronicity: acute Qualified Code(s): K25.3 - Acute gastric ulcer without hemorrhage or perforation (4) Hypertension Hypertension type: unspecified Qualified Code(s): I10 - Essential (primary) hypertension"
[2024-11-30] MEDS: metroNIDAZOLE 500 MG TAB PO SCH (12:38)
[2024-12-01 07:48] LABS: Anion Gap 5.0 (3-11); Blood Urea Nitrogen 15.0 mg/dl (6-23); Calcium 9.0 mg/dl (8.6-10.3); Carbon Dioxide 25.0 mmol/L (21-32); Chloride 111.0 mmol/L (98-107); Creatinine Clr Calc Pharmacy 47.8 ml/min; Glucose 133.0 mg/dl (70-99(Fasting)); Magnesium 1.6 mg/dl (1.7-2.4); Potassium 4.2 mmol/L (3.5-5.1); Sodium 141.0 mmol/L (136-145)
[2024-12-01 08:07] VITALS: RESP 17; TEMP 98.1; O2SAT 96
[2024-12-01 09:27] VITALS: BP 125/74; PULSE 89
[2024-12-01] MEDS: MAGNESIUM SULFATE / D5W 1 GM/100 ML BAG IV ONE (09:39)
--- NOTE | 2024-12-01 11:59 | Discharge Summary ---
Discharge Summary Date of Service December 01, 2024 Principal Dx & Hospital Course #1 = Principal Diagnosis (1) Gastric peptic ulcer: (2) WALDO (acute kidney injury): (3) H. pylori infection: (4) Hypertension: Plan This patient is a Luxembourger-speaking 69-year-old female who presented on 11/26 for difficulty eating in the setting of 2 known peptic ulcers. Patient reported she was feeling sick and nauseous. Additionally, she currently has a back brace, which she was told to wear for 6 weeks. #PUD due to H pylori - - EGD done 10/26 hx of nausea, weight loss and gastric ulcers wtih final diagnosis of H.Pylori, pt was not treated with antibiotics due to concerns of tolerance of the pills outpatient GI consult appreciated Cont PPI Rec quad therapy x 14 days Will need stool antigen eradication in 4 weeks Zofran as needed for nausea/vomiting Patient tolerating T2DM/low fiber diet on day of discharge She reports that eating does not exacerbate her symptoms Patient received 4 days of quad therapy in the hospital Will plan to d/c patient on quad therapy x 10 additional days: Tetracycline 500 mg p.o. QID Metronidazole 500 mg p.o. QID Bismuth salicylate 524 mg p.o. QID Pantoprazole 40 mg p.o. BID Will also discharge home patient home on Zofran 4 mg ODT tablets PRN for nausea with medications or food #WALDO (resolved) Baseline Cr ~ 1.00 Elevated creatinine at 1.9 on admission, possibly secondary to poor oral intake (prerenal) Patient received IVF while in the hospital Creatinine is 1.10 at time of discharge Monitor as an outpatient #Hypokalemia (resolved) | Hypomagnesemia Potassium WNL on discharge; magnesium mildly low at 1.6 on day of discharge Magnesium sulfate 1 g IV x 1 Recheck K and mag as an outpatient #L1 compression fracture -baseline reports of discomfort prior to admission Ortho consultation on 10/25/24 with rec for closed management and TSLO brace, WBAT, PT/OT, f/u outpatient Tylenol for pain CM following Patient accepted by [facility] home health on 11/30 with plan follow-up upon discharge #Right shoulder pain Capsaicin cream PRN for pain #T2DM A1c 08/2024: 8.0 Restart home regimen on discharge #HTN Normotensive with vital signs review Continue home regimen of metoprolol Day of discharge 12/01: VSS Mrs. Yang is in good spirits this morning. While she is not Tunisian-speaking (Luxembourger speaker), she is able to respond to some questioning: She reports she slept well last night. She reports she had eggs, pancakes and a "vanilla drink" this morning, and this did not exacerbate any pain in her stomach. While she still has abdominal pressure at times, and abdominal pain up to a "6 out of 10", she is fairly asymptomatic this time. No nausea. Overall, she is eager to go home today. ROS: Patient endorses intermittent abdominal pain/pressure. Patient denies fever, chest pain, SOB, nausea, or vomiting. Spoke on the phone with patient's daughter (Jennifer) who lives 5 minutes away from patient. She reports that she is able to transport the patient home today. Patient currently lives at home with her , but has good family support (sister, daughter, and son are all able to visit throughout the week). Daughter reports that patient currently has a prescription for tetracycline, which was brought into the hospital on 11/27. She reports she does not need an additional prescription for this medication. Daughter is also requesting that the patient be sent home with nausea medication as needed. Disposition: Discharge home with PT/OT Home health services ([facility]) Notes For Next Care Provider Patient was admitted from 11/26 - 12/01 for nausea and abdominal pain with eating. Suspect this is secondary to known history of peptic ulcer disease. Patient was started on quad therapy on 11/27, and has been instructed to continue this therapy through 12/10. Patient is a Luxembourger speaker. Provided information regarding prescriptions to both patient and patient's daughter upon discharge. She will require follow-up with gastroenterology after having a stool eradication study done in 4 weeks time. Please reach out with any questions or concerns. Admission HPI Per Admitting Provider Pt is a 69 yo Luxembourger speaking only female with a past med hx of recent dx of stomach ulcers and +H pylori testing, recent L1 compression fracture, HTN, and DMT2 who presents to the hospital on 11/26 for poor oral intake at home due to ongoing nausea and abdominal pain. Pt seen at bedside. Daughter is present and pt opts to have daughter translate for her at this time. Daughter gives hx; daughter states that about 1 mo ago pt was admitted to the hospital for back and stomach pain along with poor appetite. She states she was diagnosed with stomach ulcers and started on some medication. She states that when she left the hospital she was doing reasonably well; she was eating but not as much as normal for her and had definitely lost some weight. She states that the last 3 days the patient has particularly struggled to eat much more again. She states that when she eats anything she gets very nauseated and sometimes has vomiting. She states even when she has pills she gets very nauseated so daughter has noticed that she has not been taking all of her pills the last few days especially, possibly including the pantoprazole. States that today she had just 1 egg and then threw up and has not eaten anything since. She denies chest pain or SOB. No complaint of back pain on admission but did recently take medication for pain. She does note some R shoulder joint pain which started about 6 months ago. Admission Exam Per Admitting Provider General: Alert and oriented, no acute distress, very pleasant, Luxembourger speaking HEENT: Normocephalic, moist oral mucosa, Cardio: Regular rate and rhythm, no murmur, Resp: Lungs clear to auscultation b/l, no wheezes or rhonchi, GI: Soft, nondistended, bowel sounds active, some mild upper abdominal tenderness to palpation Skin: Warm, pink, dry Discharge Exam General: no acute distress; pleasant affect; Luxembourger speaking, but able to understand some Tunisian and respond to general questions; non-toxic appearing; cooperative; SpO2 96% on RA HEENT: normocephalic, atraumatic; PERRLA; vision and hearing intact Neck: supple; trachea midline Skin: warm, dry without signs of tenting; no cyanosis; no rashes, bruising, lesions, or erythema noted CV: chest wall NTP; RRR; S1/S2 normal; no murmurs/rubs/gallops; pulses intact and symmetric at radial, DP, and PT Lungs: no acute respiratory distress; symmetrical chest wall expansion; clear breath sounds across all lung selby w/o adventitious sounds; no wheezing ABD: Soft, NTP in all 4 quadrants; BS present; no rebound/guarding; no distention; no rashes or bruising appreciated the abdomen flanks bilaterally MSK: no tics or fasciculations; nonpitting edema noted in the LEs b/l, nonerythematous Neuro: A&Ox3; normal mood and affect; fluent speech; patient report sensation is intact and symmetric in the lower extremity bilaterally assessed via light touch Discharge Plan Discharge Items Patient Disposition: Home - Home Health Services Reason For Visit: NAUSEA, PUD Discharge Diagnosis: Peptic ulcer disease Condition on Discharge: Good Activity: As commented below Activity Comment: Follow home health [facility] PT/OT recommendation Non-emergency contact: Primary Care Provider and [employer] non-emergency contact if: you have any medication questions, your symptoms worsen, your pain is not controlled and you have a fever Follow-up/Referrals: Scout Jung MD [Primary Care Provider] - Diet: Carb Consistent or DM2 Addtl Attending Provider Instructions: You were hospitalized at [facility] from 11/26 to 12/01 with due to abdominal pain and nausea with eating. This was suspected to be due to your known peptic ulcer disease (recent EGD done on 10/26 confirmed presence of ulcers and a bacteria called H. pylori). You were seen by our gastroenterology team in the hospital, who recommended that you initiate "quad therapy". This includes taking the following medications x 14 days: Tetracycline, metronidazole, bismuth subsalicylate, and omeprazole. At time of discharge, your vital signs are currently all stable. You do not exhibit an elevated white blood cell count indicating acute infection. Additionally he reported that after advancing to a regular diabetic/low fiber diet, were not having pain with eating. For these reasons, we feel that you are safe to return home with home health follow-up (for your L1 compression fracture ). Your daughter (Jennifer) reported that you already have a prescription for tetracycline 500 mg tablets present in the hospital. Please take this bottle home with you to help complete your full course. You will need to take quad therapy through 12/10. New prescriptions at time of discharge: Metronidazole 500 mg 4 times daily x 10 additional days Bismuth salicylate 524 mg 4 times daily x 10 additional days Pantoprazole 40 mg twice daily x 10 additional days We will also send in a prescription for ondansetron 4 mg oral dissolvable tablets to be taken every 8 hours as needed for nausea with food/medications. Please plan to follow-up with your PCP in the next 7 to 10 days for a transitional care appointment. We also recommend that you obtain a stool antigen study to confirm eradication of the H. pylori bacteria after completing your treatment. Please plan to follow-up with your forest fire fighter following this appointment. If you develop any new or worsening symptoms, such as fever/chills, severe pain with eating, nausea, vomiting, diarrhea, or blood in the urine or stool, please return to the emergency department immediately. It was a pleasure taking care of you. Please reach out with any questions or concerns. Sincerely, The Hospital medicine team at [facility] Pending Studies at Discharge: No Stand-Alone Forms: [facility], Smoking Cessation Medications and DC Order Prescriptions: New tetracycline 500 mg tablet 500 mg PO QID 14 Days Qty: 56 0RF metronidazole 500 mg Tablet 500 mg PO QID 10 Days Qty: 40 0RF Rx Instructions: Take 1 tablet by mouth 4 times daily bismuth subsalicylate [Pepto-Bismol] 262 mg Tablet,Chewable 2 tab PO QID 10 Days Qty: 80 0RF Rx Instructions: Take 2 tablets by mouth 4 times daily pantoprazole 40 mg Tablet,Delayed Release (Dr/Ec) 40 mg PO BID 10 Days Qty: 20 0RF Rx Instructions: Take 1 tablet by mouth twice daily ondansetron 4 mg tablet,disintegrating 4 mg PO Q8H PRN (Reason: nausea and vomiting) Qty: 14 0RF Rx Instructions: Place 1 tablet under tongue as needed every 8 hours for nausea/vomiting Continued fenofibrate nanocrystallized [Tricor] 145 mg tablet 145 mg PO QAM Qty: 90 1RF atorvastatin 20 mg tablet 20 mg PO HS Qty: 90 3RF metformin 500 mg tablet 1,000 mg PO BID Qty: 360 3RF Jardiance 10 mg tablet 10 mg PO DAILY Qty: 90 3RF pantoprazole [Protonix] 40 mg tablet,delayed release (DR/EC) 40 mg PO BID Qty: 60 0RF aspirin 81 mg tablet,delayed release (DR/EC) 81 mg PO DAILY 90 Days Qty: 90 0RF Hold Instructions: Resume on 11/27/24. furosemide 40 mg tablet 40 mg PO DAILY PRN (Reason: edema) Qty: 30 5RF cholecalciferol (vitamin D3) [Vitamin D3] 5,000 unit Tablet 5,000 unit PO QAM Rx Instructions: give with heaviest meal of the day mecobalamin (vitamin B12) 1,000 mcg tablet,chewable 1,000 mcg PO QAM calcitonin (salmon) 200 unit/actuation [place],Non-Aerosol 1 spray NA DAILY Qty: 3.7 0RF lidocaine 4 % adhesive patch,medicated 1 patch topical DAILY PRN (Reason: pain) Qty: 30 0RF acetaminophen [Pain Relief (acetaminophen)] 325 mg tablet 650 mg PO Q6H PRN (Reason: fever or pain) Qty: 60 0RF metoprolol succinate 50 mg tablet extended release 24 hr 25 mg PO QAM Discharge Orders: Discharge Order (Routine); Ordered 12/01/24 Ordered By: Narciso Ch/Other Patient Handouts: Understanding Gastric Ulcers Admission Data Admit Date/Time: 11/26/24 20:56 Attending Provider: Douglas Berry Admit Provider: Dana Roldan Primary Care Provider: Scout Jung V. Other Providers: Madyson Cochran; Preston Richardson; [facility] Stay Data Consultations 11/26/24 20:46 ED Decision to Admit Stat 11/26/24 22:04 Consult Gastroenterology Routine Discharge Instructions Given to Patient (Per Discharging Provider) You were hospitalized at [facility] from 11/26 to 12/01 with due to abdominal pain and nausea with eating. This was suspected to be due to your known peptic ulcer disease (recent EGD done on 10/26 confirmed presence of ulcers and a bacteria called H. pylori). You were seen by our gastroenterology team in the hospital, who recommended that you initiate "quad therapy". This includes taking the following medications x 14 days: Tetracycline, metronidazole, bismuth subsalicylate, and omeprazole. At time of discharge, your vital signs are currently all stable. You do not exhibit an elevated white blood cell count indicating acute infection. Additionally he reported that after advancing to a regular diabetic/low fiber diet, were not having pain with eating. For these reasons, we feel that you are safe to return home with home health follow-up (for your L1 compression fracture). Your daughter (Jennifer) reported that you already have a prescription for tetracycline 500 mg tablets present in the hospital. Please take this bottle home with you to help complete your full course. You will need to take quad therapy through 12/10. New prescriptions at time of discharge: Metronidazole 500 mg 4 times daily x 10 additional days Bismuth salicylate 524 mg 4 times daily x 10 additional days Pantoprazole 40 mg twice daily x 10 additional days We will also send in a prescription for ondansetron 4 mg oral dissolvable tablets to be taken every 8 hours as needed for nausea with food/medications. Please plan to follow-up with your PCP in the next 7 to 10 days for a transitional care appointment. We also recommend that you obtain a stool antigen study to confirm eradication of the H. pylori bacteria after completing your treatment. Please plan to follow-up with your forest fire fighter following this appointment. If you develop any new or worsening symptoms, such as fever/chills, severe pain with eating, nausea, vomiting, diarrhea, or blood in the urine or stool, please return to the emergency department immediately. It was a pleasure taking care of you. Please reach out with any questions or concerns. Sincerely, The Hospital medicine team at [facility] Total Time Total Time Spent Total Time Spent (In Minutes): 35 Coding [place] [address] INP/OBS DISCH >30 MIN Patient Type Established History Comprehensive Exam Comprehensive Medical Decision Making Moderate Complexity Diagnoses Acute peptic ulcer of stomach K25.3 Gastric ulcer chronicity: acute WALDO (acute kidney injury) N17.9 H. pylori infection A04.8 Hypertension, unspecified type I10 Hypertension type: unspecified
== END 2024-12-01 15:59 | disposition home health service (06) | DRG 384 ==
LOC: ED 16:59 → 3N 20:56 → SUATTDRO 20:56 → 3N 21:00

== ENCOUNTER 2024-12-18 15:54 | Inpatient (IN) ==
[2024-12-18 16:47] LABS: Hematocrit (blood only) 52.2 % (37.0-47.0); Hemoglobin 17.4 g/dl (12.0-16.0); Immature Granulocytes # (auto) 0.13 K/uL (0.01-0.20); Immature Granulocytes % (auto) 1.2 %; Mean Corpuscular Hemoglobin 29.5 pg (25.0-34.0); Mean Corpuscular Volume 88.5 fL (80.0-100.0); Platelet Count 338 K/uL (130-400); RDW Standard Deviation 48.7 fL (36.4-46.3); Red Blood Count 5.90 M/uL (4.20-5.40); White Blood Count 10.44 K/ul (4.8-10.8)
[2024-12-18 17:07] LABS: Alanine Aminotransferase 17 U/L (7-52); Albumin Globulin Ratio 1.2 (0.9-2); Albumin Level 4.1 gm/dl (3.4-5.0); Alkaline Phosphatase 91 U/L (34-104); Anion Gap 18 (3-11); Bilirubin,Total 1.1 mg/dl (0.2-1.0); Blood Urea Nitrogen 23 mg/dl (6-23); Calcium 10.5 mg/dl (8.6-10.3); Carbon Dioxide 31 mmol/L (21-32); Chloride 87 mmol/L (98-107); Globulin 3.3 gm/dl (2.5-4.0); Glucose 125 mg/dl (70-99(Fasting)); Lipase 92 U/L (11-82); Potassium 3.5 mmol/L (3.5-5.1); Sodium 136 mmol/L (136-145); Total Protein 7.4 gm/dl (6.0-8.3)
--- NOTE | 2024-12-18 17:30 | Emergency Department Note ---
Impression & Plan Decreased oral intake, WALDO (acute kidney injury), Chronic generalized pain ED Provider Note Provider: Arabella Franz MD CHIEF COMPLAINT: Not eating and drinking HISTORY OF PRESENT ILLNESS: Patient is a 69-year-old primarily [place] African-speaking history of type 2 diabetes, H. pylori, hypertension, hypothyroidism, compression fractures presenting here referred by primary care today with continued issues with eating and drinking. Patient is been evaluated here several times and recently admitted 2 weeks ago. Was diagnosed after testing with H. pylori and completed treatment. Daughter presents and translates and declines the use of formal translation service with the patient. She states the patient was okay for about a week after coming home and then began not to want to eat or drink very much. There is been stress at home as the patient's is quite ill with Parkinson's disease. Daughter believes there may be some component of mental health leading to her appetite and eating issues. Patient reports some generalized pain including abdomen and back pain. No falls reported. No vomiting reported. PAST MEDICAL HISTORY: As noted above MEDICATIONS: Reviewed home medication list SOCIAL HISTORY: Primarily speaks [place] African, daughter at bedside translating, lives at home with PHYSICAL EXAM: GENERAL: alert in no acute distress on stretcher, daughter at bedside Head: normocephalic and atraumatic EYES: No injection, discharge or icterus. PERRL, EOMI. NECK: Trachea midline. Supple. ENT: Mucous membranes pink and moist. Pharynx without erythema or exudate. LUNGS: Airway patent. No retractions. Breath sounds clear with good air entry bilaterally. HEART: Regular rate and rhythm. No chest wall tenderness ABDOMEN: Soft mild tenderness but no masses. No guarding. SKIN: Acyanotic, warm, dry, without rashes EXTREMITIES: Without swelling, tenderness or deformity NEUROLOGICAL: No focal deficits moving all extremities. No aphasia. No facial droop or slurred speech. EK bpm normal sinus rhythm. No PVC or PAC. No acute ST segment elevation or depression with QTc of 460. CONTINUOUS CARDIAC MONITORING: was ordered and showed a heart rate of 70s bpm in normal sinus rhythm Patient's laboratory studies and imaging reviewed. Differential includes Infection, dehydration, metabolic abnormality, hypo/hyperglycemia, electrolyte disturbance, anemia, hypoxia, cardiac sources, intracerebral event, gastrointestinal, neurologic, as well as other pathologies. IMPRESSION/MEDICAL DECISION MAKING: Reviewed recent discharge summary. Discussed with patient's daughter bedside who declined formal translation services. Patient with some mild generalized pain including back pain and abdominal pain. Does not seem in any distress. No new falls. Will repeat CT scan this has been several months since last to ensure no acute intra-abdominal pathology has developed. Laboratory studies are checked with evidence of some worsened renal function but no severe electrolyte abnormalities noted. Blood counts appear hemoconcentrated to some degree. Ordered some IV fluid for hydration. No leukocytosis. No fevers or infectious symptoms reported. CT abdomen pelvis shows some constipation but no other confused findings. Likely with the dehydration her body is trying to retain as much water as possible. Again given some fluid hydration via the IV here. Daughter has concern the patient is failing to thrive and not eating and drinking at home and discussed with her that in any event we will need to plan for hydration and further workup here. Fortunately daughter is leaving the country tomorrow and the patient lives at home with who is ill and not in a good position to care for her either. DIAGNOSIS: Poor p.o. intake, WALDO, generalized pain DISPOSITION: Hospitalist will evaluate Patient was agreeable with this plan. Past Med/Surg History Problem List (Updated 12/18/24 @ 19:14 by Arabella Franz M.D.) Chronic generalized pain (Acute) WALDO (acute kidney injury) (Acute) Compression fx, lumbar spine (Acute) H. pylori infection Gastric peptic ulcer Compression fracture of L1 lumbar vertebra (Acute ~10/24/24) Anteroinferior endplate w/ extension into anterior osteophyte Decreased oral intake (Acute) Total bilirubin, elevated (Acute) Closed compression fracture of L1 vertebra (Acute) Lumbar compression fracture Elevated alkaline phosphatase level Skin lesion of back Lumbar radiculopathy Adjacent segment disease of lumbar spine with history of fusion procedure Bilateral sacroiliitis Lumbar post-laminectomy syndrome Pityriasis versicolor Osteoarthritis of left knee Status post right knee replacement Left-sided low back pain with sciatica (Acute) Spinal stenosis, lumbar region with neurogenic claudication Type II diabetes mellitus Cognitive changes (Chronic) Vitamin D deficiency disease (Acute) Synovial cyst of popliteal space (Acute) Spondylosis without myelopathy or radiculopathy, lumbar region (Acute) Polycythemia vera (Acute) Hypothyroidism (Acute) Hypertension (Acute) Hyperlipidemia (Acute) Generalized osteoarthritis of multiple sites (Acute) Gait disturbance (Acute) Fatty liver (Acute) Essential hypertriglyceridemia (Acute) Abnormal brain MRI (Acute) Abnormal EKG (Acute) Vitamin B12 deficiency Medical History Polycythemia F/U DR SANDHU Obesity Stage III chronic kidney disease F/U PCP Hypothyroidism Diabetes mellitus, type 2 NIDDM Hyperlipidemia Hypertension Surgical History History of colonoscopy Status post lumbar surgery History of spinal fusion L4-S1 Posterior Lumbar Decompression/Fusion: 10/02/18: Grade 2 view, MAC#3, ETT 7.0 at [facility] H/O tubal ligation S/P left knee arthroscopy Hx laparoscopic cholecystectomy Family History Mother Hypertension Father Gastric ulcer Grandmother Cirrhosis Denies family history of Ovarian cancer Prostate cancer Myocardial infarction Breast cancer Colorectal cancer Social History Smoking Status: Never smoker Second Hand Exposure: No; Do You Dip or Chew Tobacco: No; Hx Alcohol Use: No Hx Substance Use: No Preferred Language: [place] Communication Ability: Effective Communication Ability Comment: CAN UNDERSTAND SIMPLE [place] Communication Tools: IPad Visual Impairment: Partially Limited Hearing Ability: Normal Organisation And Methods Analyst Required: Yes Beliefs That Will Affect Care: None marital status: Current Living Situation: Spouse Current Living Situation Comment: son arabella lives with her and current occupational status: retired How many Children do You have: 4 How many Children do You have Comment: 2 boy 2 girl Feels Safe at Home: Yes Childhood Exposure to Second-Hand Smoke: No Diet: regular during the past year weight has: remained stable Dental Care, Regularly: No Physical Activity Frequency: Daily Seatbelt Use: always Sunscreen Use: No Assistive Devices: Walker Allergies Allergies Allergy/AdvReac Type Severity Reaction Status Date / Time No Known Allergies Allergy Verified 12/18/24 18:38 Home Meds Home Medications Medication Instructions Recorded Confirmed cholecalciferol (vitamin D3) 125 5,000 unit PO QAM 02/09/18 12/18/24 mcg (5,000 unit) tablet (Vitamin D3) mecobalamin (vitamin B12) 1,000 1,000 mcg PO QAM 02/12/20 12/18/24 mcg chewable tablet metoprolol succinate 50 mg 25 mg PO QAM 11/09/24 12/18/24 tablet,extended release 24 hr Previous Rx's Medication Instructions Recorded aspirin 81 mg tablet,delayed 81 mg PO DAILY 90 days #90 tabs 01/01/21 release fenofibrate nanocrystallized 145 145 mg PO QAM #90 tabs 07/01/24 mg tablet (Tricor) atorvastatin 20 mg tablet 20 mg PO HS #90 tabs 08/10/24 metformin 500 mg tablet 1,000 mg (2 x 500 mg) PO BID #360 08/10/24 tabs furosemide 40 mg tablet 40 mg PO DAILY PRN edema #30 tabs 08/28/24 empagliflozin 10 mg tablet 10 mg PO DAILY #90 tabs 09/03/24 (Jardiance) acetaminophen 325 mg tablet (Pain 650 mg (2 x 325 mg) PO Q6H PRN 10/27/24 Relief (acetaminophen)) fever or pain #60 tabs calcitonin (salmon) 200 1 spray NA DAILY #3.7 mL 10/27/24 unit/actuation nasal spray lidocaine 4 % topical patch 1 patch topical DAILY PRN pain #30 10/27/24 ea pantoprazole 40 mg tablet,delayed 40 mg PO BID #60 tabs 11/29/24 release (Protonix) ondansetron 4 mg disintegrating 4 mg PO Q8H PRN nausea and 12/13/24 tablet vomiting #14 tabs Results & Data (ED) Vital Signs Vital Signs - 24 hr 12/18/24 15:59 12/18/24 17:00 12/18/24 17:06 Temperature 36.7 C Temperature Source Temporal Artery Scan Pulse Rate 115 H 94 H Pulse Rate [Apical] 86 Pulse Rhythm [Apical] Regular Pulse Strength [Apical] Respiratory Rate 18 16 Respiratory Effort / Characteristics Non-Labored Spontaneous Non-Labored Spontaneous Respiratory Depth Normal Normal Respiratory Pattern Regular Regular Blood Pressure 117/95 Blood Pressure [Right Arm] 113/81 Blood Pressure Mean 102 Blood Pressure Mean [Right Arm] 91 Blood Pressure Position [Right Arm] Semi-fowlers Pulse Oximetry 96 93 Oxygen Delivery Method Room Air Room Air Sepsis Recent Fever Within 48 Hours No Sepsis New/Unexplained Change in Mental Status N/A Sepsis Action Taken by Nursing No Action Required 12/18/24 17:30 12/18/24 17:30 12/18/24 18:30 Temperature Temperature Source Pulse Rate 103 H 74 Pulse Rate [Apical] Pulse Rhythm [Apical] Pulse Strength [Apical] Respiratory Rate 21 17 Respiratory Effort / Characteristics Respiratory Depth Respiratory Pattern Blood Pressure 122/90 122/90 130/62 Blood Pressure [Right Arm] Blood Pressure Mean 108 108 84 Blood Pressure Mean [Right Arm] Blood Pressure Position [Right Arm] Pulse Oximetry 90 92 Oxygen Delivery Method Room Air Room Air Sepsis Recent Fever Within 48 Hours Sepsis New/Unexplained Change in Mental Status Sepsis Action Taken by Nursing 12/18/24 19:00 12/18/24 19:30 12/18/24 20:00 Temperature Temperature Source Pulse Rate 99 H 78 85 Pulse Rate [Apical] Pulse Rhythm [Apical] Pulse Strength [Apical] Respiratory Rate 20 20 16 Respiratory Effort / Characteristics Respiratory Depth Respiratory Pattern Blood Pressure 125/75 121/75 136/74 Blood Pressure [Right Arm] Blood Pressure Mean 82 82 121 Blood Pressure Mean [Right Arm] Blood Pressure Position [Right Arm] Pulse Oximetry 100 100 100 Oxygen Delivery Method Room Air Room Air Room Air Sepsis Recent Fever Within 48 Hours Sepsis New/Unexplained Change in Mental Status Sepsis Action Taken by Nursing 12/18/24 20:51 12/18/24 21:00 Temperature Temperature Source Pulse Rate 79 Pulse Rate [Apical] 78 Pulse Rhythm [Apical] Regular Pulse Strength [Apical] Normal Respiratory Rate 19 Respiratory Effort / Characteristics Non-Labored Spontaneous Respiratory Depth Normal Respiratory Pattern Regular Blood Pressure Blood Pressure [Right Arm] 102/57 L Blood Pressure Mean Blood Pressure Mean [Right Arm] 72 Blood Pressure Position [Right Arm] Pulse Oximetry 96 Oxygen Delivery Method Room Air Sepsis Recent Fever Within 48 Hours Sepsis New/Unexplained Change in Mental Status Sepsis Action Taken by Nursing Laboratory Data 12/18/24 Unknown 12/18/24 Unknown Lab Results 12/18/24 Range/Units Unknown WBC 10.44 (4.8-10.8) K/ul RBC 5.90 H (4.20-5.40) M/uL Hgb 17.4 H (12.0-16.0) g/dl Hct 52.2 H (37.0-47.0) % MCV 88.5 (80.0-100.0) fL MCH 29.5 (25.0-34.0) pg MCHC 33.3 (32.0-36.0) g/dL RDW Std Deviation 48.7 H (36.4-46.3) fL RDW Coeff of Suleman 15.5 H (11.5-14.5) % Plt Count 338 (130-400) K/uL MPV 10.7 (9.4-12.4) fL Immature Gran % (Auto) 1.2 % Neut % (Auto) 71.9 % Lymph % (Auto) 13.6 % [place] % (Auto) 12.4 % Eos % (Auto) 0.2 % Baso % (Auto) 0.7 % Neut # (Auto) 7.51 H (1.40-6.50) K/uL Lymph # (Auto) 1.42 (1.20-3.40) K/uL [place] # (Auto) 1.29 H (0.11-0.59) K/uL Eos # (Auto) 0.02 (0.00-0.50) K/uL Baso # (Auto) 0.07 (0.00-0.20) K/uL Immature Gran # (Auto) 0.13 (0.01-0.20) K/uL Sodium 136 (136-145) mmol/L Potassium 3.5 (3.5-5.1) mmol/L Chloride 87 L (98-107) mmol/L Carbon Dioxide 31 (21-32) mmol/L Anion Gap 18 H (3-11) BUN 23 (6-23) mg/dl Creatinine 1.90 H (0.6-1.2) mg/dl Est Cr Clr Drug Dosing Not Reportable eGFR 27.88 BUN/Creatinine Ratio 12.1 (10-20) Glucose 125 H (70-99(Fasting)) mg/dl Calcium 10.5 H (8.6-10.3) mg/dl Magnesium 1.3 L (1.7-2.4) mg/dl Total Bilirubin 1.1 H (0.2-1.0) mg/dl AST 30 (13-39) U/L ALT 17 (7-52) U/L Alkaline Phosphatase 91 (34-104) U/L Total Protein 7.4 (6.0-8.3) gm/dl Albumin 4.1 (3.4-5.0) gm/dl Globulin 3.3 (2.5-4.0) gm/dl Albumin/Globulin Ratio 1.2 (0.9-2) Lipase 92 H (11-82) U/L Administered Medications Sodium Chloride (Nss) 1,000 mls @ 125 mls/hr IV .Q8H NATY Stop: 12/19/24 12:44 Last Admin: 12/18/24 21:16 Dose: 125 mls/hr Documented By: THAIS Discontinued Medications Fluconazole (Fluconazole 100 Mg Tab) 100 mg PO NOW ONE Stop: 12/18/24 20:03 Last Admin: 12/18/24 21:20 Dose: Not Given Documented By: THAIS Lactated Ringer's (Lr) 1,000 mls @ 999 mls/hr IV .Q1H1M ONE Stop: 12/18/24 18:11 Last Infusion: 12/18/24 19:43 Dose: Infused Documented By: Admin: 12/18/24 18:04 Dose: 999 mls/hr Documented By: OLIVER Fluconazole (Diflucan) 200 mg in 100 mls @ 100 mls/hr IV ONE ONE Stop: 12/18/24 21:30 Last Admin: 12/18/24 21:14 Dose: 100 mls/hr Documented By: THAIS Ondansetron HCl (Ondansetron Inj 2 Mg/Ml 2 Ml Vial) 4 mg IV NOW STA Stop: 12/18/24 18:54 Last Admin: 12/18/24 20:12 Dose: 4 mg Documented By: THAIS Imaging Data Radiologist's Impression: Abdomen/Pelvis CT 12/18/24 17:10 EXAMINATION: Abdomen and pelvis CT without CLINICAL HISTORY: Pain, not eating PRIORS: 10/24/2024 TECHNIQUE: Contiguous axial images were obtained through the abdomen and pelvis without the use of intravenous contrast. Sagittal and coronal reformations are supplied. FINDINGS: Patient is rotated in the machine. evaluation of solid organs is limited without the use of intravenous contrast. Allowing for this, the liver, pancreas, under distended stomach, adrenals, aorta and IVC are morphologically unremarkable. Advanced atherosclerotic disease of the abdominal aorta present. A large amount of formed stool and heterogeneous high density material present throughout the colon, possibly orally ingested medication. Appendix is normal. No dilated loops of bowel or bowel obstruction. Abdominal wall is lax and noted to the left of midline. Urinary bladder is distended and morphologically unremarkable. A left nonobstructing renal calculus is present measuring 5 mm, unchanged. No hydronephrosis. Moderate to severe osseous demineralization noted. Allowing for positioning, surgical hardware of the lower lumbar spine noted. Moderate to mild compression fracture present at L1 with sclerotic appearance, and changed. Moderate to advanced degenerative change throughout the spine. IMPRESSION: 1. No CT evidence of an acute abdominal or pelvic abnormality. 2. Large amount of formed stool throughout the colon with no bowel obstruction. Electronically signed by Maria G Segal 12-18-2024 6:32 PM Discharge Plan Visit Data Chief Complaint: Abdominal Pain Stated Complaint: ABD PAIN, NOT EATING, 3RD TIME HERE ED Provider: Arabella Franz Discharge Problem: Decreased oral intake, WALDO (acute kidney injury), Chronic generalized pain Patient Disposition: Being Evaluated by Hospitalist Condition: Fair Forms Stand Alone Forms: [facility] Prescriptions Prescriptions: No Action fenofibrate nanocrystallized [Tricor] 145 mg tablet 145 mg PO QAM Qty: 90 1RF atorvastatin 20 mg tablet 20 mg PO HS Qty: 90 3RF metformin 500 mg tablet 1,000 mg PO BID Qty: 360 3RF Jardiance 10 mg tablet 10 mg PO DAILY Qty: 90 3RF pantoprazole [Protonix] 40 mg tablet,delayed release (DR/EC) 40 mg PO BID Qty: 60 0RF ondansetron 4 mg tablet,disintegrating 4 mg PO Q8H PRN (Reason: nausea and vomiting) Qty: 14 0RF Rx Instructions: Place 1 tablet under tongue as needed every 8 hours for nausea/vomiting aspirin 81 mg tablet,delayed release (DR/EC) 81 mg PO DAILY 90 Days Qty: 90 0RF Hold Instructions: Resume on 11/27/24. furosemide 40 mg tablet 40 mg PO DAILY PRN (Reason: edema) Qty: 30 5RF cholecalciferol (vitamin D3) [Vitamin D3] 5,000 unit Tablet 5,000 unit PO QAM Rx Instructions: give with heaviest meal of the day mecobalamin (vitamin B12) 1,000 mcg tablet,chewable 1,000 mcg PO QAM calcitonin (salmon) 200 unit/actuation [place],Non-Aerosol 1 spray NA DAILY Qty: 3.7 0RF lidocaine 4 % adhesive patch,medicated 1 patch topical DAILY PRN (Reason: pain) Qty: 30 0RF acetaminophen [Pain Relief (acetaminophen)] 325 mg tablet 650 mg PO Q6H PRN (Reason: fever or pain) Qty: 60 0RF metoprolol succinate 50 mg tablet extended release 24 hr 25 mg PO QAM Referrals Referrals: Scout Jung MD [Primary Care Provider] -
[2024-12-18] MEDS: LACTATED RINGER'S 1,000 ML IV ONE (18:04)
--- NOTE | 2024-12-18 18:35 | CT Scan Report ---
EXAMINATION: Abdomen and pelvis CT without CLINICAL HISTORY: Pain, not eating PRIORS: 10/24/2024 TECHNIQUE: Contiguous axial images were obtained through the abdomen and pelvis without the use of intravenous contrast. Sagittal and coronal reformations are supplied. FINDINGS: Patient is rotated in the machine. evaluation of solid organs is limited without the use of intravenous contrast. Allowing for this, the liver, pancreas, under distended stomach, adrenals, aorta and IVC are morphologically unremarkable. Advanced atherosclerotic disease of the abdominal aorta present. A large amount of formed stool and heterogeneous high density material present throughout the colon, possibly orally ingested medication. Appendix is normal. No dilated loops of bowel or bowel obstruction. Abdominal wall is lax and noted to the left of midline. Urinary bladder is distended and morphologically unremarkable. A left nonobstructing renal calculus is present measuring 5 mm, unchanged. No hydronephrosis. Moderate to severe osseous demineralization noted. Allowing for positioning, surgical hardware of the lower lumbar spine noted. Moderate to mild compression fracture present at L1 with sclerotic appearance, and changed. Moderate to advanced degenerative change throughout the spine. IMPRESSION: 1. No CT evidence of an acute abdominal or pelvic abnormality. 2. Large amount of formed stool throughout the colon with no bowel obstruction. Electronically signed by Maria G Segal 12-18-2024 6:32 PM
[2024-12-18] MEDS: ONDANSETRON INJ 2 MG/ML 2 ML VIAL IV STA (20:12)
--- NOTE | 2024-12-18 20:44 | History & Physical Report ---
Date of Service December 18, 2024 Assessment & Plan (1) Thrush of mouth and esophagus: (2) Gastric peptic ulcer: (3) H. pylori infection: (4) WALDO (acute kidney injury): Plan The patient is a 69-year-old female with a past medical history including chronic generalized pain, gastric peptic ulcer secondary to H. pylori, L1 vertebral compression fracture, sacroiliitis, lumbar postlaminectomy syndrome, hypertension, hyperlipidemia, hypothyroidism, polycythemia vera, fatty liver, and vitamin B12 deficiency. The patient is a primarily Vincentian-speaking female, initially accompanied to the emergency department by her daughter, who acted as president sales and marketing for the ED, refusing formal translation service for the patient. Her daughter reports that the patient was doing better with oral intake after completing recent treatment for H. pylori, that was diagnosed during hospitalization from 11/26-12/01/2024. However, over the past week patient has had decreased oral intake again, and has become more lethargic. There are stressors at home, with patient's being very ill with Parkinson's disease. The daughter feels there may be some element of mental health contributing to her decreased appetite and eating issues. Daughter had left by the time the patient was being evaluated by the hospitalist service, however, I did speak with her daughter over the phone and confirmed that information. I also notified the daughter that her mother, the patient, had a pretty significant case of thrush, likely had yeast esophagitis, which could contribute significantly to her decreased oral intake. The patient will be admitted to the [facility] hospitalist service for further evaluation and treatment. Thrush of mouth and esophagus- Patient likely has developed significant thrush after long course of antibiotics for treatment of H. pylori associated gastric peptic ulcer disease. Clotrimazole atrocious, to dissolve the mouth 5 times per day for 5 days Fluconazole 200 mg IV now, and 200 mg IV daily Patient likely finds it very difficult to swallow, and will be placed on full liquids for now, to be advanced as tolerated Acetaminophen 1 g IV every 8 hours as needed for mild pain or fever Pantoprazole 40 mg IV daily NSS at 1.5 mL/h x 2 L Consult gastroenterology if symptoms do not improve H. pylori gastric peptic ulcer disease- Per daughter, patient completed the additional 10 days of tetracycline 500 mg 4 times daily, metronidazole 500 mg 4 times daily, bismuth salicylate 4 times daily, and pantoprazole 40 mg 4 times daily. Will hold on any further treatment, as this was the primary course of treatment that was started for admission. Acute kidney injury- Creatinine 1.90 on admission, with base 1.10 Status post 1 L of LR in the ED Placed on NSS at 125 mL/h x 2 L Repeat laboratories every morning Hyperlipidemia- Hold atorvastatin and fenofibrate for now, until able to take p.o. Hypertension- Blood pressure presently 102/57 Hold aspirin, metoprolol succinate for now Diabetes mellitus- Hold metformin and empagliflozin Glucose on admission 125 For now, hold on fingersticks, LS blood sugar is elevated in the morning, labs History of Present Illness Chief Complaint: The patient is a primarily Vincentian-speaking female, initially accompanied to the emergency department by her daughter, who acted as president sales and marketing for the ED, refusing formal translation service for the patient. Her daughter reports that the patient was doing better with oral intake after completing recent treatment for H. pylori, that was diagnosed during hospitalization from 11/26-12/01/2024. However, over the past week patient has had decreased oral intake again, and has become more lethargic. There are stressors at home, with patient's being very ill with Parkinson's disease. The daughter feels there may be some element of mental health contributing to her decreased appetite and eating issues. Daughter had left by the time the patient was being evaluated by the hospitalist service, however, I did speak with her daughter over the phone and confirmed that information. I also notified the daughter that her mother, the patient, had a pretty significant case of thrush, likely had yeast esophagitis, which could contribute significantly to her decreased oral intake. Primary Care Provider: Scout Jung MD The patient is a 69-year-old female with a past medical history including chronic generalized pain, gastric peptic ulcer secondary to H. pylori, L1 vertebral compression fracture, sacroiliitis, lumbar postlaminectomy syndrome, hypertension, hyperlipidemia, hypothyroidism, polycythemia vera, fatty liver, and vitamin B12 deficiency. The patient is a primarily Vincentian-speaking female, initially accompanied to the emergency department by her daughter, who acted as president sales and marketing for the ED, refusing formal translation service for the patient. Her daughter reports that the patient was doing better with oral intake after completing recent treatment for H. pylori, that was diagnosed during hospitalization from 11/26-12/01/2024. However, over the past week patient has had decreased oral intake again, and has become more lethargic. There are stressors at home, with patient's being very ill with Parkinson's disease. The daughter feels there may be some element of mental health cont ributing to her decreased appetite and eating issues. Daughter had left by the time the patient was being evaluated by the hospitalist service, however, I did speak with her daughter over the phone and confirmed that information. I also notified the daughter that her mother, the patient, had a pretty significant case of thrush, likely had yeast esophagitis, which could contribute significantly to her decreased oral intake. The patient will be admitted to the [facility] hospitalist service for further evaluation and treatment. Allergies Allergy/AdvReac Type Severity Reaction Status Date / Time No Known Allergies Allergy Verified 12/18/24 18:38 Home Medications Medication Instructions Recorded Confirmed Type cholecalciferol (vitamin D3) 125 5,000 unit PO QAM 02/09/18 12/18/24 History mcg (5,000 unit) tablet (Vitamin D3) mecobalamin (vitamin B12) 1,000 1,000 mcg PO QAM 02/12/20 12/18/24 History mcg chewable tablet aspirin 81 mg tablet,delayed 81 mg PO DAILY 90 days #90 tabs 01/01/21 12/18/24 Rx release fenofibrate nanocrystallized 145 145 mg PO QAM #90 tabs 07/01/24 12/18/24 Rx mg tablet (Tricor) atorvastatin 20 mg tablet 20 mg PO HS #90 tabs 08/10/24 12/18/24 Rx metformin 500 mg tablet 1,000 mg (2 x 500 mg) PO BID #360 08/10/24 12/18/24 Rx tabs furosemide 40 mg tablet 40 mg PO DAILY PRN edema #30 tabs 08/28/24 12/18/24 Rx empagliflozin 10 mg tablet 10 mg PO DAILY #90 tabs 09/03/24 12/18/24 Rx (Jardiance) acetaminophen 325 mg tablet (Pain 650 mg (2 x 325 mg) PO Q6H PRN 10/27/24 12/18/24 Rx Relief (acetaminophen)) fever or pain #60 tabs calcitonin (salmon) 200 1 spray NA DAILY #3.7 mL 10/27/24 12/18/24 Rx unit/actuation nasal spray lidocaine 4 % topical patch 1 patch topical DAILY PRN pain #30 10/27/24 12/18/24 Rx ea metoprolol succinate 50 mg 25 mg PO QAM 11/09/24 12/18/24 History tablet,extended release 24 hr pantoprazole 40 mg tablet,delayed 40 mg PO BID #60 tabs 11/29/24 12/18/24 Rx release (Protonix) ondansetron 4 mg disintegrating 4 mg PO Q8H PRN nausea and 12/13/24 12/18/24 Rx tablet vomiting #14 tabs Past Med/Surg History Problem List (Updated 12/19/24 @ 01:35 by Preston Richardson MD) Thrush of mouth and esophagus Chronic generalized pain (Acute) WALDO (acute kidney injury) (Acute) Compression fx, lumbar spine (Acute) H. pylori infection Gastric peptic ulcer Compression fracture of L1 lumbar vertebra (Acute ~10/24/24) Anteroinferior endplate w/ extension into anterior osteophyte Decreased oral intake (Acute) Total bilirubin, elevated (Acute) Closed compression fracture of L1 vertebra (Acute) Lumbar compression fracture Elevated alkaline phosphatase level Skin lesion of back Lumbar radiculopathy Adjacent segment disease of lumbar spine with history of fusion procedure Bilateral sacroiliitis Lumbar post-laminectomy syndrome Pityriasis versicolor Osteoarthritis of left knee Status post right knee replacement Left-sided low back pain with sciatica (Acute) Spinal stenosis, lumbar region with neurogenic claudication Type II diabetes mellitus Cognitive changes (Chronic) Vitamin D deficiency disease (Acute) Synovial cyst of popliteal space (Acute) Spondylosis without myelopathy or radiculopathy, lumbar region (Acute) Polycythemia vera (Acute) Hypothyroidism (Acute) Hypertension (Acute) Hyperlipidemia (Acute) Generalized osteoarthritis of multiple sites (Acute) Gait disturbance (Acute) Fatty liver (Acute) Essential hypertriglyceridemia (Acute) Abnormal brain MRI (Acute) Abnormal EKG (Acute) Vitamin B12 deficiency Medical History Polycythemia F/U DR SANDHU Obesity Stage III chronic kidney disease F/U PCP Hypothyroidism Diabetes mellitus, type 2 NIDDM Hyperlipidemia Hypertension Surgical History History of colonoscopy Status post lumbar surgery History of spinal fusion L4-S1 Posterior Lumbar Decompression/Fusion: 10/02/18: Grade 2 view, MAC#3, ETT 7.0 at [facility] H/O tubal ligation S/P left knee arthroscopy Hx laparoscopic cholecystectomy Family History Mother Hypertension Father Gastric ulcer Grandmother Cirrhosis Denies family history of Ovarian cancer Prostate cancer Myocardial infarction Breast cancer Colorectal cancer Social History Smoking Status: Never smoker Second Hand Exposure: No; Do You Dip or Chew Tobacco: No; Tobacco Cessation Education Requested by Patient: No Hx Alcohol Use: No Hx Substance Use: No Preferred Language: Vincentian Communication Ability: Effective Communication Ability Comment: Needs pharmacy informatics specialist Communication Tools: IPad and Writing Tablet Visual Impairment: Partially Limited Hearing Ability: Normal Die Finisher Required: Yes Beliefs That Will Affect Care: None marital status: Current Living Situation: Spouse Current Living Situation Comment: son arabella lives with her and current occupational status: retired How many Children do You have: 4 How many Children do You have Comment: 2 boy 2 girl Other Information That Helps Us Care for You: No Feels Safe at Home: Yes Safety Concerns: Feels Safe At This Time Childhood Exposure to Second-Hand Smoke: No Diet: regular during the past year weight has: remained stable Dental Care, Regularly: No Physical Activity Frequency: Daily Seatbelt Use: always Sunscreen Use: No Assistive Devices: Denture - Upper, Denture - Lower and Glasses Review of Systems Review of Systems: The patient herself is not able to contribute significantly to HPI or ROS, information is provided by her daughter as noted above. Physical Exam Physical Exam: The patient is awake, alert well developed and well nourished, normocephalic and atraumatic, lying in bed and in no acute distress. HEENT--PERRL, EOMI, mucous membranes and oropharynx significant thrush on tongue, and on all mucous membranes. Neck--supple. No JVD. No bruits. Thyroid normal, trachea midline, no sharmila nopathy. Heart--normal S1 and S2. No murmurs, rubs or gallops. Lungs--clear bilaterally, no respiratory distress, no accessory muscle use. Abdomen--normal bowel sounds and soft. Nontender. Nondistended, no hernias or masses, no organomegaly. Extremities--no cyanosis or clubbing. No edema. There are good distal pulses b/l. Dermatologic--normal skin turgor, normal color, no abnormal lymph nodes, no rash. Neurologic--cranial nerves II through XII grossly intact. Rheumatologic--normal range of motion. Psychiatric--normal affect. Results & Data Results & Data Vital Signs (Past 12 Hours) Vital Signs Temp Pulse Pulse Resp BP BP Pulse Ox 12/18/24 20:00 85 16 136/74 100 12/18/24 19:30 78 20 121/75 100 12/18/24 19:00 99 H 20 125/75 100 12/18/24 18:30 74 17 130/62 92 12/18/24 17:30 103 H 21 122/90 90 12/18/24 17:30 122/90 12/18/24 17:06 94 H 12/18/24 17:00 86 16 113/81 93 12/18/24 15:59 36.7 C 115 H 18 117/95 96 O2 Del Method 12/18/24 20:00 Room Air 12/18/24 19:30 Room Air 12/18/24 19:00 Room Air 12/18/24 18:30 Room Air 12/18/24 17:30 Room Air 12/18/24 17:30 12/18/24 17:06 12/18/24 17:00 Room Air 12/18/24 15:59 Room Air Laboratory Results Laboratory Results WBC 10.44 K/ul (4.8-10.8) 12/18/24 Unknown RBC 5.90 M/uL (4.20-5.40) H 12/18/24 Unknown Hgb 17.4 g/dl (12.0-16.0) H 12/18/24 Unknown Hct 52.2 % (37.0-47.0) H 12/18/24 Unknown MCV 88.5 fL (80.0-100.0) 12/18/24 Unknown MCH 29.5 pg (25.0-34.0) 12/18/24 Unknown MCHC 33.3 g/dL (32.0-36.0) 12/18/24 Unknown RDW Std Deviation 48.7 fL (36.4-46.3) H 12/18/24 Unknown RDW Coeff of Suleman 15.5 % (11.5-14.5) H 12/18/24 Unknown Plt Count 338 K/uL (130-400) 12/18/24 Unknown MPV 10.7 fL (9.4-12.4) 12/18/24 Unknown Immature Gran % (Auto) 1.2 % 12/18/24 Unknown Neut % (Auto) 71.9 % 12/18/24 Unknown Lymph % (Auto) 13.6 % 12/18/24 Unknown Sac % (Auto) 12.4 % 12/18/24 Unknown Eos % (Auto) 0.2 % 12/18/24 Unknown Baso % (Auto) 0.7 % 12/18/24 Unknown Neut # (Auto) 7.51 K/uL (1.40-6.50) H 12/18/24 Unknown Lymph # (Auto) 1.42 K/uL (1.20-3.40) 12/18/24 Unknown Sac # (Auto) 1.29 K/uL (0.11-0.59) H 12/18/24 Unknown Eos # (Auto) 0.02 K/uL (0.00-0.50) 12/18/24 Unknown Baso # (Auto) 0.07 K/uL (0.00-0.20) 12/18/24 Unknown Immature Gran # (Auto) 0.13 K/uL (0.01-0.20) 12/18/24 Unknown Sodium 136 mmol/L (136-145) 12/18/24 Unknown Potassium 3.5 mmol/L (3.5-5.1) 12/18/24 Unknown Chloride 87 mmol/L (98-107) L 12/18/24 Unknown Carbon Dioxide 31 mmol/L (21-32) 12/18/24 Unknown Anion Gap 18 (3-11) H 12/18/24 Unknown BUN 23 mg/dl (6-23) 12/18/24 Unknown Creatinine 1.90 mg/dl (0.6-1.2) H 12/18/24 Unknown Est Cr Clr Drug Dosing Not Reportable 12/18/24 Unknown eGFR 27.88 12/18/24 Unknown BUN/Creatinine Ratio 12.1 (10-20) 12/18/24 Unknown Glucose 125 mg/dl (70-99(Fasting)) H 12/18/24 Unknown Calcium 10.5 mg/dl (8.6-10.3) H 12/18/24 Unknown Magnesium 1.3 mg/dl (1.7-2.4) L 12/18/24 Unknown Total Bilirubin 1.1 mg/dl (0.2-1.0) H 12/18/24 Unknown AST 30 U/L (13-39) 12/18/24 Unknown ALT 17 U/L (7-52) 12/18/24 Unknown Alkaline Phosphatase 91 U/L (34-104) 12/18/24 Unknown Total Protein 7.4 gm/dl (6.0-8.3) 12/18/24 Unknown Albumin 4.1 gm/dl (3.4-5.0) 12/18/24 Unknown Globulin 3.3 gm/dl (2.5-4.0) 12/18/24 Unknown Albumin/Globulin Ratio 1.2 (0.9-2) 12/18/24 Unknown Lipase 92 U/L (11-82) H 12/18/24 Unknown Impressions Abdomen/Pelvis CT 12/18/24 17:10 EXAMINATION: Abdomen and pelvis CT without CLINICAL HISTORY: Pain, not eating PRIORS: 10/24/2024 TECHNIQUE: Contiguous axial images were obtained through the abdomen and pelvis without the use of intravenous contrast. Sagittal and coronal reformations are supplied. FINDINGS: Patient is rotated in the machine. evaluation of solid organs is limited without the use of intravenous contrast. Allowing for this, the liver, pancreas, under distended stomach, adrenals, aorta and IVC are morphologically unremarkable. Advanced atherosclerotic disease of the abdominal aorta present. A large amount of formed stool and heterogeneous high density material present throughout the colon, possibly orally ingested medication. Appendix is normal. No dilated loops of bowel or bowel obstruction. Abdominal wall is lax and noted to the left of midline. Urinary bladder is distended and morphologically unremarkable. A left nonobstructing renal calculus is present measuring 5 mm, unchanged. No hydronephrosis. Moderate to severe osseous demineralization noted. Allowing for positioning, surgical hardware of the lower lumbar spine noted. Moderate to mild compression fracture present at L1 with sclerotic appearance, and changed. Moderate to advanced degenerative change throughout the spine. IMPRESSION: 1. No CT evidence of an acute abdominal or pelvic abnormality. 2. Large amount of formed stool throughout the colon with no bowel obstruction. Electronically signed by Maria G Segal 12-18-2024 6:32 PM Code Status & VTE Plan Code Status Full code VTE Prophylaxis Plan VTE Prophylaxis will be ordered: Yes PG Care Time/CCT Total # of Minutes Spent Total Time Spent with Patient: Total time spent is greater than 50% in coordination of care (as documented) at patient's floor/unit and/or counseling patient: Coding Level of Care Code 76106 INT INP/OBS CARE 3/75MIN Diagnoses Thrush of mouth and esophagus B37.81; B37.0 Acute peptic ulcer of stomach K25.3 Gastric ulcer chronicity: acute H. pylori infection A04.8 WALDO (acute kidney injury) N17.9 (2) Gastric peptic ulcer Gastric ulcer chronicity: acute Qualified Code(s): K25.3 - Acute gastric ulcer without hemorrhage or perforation
[2024-12-18] MEDS: FLUCONAZOLE 200 MG/100 ML BAG IV ONE (21:14)
[2024-12-18] MEDS: SODIUM CHLORIDE 0.9% 1,000 ML IV SCH (21:16)
[2024-12-18] MEDS: FLUCONAZOLE 100 MG TAB PO ONE (21:20)
[2024-12-18 21:30] LABS: Magnesium 1.3 mg/dl (1.7-2.4)
[2024-12-19] MEDS ORDERED: LIDOCAINE 5% 1 PATCH TD PRN (00:04)
[2024-12-19] MEDS: CLOTRIMAZOLE 10 MG TROCHE BUCCAL SCH (00:22)
[2024-12-19] MEDS: HEPARIN SOD 5,000 UNIT/0.5 ML VIAL SQ SCH (00:22)
[2024-12-19 01:46] LABS: Anion Gap 14.0 (3-11); Blood Urea Nitrogen 23.0 mg/dl (6-23); Calcium 9.1 mg/dl (8.6-10.3); Carbon Dioxide 29.0 mmol/L (21-32); Chloride 94.0 mmol/L (98-107); Creatinine Clr Calc Pharmacy 29.0 ml/min; Glucose 113.0 mg/dl (70-99(Fasting)); Potassium 2.7 mmol/L (3.5-5.1); Sodium 137.0 mmol/L (136-145)
[2024-12-19 04:59] LABS: Anion Gap 15.0 (3-11); Blood Urea Nitrogen 22.0 mg/dl (6-23); Calcium 8.7 mg/dl (8.6-10.3); Carbon Dioxide 28.0 mmol/L (21-32); Chloride 95.0 mmol/L (98-107); Creatinine Clr Calc Pharmacy 30.5 ml/min; Glucose 109.0 mg/dl (70-99(Fasting)); Potassium 2.7 mmol/L (3.5-5.1); Sodium 138.0 mmol/L (136-145)
[2024-12-19 05:00] LABS: Albumin Level 2.8 gm/dl (3.4-5.0); Anion Gap 15.0 (3-11); Blood Urea Nitrogen 22.0 mg/dl (6-23); Calcium 8.7 mg/dl (8.6-10.3); Carbon Dioxide 28.0 mmol/L (21-32); Chloride 96.0 mmol/L (98-107); Creatinine Clr Calc Pharmacy 30.7 ml/min; Glucose 110.0 mg/dl (70-99(Fasting)); Magnesium 1.3 mg/dl (1.7-2.4); Potassium 2.7 mmol/L (3.5-5.1); Sodium 139.0 mmol/L (136-145)
[2024-12-19] MEDS: FLUCONAZOLE 100 MG/50 ML BAG IV SCH (07:43)
[2024-12-19] MEDS: PANTOprazole 40 MG/10 ML SYR IV SCH (07:50)
[2024-12-19] MEDS ORDERED: FLUCONAZOLE 100 MG TAB PO SCH (09:00)
[2024-12-19 09:07] LABS: Anion Gap 13.0 (3-11); Blood Urea Nitrogen 21.0 mg/dl (6-23); Calcium 8.7 mg/dl (8.6-10.3); Carbon Dioxide 30.0 mmol/L (21-32); Chloride 97.0 mmol/L (98-107); Creatinine Clr Calc Pharmacy 32.2 ml/min; Glucose 103.0 mg/dl (70-99(Fasting)); Potassium 2.7 mmol/L (3.5-5.1); Sodium 140.0 mmol/L (136-145)
[2024-12-19] MEDS: MAGNESIUM SULFATE / D5W 1 GM/100 ML BAG IV SCH (09:28)
--- NOTE | 2024-12-19 10:01 | Gastrointestinal Consultation ---
Date of Consultation December 19, 2024 Assessment & Plan (1) Thrush of mouth and esophagus: 69 year old female with history of HTN, T2DM, hypertriglyceridemia, HLD, hypothyroidism, spondylosis of lumbar region, polycythemia, and vitamin B12 deficiency admitted w/ decreased oral intake 1. Oral thrush - Continue w/ treatment - Treat empirically for esophageal nubia - Fluconazole 400 mg orally on day 1 then 200 mg daily for 21 days 2. History of H.Pylori - Completed Quad therapy - submit a stool study to ensure eradication - This will need to be completed two months after the antibiotic course - You must be off PPI therapy for 14 days. 3. History of gastric ulcers - Recall EGD 01/01/25 - Continue Pantoprazole 40 mg twice daily 4. Colon cancer screening - Wants to discuss with her daughter - Concern about prep/safety given L1 compression fx I spent a total of 45 minutes on the date of service in review of patient's record, and previously obtained information in person and appropriate medical visit, discussion and education of plan, with patient and/or caregiver, placing orders for tests/referral/procedures as medically necessary and documentation of pertinent clinical information in patient's medical records for their visit today. Supervising Physician Co-Signing Physician Notes Patient seen at the bedside. Agree with notes as outlined above. Talk with her daughter by phone. Seems to be eating a little bit better with treatment of thrush. Patient did not have gastric outlet obstruction at the time of her last endoscopy. At this point if she continues to do better with management and treatment of her thrush she can be discharged and go ahead with her planned outpatient endoscopy for follow-up of gastric ulcers later this month. History of Present Illness Reason for Consultation: Thrush, H. pylori PUD Requesting Physician: Cheyanne Gonzalez MD Attending Physician: Cheyanne Gonzalez MD History of Present Illness 69 year old female with history of HTN, T2DM, hypertriglyceridemia, HLD, hypothyroidism, spondylosis of lumbar region, polycythemia, and vitamin B12 deficiency admitted through the ED w/ decreased oral intake - GI was asked to evaluate for "Thrush, H. pylori PUD." Attempted to use translation IPAD however, unable to connect to a welsh automotive hardware engineer despite three attempts. No family at bedside. History limited due to language barrier. Will attempt additional history of afternoon rounds. She denies abd pain. Reports no appetite. Endorses infection in her mouth. She denies painful or difficutly swallowing to me. She completed therapy for H.Pylori She continues on PPI CTAP 2024: Liver: Unremarkable. Gallbladder and bile ducts: Postop changes prior cholecystectomy. No ductal dilation. Pancreas: Unremarkable. No ductal dilation. Spleen: Unremarkable. No splenomegaly.Stomach and bowel: Diverticulosis without evidence of diverticulitis. No obstruction. No findings to suggest acute appendicitis. Intraperitoneal space: Unremarkable. No free air. No significant fluid collection. Pathology 2024: FINAL DIAGNOSIS Stomach, ulcer, biopsy: - Ulcer. Chronic active gastritis. - Helicobacter pylori immunohistochemistry: Positive. - Focal intestinal metaplasia. Negative for dysplasia. - No tumor identified. - Clinical correlation is recommended. EGD 2024: 2 large cratered ulcers 3 x 3 and 2 x 2 cm identified in the prepyloric area. Appearance is benign. Base was clear without stigmata of bleeding. Biopsies were done both ulcers submitted for histology and H. pylori. - No significant retained food in the stomach. However may be a component of delayed gastric emptying. - Normal esophagus. - Normal examined duodenum. - No specimens collected. Family history of GI malignancy: none Allergies Allergy/AdvReac Type Severity Reaction Status Date / Time No Known Allergies Allergy Verified 12/18/24 18:38 Home Medications Medication Instructions Recorded Confirmed Type cholecalciferol (vitamin D3) 125 5,000 unit PO QAM 02/09/18 12/18/24 History mcg (5,000 unit) tablet (Vitamin D3) mecobalamin (vitamin B12) 1,000 1,000 mcg PO QAM 02/12/20 12/18/24 History mcg chewable tablet aspirin 81 mg tablet,delayed 81 mg PO DAILY 90 days #90 tabs 01/01/21 12/18/24 Rx release fenofibrate nanocrystallized 145 145 mg PO QAM #90 tabs 07/01/24 12/18/24 Rx mg tablet (Tricor) atorvastatin 20 mg tablet 20 mg PO HS #90 tabs 08/10/24 12/18/24 Rx metformin 500 mg tablet 1,000 mg (2 x 500 mg) PO BID #360 08/10/24 12/18/24 Rx tabs furosemide 40 mg tablet 40 mg PO DAILY PRN edema #30 tabs 08/28/24 12/18/24 Rx empagliflozin 10 mg tablet 10 mg PO DAILY #90 tabs 09/03/24 12/18/24 Rx (Jardiance) acetaminophen 325 mg tablet (Pain 650 mg (2 x 325 mg) PO Q6H PRN 10/27/24 12/18/24 Rx Relief (acetaminophen)) fever or pain #60 tabs calcitonin (salmon) 200 1 spray NA DAILY #3.7 mL 10/27/24 12/18/24 Rx unit/actuation nasal spray lidocaine 4 % topical patch 1 patch topical DAILY PRN pain #30 10/27/24 12/18/24 Rx ea metoprolol succinate 50 mg 25 mg PO QAM 11/09/24 12/18/24 History tablet,extended release 24 hr pantoprazole 40 mg tablet,delayed 40 mg PO BID #60 tabs 11/29/24 12/18/24 Rx release (Protonix) ondansetron 4 mg disintegrating 4 mg PO Q8H PRN nausea and 12/13/24 12/18/24 Rx tablet vomiting #14 tabs Patient History Medical History Polycythemia F/U DR SANDHU Obesity Stage III chronic kidney disease F/U PCP Hypothyroidism Diabetes mellitus, type 2 NIDDM Hyperlipidemia Hypertension Surgical History History of colonoscopy Status post lumbar surgery History of spinal fusion L4-S1 Posterior Lumbar Decompression/Fusion: 10/02/18: Grade 2 view, MAC#3, ETT 7.0 at [facility] H/O tubal ligation S/P left knee arthroscopy Hx laparoscopic cholecystectomy Family History Mother Hypertension Father Gastric ulcer Grandmother Cirrhosis Denies family history of Ovarian cancer Prostate cancer Myocardial infarction Breast cancer Colorectal cancer Social History Smoking Status: Never smoker Second Hand Exposure: No; Do You Dip or Chew Tobacco: No; Tobacco Cessation Education Requested by Patient: No Hx Alcohol Use: No Hx Substance Use: No Preferred Language: Montenegrin Communication Ability: Effective Communication Ability Comment: Needs automotive hardware engineer Communication Tools: IPad Visual Impairment: Partially Limited Hearing Ability: Normal Ornamental Ironworker Required: Yes Beliefs That Will Affect Care: None marital status: Current Living Situation: Spouse Current Living Situation Comment: son arabella lives with her and current occupational status: retired How many Children do You have: 4 How many Children do You have Comment: 2 boy 2 girl Other Information That Helps Us Care for You: No Feels Safe at Home: Yes Safety Concerns: Feels Safe At This Time Childhood Exposure to Second-Hand Smoke: No Diet: regular during the past year weight has: remained stable Dental Care, Regularly: No Physical Activity Frequency: Daily Seatbelt Use: always Sunscreen Use: No Assistive Devices: Walker Physical Exam Constitutional: WD/WN, vitals as above Respiratory: normal respiratory effort, lungs clear to auscultation Cardiovascular: Rate/Rhythm: regular rate and regular rhythm Gastrointestinal (Abdomen): normal bowel sounds, soft, nontender, no hepatosplenomegaly Skin: no rashes, warm and dry Results & Data Vital Signs (Past 12 Hours) Vital Signs Temp Pulse Pulse Resp BP BP Pulse Ox 12/19/24 07:48 98.1 F 75 19 111/62 92 12/19/24 00:08 12/19/24 00:08 98.1 F 102 H 16 143/81 H 93 12/18/24 23:38 76 20 112/71 100 12/18/24 22:30 74 21 111/57 L 99 12/18/24 22:00 72 20 107/63 100 O2 Del Method 12/19/24 07:48 Room Air 12/19/24 00:08 Room Air 12/19/24 00:08 Room Air 12/18/24 23:38 12/18/24 22:30 Room Air 12/18/24 22:00 Room Air Laboratory Results 12/19/24 12/19/24 12/19/24 Range/Units 08:22 04:21 04:21 WBC (4.8-10.8) K/ul RBC (4.20-5.40) M/uL Hgb (12.0-16.0) g/dl Hct (37.0-47.0) % MCV (80.0-100.0) fL MCH (25.0-34.0) pg MCHC (32.0-36.0) g/dL RDW Std Deviation (36.4-46.3) fL RDW Coeff of Suleman (11.5-14.5) % Plt Count (130-400) K/uL MPV (9.4-12.4) fL Immature Gran % (Auto) % Neut % (Auto) % Lymph % (Auto) % [place] % (Auto) % Eos % (Auto) % Baso % (Auto) % Neut # (Auto) (1.40-6.50) K/uL Lymph # (Auto) (1.20-3.40) K/uL [place] # (Auto) (0.11-0.59) K/uL Eos # (Auto) (0.00-0.50) K/uL Baso # (Auto) (0.00-0.20) K/uL Immature Gran # (Auto) (0.01-0.20) K/uL Sodium 140 (136-145) mmol/L Potassium 2.7 L (3.5-5.1) mmol/L Chloride 97 L (98-107) mmol/L Carbon Dioxide 30 (21-32) mmol/L Anion Gap 13 H (3-11) BUN 21 (6-23) mg/dl Creatinine 1.61 H (0.6-1.2) mg/dl Est Cr Clr Drug Dosing 32.2 eGFR 34.01 BUN/Creatinine Ratio 13.0 (10-20) Glucose 103 H 110 H (70-99(Fasting)) mg/dl Calcium 8.7 8.7 8.7 (8.6-10.3) mg/dl Phosphorus 3.1 (2.5-4.9) mg/dl Magnesium 1.3 L (1.7-2.4) mg/dl Total Bilirubin (0.2-1.0) mg/dl AST (13-39) U/L ALT (7-52) U/L Alkaline Phosphatase (34-104) U/L Total Protein (6.0-8.3) gm/dl Albumin 2.8 L (3.4-5.0) gm/dl Globulin (2.5-4.0) gm/dl Albumin/Globulin Ratio (0.9-2) Lipase (11-82) U/L 12/19/24 12/19/24 12/19/24 Range/Units 04:21 04:21 04:21 WBC (4.8-10.8) K/ul RBC (4.20-5.40) M/uL Hgb (12.0-16.0) g/dl Hct (37.0-47.0) % MCV (80.0-100.0) fL MCH (25.0-34.0) pg MCHC (32.0-36.0) g/dL RDW Std Deviation (36.4-46.3) fL RDW Coeff of Suleman (11.5-14.5) % Plt Count (130-400) K/uL MPV (9.4-12.4) fL Immature Gran % (Auto) % Neut % (Auto) % Lymph % (Auto) % [place] % (Auto) % Eos % (Auto) % Baso % (Auto) % Neut # (Auto) (1.40-6.50) K/uL Lymph # (Auto) (1.20-3.40) K/uL [place] # (Auto) (0.11-0.59) K/uL Eos # (Auto) (0.00-0.50) K/uL Baso # (Auto) (0.00-0.20) K/uL Immature Gran # (Auto) (0.01-0.20) K/uL Sodium (136-145) mmol/L Potassium (3.5-5.1) mmol/L Chloride (98-107) mmol/L Carbon Dioxide (21-32) mmol/L Anion Gap (3-11) BUN (6-23) mg/dl Creatinine (0.6-1.2) mg/dl Est Cr Clr Drug Dosing 30.7 eGFR 32.09 31.86 BUN/Creatinine Ratio 13.0 12.9 (10-20) Glucose 109 H (70-99(Fasting)) mg/dl Calcium (8.6-10.3) mg/dl Phosphorus (2.5-4.9) mg/dl Magnesium (1.7-2.4) mg/dl Total Bilirubin (0.2-1.0) mg/dl AST (13-39) U/L ALT (7-52) U/L Alkaline Phosphatase (34-104) U/L Total Protein (6.0-8.3) gm/dl Albumin (3.4-5.0) gm/dl Globulin (2.5-4.0) gm/dl Albumin/Globulin Ratio (0.9-2) Lipase (11-82) U/L 12/19/24 12/19/24 12/19/24 Range/Units 04:21 04:21 04:21 WBC (4.8-10.8) K/ul RBC (4.20-5.40) M/uL Hgb (12.0-16.0) g/dl Hct (37.0-47.0) % MCV (80.0-100.0) fL MCH (25.0-34.0) pg MCHC (32.0-36.0) g/dL RDW Std Deviation (36.4-46.3) fL RDW Coeff of Suleman (11.5-14.5) % Plt Count (130-400) K/uL MPV (9.4-12.4) fL Immature Gran % (Auto) % Neut % (Auto) % Lymph % (Auto) % [place] % (Auto) % Eos % (Auto) % Baso % (Auto) % Neut # (Auto) (1.40-6.50) K/uL Lymph # (Auto) (1.20-3.40) K/uL [place] # (Auto) (0.11-0.59) K/uL Eos # (Auto) (0.00-0.50) K/uL Baso # (Auto) (0.00-0.20) K/uL Immature Gran # (Auto) (0.01-0.20) K/uL Sodium (136-145) mmol/L Potassium (3.5-5.1) mmol/L Chloride (98-107) mmol/L Carbon Dioxide (21-32) mmol/L Anion Gap 15 H (3-11) BUN 22 22 (6-23) mg/dl Creatinine 1.69 H 1.70 H (0.6-1.2) mg/dl Est Cr Clr Drug Dosing 30.5 eGFR BUN/Creatinine Ratio (10-20) Glucose (70-99(Fasting)) mg/dl Calcium (8.6-10.3) mg/dl Phosphorus (2.5-4.9) mg/dl Magnesium (1.7-2.4) mg/dl Total Bilirubin (0.2-1.0) mg/dl AST (13-39) U/L ALT (7-52) U/L Alkaline Phosphatase (34-104) U/L Total Protein (6.0-8.3) gm/dl Albumin (3.4-5.0) gm/dl Globulin (2.5-4.0) gm/dl Albumin/Globulin Ratio (0.9-2) Lipase (11-82) U/L 12/19/24 12/19/24 12/19/24 Range/Units 04:21 04:21 04:21 WBC (4.8-10.8) K/ul RBC (4.20-5.40) M/uL Hgb (12.0-16.0) g/dl Hct (37.0-47.0) % MCV (80.0-100.0) fL MCH (25.0-34.0) pg MCHC (32.0-36.0) g/dL RDW Std Deviation (36.4-46.3) fL RDW Coeff of Suleman (11.5-14.5) % Plt Count (130-400) K/uL MPV (9.4-12.4) fL Immature Gran % (Auto) % Neut % (Auto) % Lymph % (Auto) % [place] % (Auto) % Eos % (Auto) % Baso % (Auto) % Neut # (Auto) (1.40-6.50) K/uL Lymph # (Auto) (1.20-3.40) K/uL [place] # (Auto) (0.11-0.59) K/uL Eos # (Auto) (0.00-0.50) K/uL Baso # (Auto) (0.00-0.20) K/uL Immature Gran # (Auto) (0.01-0.20) K/uL Sodium (136-145) mmol/L Potassium 2.7 L (3.5-5.1) mmol/L Chloride 96 L 95 L (98-107) mmol/L Carbon Dioxide 28 28 (21-32) mmol/L Anion Gap 15 H (3-11) BUN (6-23) mg/dl Creatinine (0.6-1.2) mg/dl Est Cr Clr Drug Dosing eGFR BUN/Creatinine Ratio (10-20) Glucose (70-99(Fasting)) mg/dl Calcium (8.6-10.3) mg/dl Phosphorus (2.5-4.9) mg/dl Magnesium (1.7-2.4) mg/dl Total Bilirubin (0.2-1.0) mg/dl AST (13-39) U/L ALT (7-52) U/L Alkaline Phosphatase (34-104) U/L Total Protein (6.0-8.3) gm/dl Albumin (3.4-5.0) gm/dl Globulin (2.5-4.0) gm/dl Albumin/Globulin Ratio (0.9-2) Lipase (11-82) U/L 12/19/24 12/19/24 12/19/24 Range/Units 04:21 04:21 01:10 WBC (4.8-10.8) K/ul RBC (4.20-5.40) M/uL Hgb (12.0-16.0) g/dl Hct (37.0-47.0) % MCV (80.0-100.0) fL MCH (25.0-34.0) pg MCHC (32.0-36.0) g/dL RDW Std Deviation (36.4-46.3) fL RDW Coeff of Suleman (11.5-14.5) % Plt Count (130-400) K/uL MPV (9.4-12.4) fL Immature Gran % (Auto) % Neut % (Auto) % Lymph % (Auto) % [place] % (Auto) % Eos % (Auto) % Baso % (Auto) % Neut # (Auto) (1.40-6.50) K/uL Lymph # (Auto) (1.20-3.40) K/uL [place] # (Auto) (0.11-0.59) K/uL Eos # (Auto) (0.00-0.50) K/uL Baso # (Auto) (0.00-0.20) K/uL Immature Gran # (Auto) (0.01-0.20) K/uL Sodium 139 138 137 (136-145) mmol/L Potassium 2.7 L 2.7 L D (3.5-5.1) mmol/L Chloride 94 L (98-107) mmol/L Carbon Dioxide 29 (21-32) mmol/L Anion Gap 14 H (3-11) BUN 23 (6-23) mg/dl Creatinine 1.79 H (0.6-1.2) mg/dl Est Cr Clr Drug Dosing 29.0 eGFR 29.95 BUN/Creatinine Ratio 12.8 (10-20) Glucose 113 H (70-99(Fasting)) mg/dl Calcium 9.1 (8.6-10.3) mg/dl Phosphorus (2.5-4.9) mg/dl Magnesium (1.7-2.4) mg/dl Total Bilirubin (0.2-1.0) mg/dl AST (13-39) U/L ALT (7-52) U/L Alkaline Phosphatase (34-104) U/L Total Protein (6.0-8.3) gm/dl Albumin (3.4-5.0) gm/dl Globulin (2.5-4.0) gm/dl Albumin/Globulin Ratio (0.9-2) Lipase (11-82) U/L /14/25 Range/Units Unknown WBC 10.44 (4.8-10.8) K/ul RBC 5.90 H (4.20-5.40) M/uL Hgb 17.4 H (12.0-16.0) g/dl Hct 52.2 H (37.0-47.0) % MCV 88.5 (80.0-100.0) fL MCH 29.5 (25.0-34.0) pg MCHC 33.3 (32.0-36.0) g/dL RDW Std Deviation 48.7 H (36.4-46.3) fL RDW Coeff of Suleman 15.5 H (11.5-14.5) % Plt Count 338 (130-400) K/uL MPV 10.7 (9.4-12.4) fL Immature Gran % (Auto) 1.2 % Neut % (Auto) 71.9 % Lymph % (Auto) 13.6 % [place] % (Auto) 12.4 % Eos % (Auto) 0.2 % Baso % (Auto) 0.7 % Neut # (Auto) 7.51 H (1.40-6.50) K/uL Lymph # (Auto) 1.42 (1.20-3.40) K/uL [place] # (Auto) 1.29 H (0.11-0.59) K/uL Eos # (Auto) 0.02 (0.00-0.50) K/uL Baso # (Auto) 0.07 (0.00-0.20) K/uL Immature Gran # (Auto) 0.13 (0.01-0.20) K/uL Sodium 136 (136-145) mmol/L Potassium 3.5 (3.5-5.1) mmol/L Chloride 87 L (98-107) mmol/L Carbon Dioxide 31 (21-32) mmol/L Anion Gap 18 H (3-11) BUN 23 (6-23) mg/dl Creatinine 1.90 H (0.6-1.2) mg/dl Est Cr Clr Drug Dosing Not Reportable eGFR 27.88 BUN/Creatinine Ratio 12.1 (10-20) Glucose 125 H (70-99(Fasting)) mg/dl Calcium 10.5 H (8.6-10.3) mg/dl Phosphorus (2.5-4.9) mg/dl Magnesium 1.3 L (1.7-2.4) mg/dl Total Bilirubin 1.1 H (0.2-1.0) mg/dl AST 30 (13-39) U/L ALT 17 (7-52) U/L Alkaline Phosphatase 91 (34-104) U/L Total Protein 7.4 (6.0-8.3) gm/dl Albumin 4.1 (3.4-5.0) gm/dl Globulin 3.3 (2.5-4.0) gm/dl Albumin/Globulin Ratio 1.2 (0.9-2) Lipase 92 H (11-82) U/L PG Care Time/CCT Total # of Minutes Spent Total Time Spent with Patient: Total time spent is greater than 50% in coordination of care (as documented) at patient's floor/unit and/or counseling patient: Coding Level of Care Code 55851 INT INP/OBS CARE 1/40MIN Diagnoses Thrush of mouth and esophagus B37.81; B37.0
[2024-12-19] MEDS: POTASSIUM CHLORIDE PWD 20 MEQ PACK PO SCH (13:20)
[2024-12-19 13:38] LABS: Anion Gap 15.0 (3-11); Calcium 8.8 mg/dl (8.6-10.3); Carbon Dioxide 26.0 mmol/L (21-32); Chloride 97.0 mmol/L (98-107); Potassium 2.8 mmol/L (3.5-5.1); Sodium 138.0 mmol/L (136-145)
[2024-12-19 13:44] LABS: Blood Urea Nitrogen 21.0 mg/dl (6-23); Creatinine Clr Calc Pharmacy 32.4 ml/min; Glucose 139.0 mg/dl (70-99(Fasting))
[2024-12-19] MEDS: POTASSIUM CHLORIDE CRTAB 20 MEQ TABCR PO STA (15:05)
[2024-12-19] MEDS: POLYETHYLENE (MIRALAX) 17 GM PACK PO SCH (16:45)
[2024-12-19 18:09] LABS: Anion Gap 12.0 (3-11); Blood Urea Nitrogen 19.0 mg/dl (6-23); Calcium 9.2 mg/dl (8.6-10.3); Carbon Dioxide 30.0 mmol/L (21-32); Chloride 96.0 mmol/L (98-107); Creatinine Clr Calc Pharmacy 37.1 ml/min; Glucose 122.0 mg/dl (70-99(Fasting)); Potassium 3.0 mmol/L (3.5-5.1); Sodium 138.0 mmol/L (136-145)
--- NOTE | 2024-12-19 18:19 | Hospitalist Progress Note ---
Date of Service December 19, 2024 Assessment & Plan (1) Thrush of mouth and esophagus: (2) Gastric peptic ulcer: (3) H. pylori infection: (4) WALDO (acute kidney injury): Plan The patient is a 69-year-old female with a past medical history including chronic generalized pain, gastric peptic ulcer secondary to H. pylori, L1 vertebral compression fracture, sacroiliitis, lumbar postlaminectomy syndrome, hypertension, hyperlipidemia, hypothyroidism, polycythemia vera, fatty liver, and vitamin B12 deficiency. The patient is a primarily American-speaking female, initially accompanied to the emergency department by her daughter, who acted as virtual classroom manager for the ED, refusing formal translation service for the patient. Her daughter reports that the patient was doing better with oral intake after completing recent treatment for H. pylori, that was diagnosed during hospitalization from 11/26-12/01/2024. However, over the past week patient has had decreased oral intake again, and has become more lethargic. There are stressors at home, with patient's being very ill with Parkinson's disease. The daughter feels there may be some element of mental health contributing to her decreased appetite and eating issues. Daughter had left by the time the patient was being evaluated by the hospitalist service, however, I did speak with her daughter over the phone and confirmed that information. I also notified the daughter that her mother, the patient, had a pretty significant case of thrush, likely had yeast esophagitis, which could contribute significantly to her decreased oral intake. The patient will be admitted to the [facility] hospitalist service for further evaluation and treatment. ##Thrush of mouth and esophagus -s/o quad therapy for H.Pylori -Clotrimazole atrocious, to dissolve the mouth 5 times per day for 5 days -Fluconazole 200 mg IV now, and 200 mg IV daily -reports no difficulty swallowing this am, advanced to clear liquids -Acetaminophen 1 g IV every 8 hours as needed for mild pain or fever -Pantoprazole 40 mg IV daily -NSS at 1.5 mL/h x 2 L -GI consult ##H. pylori gastric peptic ulcer disease -completed full course of quad therapy -GI consult ##Acute kidney injury -Creatinine 1.90 on admission>1.61, 1.40 -Status post 1 L of LR in the ED -Placed on NSS at 125 mL/h x 2 L -drinking and tolerating CL, trend labs ##hypokalemia -serial BMPs -K 2.7, 3.0 -KCL 20meq po TID (attempted powder and could not tolerate, switched to pills with success) ##hypomagnesemia -Mg level 1.3 -replete with Mag 2grams IV ##Hyperlipidemia -Hold atorvastatin and fenofibrate for now ##Hypertension -normotensive -Hold aspirin, metoprolol succinate ##Diabetes mellitus -Hold metformin and empagliflozin -glucose stable on admission -trend morning labs for surveillance and introduction of SS if needed Admission and Anticipated Discharge Date Admission Date: December 18, 2024 Subjective Patient resting in bed this am. Beef Grinder used to communicate with patient due to American language of origin. States she has had anorexia over the course of the past week and when she looks at food it makes her sick. Reports some episodes of gagging up food recently with a poor appetite. She has vague mid- abdominal pain. She is s/p cholecystomy. Last moved bowels 3 days ago. Review of Systems Review of Systems: All systems reviewed & are unremarkable except as noted in Subjective Physical Exam Physical Exam: GENERAL APPEARANCE: A&O. Sitting comfortably on stretcher. NAD. SKIN: Normal color without rashes or lesions. Normal turgor. HEENT: Head AT/NC. Buccal mucosa is moist and pink. NECK: No jugular venous distention. No thyroid enlargement. There is no lymphadenopathy. HEART: RRR without m/g/r LUNGS: Normal inspiratory effort. CTA without w/r/r ABDOMEN: No guarding or rigidity. Normoactive BS in all four quadrants. Abdomen soft and NT. MSK: No bony gross/deformities throughout. ROM intact. EXTREMITIES: No edema, No peripheral cyanosis. Neuro: CN 2-12 grossly intact. No focal neuro deficits PSYCHIATRIC: Normal affect. Eye contact is good. Speech is normal rate and content. Responses are appropriate. Results & Data Results & Data Vital Signs (Past 12 Hours) Vital Signs Temp Pulse Pulse Resp BP Pulse Ox O2 Del Method 12/19/24 15:17 36.4 C L 101 H 18 113/71 97 Room Air 12/19/24 07:48 36.7 C 75 19 111/62 92 Room Air Laboratory Results labs reviewed PG Care Time/CCT Total # of Minutes Spent Total Time Spent with Patient: Total time spent is greater than 50% in coordination of care (as documented) at patient's floor/unit and/or counseling patient: Coding Level of Care Code 08963 SUB INP/OBS CARE 3/50MIN Diagnoses Thrush of mouth and esophagus B37.81; B37.0 Acute peptic ulcer of stomach K25.3 Gastric ulcer chronicity: acute H. pylori infection A04.8 WALDO (acute kidney injury) N17.9 (2) Gastric peptic ulcer Gastric ulcer chronicity: acute Qualified Code(s): K25.3 - Acute gastric ulcer without hemorrhage or perforation
[2024-12-19 21:09] LABS: Anion Gap 13.0 (3-11); Calcium 8.9 mg/dl (8.6-10.3); Carbon Dioxide 28.0 mmol/L (21-32); Chloride 97.0 mmol/L (98-107); Potassium 3.0 mmol/L (3.5-5.1); Sodium 138.0 mmol/L (136-145)
[2024-12-19] MEDS: POTASSIUM CHLORIDE CRTAB 20 MEQ TABCR PO SCH (21:10)
[2024-12-19] MEDS: REMOVE LIDODERM PATCH SCH (21:10)
[2024-12-19] MEDS: ACETAMINOPHEN 1,000 MG/100 ML VIAL IV PRN (21:14)
[2024-12-19 21:15] LABS: Blood Urea Nitrogen 18.0 mg/dl (6-23); Creatinine Clr Calc Pharmacy 41.9 ml/min; Glucose 118.0 mg/dl (70-99(Fasting))
[2024-12-19 23:10] LABS: Appearance Urine Clear (Clear); Bacteria Urine Automated None Seen (None Seen); Glucose Urine UA 3+ (Negative); RBC Urine Automated 0-2 /hpf (0-2); WBC Urine Automated 21-50 /hpf (0-5)
[2024-12-20 07:56] LABS: Albumin Level 2.7 gm/dl (3.4-5.0); Anion Gap 8.0 (3-11); Blood Urea Nitrogen 15.0 mg/dl (6-23); Calcium 9.0 mg/dl (8.6-10.3); Carbon Dioxide 31.0 mmol/L (21-32); Chloride 100.0 mmol/L (98-107); Creatinine Clr Calc Pharmacy 44.7 ml/min; Glucose 109.0 mg/dl (70-99(Fasting)); Magnesium 1.7 mg/dl (1.7-2.4); Potassium 3.3 mmol/L (3.5-5.1); Sodium 139.0 mmol/L (136-145)
--- NOTE | 2024-12-20 10:14 | Gastroenterology Progress Note ---
Date of Service December 20, 2024 Assessment & Plan (1) Thrush of mouth and esophagus: Plan: 69 year old female with history of HTN, T2DM, hypertriglyceridemia, HLD, hypothyroidism, spondylosis of lumbar region, polycythemia, and vitamin B12 deficiency admitted w/ decreased oral intake 1. Oral thrush - Continue w/ treatment and treat empirically for esophageal nubia - Fluconazole 400 mg orally on day 1 then 200 mg daily for 21 days - Advance diet as tolerated 2. History of H.Pylori - Completed Quad therapy - submit a stool study to ensure eradication - This will need to be completed two months after the antibiotic course - You must be off PPI therapy for 14 days. 3. History of gastric ulcers - Recall EGD 01/01/25 - Continue Pantoprazole 40 mg twice daily I spent a total of 40 minutes on the date of service in review of patient's record, and previously obtained information in person and appropriate medical visit, discussion and education of plan, with patient and/or caregiver, placing orders for tests/referral/procedures as medically necessary and documentation of pertinent clinical information in patient's medical records for their visit today. Admission and Anticipated Discharge Date Admission Date: December 18, 2024 Supervising Physician Co-Signing Physician Notes Eating without issues. GI signs off reconsult as needed. Patient should follow-up with her patient upper endoscopy to evaluate for peptic ulcer disease healing and exclusion of gastric outlet obstruction Subjective Feeling somewhat improved. Completed breakfast. No abd pain. No nausea/vomiting. Review of Systems Review of Systems: All other findings negative except as noted in HPI. Physical Exam Constitutional: WD/WN, vitals as above Respiratory: normal respiratory effort, lungs clear to auscultation Cardiovascular: Rate/Rhythm: regular rate and regular rhythm Gastrointestinal (Abdomen): normal bowel sounds, soft, nontender, no hepatosplenomegaly Skin: no rashes, warm and dry Results & Data Results & Data Vital Signs (Past 12 Hours) Vital Signs Temp Pulse Resp BP Pulse Ox O2 Del Method 12/20/24 07:28 98.6 F 80 18 124/77 94 Room Air 12/20/24 00:09 98.2 F 82 16 92/57 L 94 Room Air Laboratory Results 12/20/24 12/19/24 12/19/24 Range/Units 07:24 22:35 20:36 Sodium 139 138 (136-145) mmol/L Potassium 3.3 L 3.0 L (3.5-5.1) mmol/L Chloride 100 97 L (98-107) mmol/L Carbon Dioxide 31 28 (21-32) mmol/L Anion Gap 8 13 H (3-11) BUN 15 18 (6-23) mg/dl Creatinine 1.16 1.24 H (0.6-1.2) mg/dl Est Cr Clr Drug Dosing 44.7 41.9 ml/min eGFR 50.40 46.53 BUN/Creatinine Ratio 12.9 14.5 (10-20) Glucose 109 H 118 H (70-99(Fasting)) mg/dl Calcium 9.0 8.9 (8.6-10.3) mg/dl Phosphorus 2.3 L (2.5-4.9) mg/dl Magnesium 1.7 (1.7-2.4) mg/dl Albumin 2.7 L (3.4-5.0) gm/dl Urine Color Yellow Urine Appearance Clear (Clear) Urine pH 6.0 (4.5-7.5) Ur Specific Republic 1.019 (1.000-1.030) Urine Protein Trace H (Negative) Urine Glucose (UA) 3+ H (Negative) Urine Ketones 1+ H (Negative) Urine Blood Negative (Negative) Urine Nitrite Negative (Negative) Urine Bilirubin Negative (Negative) Urine Urobilinogen Negative (Negative) Ur Leukocyte Esterase 2+ H (Negative) Urine WBC (Auto) 21-50 H (0-5) /hpf Urine RBC (Auto) 0-2 (0-2) /hpf U Hyaline Cast (Auto) 3-5 H (0-2) /lpf U Epithel Cells (Auto) 3-5 H (0-2) /hpf Urine Bacteria (Auto) None Seen (None Seen) Urine Comment 12/19/24 12/19/24 Range/Units 16:48 12:46 Sodium 138 138 (136-145) mmol/L Potassium 3.0 L 2.8 L (3.5-5.1) mmol/L Chloride 96 L 97 L (98-107) mmol/L Carbon Dioxide 30 26 (21-32) mmol/L Anion Gap 12 H 15 H (3-11) BUN 19 21 (6-23) mg/dl Creatinine 1.40 H 1.60 H (0.6-1.2) mg/dl Est Cr Clr Drug Dosing 37.1 32.4 ml/min eGFR 40.22 34.27 BUN/Creatinine Ratio 13.6 13.1 (10-20) Glucose 122 H 139 H (70-99(Fasting)) mg/dl Calcium 9.2 8.8 (8.6-10.3) mg/dl Phosphorus (2.5-4.9) mg/dl Magnesium (1.7-2.4) mg/dl Albumin (3.4-5.0) gm/dl Urine Color Urine Appearance (Clear) Urine pH (4.5-7.5) Ur Specific Republic (1.000-1.030) Urine Protein (Negative) Urine Glucose (UA) (Negative) Urine Ketones (Negative) Urine Blood (Negative) Urine Nitrite (Negative) Urine Bilirubin (Negative) Urine Urobilinogen (Negative) Ur Leukocyte Esterase (Negative) Urine WBC (Auto) (0-5) /hpf Urine RBC (Auto) (0-2) /hpf U Hyaline Cast (Auto) (0-2) /lpf U Epithel Cells (Auto) (0-2) /hpf Urine Bacteria (Auto) (None Seen) Urine Comment PG Care Time/CCT Total # of Minutes Spent Total Time Spent with Patient: Total time spent is greater than 50% in coordination of care (as documented) at patient's floor/unit and/or counseling patient: Coding Level of Care Code 71005 SUB INP/OBS CARE 2/35MIN Diagnoses Thrush of mouth and esophagus B37.81; B37.0
[2024-12-20] MEDS ORDERED: SODIUM PHOSPHATE 3 MMOL/1 ML INFUSION IV STA (11:50)
[2024-12-20] MEDS: SODIUM PHOSPHATE 6 MMOL in SODIUM CHLORIDE 0.9% 100 ML IV ONE (12:25)
--- NOTE | 2024-12-20 17:58 | Hospitalist Progress Note ---
Date of Service December 20, 2024 Assessment & Plan (1) Thrush of mouth and esophagus: (2) Gastric peptic ulcer: (3) H. pylori infection: (4) WALDO (acute kidney injury): Plan The patient is a 69-year-old female with a past medical history including chronic generalized pain, gastric peptic ulcer secondary to H. pylori, L1 vertebral compression fracture, sacroiliitis, lumbar postlaminectomy syndrome, hypertension, hyperlipidemia, hypothyroidism, polycythemia vera, fatty liver, and vitamin B12 deficiency. The patient is a primarily Danish-speaking female, initially accompanied to the emergency department by her daughter, who acted as pole peeler for the ED, refusing formal translation service for the patient. Her daughter reports that the patient was doing better with oral intake after completing recent treatment for H. pylori, that was diagnosed during hospitalization from 11/26-12/01/2024. However, over the past week patient has had decreased oral intake again, and has become more lethargic. There are stressors at home, with patient's being very ill with Parkinson's disease. The daughter feels there may be some element of mental health contributing to her decreased appetite and eating issues. Daughter had left by the time the patient was being evaluated by the hospitalist service, however, I did speak with her daughter over the phone and confirmed that information. I also notified the daughter that her mother, the patient, had a pretty significant case of thrush, likely had yeast esophagitis, which could contribute significantly to her decreased oral intake. The patient will be admitted to the [facility] hospitalist service for further evaluation and treatment. ##Thrush of mouth and esophagus>possible etiology of lack of appetite -s/p quad therapy for H.Pylori -reports no difficulty swallowing this am, advanced to clear liquids -Acetaminophen 1 g IV every 8 hours as needed for mild pain or fever -Pantoprazole 40 mg IV daily -NSS at 1.5 mL/h x 2 L -GI consult, switched antifungal therapy per recommendations, Fluconazole 400 mg orally on day 1 (received) then 200 mg daily for 21 days ##H. pylori gastric peptic ulcer disease -completed full course of quad therapy -GI consult with rec to submit stool study outpatient to ensure eradication post 2 months of completion of abx treatment ##Acute kidney injury (resolved) -Creatinine 1.90 on admission>1.61, 1.40, 1.24, 1.16 -Status post 1 L of LR in the ED -Placed on NSS at 125 mL/h x 2 L -drinking and tolerating CL, advanced to regular diet, trend labs ##hypokalemia -trend BMP -K 2.7, 3.0, 3.3 -KCL 20meq po BID ##hypomagnesemia -Mg level 1.3 on arrival -repleted with Mag 2grams IV -Mg this am 1.7 ##Hyperlipidemia -Hold atorvastatin and fenofibrate for now ##Hypertension -normotensive -Hold aspirin, metoprolol succinate ##Diabetes mellitus -Hold metformin and empagliflozin -glucose stable on admission -trend morning labs for surveillance and introduction of SS if needed Dispo: d/c to rehab VTE proph: Heparin SQ Admission and Anticipated Discharge Date Admission Date: December 18, 2024 Subjective Ipad used as manager developmental due to [place] language being Danish. She reports she has had no nausea, emesis or feeling as though she does not want to eat. Tolerated clear liquids last evening and this am. Diet advanced and tolerated lunch eating 75% of tray. States she moved her bowels yesterday. Daughter updated and states she believes patient has been stressed taking care of her that has Parkinson's. Review of Systems Review of Systems: All systems reviewed & are unremarkable except as noted in Subjective Physical Exam Physical Exam: GENERAL APPEARANCE: A&O. Lying in bed comfortably. NAD. SKIN: Normal color without rashes or lesions. Normal turgor. HEENT: Head AT/NC. Buccal mucosa is moist and pink. NECK: No jugular venous distention. No thyroid enlargement. There is no lymphadenopathy. HEART: RRR without m/g/r LUNGS: Normal inspiratory effort. CTA without w/r/r ABDOMEN: No guarding or rigidity. Normoactive BS in all four quadrants. Abdomen soft and NT. MSK: No bony gross/deformities throughout. ROM intact. EXTREMITIES: No edema, No peripheral cyanosis. Neuro: CN 2-12 grossly intact. No focal neuro deficits PSYCHIATRIC: Normal affect. Eye contact is good. Speech is normal rate and content. Responses are appropriate. Results & Data Results & Data Vital Signs (Past 12 Hours) Vital Signs Temp Pulse Resp BP Pulse Ox O2 Del Method 12/20/24 14:51 36.8 C 88 18 111/75 95 Room Air 12/20/24 10:37 Room Air 12/20/24 07:28 37.0 C 80 18 124/77 94 Room Air Laboratory Results labs reviewed: BMP, Mg, Phos PG Care Time/CCT Total # of Minutes Spent Total Time Spent with Patient: Total time spent is greater than 50% in coordination of care (as documented) at patient's floor/unit and/or counseling patient: Coding Level of Care Code 17105 SUB INP/OBS CARE 3/50MIN Diagnoses Thrush of mouth and esophagus B37.81; B37.0 Acute peptic ulcer of stomach K25.3 Gastric ulcer chronicity: acute H. pylori infection A04.8 WALDO (acute kidney injury) N17.9 (2) Gastric peptic ulcer Gastric ulcer chronicity: acute Qualified Code(s): K25.3 - Acute gastric ulcer without hemorrhage or perforation
[2024-12-20] MEDS: POTASSIUM CHLORIDE CRTAB 20 MEQ TABCR PO SCH (20:27)
[2024-12-21] MEDS: FLUCONAZOLE 100 MG TAB PO SCH (08:03)
[2024-12-21 08:51] LABS: Albumin Level 2.9 gm/dl (3.4-5.0); Anion Gap 9.0 (3-11); Blood Urea Nitrogen 13.0 mg/dl (6-23); Calcium 9.1 mg/dl (8.6-10.3); Carbon Dioxide 29.0 mmol/L (21-32); Chloride 103.0 mmol/L (98-107); Creatinine Clr Calc Pharmacy 44.0 ml/min; Glucose 119.0 mg/dl (70-99(Fasting)); Magnesium 1.5 mg/dl (1.7-2.4); Potassium 3.9 mmol/L (3.5-5.1); Sodium 141.0 mmol/L (136-145)
[2024-12-21] MEDS: MAGNESIUM OXIDE 400 MG TAB PO SCH (10:21)
--- NOTE | 2024-12-21 11:45 | Hospitalist Progress Note ---
Date of Service December 21, 2024 Assessment & Plan (1) Thrush of mouth and esophagus: (2) Gastric peptic ulcer: (3) WALDO (acute kidney injury): Plan The patient is a 69-year-old female with a past medical history including chronic generalized pain, gastric peptic ulcer secondary to H. pylori, L1 vertebral compression fracture, sacroiliitis, lumbar postlaminectomy syndrome, hypertension, hyperlipidemia, hypothyroidism, polycythemia vera, fatty liver, and vitamin B12 deficiency. The patient is a primarily Nigerien-speaking female, initially accompanied to the emergency department by her daughter, who acted as market development executive for the ED, refusing formal translation service for the patient. Her daughter reports that the patient was doing better with oral intake after completing recent treatment for H. pylori, that was diagnosed during hospitalization from 11/26-12/01/2024. However, over the past week patient has had decreased oral intake again, and has become more lethargic. There are stressors at home, with patient's being very ill with Parkinson's disease. The daughter feels there may be some element of mental health contributing to her decreased appetite and eating issues. Daughter had left by the time the patient was being evaluated by the hospitalist service, however, I did speak with her daughter over the phone and confirmed that information. I also notified the daughter that her mother, the patient, had a pretty significant case of thrush, likely had yeast esophagitis, which could contribute significantly to her decreased oral intake. The patient will be admitted to the [facility] hospitalist service for further evaluation and treatment. ##Thrush of mouth and esophagus>possible etiology of lack of appetite -s/p quad therapy for H.Pylori -reports no difficulty swallowing this am, advanced to clear liquids -Acetaminophen 1 g IV every 8 hours as needed for mild pain or fever -Pantoprazole 40 mg IV daily -NSS at 1.5 mL/h x 2 L -GI consult, switched antifungal therapy per recommendations, Fluconazole 400 mg orally on day 1 (received) then 200 mg daily for 21 days -f/u with GI on d/c ##H. pylori gastric peptic ulcer disease -completed full course of quad therapy -GI consult with rec to submit stool study outpatient to ensure eradication post 2 months of completion of abx treatment ##Acute kidney injury (resolved) -Creatinine 1.90 on admission>1.61, 1.40, 1.24, 1.16, 1.18 -Status post 1 L of LR in the ED -Placed on NSS at 125 mL/h x 2 L -drinking and tolerating CL, advanced to regular diet, trend labs ##hypokalemia -trend BMP -K 2.7, 3.0, 3.3, 3.9 -KCL 20meq po BID ##hypomagnesemia -Mg level 1.3 on arrival -repleted with Mag 2grams IV -Mg this am 1.5 -Start Magnesium 400mg po BID ##hypophosphatemia -Phos 1.8, possibly due to refeeding -start oral Kphos ##Hyperlipidemia -Hold atorvastatin and fenofibrate for now ##Hypertension -normotensive -Hold aspirin, metoprolol succinate ##Diabetes mellitus -Hold metformin and empagliflozin -glucose stable on admission -trend morning labs for surveillance and introduction of SS if needed Dispo: PT assessment with rec for patient to return home with PT, CM to update daughter VTE proph: Heparin SQ Admission and Anticipated Discharge Date Admission Date: December 18, 2024 Subjective Patient seen in room this am sitting up in chair. Ipad used for interpretation due to [place] language being Nigerien. States she is doing well today. She has been eating and drinking with no nausea/vomiting. The feeling of looking at food and having an aversion to eating has dissipated. She does report mild, diffuse abdominal discomfort. She points to the middle of her abdomen when asked where her pain is located. Described as dull in nature. She was started on Miralax secondary to CTAP on admission revealing a large amount of formed stool throughout the colon. Patient states she is agreeable to go to rehab upon discharge. Spoke with daughter, Barbara at length. She states patient had been using too much glue for her dentures and this was impeding the patient's ability to eat at times and was possibly causing nausea as she feels the patient was possibly swallowing the glue. States the patient has not been sleeping well at night due to providing care for her ailing . Family is working on getting nursing care into the home for the patient's to assist with needs. Daughter also stated the patient has not been overly depressed or anxious and that she has just had moments of being overwhelmed due to helping care for her and due to lack of sleep. Patient's sister is able to provide assistance in the home if patient is not able to go to rehab with d/c home as patient's daughter that lives nearby [place]. Review of Systems Review of Systems: All systems reviewed & are unremarkable except as noted in Subjective Physical Exam Physical Exam: GENERAL APPEARANCE: A&O. Sitting comfortably in chair. NAD. SKIN: Normal color without rashes or lesions. Normal turgor. HEENT: Head AT/NC. Buccal mucosa is moist and pink. NECK: No jugular venous distention. No thyroid enlargement. There is no lymphadenopathy. HEART: RRR without m/g/r LUNGS: Normal inspiratory effort. CTA without w/r/r ABDOMEN: No guarding or rigidity. Normoactive BS in all four quadrants. Abdomen soft and NT. MSK: No bony gross/deformities throughout. ROM intact. EXTREMITIES: No edema, No peripheral cyanosis. Neuro: CN 2-12 grossly intact. No focal neuro deficits PSYCHIATRIC: Normal affect. Eye contact is good. Speech is normal rate and content. Responses are appropriate. Results & Data Results & Data Vital Signs (Past 12 Hours) Vital Signs Temp Pulse Resp BP Pulse Ox O2 Del Method 12/21/24 07:47 Room Air 12/21/24 07:35 36.8 C 76 16 117/75 93 Room Air Laboratory Results Labs reviewed: BMP, Phos, Mg PG Care Time/CCT Total # of Minutes Spent Total Time Spent with Patient: Total time spent is greater than 50% in coordination of care (as documented) at patient's floor/unit and/or counseling patient: Coding Level of Care Code 46878 SUB INP/OBS CARE 3/50MIN Diagnoses Thrush of mouth and esophagus B37.81; B37.0 Acute peptic ulcer of stomach K25.3 Gastric ulcer chronicity: acute WALDO (acute kidney injury) N17.9 (2) Gastric peptic ulcer Gastric ulcer chronicity: acute Qualified Code(s): K25.3 - Acute gastric ulcer without hemorrhage or perforation
[2024-12-21] MEDS: POT PHOSPHATE MONOBASIC W/ SOD TAB PO SCH (12:48)
[2024-12-21] MEDS: SENNA 8.6 MG TAB PO SCH (12:48)
[2024-12-22 07:07] VITALS: RESP 16
[2024-12-22 08:26] LABS: Anion Gap 9.0 (3-11); Blood Urea Nitrogen 9.0 mg/dl (6-23); Calcium 8.7 mg/dl (8.6-10.3); Carbon Dioxide 26.0 mmol/L (21-32); Chloride 106.0 mmol/L (98-107); Creatinine Clr Calc Pharmacy 46.3 ml/min; Glucose 120.0 mg/dl (70-99(Fasting)); Magnesium 1.2 mg/dl (1.7-2.4); Potassium 4.0 mmol/L (3.5-5.1); Sodium 141.0 mmol/L (136-145)
[2024-12-22] MEDS: MAGNESIUM SULFATE / D5W 1 GM/100 ML BAG IV SCH (08:58)
--- NOTE | 2024-12-22 13:54 | Hospitalist Progress Note ---
"<Statement entered by Cheyanne Gonzalez MD - 12/22/24 19:22> mag very low, added an addition gram IV replacement does have chronic hypomag and hypokalemia from low oral intake probable mild refeeding syndrome as these labs as well as phos fell mid- hospitalization once starting to eat note that B12 level was >1500 in August Date of Service December 22, 2024 Assessment & Plan (1) Thrush of mouth and esophagus: (2) Gastric peptic ulcer: (3) WALDO (acute kidney injury): Plan The patient is a 69-year-old female with a past medical history including chronic generalized pain, gastric peptic ulcer secondary to H. pylori, L1 vertebral compression fracture, sacroiliitis, lumbar postlaminectomy syndrome, hypertension, hyperlipidemia, hypothyroidism, polycythemia vera, fatty liver, and vitamin B12 deficiency. The patient is a primarily Guamanian-speaking female, initially accompanied to the emergency department by her daughter, who acted as mine expert for the ED, refusing formal translation service for the patient. Her daughter reports that the patient was doing better with oral intake after completing recent treatment for H. pylori, that was diagnosed during hospitalization from 11/26-12/01/2024. However, over the past week patient has had decreased oral intake again, and has become more lethargic. There are stressors at home, with patient's being very ill with Parkinson's disease. The daughter feels there may be some element of mental health contributing to her decreased appetite and eating issues. Daughter had left by the time the patient was being evaluated by the hospitalist service, however, I did speak with her daughter over the phone and confirmed that information. I also notified the daughter that her mother, the patient, had a pretty significant case of thrush, likely had yeast esophagitis, which could contribute significantly to her decreased oral intake. The patient will be admitted to the [facility] hospitalist service for further evaluation and treatment. ##Thrush of mouth and esophagus>possible etiology of lack of appetite -s/p quad therapy for H.Pylori -advanced to regular diet, tolerating without nausea, vomiting -Acetaminophen 1 g IV every 8 hours as needed for mild pain or fever -Pantoprazole 40 mg IV daily -NSS at 1.5 mL/h x 2 L (received) -GI consult, switched antifungal therapy per recommendations, Fluconazole 400 mg orally on day 1 (received) then 200 mg daily for 21 days -f/u with GI on d/c for repeat endoscopy ##H. pylori gastric peptic ulcer disease -completed full course of quad therapy -GI consult with rec to submit stool study outpatient to ensure eradication post 2 months of completion of abx treatment ##Acute kidney injury (resolved) -Creatinine 1.90 on admission>1.61, 1.40, 1.24, 1.16, 1.18. 1.12 -Status post 1 L of LR in the ED -Placed on NSS at 125 mL/h x 2 L -drinking and tolerating CL, advanced to regular diet, trend labs ##hypokalemia|hypomagnesemia|hypophosphatemia -trend BMP -Kphos supp, KCL supp, Mag supp -Mg this am 1.2>1GM IV X 3 doses ##Hyperlipidemia -Hold atorvastatin and fenofibrate for now ##Hypertension -normotensive -Hold aspirin, metoprolol succinate ##Diabetes mellitus -Hold metformin and empagliflozin -glucose stable on admission -trend morning labs for surveillance and introduction of SS if needed -glucose levels have been stable Dispo: rec for physical therapy per PT assessment, possible d/c tomorrow pending labs VTE proph: Heparin SQ Admission and Anticipated Discharge Date Admission Date: December 18, 2024 Subjective Patient resting in bed this am. Son present. She states she has been eating well with no c/o nausea or vomiting. Son relays concerns surrounding patient returning home. When she was last discharged from hospital she refused home PT. Her son believes patient needs structure compared to the hospital setting so she will eat. States he believes his mother has not been depressed or anxious, however he states if she were having those symptoms she would not disclose. Relayed to son that patient was not approved for rehab setting upon d/c as she had a PT assessment revealing she is safe to go home. Review of Systems Review of Systems: All systems reviewed & are unremarkable except as noted in Subjective Physical Exam Physical Exam: GENERAL APPEARANCE: A&O. Lying in bed. NAD. SKIN: Normal color without rashes or lesions.Normal turgor. HEENT: Head AT/NC. Buccal mucosa is moist and pink. NECK: No jugular venous distention. No thyroid enlargement. There is no lymphadenopathy. HEART: RRR without m/g/r LUNGS: Normal inspiratory effort. CTA without w/r/r. ABDOMEN: No guarding or rigidity. Normoactive BS in all four quadrants. Abdomen soft and NT. MSK: No bony gross/deformities throughout. ROM intact. EXTREMITIES: No edema, No peripheral cyanosis. Neuro: CN 2-12 grossly intact. No focal neuro deficits PSYCHIATRIC: Normal affect. Eye contact is good. Speech is normal rate and content. Responses are appropriate. Results & Data Results & Data Vital Signs (Past 12 Hours) Vital Signs Temp Pulse Resp BP Pulse Ox O2 Del Method 12/22/24 07:06 36.5 C 84 16 150/89 H 92 Room Air Laboratory Results Labs reviewed: BMP, Mg, Phos PG Care Time/CCT Total # of Minutes Spent Total Time Spent with Patient: Total time spent is greater than 50% in coordination of care (as documented) at patient's floor/unit and/or counseling patient: Coding Level of Care Code 93979 SUB INP/OBS CARE 2/35MIN Diagnoses Thrush of mouth and esophagus B37.81; B37.0 Acute peptic ulcer of stomach K25.3 Gastric ulcer chronicity: acute WALDO (acute kidney injury) N17.9 (2) Gastric peptic ulcer Gastric ulcer chronicity: acute Qualified Code(s): K25.3 - Acute gastric ulcer without hemorrhage or perforation"
[2024-12-23 07:25] VITALS: BP 123/80; PULSE 75; TEMP 98.4; O2SAT 95
[2024-12-23 08:42] LABS: Anion Gap 8.0 (3-11); Blood Urea Nitrogen 6.0 mg/dl (6-23); Calcium 8.7 mg/dl (8.6-10.3); Carbon Dioxide 24.0 mmol/L (21-32); Chloride 109.0 mmol/L (98-107); Creatinine Clr Calc Pharmacy 50.4 ml/min; Glucose 123.0 mg/dl (70-99(Fasting)); Magnesium 1.6 mg/dl (1.7-2.4); Potassium 3.9 mmol/L (3.5-5.1); Sodium 141.0 mmol/L (136-145)
--- NOTE | 2024-12-23 14:04 | Discharge Summary ---
"Discharge Summary Date of Service December 23, 2024 Principal Dx & Hospital Course #1 = Principal Diagnosis (1) Thrush of mouth and esophagus: (2) Gastric peptic ulcer: (3) WALDO (acute kidney injury): Plan The patient is a 69-year-old female with a past medical history including chronic generalized pain, gastric peptic ulcer secondary to H. pylori, L1 vertebral compression fracture, sacroiliitis, lumbar postlaminectomy syndrome, hypertension, hyperlipidemia, hypothyroidism, polycythemia vera, fatty liver, and vitamin B12 deficiency. The patient is a primarily [place]-speaking female, initially accompanied to the emergency department by her daughter, who acted as sales promotion representative for the ED, refusing formal translation service for the patient. Her daughter reports that the patient was doing better with oral intake after comple ting recent treatment for H. pylori, that was diagnosed during hospitalization from 11/26-12/01/2024. However, over the past week patient has had decreased oral intake again, and has become more lethargic. There are stressors at home, with patient's being very ill with Parkinson's disease. The daughter feels there may be some element of mental health contributing to her decreased appetite and eating issues. Daughter had left by the time the patient was being evaluated by the hospitalist service, however, I did speak with her daughter over the phone and confirmed that information. I also notified the daughter that her mother, the patient, had a pretty significant case of thrush, likely had yeast esophagitis, which could contribute significantly to her decreased oral intake. The patient will be admitted to the [facility] hospitalist service for further evaluation and treatment. Ruth has been without abdominal pain or any concerning GI symptoms during her stay. She ate all meals per nursing without n/v or anorexia. CTAP on admission with large amount of stool throughout colon. Miralax and Senna introduced with good results of bowel movements. She received oral fluconazole for treatment of her oral and suspected esophageal candidiasis with therapy duration recs from GI. She will be due for a recall EGD secondary to surveillance of gastric ulcers on 01/01, therefore follow up with GI upon d/c recommended. Spoke with patient's son at length on d/c as he felt she should go to rehab primarily for structure and relayed to him the cost of paying out of pocked for rehab. Patient demonstrated functional mobility task with use of RW with PT with rec to return home as she is safe with her sister coming into the home to assist and her daughter/son nearby. Patient is agreeable to d/c home with home PT that is already arranged for follow up. Patient is also agreeable to trial of Remeron to help stimulate appetite at home. ##Thrush of mouth and esophagus>possible etiology of lack of appetite -s/p quad therapy for H.Pylori -advanced to regular diet, tolerating without nausea, vomiting -Acetaminophen 1 g IV every 8 hours as needed for mild pain or fever -Pantoprazole 40 mg IV daily -NSS at 1.5 mL/h x 2 L (received) -GI consult, switched antifungal therapy per recommendations, Fluconazole 400 mg orally on day 1 (received) then 200 mg daily for 21 days -f/u with GI on d/c for repeat endoscopy -d/c on Diflucan 200mg on X 18 more days -d/c on Remeron 7.5mg po hs for appetite stimulation ##H. pylori gastric peptic ulcer disease -completed full course of quad therapy -GI consult with rec to submit stool study outpatient to ensure eradication post 2 months of completion of abx treatment ##Acute kidney injury (resolved) -Creatinine 1.90 on admission>1.61, 1.40, 1.24, 1.16, 1.18. 1.12, 1.03 -Status post 1 L of LR in the ED -Placed on NSS at 125 mL/h x 2 L -drinking and tolerating CL, advanced to regular diet, labs trended during stay ##hypokalemia|hypomagnesemia|hypophosphatemia -trend BMP -Kphos supp, KCL supp, Mag supp -repleted with IV Mag -Mg on d/c 1.7 -d/c on oral Mag ##Hyperlipidemia -resume atorvastatin and fenofibrate on d/c ##Hypertension -normotensive -resume daily ASA and metoprolol on d/c ##Diabetes mellitus -glucose stable on admission -trend morning labs for surveillance and introduction of SS if needed, no SS needed, fasting am labs reasonable -d/c on metformin and empagliflozin Dispo: rec for HH physical therapy per PT assessment, D/C today Admission HPI Per Admitting Provider The patient is a 69-year-old female with a past medical history including chronic generalized pain, gastric peptic ulcer secondary to H. pylori, L1 vertebral compression fracture, sacroiliitis, lumbar postlaminectomy syndrome, hypertension, hyperlipidemia, hypothyroidism, polycythemia vera, fatty liver, and vitamin B12 deficiency. The patient is a primarily [place]-speaking female, initially accompanied to the emergency department by her daughter, who acted as sales promotion representative for the ED, refusing formal translation service for the patient. Her daughter reports that the patient was doing better with oral intake after completing recent treatment for H. pylori, that was diagnosed during hospitalization from 11/26-12/01/2024. However, over the past week patient has had decreased oral intake again, and has become more lethargic. There are stressors at home, with patient's being very ill with Parkinson's disease. The daughter feels there may be some element of mental health contributing to her decreased appetite and eating issues. Daughter had left by the time the patient was being evaluated by the hospitalist service, however, I did speak with her daughter over the phone and confirmed that information. I also notified the daughter that her mother, the patient, had a pretty significant case of thrush, likely had yeast esophagitis, which could contribute significantly to her decreased oral intake. The patient will be admitted to the [facility] hospitalist service for further evaluation and treatment. Discharge Exam GENERAL APPEARANCE: A&O. Sitting up at the bedside. NAD. SKIN: Normal color without rashes or lesions. Normal turgor. HEENT: Head AT/NC. Buccal mucosa is moist and pink. NECK: No jugular venous distention. No thyroid enlargement. There is no lymphadenopathy. HEART: RRR without m/g/r LUNGS: Normal inspiratory effort. CTA without w/r/r ABDOMEN: No guarding or rigidity. Normoactive BS in all four quadrants. Abdomen soft and NT. MSK: No bony gross/deformities throughout. ROM intact. EXTREMITIES: No edema, No peripheral cyanosis. Neuro: CN 2-12 grossly intact. No focal neuro deficits PSYCHIATRIC: Normal affect. Eye contact is good. Speech is normal rate and content. Responses are appropriate. Discharge Plan Discharge Items Patient Disposition: Home - Self-Care Reason For Visit: THRUSH, H PYLOTI PUD, WALDO Discharge Diagnosis: Thrush of mouth and esophagus Condition on Discharge: Fair Activity: Resume your previous activity Bathing: No limitations Weightbearing: Full weightbearing Non-emergency contact: Primary Care Provider Call non-emergency contact if: you have any medication questions, your symptoms worsen and your pain is concerning for you Follow-up/Referrals: Serg Scruggs, DO [Physician] - (Please follow up as you need repeat EGD and possible colonoscopy) Scout Jung MD [Primary Care Provider] - 12/31/24 11:00 am Diet: Carb Consistent or DM2 Addtl Attending Provider Instructions: Ruth, You were admitted to the hospital for complaints of not eating and it was discovered you have a yeast infection in your mouth that may have been affecting your ability to eat. Please take all the medication that will be prescribed to you over the course of the next two weeks as it is important to complete the full course to eliminate the yeast in your mouth. You will be prescribed a new medication to help stimulate your appetite to take at bedtime. Home health will be coming to your home to help with physical therapy needs to strengthen you. Please follow you with gastroenterology as you need a repeat EGD to confirm the ulcers in your stomach have healed. Please follow up with your family doctor to have your lab work rechecked after discharge within on week. Medications: Your medication list has been reviewed and reconciled upon discharge to ensure accuracy and continuity of care. An updated list of all your medications is included with your hospital discharge paperwork. Please review this list closely, and make note of any changes. You were sent a few new medications to start at home. These medications have been sent to your pharmacy. The first one is called Diflucan. Take Diflucan 200mg once daily for the next 18 days. This is to treat the yeast infection in your mouth. The second one is called Remeron. This medication will help your appetite. Take it at bedtime as it may make you sleepy. The third one is magn esium. Take this medication twice a day to help keep you level normal. Take your medications as instructed; do not skip a dose of your medicines. Make sure all of your doctors know every medicine you are taking (including kxlk-nex-xglsgnn medicines, vitamins, and supplements). Call your primary care provider before taking any new medicines (including over- the-counter medicines, vitamins, and supplements), because some of these may interact with your current medications, or may make your symptoms worse. Tell your primary care provider if you cannot afford your medications. Activity: You can do normal everyday activities as your body allows. Take rest breaks if you feel tired. Do not overexert. Stop activity if you have pain, shortness of breath or feel dizzy. Follow-up appointments: Make an appointment with your primary care physician within one week of discharge. A copy of this summary will be sent to them. Every time you see your primary care physician, or any other doctor, bring your medication list, and a list of questions. CONTACT YOUR PRIMARY CARE PROVIDER if you experience any of the following: Shortness of breath or difficulty breathing Fevers or chills Feeling tired with normal activity or experiencing dizziness or fainting Difficulty following your treatment plan, or difficulty taking medications CALL 911 OR GO TO THE EMERGENCY DEPARTMENT if you experience any of the following: Severe abdominal pain or nausea/vomiting Severe chest pain, or chest pain that radiates (moves) to your jaw or arm Sudden, severe shortness of breath or difficulty breathing Thank you for allowing us to participate in your care. Pending Studies at Discharge: No Stand-Alone Forms: My [facility], Smoking Cessation Medications and DC Order Prescriptions: New fluconazole 100 mg Tablet 200 mg PO QAM Qty: 36 0RF Rx Instructions: Please take 200mg po daily for the next 18 days magnesium oxide 400 mg (241.3 mg magnesium) Tablet 400 mg PO BID Qty: 60 0RF mirtazapine [Remeron] 15 mg tablet 7.5 mg PO HS 30 Days Qty: 15 0RF Continued fenofibrate nanocrystallized [Tricor] 145 mg tablet 145 mg PO QAM Qty: 90 1RF atorvastatin 20 mg tablet 20 mg PO HS Qty: 90 3RF metformin 500 mg tablet 1,000 mg PO BID Qty: 360 3RF Jardiance 10 mg tablet 10 mg PO DAILY Qty: 90 3RF pantoprazole [Protonix] 40 mg tablet,delayed release (DR/EC) 40 mg PO BID Qty: 60 0RF ondansetron 4 mg tablet,disintegrating 4 mg PO Q8H PRN (Reason: nausea and vomiting) Qty: 14 0RF Rx Instructions: Place 1 tablet under tongue as needed every 8 hours for nausea/vomiting aspirin 81 mg tablet,delayed release (DR/EC) 81 mg PO DAILY 90 Days Qty: 90 0RF Hold Instructions: Resume on 09/23/25. furosemide 40 mg tablet 40 mg PO DAILY PRN (Reason: edema) Qty: 30 5RF cholecalciferol (vitamin D3) [Vitamin D3] 5,000 unit Tablet 5,000 unit PO QAM Rx Instructions: give with heaviest meal of the day mecobalamin (vitamin B12) 1,000 mcg tablet,chewable 1,000 mcg PO QAM calcitonin (salmon) 200 unit/actuation [place],Non-Aerosol 1 spray NA DAILY Qty: 3.7 0RF lidocaine 4 % adhesive patch,medicated 1 patch topical DAILY PRN (Reason: pain) Qty: 30 0RF acetaminophen [Pain Relief (acetaminophen)] 325 mg tablet 650 mg PO Q6H PRN (Reason: fever or pain) Qty: 60 0RF metoprolol succinate 50 mg tablet extended release 24 hr 25 mg PO QAM Discharge Orders: Discharge Order (Routine); Ordered 12/23/24 Ordered By: Charlotte Park Admission Data Admit Date/Time: 12/18/24 20:43 Attending Provider: Cheyanne Gonzalez Admit Provider: Preston Richardson Primary Care Provider: Scout Jung V. Other Providers: Preston Richardson; Terrance Bajwa Jr; [facility] Stay Data Consultations 12/18/24 19:05 ED Decision to Admit Stat 12/19/24 00:02 Consult Gastroenterology Routine Diagnostic Imagining Performed 12/18/24 17:10 CT abd pelvis wo con Stat Pending Results Patient Have Any Pending Studies at Discharge: No Discharge Instructions Given to Patient (Per Discharging Provider) Ruth, You were admitted to the hospital for complaints of not eating and it was discovered you have a yeast infection in your mouth that may have been affecting your ability to eat. Please take all the medication that will be prescribed to you over the course of the next two weeks as it is important to complete the full course to eliminate the yeast in your mouth. You will be prescribed a new medication to help stimulate your appetite to take at bedtime. Home health will be coming to your home to help with physical therapy needs to strengthen you. Please follow you with gastroenterology as you need a repeat EGD to confirm the ulcers in your stomach have healed. Please follow up with your family doctor to have your lab work rechecked after discharge within on week. Medications: Your medication list has been reviewed and reconciled upon discharge to ensure accuracy and continuity of care. An updated list of all your medications is included with your hospital discharge paperwork. Please review this list closely, and make note of any changes. You were sent a few new medications to start at home. These medications have been sent to your pharmacy. The first one is called Diflucan. Take Diflucan 200mg once daily for the next 18 days. This is to treat the yeast infection in your mouth. The second one is called Remeron. This medication will help your appetite. Take it at bedtime as it may make you sleepy. The third one is magnesium. Take this medication twice a day to help keep you level normal. Take your medications as instructed; do not skip a dose of your medicines. Make sure all of your doctors know every medicine you are taking (including pnwq-txx-cazlkob medicines, vitamins, and supplements). Call your primary care provider before taking any new medicines (including over- the-counter medicines, vitamins, and supplements), because some of these may interact with your current medications, or may make your symptoms worse. Tell your primary care provider if you cannot afford your medications. Activity: You can do normal everyday activities as your body allows. Take rest breaks if you feel tired. Do not overexert. Stop activity if you have pain, shortness of breath or feel dizzy. Follow-up appointments: Make an appointment with your primary care physician within one week of discharge. A copy of this summary will be sent to them. Every time you see your primary care physician, or any other doctor, bring your medication list, and a list of questions. CONTACT YOUR PRIMARY CARE PROVIDER if you experience any of the following: Shortness of breath or difficulty breathing Fevers or chills Feeling tired with normal activity or experiencing dizziness or fainting Difficulty following your treatment plan, or difficulty taking medications CALL 911 OR GO TO THE EMERGENCY DEPARTMENT if you experience any of the following: Severe abdominal pain or nausea/vomiting Severe chest pain, or chest pain that radiates (moves) to your jaw or arm Sudden, severe shortness of breath or difficulty breathing Thank you for allowing us to participate in your care. Total Time Total Time Spent Total Time Spent (In Minutes): I spent a total of 50 minutes on the date of service in review of patient's record, and previously obtained information in person and appropriate medical visit, discussion and education of plan, with patient and/or caregiver, placing orders for tests/referral/procedures as medically necessary and documentation of pertinent clinical information in patient's medical records for their visit today. Coding Level of Care Code 06694 INP/OBS DISCH >30 MIN Diagnoses Thrush of mouth and esophagus B37.81; B37.0 Acute peptic ulcer of stomach K25.3 Gastric ulcer chronicity: acute WALDO (acute kidney injury) N17.9"
--- NOTE | 2024-12-24 06:25 | Electrocardiogram Report ---
Test Reason : Blood Pressure : */* mmHG Vent. Rate : 73 BPM Atrial Rate : 73 BPM P-R Int : 150 ms QRS Dur : 80 ms QT Int : 418 ms P-R-T Axes : 60 -61 48 degrees QTcB Int : 460 ms Normal sinus rhythm Left anterior fascicular block Anterolateral infarct (cited on or before 24-Oct-2024) Abnormal ECG When compared with ECG of 24-Oct-2024 20:15, No significant change was found Confirmed by Maikel Richardson ([id number]) on 12/24/2024 6:25:23 AM Referred By: REFERRED SELF Confirmed By: Maikel Richardson
== END 2024-12-23 15:08 | disposition home health service (06) | DRG 369 ==
LOC: ED 15:54 → 3N 20:43 → SUATTDRO 20:43 → 3N 23:43